=== PATIENT | female | born 1970 | race Caucasian/White ===

== ENCOUNTER → 2017-05-09 | Outpatient (CLI) | payer MEDICARE, OTHER ==
[~2017-05-09] MED LIST: /FENT25PA; /TAMS4CA; ADVAIR100 INHALATION; AMBI12.52 PO; AMIT25TA10 PO; AMIT50TA PO; BACTRIMDS PO; BUPR100T3 PO; BUPR50TA PO; CALCTAB5 PO; CELE40TA PO; CELEXA20 PO; CIPR-249 PO; CIPRO500 PO; CYCL10TA3 PO; DETR4CAP; DOXYCYC100 PO; DULO1CAP3 PO; DULO30CA PO; DULOXETINE DR PO; EFFE150C; EFFE75CA75; EFFEXORXL1 PO; EFFEXORXL7 PO; FLOMAX 0.4 PO; FLUO20CA19 PO; FOLI1TAB86 PO; GABA-283 PO; GABA300C2 PO; GABA800T PO; HYDR-3716 PO; HYDR50CA2 PO; IMIT50TA PO; INVE234I IM; K-DUR10 PO; LEVO125T6; LEVO150T7 PO; LEVO175T2 PO; LEVO25TA2; LEVO50TA2; LEVOXYL50 PO; LEXAPRO10 PO; LIDO1DIS2 TD; LOTRIMIN; LOVENOX40 SQ; MAXALT PO; MELO15TA3 PO; META28.35 PO; MINI1CAP PO; MOM; MOTRIN400 PO; NAPROSY500 PO; NEUR300C; NEUR300C PO; NEURONTIN6 PO; NICO14DI20 TD; NUCY100T6 PO; OMEP40CA2 PO; OXYC-208 PO; OXYC1SOL PO; PENVK500 PO; PERC5TAB8 PO; PRAZ2CAP PO; PROP10TA56 PO; PROP40TA PO; PROZ20CA11 PO; PSYLLIUM PO; RISP0.5T21 PO; RISP25INJ IM; RISP2TAB3 PO; SEPT800T; SIMV20TA2 PO; SOMA350T PO; SYNT175T2 PO; TESSALO100 PO; TOPAMAX25 PO; TORADOL PO; TRAZ-136 PO; TRAZ10TA PO; TRAZ1TAB14 PO; TRAZ50TA11 PO; Tizanidine Hcl PO; ULTR50TA PO; VENL75TA2; VICO5TAB; VICO5TAB PO; VICOBULK PO; VICODIN PO; VICODIN-ES PO; VICODIN10 PO; VICODIN7.5 PO; VITAD1000T PO; VOLT1GEL2 TD; VYTORIN10 PO; XANA0.5T PO; XANA2TAB2 PO; XANAX0.5 PO; ZYPR15TA PO; ZYPR5TAB2 PO; ZYRT10CA PO; [UNRECOGNIZED DRUG - OTHER] PO; [UNRECOGNIZED DRUG - OTHER] PO; butrans patch TOP
[2017-05-09 11:22] LABS: MEAN CORPUSCULAR HEMOGLOBIN 31.3 pg (27.0-33.0); MEAN CORPUSCULAR HGB CONC 33.8 g/dl (32.0-36.5); MEAN CORPUSCULAR VOLUME 92.5 fl (80.0-96.0); RED CELL DISTRIBUTION WIDTH 13.7 % (11.5-14.5); WHITE BLOOD COUNT 5.5 K/mm3 (4.0-10.0)
--- NOTE | 2017-05-09 12:25 | REP ---
Chest two views HISTORY: Hypertension Comparison: 09/08/2015 The lungs are clear. The heart is normal in size. The pulmonary vasculature is normal in appearance. The bony structure is intact. IMPRESSION: No acute disease. Signed by Xavier Girard MD 05/09/2017 12:16 P
[2017-05-09 12:31] LABS: ALBUMIN 3.8 GM/DL (3.2-5.2); ALBUMIN/GLOBULIN RATIO 1.09 (1.00-1.93); ALKALINE PHOSPHATASE 137 U/L (45-117); ALT/SGPT 25 U/L (12-78); ANION GAP 8 MEQ/L (8-16); AST/SGOT 17 U/L (15-37); BILIRUBIN,TOTAL 0.3 MG/DL (0.2-1.0); BLOOD UREA NITROGEN 4 MG/DL (7-18); CALCIUM LEVEL 9.2 MG/DL (8.5-10.1); CARBON DIOXIDE LEVEL 28 MEQ/L (21-32); CHLORIDE LEVEL 104 MEQ/L (98-107); CHOLESTEROL LEVEL 246 MG/DL (<200); CREATININE FOR GFR 0.86 MG/DL (0.55-1.02); GLOMERULAR FILTRATION RATE > 60.0 (>58); GLUCOSE, FASTING 149 MG/DL (70-105); POTASSIUM SERUM 3.5 MEQ/L (3.5-5.1); SODIUM LEVEL 140 MEQ/L (136-145); TOTAL PROTEIN 7.3 GM/DL (6.4-8.2); TRIGLYCERIDES LEVEL 395 MG/DL (<150)
--- NOTE | 2017-05-09 13:23 | ECGEPIP ---
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
== END ==
LOC: M LAB 10:42
PROVIDERS: ATTEND Family Medicine
DX: I10 Essential (primary) hypertension (principal); R53.83 Other fatigue; E03.9 Hypothyroidism, unspecified

== ENCOUNTER → 2017-05-14 | Outpatient (CLI) | payer MEDICARE, OTHER | LOC: M LAB 10:56 | PROVIDERS: ATTEND Nurse Practitioner Psychiatric/Mental Health | DX: Z79.899 Other long term (current) drug therapy (principal); F31.81 Bipolar II disorder ==

== ENCOUNTER → 2017-05-28 | Outpatient (CLI) | payer MEDICARE, OTHER ==
--- NOTE | 2017-05-28 12:51 | REPMRS ---
Patient History The patient states she had a clinical breast exam in February 2017.Family history of endometrial cancer in paternal grandmother at age 50 or over. Digital Mammo Screening Bilat: May 28, 2017 - Exam #: [id number] Bilateral CC and MLO view(s) were taken. Technologist: Laura Correa, Technologist Prior study comparison: February 25, 2012, bilateral digital mammo screening bilat performed at [facility]. February 15, 2011, bilateral bilat screen digital mammo, performed at [facility]. FINDINGS: The breast tissue is heterogeneously dense. This may lower the sensitivity of mammography. There is a moderate amount of heterogeneously dense fibroglandular tissue which is fairly symmetric. There is no interval development of dominant mass, architectural distortion, or clustered microcalcification typical of malignancy. There has been no change in the appearance of the mammogram from the prior studies. ASSESSMENT: BI-RADS/ACR category 1 mammogram. Negative. Recommendation Routine screening mammogram of both breasts in 1 year (for women over age 40). This mammogram was interpreted with the aid of an FDA-approved computer-aided dectection system. Electronically Signed By: Rickie Barrera MD 05/28/17 [id number]
== END ==
LOC: M RAD 11:53
PROVIDERS: ATTEND Family Medicine
DX: Z12.31 Encounter for screening mammogram for malignant neoplasm of breast (principal); Z80.42 Family history of malignant neoplasm of prostate

== ENCOUNTER 2017-12-17 09:07 | Inpatient (IN) | payer MEDICARE, OTHER ==
[2017-12-17 12:05] LABS: BASO % 0.2 % (0.0-1.0); EOS % 0.1 % (0.0-3.0); HEMATOCRIT 41.2 % (36.0-47.0); HEMOGLOBIN 14.3 g/dl (12.0-15.5); IMMATURE GRANULOCYTE % 1.6 % (0-3.0); LYMPH # 0.9 10^3/uL (1.5-4.5); LYMPH % 9.8 % (24.0-44.0); MEAN CORPUSCULAR HGB CONC 34.7 g/dl (32.0-36.5); MEAN CORPUSCULAR VOLUME 89.2 fl (80.0-96.0); MONO # 0.4 10^3/uL (0.0-0.8); MONO % 4.9 % (0.0-5.0); NEUTROPHILS # 7.4 10^3/uL (1.8-7.7); NEUTROPHILS % 83.4 % (36.0-66.0); PLATELET COUNT, AUTOMATED 323 10^3/uL (150-450); RED BLOOD COUNT 4.62 10^6/uL (4.00-5.40); WHITE BLOOD COUNT 8.8 10^3/uL (4.0-10.0)
[2017-12-17] MEDS: NS 1,000 ML IV ×2 (13:04→20:44)
[2017-12-17 13:18] LABS: BEDSIDE GLUCOSE 112 MG/DL (70-105)
[2017-12-17 13:25] LABS: KETONE, URINE AUTO RFX TRACE mg/dL (NEGATIVE); LEUKOCYTE ESTERASE UR AUTO RFX 3+ (NEGATIVE); MUCUS, URINE RFX SMALL (NEGATIVE); NITRITE, URINE AUTO RFX POSITIVE (NEGATIVE); RBC, URINE AUTO RFX 5 /HPF (0-3); SPECIFIC GRAVITY UR AUTO RFX 1.014 (1.002-1.035); SQUAM EPITHELIAL CELL UR AURFX 2 /HPF (0-6); WBC, URINE AUTO RFX 101 /HPF (0-3)
[2017-12-17 13:37] LABS: CONTROL LINE HCG INT CTR LINE PRESENT; HCG, SERUM QUALITATIVE NEGATIVE (NEGATIVE)
[2017-12-17 13:44] LABS: AMPHETAMINES LEVEL URINE NEGATIVE (NEGATIVE); BARBITURATES URINE NEGATIVE (NEGATIVE); BENZODIAZEPINES URINE NEGATIVE (NEGATIVE); CANNABINOIDS URINE POSITIVE (NEGATIVE); COCAINE METABOLITE URINE NEGATIVE (NEGATIVE); METHADONE URINE NEGATIVE (NEGATIVE); OPIATES URINE NEGATIVE (NEGATIVE); PHENCYCLIDINE URINE NEGATIVE (NEGATIVE)
[2017-12-17 13:49] LABS: AMMONIA 47 uMOL/L (<32)
[2017-12-17 13:49] LABS: CPK CREATINE PHOSPHOKINASE 107 U/L (26-192); SALICYLATE LEVEL < 1.7 MG/DL (5.0-30.0); TROPONIN I < 0.02 NG/ML (< 0.10)
[2017-12-17 13:54] LABS: CK-MB VALUE MASS 2.2 NG/ML (<3.6); MB/CK RELATIVE INDEX 2.05 (< OR =4)
[2017-12-17 13:55] LABS: ACETAMINOPHEN LEVEL < 2.0 UG/ML (10.0-30.0); ETHYL ALCOHOL (ETHANOL) < 0.003 % (0.000-0.010)
[2017-12-17] MEDS: CEFTRIAXONE SOD 1 GM in APPROPRIATE DILUENT 1 EA IV (14:17)
[2017-12-17 15:34] LABS: ALBUMIN 4.6 GM/DL (3.2-5.2); ALBUMIN/GLOBULIN RATIO 1.24 (1.00-1.93); ALKALINE PHOSPHATASE 303 U/L (45-117); ALT/SGPT 19 U/L (12-78); ANION GAP 12 MEQ/L (8-16); AST/SGOT 17 U/L (7-37); BILIRUBIN,TOTAL 0.7 MG/DL (0.2-1.0); BLOOD UREA NITROGEN 14 MG/DL (7-18); CALCIUM LEVEL 10.5 MG/DL (8.5-10.1); CARBON DIOXIDE LEVEL 23 MEQ/L (21-32); CHLORIDE LEVEL 96 MEQ/L (98-107); CREATININE FOR GFR 0.83 MG/DL (0.55-1.30); GLOMERULAR FILTRATION RATE > 60.0 (>58); GLUCOSE, FASTING 120 MG/DL (70-100); SODIUM LEVEL 131 MEQ/L (136-145); TOTAL PROTEIN 8.3 GM/DL (6.4-8.2)
[2017-12-17 15:43] LABS: POTASSIUM SERUM 2.7 MEQ/L (3.5-5.1)
[2017-12-17] MEDS: POTASSIUM CHLORIDE 10 MEQ SR TABLET PO (16:43)
[2017-12-17] MEDS: KCL 10MEQ/100ML SWI (KRUN) 10 MEQ in APPROPRIATE DILUENT 1 EA IV ×5 (17:33→23:41)
[2017-12-17 17:58] LABS: ANION GAP 9 MEQ/L (8-16); BLOOD UREA NITROGEN 12 MG/DL (7-18); CARBON DIOXIDE LEVEL 25 MEQ/L (21-32); CHLORIDE LEVEL 98 MEQ/L (98-107); CREATININE FOR GFR 0.79 MG/DL (0.55-1.30); GLOMERULAR FILTRATION RATE > 60.0 (>58); GLUCOSE, FASTING 113 MG/DL (70-100); POTASSIUM SERUM 2.7 MEQ/L (3.5-5.1); SODIUM LEVEL 132 MEQ/L (136-145)
[2017-12-17] MEDS ORDERED: ALPRAZolam 0.5 MG TAB PO (18:45)
[2017-12-17] MEDS: LEVOTHYROXINE 100 MCG (0.1MG) VIAL IV (20:43)
[2017-12-17 21:14] LABS: FREE T4 0.22 NG/DL (0.76-1.46)
[2017-12-17 21:14] LABS: FREE T3 0.8 PG/ML (2.2-4.0)
[2017-12-17 21:15] LABS: LITHIUM LEVEL 2.33 MEQ/L (0.60-1.20)
[2017-12-17] MEDS: PROPRANOLOL 20 MG TAB PO (21:16)
[2017-12-17] MEDS: PRAZOSIN 1 MG CAP PO (21:17)
[2017-12-17] MEDS: ALPRAZolam 0.25 MG TAB PO (21:20)
[2017-12-18 00:56] LABS: ANION GAP 5 MEQ/L (8-16); BLOOD UREA NITROGEN 10 MG/DL (7-18); CALCIUM LEVEL 9.6 MG/DL (8.5-10.1); CARBON DIOXIDE LEVEL 28 MEQ/L (21-32); CHLORIDE LEVEL 101 MEQ/L (98-107); CREATININE FOR GFR 0.78 MG/DL (0.55-1.30); GLOMERULAR FILTRATION RATE > 60.0 (>58); GLUCOSE, FASTING 115 MG/DL (70-100); POTASSIUM SERUM 3.3 MEQ/L (3.5-5.1); SODIUM LEVEL 134 MEQ/L (136-145)
[2017-12-18 01:15] LABS: LITHIUM LEVEL 2.34 MEQ/L (0.60-1.20)
[2017-12-18] MEDS: NS 1,000 ML IV ×2 (03:27→07:01)
[2017-12-18] MEDS: POTASSIUM CHLORIDE 10 MEQ SR TABLET PO (03:27)
[2017-12-18 05:18] LABS: ANION GAP 5 MEQ/L (8-16); BLOOD UREA NITROGEN 10 MG/DL (7-18); CARBON DIOXIDE LEVEL 25 MEQ/L (21-32); CHLORIDE LEVEL 104 MEQ/L (98-107); CPK CREATINE PHOSPHOKINASE 60 U/L (26-192); CREATININE FOR GFR 0.67 MG/DL (0.55-1.30); GLOMERULAR FILTRATION RATE > 60.0 (>58); GLUCOSE, FASTING 121 MG/DL (70-100); MAGNESIUM LEVEL 2.6 MG/DL (1.8-2.4); POTASSIUM SERUM 3.8 MEQ/L (3.5-5.1); SODIUM LEVEL 134 MEQ/L (136-145); TROPONIN I < 0.02 NG/ML (< 0.10)
[2017-12-18 05:20] LABS: CK-MB VALUE MASS < 1.0 NG/ML (<3.6); MB/CK RELATIVE INDEX 1.66 (< OR =4)
[2017-12-18 05:30] LABS: LITHIUM LEVEL 2.32 MEQ/L (0.60-1.20)
[2017-12-18] MEDS ORDERED: DULoxetine 30 MG CAP (CYMBALTA) PO (09:00)
[2017-12-18] MEDS: ENOXAPARIN 40 MG/0.4 ML SYRINGE (J1650) SC (09:21)
[2017-12-18] MEDS: DULoxetine 30 MG CAP (CYMBALTA) PO (09:21)
[2017-12-18] MEDS: LEVOTHYROXINE 100 MCG (0.1MG) VIAL IV (09:21)
[2017-12-18] MEDS: PROPRANOLOL 20 MG TAB PO ×2 (09:21→21:30)
[2017-12-18] MEDS: OMEPRAZOLE 20 MG CAP PO (09:21)
[2017-12-18 10:16] LABS: BASO % 0.2 % (0.0-1.0); EOS % 0.5 % (0.0-3.0); HEMOGLOBIN 12.4 g/dl (12.0-15.5); IMMATURE GRANULOCYTE % 0.9 % (0-3.0); LYMPH % 12.2 % (24.0-44.0); MEAN CORPUSCULAR HEMOGLOBIN 31.5 pg (27.0-33.0); MEAN CORPUSCULAR HGB CONC 34.4 g/dl (32.0-36.5); MEAN CORPUSCULAR VOLUME 91.4 fl (80.0-96.0); MONO # 0.5 10^3/uL (0.0-0.8); MONO % 6.4 % (0.0-5.0); NEUTROPHILS # 6.8 10^3/uL (1.8-7.7); NEUTROPHILS % 79.8 % (36.0-66.0); PLATELET COUNT, AUTOMATED 309 10^3/uL (150-450); RED BLOOD COUNT 3.94 10^6/uL (4.00-5.40); RED CELL DISTRIBUTION WIDTH 14.5 % (11.5-14.5); WHITE BLOOD COUNT 8.5 10^3/uL (4.0-10.0)
[2017-12-18 10:38] LABS: AMMONIA 31 uMOL/L (<32)
[2017-12-18 10:41] LABS: ALBUMIN 3.7 GM/DL (3.2-5.2); ALBUMIN/GLOBULIN RATIO 1.16 (1.00-1.93); ALKALINE PHOSPHATASE 261 U/L (45-117); ALT/SGPT 20 U/L (12-78); AST/SGOT 17 U/L (7-37); BILIRUBIN,DIRECT 0.1 MG/DL (0.0-0.2); BILIRUBIN,TOTAL 0.4 MG/DL (0.2-1.0); C REACTIVE PROTEIN QUANTITATIV < 0.30 MG/DL (0.00-0.30); TOTAL PROTEIN 6.9 GM/DL (6.4-8.2)
[2017-12-18 10:44] LABS: ABG BASE EXCESS -0.8 (-2.0-2.0); ABG HCO3 21.8 MEQ/L (22.0-26.0); ABG O2 SATURATION 94.5 % (95.0-99.0); ABG PARTIAL PRESSURE CO2 30.5 mmHg (35.0-45.0); ABG PARTIAL PRESSURE O2 66.2 mmHg (75.0-100.0); ABG STANDARD HCO3 23.7 MEQ/L (22.0-26.0); ABG TOTAL CO2 22.8 MEQ/L (22.0-29.0); ABG pH (ARTERIAL) 7.473 UNITS (7.350-7.450)
[2017-12-18 11:04] LABS: ERYTHROCYTE SEDIMENTATION RATE 10 mm/hr (0-20)
[2017-12-18 11:06] LABS: LITHIUM LEVEL 2.07 MEQ/L (0.60-1.20)
[2017-12-18] MEDS ORDERED: HEPARIN 1,000 UNITS/ML 10ML VIAL (FOR RADIOLOGY& DIALYSIS ONLY) As Ordered (11:51)
[2017-12-18] MEDS ORDERED: LIDOCAINE 2% MDV 20 ML VIAL As Ordered (12:46)
[2017-12-18 13:07] LABS: LITHIUM LEVEL 1.99 MEQ/L (0.60-1.20)
[2017-12-18 15:36] LABS: LITHIUM LEVEL 1.77 MEQ/L (0.60-1.20)
[2017-12-18 16:57] LABS: LITHIUM LEVEL 0.76 MEQ/L (0.60-1.20)
[2017-12-18 19:53] LABS: LITHIUM LEVEL 1.09 MEQ/L (0.60-1.20)
[2017-12-18] MEDS: ALPRAZolam 0.25 MG TAB PO (21:29)
[2017-12-18] MEDS: PRAZOSIN 1 MG CAP PO (21:29)
[2017-12-18 21:45] LABS: LITHIUM LEVEL 1.07 MEQ/L (0.60-1.20)
[2017-12-18 23:57] LABS: LITHIUM LEVEL 1.15 MEQ/L (0.60-1.20)
[2017-12-19 01:28] LABS: ANION GAP 6 MEQ/L (8-16); BLOOD UREA NITROGEN 6 MG/DL (7-18); CALCIUM LEVEL 8.7 MG/DL (8.5-10.1); CARBON DIOXIDE LEVEL 28 MEQ/L (21-32); CHLORIDE LEVEL 106 MEQ/L (98-107); CREATININE FOR GFR 0.62 MG/DL (0.55-1.30); GLOMERULAR FILTRATION RATE > 60.0 (>58); GLUCOSE, FASTING 116 MG/DL (70-100); SODIUM LEVEL 140 MEQ/L (136-145)
[2017-12-19 01:33] LABS: LITHIUM LEVEL 1.15 MEQ/L (0.60-1.20)
[2017-12-19] MEDS: NS 1,000 ML IV ×2 (01:49→08:32)
[2017-12-19 04:50] LABS: BASO % 0.3 % (0.0-1.0); EOS # 0.1 10^3/uL (0.0-0.50); HEMOGLOBIN 10.7 g/dl (12.0-15.5); IMMATURE GRANULOCYTE % 0.5 % (0-3.0); LYMPH # 1.4 10^3/uL (1.5-4.5); LYMPH % 22.4 % (24.0-44.0); MEAN CORPUSCULAR HEMOGLOBIN 31.5 pg (27.0-33.0); MEAN CORPUSCULAR HGB CONC 33.4 g/dl (32.0-36.5); MEAN CORPUSCULAR VOLUME 94.1 fl (80.0-96.0); MONO # 0.6 10^3/uL (0.0-0.8); MONO % 9.3 % (0.0-5.0); NEUTROPHILS # 4.2 10^3/uL (1.8-7.7); NEUTROPHILS % 66.5 % (36.0-66.0); PLATELET COUNT, AUTOMATED 226 10^3/uL (150-450); RED CELL DISTRIBUTION WIDTH 14.8 % (11.5-14.5); WHITE BLOOD COUNT 6.3 10^3/uL (4.0-10.0)
[2017-12-19 05:16] LABS: BLOOD UREA NITROGEN 7 MG/DL (7-18); CHLORIDE LEVEL 107 MEQ/L (98-107); POTASSIUM SERUM 3.1 MEQ/L (3.5-5.1); SODIUM LEVEL 141 MEQ/L (136-145)
[2017-12-19 05:23] LABS: ANION GAP 6 MEQ/L (8-16); CALCIUM LEVEL 8.7 MG/DL (8.5-10.1); CARBON DIOXIDE LEVEL 28 MEQ/L (21-32); CREATININE FOR GFR 0.58 MG/DL (0.55-1.30); GLOMERULAR FILTRATION RATE > 60.0 (>58); GLUCOSE, FASTING 123 MG/DL (70-100)
[2017-12-19 05:34] LABS: LITHIUM LEVEL 1.13 MEQ/L (0.60-1.20)
[2017-12-19 08:02] LABS: LITHIUM LEVEL 1.14 MEQ/L (0.60-1.20)
[2017-12-19] MEDS: POTASSIUM CHLORIDE 10 MEQ SR TABLET PO (08:35)
[2017-12-19] MEDS: DULoxetine 30 MG CAP (CYMBALTA) PO (08:37)
[2017-12-19] MEDS: OMEPRAZOLE 20 MG CAP PO (08:37)
[2017-12-19] MEDS: ENOXAPARIN 40 MG/0.4 ML SYRINGE (J1650) SC (08:38)
[2017-12-19] MEDS: LEVOTHYROXINE 100 MCG (0.1MG) VIAL IV (08:40)
[2017-12-19] MEDS: INFLUENZA QUADRIVALENT PF VACCINE 0.5ML SYRINGE (90686) IM (08:40)
[2017-12-19] MEDS: PROPRANOLOL 20 MG TAB PO ×2 (08:59→20:36)
[2017-12-19] MEDS: ONDANSETRON 4MG/2ML VIAL (J2405) IV (09:29)
[2017-12-19 10:03] LABS: LITHIUM LEVEL 1.07 MEQ/L (0.60-1.20)
[2017-12-19] MEDS: CEFTRIAXONE SOD 1 GM in APPROPRIATE DILUENT 1 EA IV (10:36)
[2017-12-19 11:51] LABS: LITHIUM LEVEL 1.06 MEQ/L (0.60-1.20)
[2017-12-19] MEDS: KCL 20MEQ IN 0.45NS 1000ML 1,000 ML IV (13:35)
[2017-12-19 14:00] LABS: LITHIUM LEVEL 1.05 MEQ/L (0.60-1.20)
[2017-12-19 15:29] LABS: INR 0.99; PROTHROMBIN TIME 13.2 SECONDS (12.4-14.5)
[2017-12-19 15:48] LABS: LITHIUM LEVEL 1.06 MEQ/L (0.60-1.20)
[2017-12-19] MEDS: ALPRAZolam 0.25 MG TAB PO (17:35)
[2017-12-19 18:17] LABS: ANION GAP 6 MEQ/L (8-16); BLOOD UREA NITROGEN 9 MG/DL (7-18); CALCIUM LEVEL 9.3 MG/DL (8.5-10.1); CARBON DIOXIDE LEVEL 25 MEQ/L (21-32); CHLORIDE LEVEL 108 MEQ/L (98-107); CREATININE FOR GFR 0.66 MG/DL (0.55-1.30); GLOMERULAR FILTRATION RATE > 60.0 (>58); GLUCOSE, FASTING 159 MG/DL (70-100); POTASSIUM SERUM 3.6 MEQ/L (3.5-5.1); SODIUM LEVEL 139 MEQ/L (136-145)
[2017-12-19 18:24] LABS: LITHIUM LEVEL 0.96 MEQ/L (0.60-1.20)
[2017-12-19 19:20] LABS: LITHIUM LEVEL 0.95 MEQ/L (0.60-1.20)
[2017-12-19] MEDS: PRAZOSIN 1 MG CAP PO (20:36)
[2017-12-19 22:27] LABS: LITHIUM LEVEL 0.89 MEQ/L (0.60-1.20)
[2017-12-20 05:27] LABS: BASO % 0.2 % (0.0-1.0); EOS # 0.1 10^3/uL (0.0-0.50); EOS % 1.5 % (0.0-3.0); HEMATOCRIT 30.9 % (36.0-47.0); HEMOGLOBIN 10.2 g/dl (12.0-15.5); IMMATURE GRANULOCYTE % 0.8 % (0-3.0); LYMPH # 1.9 10^3/uL (1.5-4.5); LYMPH % 31.8 % (24.0-44.0); MEAN CORPUSCULAR HEMOGLOBIN 31.2 pg (27.0-33.0); MEAN CORPUSCULAR VOLUME 94.5 fl (80.0-96.0); MONO # 0.4 10^3/uL (0.0-0.8); MONO % 6.9 % (0.0-5.0); NEUTROPHILS # 3.6 10^3/uL (1.8-7.7); NEUTROPHILS % 58.8 % (36.0-66.0); PLATELET COUNT, AUTOMATED 204 10^3/uL (150-450); RED BLOOD COUNT 3.27 10^6/uL (4.00-5.40); RED CELL DISTRIBUTION WIDTH 15.5 % (11.5-14.5); WHITE BLOOD COUNT 6.1 10^3/uL (4.0-10.0)
[2017-12-20 05:51] LABS: ANION GAP 5 MEQ/L (8-16); BLOOD UREA NITROGEN 8 MG/DL (7-18); CALCIUM LEVEL 8.6 MG/DL (8.5-10.1); CARBON DIOXIDE LEVEL 26 MEQ/L (21-32); CHLORIDE LEVEL 109 MEQ/L (98-107); CREATININE FOR GFR 0.68 MG/DL (0.55-1.30); GLOMERULAR FILTRATION RATE > 60.0 (>58); GLUCOSE, FASTING 118 MG/DL (70-100); POTASSIUM SERUM 3.6 MEQ/L (3.5-5.1); SODIUM LEVEL 140 MEQ/L (136-145)
[2017-12-20 06:09] LABS: LITHIUM LEVEL 0.92 MEQ/L (0.60-1.20)
[2017-12-20] MEDS: PROPRANOLOL 20 MG TAB PO ×2 (09:00→21:27)
[2017-12-20] MEDS: ENOXAPARIN 40 MG/0.4 ML SYRINGE (J1650) SC (09:00)
[2017-12-20] MEDS: OMEPRAZOLE 20 MG CAP PO (11:02)
[2017-12-20] MEDS: DULoxetine 30 MG CAP (CYMBALTA) PO (11:02)
[2017-12-20] MEDS: KCL 20MEQ IN 0.45NS 1000ML 1,000 ML IV ×2 (11:03→12:02)
[2017-12-20] MEDS: LEVOTHYROXINE 100 MCG (0.1MG) VIAL IV ×2 (11:04→12:02)
[2017-12-20] MEDS: CEFTRIAXONE SOD 1 GM in APPROPRIATE DILUENT 1 EA IV ×2 (11:04→12:02)
[2017-12-20 12:26] LABS: AMMONIA < 10 uMOL/L (<32)
[2017-12-20 12:32] LABS: LITHIUM LEVEL 0.85 MEQ/L (0.60-1.20)
[2017-12-20 12:36] LABS: ALBUMIN 3.3 GM/DL (3.2-5.2); ALBUMIN/GLOBULIN RATIO 1.22 (1.00-1.93); ALKALINE PHOSPHATASE 211 U/L (45-117); ALT/SGPT 18 U/L (12-78); AST/SGOT 13 U/L (7-37); BILIRUBIN,DIRECT 0.1 MG/DL (0.0-0.2); BILIRUBIN,TOTAL 0.3 MG/DL (0.2-1.0)
[2017-12-20] MEDS: PRAZOSIN 1 MG CAP PO (21:26)
[2017-12-21] MEDS: SODIUM CHLORIDE 0.9% INJ 10 ML SYR IV ×2 (05:31→17:15)
[2017-12-21 07:05] LABS: BASO % 0.4 % (0.0-1.0); EOS # 0.1 10^3/uL (0.0-0.50); EOS % 1.8 % (0.0-3.0); HEMATOCRIT 32.3 % (36.0-47.0); HEMOGLOBIN 10.7 g/dl (12.0-15.5); IMMATURE GRANULOCYTE % 0.9 % (0-3.0); LYMPH # 1.6 10^3/uL (1.5-4.5); LYMPH % 28.6 % (24.0-44.0); MEAN CORPUSCULAR HEMOGLOBIN 30.9 pg (27.0-33.0); MEAN CORPUSCULAR HGB CONC 33.1 g/dl (32.0-36.5); MEAN CORPUSCULAR VOLUME 93.4 fl (80.0-96.0); MONO # 0.4 10^3/uL (0.0-0.8); MONO % 7.4 % (0.0-5.0); NEUTROPHILS # 3.4 10^3/uL (1.8-7.7); NEUTROPHILS % 60.9 % (36.0-66.0); PLATELET COUNT, AUTOMATED 221 10^3/uL (150-450); RED BLOOD COUNT 3.46 10^6/uL (4.00-5.40); RED CELL DISTRIBUTION WIDTH 15.1 % (11.5-14.5); WHITE BLOOD COUNT 5.5 10^3/uL (4.0-10.0)
[2017-12-21 07:08] LABS: ANION GAP 7 MEQ/L (8-16); BLOOD UREA NITROGEN 6 MG/DL (7-18); CALCIUM LEVEL 9.1 MG/DL (8.5-10.1); CARBON DIOXIDE LEVEL 25 MEQ/L (21-32); CHLORIDE LEVEL 106 MEQ/L (98-107); CREATININE FOR GFR 0.61 MG/DL (0.55-1.30); GLOMERULAR FILTRATION RATE > 60.0 (>58); GLUCOSE, FASTING 115 MG/DL (70-100); POTASSIUM SERUM 3.4 MEQ/L (3.5-5.1); SODIUM LEVEL 138 MEQ/L (136-145)
[2017-12-21 07:34] LABS: LITHIUM LEVEL 0.57 MEQ/L (0.60-1.20)
[2017-12-21] MEDS: LEVOTHYROXINE 100 MCG (0.1MG) VIAL IV (08:09)
[2017-12-21] MEDS: PROPRANOLOL 20 MG TAB PO ×2 (08:12→20:25)
[2017-12-21] MEDS: ENOXAPARIN 40 MG/0.4 ML SYRINGE (J1650) SC (08:12)
[2017-12-21] MEDS: OMEPRAZOLE 20 MG CAP PO (08:12)
[2017-12-21] MEDS: DULoxetine 30 MG CAP (CYMBALTA) PO (08:12)
[2017-12-21] MEDS: cefTRIAXone SOD 1 GM in D5W MINI-BAG PLUS 50 ML IV (09:01)
[2017-12-21] MEDS: POTASSIUM CHLORIDE 10 MEQ SR TABLET PO (09:01)
[2017-12-21] MEDS: KCL 20MEQ IN 0.45NS 1000ML 1,000 ML IV (11:51)
[2017-12-21] MEDS: predniSONE 20 MG TAB PO (12:21)
[2017-12-21] MEDS: PRAZOSIN 1 MG CAP PO (20:25)
[2017-12-22] MEDS: SODIUM CHLORIDE 0.9% INJ 10 ML SYR IV ×2 (05:25→17:12)
[2017-12-22 05:36] LABS: BASO % 0.2 % (0.0-1.0); EOS % 0.5 % (0.0-3.0); HEMATOCRIT 31.2 % (36.0-47.0); HEMOGLOBIN 10.5 g/dl (12.0-15.5); IMMATURE GRANULOCYTE % 0.8 % (0-3.0); LYMPH # 1.8 10^3/uL (1.5-4.5); LYMPH % 29.1 % (24.0-44.0); MEAN CORPUSCULAR HEMOGLOBIN 31.7 pg (27.0-33.0); MEAN CORPUSCULAR HGB CONC 33.7 g/dl (32.0-36.5); MEAN CORPUSCULAR VOLUME 94.3 fl (80.0-96.0); MONO # 0.5 10^3/uL (0.0-0.8); MONO % 7.4 % (0.0-5.0); NEUTROPHILS # 3.9 10^3/uL (1.8-7.7); PLATELET COUNT, AUTOMATED 220 10^3/uL (150-450); RED BLOOD COUNT 3.31 10^6/uL (4.00-5.40); RED CELL DISTRIBUTION WIDTH 15.4 % (11.5-14.5); WHITE BLOOD COUNT 6.2 10^3/uL (4.0-10.0)
[2017-12-22 05:57] LABS: ANION GAP 7 MEQ/L (8-16); BLOOD UREA NITROGEN 5 MG/DL (7-18); CARBON DIOXIDE LEVEL 25 MEQ/L (21-32); CHLORIDE LEVEL 108 MEQ/L (98-107); CREATININE FOR GFR 0.63 MG/DL (0.55-1.30); GLOMERULAR FILTRATION RATE > 60.0 (>58); GLUCOSE, FASTING 114 MG/DL (70-100); POTASSIUM SERUM 3.6 MEQ/L (3.5-5.1); SODIUM LEVEL 140 MEQ/L (136-145)
[2017-12-22] MEDS: POTASSIUM CHLORIDE 10 MEQ SR TABLET PO (06:44)
[2017-12-22] MEDS: PROPRANOLOL 20 MG TAB PO ×2 (07:51→22:00)
[2017-12-22] MEDS: DULoxetine 30 MG CAP (CYMBALTA) PO (07:52)
[2017-12-22] MEDS: ENOXAPARIN 40 MG/0.4 ML SYRINGE (J1650) SC (07:52)
[2017-12-22] MEDS: LEVOTHYROXINE 100 MCG (0.1MG) VIAL IV (07:52)
[2017-12-22] MEDS: OMEPRAZOLE 20 MG CAP PO (07:52)
[2017-12-22] MEDS: predniSONE 20 MG TAB PO (07:52)
[2017-12-22] MEDS: KCL 20MEQ IN 0.45NS 1000ML 1,000 ML IV (07:53)
[2017-12-22] MEDS: PRAZOSIN 1 MG CAP PO (22:01)
[2017-12-23] MEDS: SODIUM CHLORIDE 0.9% INJ 10 ML SYR IV ×2 (04:42→17:15)
[2017-12-23 04:54] LABS: BASO % 0.2 % (0.0-1.0); EOS # 0.1 10^3/uL (0.0-0.50); HEMATOCRIT 30.3 % (36.0-47.0); HEMOGLOBIN 10.1 g/dl (12.0-15.5); IMMATURE GRANULOCYTE % 0.7 % (0-3.0); LYMPH # 2.2 10^3/uL (1.5-4.5); LYMPH % 37.1 % (24.0-44.0); MEAN CORPUSCULAR HEMOGLOBIN 31.6 pg (27.0-33.0); MEAN CORPUSCULAR HGB CONC 33.3 g/dl (32.0-36.5); MEAN CORPUSCULAR VOLUME 94.7 fl (80.0-96.0); MONO # 0.4 10^3/uL (0.0-0.8); MONO % 6.6 % (0.0-5.0); NEUTROPHILS # 3.2 10^3/uL (1.8-7.7); NEUTROPHILS % 54.4 % (36.0-66.0); PLATELET COUNT, AUTOMATED 207 10^3/uL (150-450); RED CELL DISTRIBUTION WIDTH 15.6 % (11.5-14.5); WHITE BLOOD COUNT 5.8 10^3/uL (4.0-10.0)
[2017-12-23 05:13] LABS: BLOOD UREA NITROGEN 7 MG/DL (7-18); CALCIUM LEVEL 8.8 MG/DL (8.5-10.1); CARBON DIOXIDE LEVEL 27 MEQ/L (21-32); CHLORIDE LEVEL 108 MEQ/L (98-107); GLOMERULAR FILTRATION RATE > 60.0 (>58); GLUCOSE, FASTING 112 MG/DL (70-100)
[2017-12-23 05:27] LABS: ANION GAP 5 MEQ/L (8-16); SODIUM LEVEL 140 MEQ/L (136-145)
[2017-12-23 05:31] LABS: POTASSIUM SERUM 2.9 MEQ/L (3.5-5.1)
[2017-12-23] MEDS: LEVOTHYROXINE 75MCG TABLET (0.075MG) PO (06:13)
[2017-12-23] MEDS: POTASSIUM CHLORIDE 10 MEQ SR TABLET PO ×2 (06:13→07:20)
[2017-12-23 07:19] LABS: MAGNESIUM LEVEL 2.2 MG/DL (1.8-2.4)
[2017-12-23 08:06] LABS: FREE THYROXINE INDEX 2.3 % (1.3-4.8); T UPTAKE 29 % (30-39); THYROXINE (T4) 8.1 UG/DL (4.5-12.0)
[2017-12-23] MEDS: PROPRANOLOL 20 MG TAB PO ×2 (08:53→20:15)
[2017-12-23] MEDS: OMEPRAZOLE 20 MG CAP PO (08:53)
[2017-12-23] MEDS: ENOXAPARIN 40 MG/0.4 ML SYRINGE (J1650) SC (08:53)
[2017-12-23] MEDS: predniSONE 20 MG TAB PO (08:53)
[2017-12-23] MEDS: DULoxetine 30 MG CAP (CYMBALTA) PO (08:53)
[2017-12-23 08:56] LABS: THYROID PEROXIDASE ANTIBODY > 1300.0 U/ML (<60.0)
[2017-12-23 08:57] LABS: THYROGLOBULIN ANTIBODY 275.9 U/ML (<60.0)
[2017-12-23] MEDS: PRAZOSIN 1 MG CAP PO (20:15)
[2017-12-23 20:38] LABS: POTASSIUM SERUM 3.7 MEQ/L (3.5-5.1)
[2017-12-24] MEDS: SODIUM CHLORIDE 0.9% INJ 10 ML SYR IV ×2 (05:55→17:25)
[2017-12-24] MEDS: LEVOTHYROXINE 75MCG TABLET (0.075MG) PO (06:00)
[2017-12-24 06:38] LABS: BASO % 0.3 % (0.0-1.0); EOS # 0.1 10^3/uL (0.0-0.50); EOS % 1.1 % (0.0-3.0); HEMATOCRIT 31.4 % (36.0-47.0); HEMOGLOBIN 10.3 g/dl (12.0-15.5); IMMATURE GRANULOCYTE % 1.4 % (0-3.0); LYMPH # 2.2 10^3/uL (1.5-4.5); LYMPH % 34.2 % (24.0-44.0); MEAN CORPUSCULAR HEMOGLOBIN 30.9 pg (27.0-33.0); MEAN CORPUSCULAR HGB CONC 32.8 g/dl (32.0-36.5); MEAN CORPUSCULAR VOLUME 94.3 fl (80.0-96.0); MONO # 0.4 10^3/uL (0.0-0.8); MONO % 6.6 % (0.0-5.0); NEUTROPHILS # 3.7 10^3/uL (1.8-7.7); NEUTROPHILS % 56.4 % (36.0-66.0); PLATELET COUNT, AUTOMATED 237 10^3/uL (150-450); RED BLOOD COUNT 3.33 10^6/uL (4.00-5.40); RED CELL DISTRIBUTION WIDTH 15.7 % (11.5-14.5); WHITE BLOOD COUNT 6.5 10^3/uL (4.0-10.0)
[2017-12-24 06:51] LABS: ANION GAP 10 MEQ/L (8-16); BLOOD UREA NITROGEN 6 MG/DL (7-18); CARBON DIOXIDE LEVEL 25 MEQ/L (21-32); CHLORIDE LEVEL 106 MEQ/L (98-107); GLOMERULAR FILTRATION RATE > 60.0 (>58); GLUCOSE, FASTING 131 MG/DL (70-100); POTASSIUM SERUM 2.9 MEQ/L (3.5-5.1); SODIUM LEVEL 141 MEQ/L (136-145)
[2017-12-24] MEDS: DULoxetine 30 MG CAP (CYMBALTA) PO (08:46)
[2017-12-24] MEDS: POTASSIUM CHLORIDE 10 MEQ SR TABLET PO ×3 (08:46→20:40)
[2017-12-24] MEDS: OMEPRAZOLE 20 MG CAP PO (08:46)
[2017-12-24] MEDS: methylPREDNISolone 1,000 MG, VIAL MATE ADAPTER 1 EACH in D5W 250 ML IV (08:47)
[2017-12-24] MEDS: ENOXAPARIN 40 MG/0.4 ML SYRINGE (J1650) SC (08:47)
[2017-12-24] MEDS: PROPRANOLOL 20 MG TAB PO ×2 (08:48→21:06)
[2017-12-24] MEDS: PRAZOSIN 1 MG CAP PO (20:41)
[2017-12-25 05:18] LABS: BASO % 0.1 % (0.0-1.0); HEMATOCRIT 30.6 % (36.0-47.0); HEMOGLOBIN 10.1 g/dl (12.0-15.5); IMMATURE GRANULOCYTE % 1.6 % (0-3.0); LYMPH # 1.6 10^3/uL (1.5-4.5); LYMPH % 17.8 % (24.0-44.0); MEAN CORPUSCULAR HEMOGLOBIN 31.2 pg (27.0-33.0); MEAN CORPUSCULAR VOLUME 94.4 fl (80.0-96.0); MONO # 0.6 10^3/uL (0.0-0.8); MONO % 6.2 % (0.0-5.0); NEUTROPHILS # 6.6 10^3/uL (1.8-7.7); NEUTROPHILS % 74.3 % (36.0-66.0); PLATELET COUNT, AUTOMATED 244 10^3/uL (150-450); RED BLOOD COUNT 3.24 10^6/uL (4.00-5.40); RED CELL DISTRIBUTION WIDTH 15.3 % (11.5-14.5); WHITE BLOOD COUNT 8.9 10^3/uL (4.0-10.0)
[2017-12-25 05:29] LABS: ANION GAP 7 MEQ/L (8-16); BLOOD UREA NITROGEN 8 MG/DL (7-18); CALCIUM LEVEL 9.3 MG/DL (8.5-10.1); CARBON DIOXIDE LEVEL 26 MEQ/L (21-32); CHLORIDE LEVEL 106 MEQ/L (98-107); CREATININE FOR GFR 0.62 MG/DL (0.55-1.30); GLOMERULAR FILTRATION RATE > 60.0 (>58); GLUCOSE, FASTING 120 MG/DL (70-100); POTASSIUM SERUM 4.6 MEQ/L (3.5-5.1); SODIUM LEVEL 139 MEQ/L (136-145)
[2017-12-25] MEDS: LEVOTHYROXINE 75MCG TABLET (0.075MG) PO (05:32)
[2017-12-25] MEDS: SODIUM CHLORIDE 0.9% INJ 10 ML SYR IV ×3 (06:00→17:47)
[2017-12-25] MEDS ORDERED: methylPREDNISolone INJ 125 MG/2 ML VIAL (J2930) IV (09:00)
[2017-12-25] MEDS: OMEPRAZOLE 20 MG CAP PO (09:10)
[2017-12-25] MEDS: ACETAMINOPHEN TAB 650MG DOSE (2X325MG) PO ×2 (09:10→17:48)
[2017-12-25] MEDS: POTASSIUM CHLORIDE 10 MEQ SR TABLET PO (09:11)
[2017-12-25] MEDS: methylPREDNISolone 250 MG in D5W 50 ML IV (09:11)
[2017-12-25] MEDS: DULoxetine 30 MG CAP (CYMBALTA) PO (09:11)
[2017-12-25] MEDS: ENOXAPARIN 40 MG/0.4 ML SYRINGE (J1650) SC (09:12)
[2017-12-25] MEDS: PROPRANOLOL 20 MG TAB PO ×2 (12:00→20:10)
[2017-12-25] MEDS: PRAZOSIN 1 MG CAP PO (20:11)
[2017-12-26] MEDS: LEVOTHYROXINE 75MCG TABLET (0.075MG) PO (05:34)
[2017-12-26] MEDS: SODIUM CHLORIDE 0.9% INJ 10 ML SYR IV ×3 (05:35→17:34)
[2017-12-26 07:36] LABS: BASO % 0.1 % (0.0-1.0); EOS % 0.1 % (0.0-3.0); HEMATOCRIT 31.7 % (36.0-47.0); HEMOGLOBIN 10.6 g/dl (12.0-15.5); IMMATURE GRANULOCYTE % 1.2 % (0-3.0); LYMPH # 2.3 10^3/uL (1.5-4.5); LYMPH % 30.6 % (24.0-44.0); MEAN CORPUSCULAR HEMOGLOBIN 31.5 pg (27.0-33.0); MEAN CORPUSCULAR HGB CONC 33.4 g/dl (32.0-36.5); MEAN CORPUSCULAR VOLUME 94.1 fl (80.0-96.0); MONO # 0.5 10^3/uL (0.0-0.8); MONO % 7.1 % (0.0-5.0); NEUTROPHILS # 4.6 10^3/uL (1.8-7.7); NEUTROPHILS % 60.9 % (36.0-66.0); PLATELET COUNT, AUTOMATED 234 10^3/uL (150-450); RED BLOOD COUNT 3.37 10^6/uL (4.00-5.40); RED CELL DISTRIBUTION WIDTH 15.7 % (11.5-14.5); WHITE BLOOD COUNT 7.6 10^3/uL (4.0-10.0)
[2017-12-26] MEDS: ACETAMINOPHEN TAB 650MG DOSE (2X325MG) PO (07:51)
[2017-12-26] MEDS: DULoxetine 30 MG CAP (CYMBALTA) PO (07:52)
[2017-12-26] MEDS: PROPRANOLOL 20 MG TAB PO ×2 (07:52→21:21)
[2017-12-26] MEDS: OMEPRAZOLE 20 MG CAP PO (07:52)
[2017-12-26] MEDS: ENOXAPARIN 40 MG/0.4 ML SYRINGE (J1650) SC (07:53)
[2017-12-26] MEDS: POTASSIUM CHLORIDE 10 MEQ SR TABLET PO (07:53)
[2017-12-26 07:56] LABS: ANION GAP 8 MEQ/L (8-16); BLOOD UREA NITROGEN 12 MG/DL (7-18); CALCIUM LEVEL 9.1 MG/DL (8.5-10.1); CARBON DIOXIDE LEVEL 26 MEQ/L (21-32); CHLORIDE LEVEL 105 MEQ/L (98-107); CREATININE FOR GFR 0.77 MG/DL (0.55-1.30); GLOMERULAR FILTRATION RATE > 60.0 (>58); GLUCOSE, FASTING 96 MG/DL (70-100); POTASSIUM SERUM 3.5 MEQ/L (3.5-5.1); SODIUM LEVEL 139 MEQ/L (136-145)
[2017-12-26] MEDS: methylPREDNISolone 250 MG in D5W 50 ML IV (10:05)
[2017-12-26] MEDS: PRAZOSIN 1 MG CAP PO (21:21)
[2017-12-27] MEDS: LEVOTHYROXINE 75MCG TABLET (0.075MG) PO (04:52)
[2017-12-27] MEDS: ACETAMINOPHEN TAB 650MG DOSE (2X325MG) PO (04:52)
[2017-12-27] MEDS: SODIUM CHLORIDE 0.9% INJ 10 ML SYR IV (06:19)
[2017-12-27 06:56] LABS: BASO % 0.2 % (0.0-1.0); EOS % 0.2 % (0.0-3.0); HEMATOCRIT 31.1 % (36.0-47.0); HEMOGLOBIN 10.5 g/dl (12.0-15.5); IMMATURE GRANULOCYTE % 1.3 % (0-3.0); LYMPH % 32.2 % (24.0-44.0); MEAN CORPUSCULAR HEMOGLOBIN 31.9 pg (27.0-33.0); MEAN CORPUSCULAR HGB CONC 33.8 g/dl (32.0-36.5); MEAN CORPUSCULAR VOLUME 94.5 fl (80.0-96.0); MONO # 0.5 10^3/uL (0.0-0.8); MONO % 8.3 % (0.0-5.0); NEUTROPHILS # 3.6 10^3/uL (1.8-7.7); NEUTROPHILS % 57.8 % (36.0-66.0); PLATELET COUNT, AUTOMATED 211 10^3/uL (150-450); RED BLOOD COUNT 3.29 10^6/uL (4.00-5.40); RED CELL DISTRIBUTION WIDTH 15.7 % (11.5-14.5); WHITE BLOOD COUNT 6.3 10^3/uL (4.0-10.0)
[2017-12-27 07:12] LABS: ANION GAP 7 MEQ/L (8-16); BLOOD UREA NITROGEN 11 MG/DL (7-18); CALCIUM LEVEL 9.1 MG/DL (8.5-10.1); CARBON DIOXIDE LEVEL 28 MEQ/L (21-32); CHLORIDE LEVEL 102 MEQ/L (98-107); CREATININE FOR GFR 0.76 MG/DL (0.55-1.30); GLOMERULAR FILTRATION RATE > 60.0 (>58); GLUCOSE, FASTING 97 MG/DL (70-100); POTASSIUM SERUM 3.6 MEQ/L (3.5-5.1); SODIUM LEVEL 137 MEQ/L (136-145)
[2017-12-27] MEDS: POTASSIUM CHLORIDE 10 MEQ SR TABLET PO (09:01)
[2017-12-27] MEDS: predniSONE 50 MG TAB PO (09:01)
[2017-12-27] MEDS: DULoxetine 30 MG CAP (CYMBALTA) PO (09:01)
[2017-12-27] MEDS: ENOXAPARIN 40 MG/0.4 ML SYRINGE (J1650) SC (09:01)
[2017-12-27] MEDS: PROPRANOLOL 20 MG TAB PO (09:02)
[2017-12-27] MEDS: OMEPRAZOLE 20 MG CAP PO (09:02)
== END 2017-12-27 11:53 | disposition home or self-care (01) | DRG 643 ==
LOC: M ED 09:07 → M PCU 12-18 14:34 → M MS4PR 12-24 20:13 → M MSPAV 12-20 18:08 → M ED INP 18:27
PROC: 5A1D70Z Performance of Urinary Filtration, Intermittent, Less than 6 Hours Per Day (ICD-10-PCS; 2017-12-18)
PROC: 02HV33Z Insertion of Infusion Device into Superior Vena Cava, Percutaneous Approach (ICD-10-PCS; 2017-12-18)
PROC: 02HV33Z Insertion of Infusion Device into Superior Vena Cava, Percutaneous Approach (ICD-10-PCS; 2017-12-20)
PROC: 009U3ZX Drainage of Spinal Canal, Percutaneous Approach, Diagnostic (ICD-10-PCS; 2017-12-20)
PROC: 05PY33Z Removal of Infusion Device from Upper Vein, Percutaneous Approach (ICD-10-PCS; principal; 2017-12-24)
DX: E06.3 Autoimmune thyroiditis (principal); G92 Toxic encephalopathy; N39.0 Urinary tract infection, site not specified; E87.1 Hypo-osmolality and hyponatremia; F32.3 Major depressive disorder, single episode, severe with psychotic features; E03.9 Hypothyroidism, unspecified; E88.01 Alpha-1-antitrypsin deficiency; E87.6 Hypokalemia; K21.9 Gastro-esophageal reflux disease without esophagitis; F44.81 Dissociative identity disorder; F41.9 Anxiety disorder, unspecified; R00.1 Bradycardia, unspecified; B96.20 Unspecified Escherichia coli [E. coli] as the cause of diseases classified elsewhere; I10 Essential (primary) hypertension; T43.595A Adverse effect of other antipsychotics and neuroleptics, initial encounter; Z79.891 Long term (current) use of opiate analgesic; Z79.899 Other long term (current) drug therapy; Z88.2 Allergy status to sulfonamides; Z88.8 Allergy status to other drugs, medicaments and biological substances

== ENCOUNTER → 2018-07-10 | Outpatient (CLI) | payer MEDICARE ==
[2018-07-10 09:31] LABS: HEMATOCRIT 40.9 % (36.0-47.0); HEMOGLOBIN 13.2 g/dl (12.0-15.5); MEAN CORPUSCULAR HEMOGLOBIN 27.4 pg (27.0-33.0); MEAN CORPUSCULAR HGB CONC 32.3 g/dl (32.0-36.5); PLATELET COUNT, AUTOMATED 246 10^3/uL (150-450); RED BLOOD COUNT 4.81 10^6/uL (4.00-5.40); RED CELL DISTRIBUTION WIDTH 13.5 % (11.5-14.5); WHITE BLOOD COUNT 6.6 10^3/uL (4.0-10.0)
[2018-07-10 09:50] LABS: ALBUMIN 4.1 GM/DL (3.2-5.2); ALBUMIN/GLOBULIN RATIO 1.21 (1.00-1.93); ALKALINE PHOSPHATASE 118 U/L (45-117); ALT/SGPT 30 U/L (12-78); ANION GAP 5 MEQ/L (8-16); AST/SGOT 26 U/L (7-37); BILIRUBIN,TOTAL 0.3 MG/DL (0.2-1.0); BLOOD UREA NITROGEN 6 MG/DL (7-18); CALCIUM LEVEL 9.8 MG/DL (8.5-10.1); CARBON DIOXIDE LEVEL 30 MEQ/L (21-32); CHLORIDE LEVEL 104 MEQ/L (98-107); CHOLESTEROL LEVEL 153 MG/DL (<200); CHOLESTEROL RISK RATIO 5.275 (<5); CREATININE FOR GFR 0.56 MG/DL (0.55-1.30); GLOMERULAR FILTRATION RATE > 60.0 (>58); GLUCOSE, FASTING 128 MG/DL (70-100); HDL CHOLESTEROL 29 MG/DL (>40); LDL CHOLESTEROL 84 MG/DL (<100); NON-HDL-C 124 MG/DL; POTASSIUM SERUM 4.4 MEQ/L (3.5-5.1); SODIUM LEVEL 139 MEQ/L (136-145); THYROID STIMULATING HORMONE 0.006 uIU/ML (0.358-3.740); TOTAL PROTEIN 7.5 GM/DL (6.4-8.2); TRIGLYCERIDES LEVEL 199 MG/DL (<150)
[2018-07-10 10:29] LABS: TOTAL 25(OH) VITAMIN D 74.6 NG/ML (30.0-100.0)
[2018-07-10 10:37] LABS: ESTIMATED AVERAGE GLUCOSE 123 MG/DL (60-110); HEMOGLOBIN A1c 5.9 %
== END ==
LOC: M LAB 08:33
DX: D64.9 Anemia, unspecified (principal); R53.83 Other fatigue; E03.9 Hypothyroidism, unspecified; Z51.81 Encounter for therapeutic drug level monitoring; Z79.899 Other long term (current) drug therapy
CPT/HCPCS: 84443

== ENCOUNTER → 2018-07-10 | Outpatient (CLI) | payer MEDICARE ==
[2018-07-10 09:50] LABS: CHOLESTEROL LEVEL 152 MG/DL (< 200); CHOLESTEROL LEVEL 152 MG/DL (<200); CHOLESTEROL RISK RATIO 5.428 (<5); HDL CHOLESTEROL 28 MG/DL (>40); LDL CHOLESTEROL 84 MG/DL (<100); NON-HDL-C 124 MG/DL; TRIGLYCERIDES LEVEL 202 MG/DL (<150)
[2018-07-10 10:37] LABS: ESTIMATED AVERAGE GLUCOSE 126 MG/DL (60-110)
== END ==
LOC: M LAB 08:21
DX: Z51.81 Encounter for therapeutic drug level monitoring (principal); Z79.899 Other long term (current) drug therapy

== ENCOUNTER 2018-11-04 10:54 | Inpatient (IN) | payer OTHER, MEDICARE ==
[~2018-11-04] VITALS: Ht 154.9 cm; Wt 92.0 kg
[~2018-11-04 10:54] MED LIST changes: -/FENT25PA; -/TAMS4CA; +ALPR1TAB3 PO; +DRIS50003 PO; +DULO1CAP2 PO; -DULO30CA PO; +DULO30CA9 PO; +FENT1DIS14; +FLOM0.4C39; -GABA-283 PO; +GABA-845 PO; -GABA800T PO; +GABA800T4 PO; +INVE1.75 IM; +KLOR10TA76 PO; +LEVO75TA4 PO; +LITH300C PO; +LITH45TASA PO; +PRED10TA2 PO; -PROP40TA PO; +PROP40TA62 PO; +QUET1TAB10 PO; +RIZA10TA4 PO; -TRAZ-136 PO; +TRAZ-160 PO; +TRAZ-163 PO; -TRAZ50TA11 PO
[2018-11-04 11:40] LABS: HEMATOCRIT 39.5 % (36.0-47.0); MEAN CORPUSCULAR HEMOGLOBIN 28.6 pg (27.0-33.0); MEAN CORPUSCULAR HGB CONC 32.9 g/dl (32.0-36.5); PLATELET COUNT, AUTOMATED 259 10^3/uL (150-450); RED BLOOD COUNT 4.54 10^6/uL (4.00-5.40); WHITE BLOOD COUNT 6.9 10^3/uL (4.0-10.0)
[2018-11-04 12:11] LABS: ACETAMINOPHEN LEVEL < 2.0 UG/ML (10.0-30.0); ALBUMIN 3.8 GM/DL (3.2-5.2); ALT/SGPT 27 U/L (12-78); BILIRUBIN,DIRECT 0.1 MG/DL (0.0-0.2); BILIRUBIN,TOTAL 0.3 MG/DL (0.2-1.0); BLOOD UREA NITROGEN 3 MG/DL (7-18); CARBON DIOXIDE LEVEL 28 MEQ/L (21-32); CHLORIDE LEVEL 104 MEQ/L (98-107); ETHYL ALCOHOL (ETHANOL) 0.003 % (0.000-0.010); GLOMERULAR FILTRATION RATE > 60.0 (>58); GLUCOSE, FASTING 116 MG/DL (70-100); POTASSIUM SERUM 3.8 MEQ/L (3.5-5.1); SALICYLATE LEVEL 2.7 MG/DL (5.0-30.0); SODIUM LEVEL 139 MEQ/L (136-145); THYROID STIMULATING HORMONE 0.032 uIU/ML (0.358-3.740); TOTAL PROTEIN 7.2 GM/DL (6.4-8.2)
[2018-11-04 12:32] LABS: AMPHETAMINES LEVEL URINE NEGATIVE (NEGATIVE); BARBITURATES URINE NEGATIVE (NEGATIVE); BENZODIAZEPINES URINE NEGATIVE (NEGATIVE); CANNABINOIDS URINE POSITIVE (NEGATIVE); COCAINE METABOLITE URINE NEGATIVE (NEGATIVE); METHADONE URINE NEGATIVE (NEGATIVE); OPIATES URINE NEGATIVE (NEGATIVE); PHENCYCLIDINE URINE NEGATIVE (NEGATIVE)
[2018-11-04 13:21] LABS: FREE T4 1.14 NG/DL (0.76-1.46)
[2018-11-04] MEDS ORDERED: TEMA30CA PO (13:29)
[2018-11-04] MEDS ORDERED: ATOR1TAB21 PO (13:29)
[2018-11-04] MEDS ORDERED: LEVO150T7 PO (13:29)
[2018-11-04] MEDS ORDERED: OMEP20CA3 PO (13:29)
[2018-11-04] MEDS ORDERED: GABA-845 PO (13:29)
[2018-11-04] MEDS ORDERED: HYDR-3713 PO (13:29)
[2018-11-04] MEDS ORDERED: KLOR10TA76 PO (13:29)
[2018-11-04] MEDS ORDERED: ALPR0.5T3 PO (13:29)
[2018-11-04] MEDS ORDERED: traZODone 50 MG TAB PO PRN (13:45)
[2018-11-04] MEDS ORDERED: MOM 30ML SUSPENSION UDC PO PRN (13:45)
[2018-11-04] MEDS ORDERED: MAALOX 30 ML SUSP *UDC PO PRN (13:45)
[2018-11-04 14:34] VITALS: BP 113/78
[2018-11-04] MEDS: GABAPENTIN 400 MG CAP PO SCH ×2 (16:56→21:30)
[2018-11-04] MEDS: NORCO, ANEXSIA 5/325MG TABLET (HYDROcodone/ACETAMINOPHEN) PO SCH (21:00)
[2018-11-04] MEDS ORDERED: TEMAZEPAM 15 MG CAP PO SCH (21:00)
[2018-11-04] MEDS: POTASSIUM CHLORIDE 10 MEQ SR TABLET PO SCH (21:30)
[2018-11-04] MEDS: PRAZOSIN 1 MG CAP PO SCH (21:30)
[2018-11-04] MEDS: OMEPRAZOLE 20 MG CAP PO SCH (21:30)
[2018-11-04] MEDS: PROPRANOLOL 20 MG TAB PO SCH (21:31)
[2018-11-05 06:00] VITALS: BP 145/80
[2018-11-05] MEDS ORDERED: LEVOTHYROXINE 150MCG TABLET (0.15MG) PO SCH (06:00)
[2018-11-05] MEDS: POTASSIUM CHLORIDE 10 MEQ SR TABLET PO SCH ×2 (08:28→20:40)
[2018-11-05] MEDS: OMEPRAZOLE 20 MG CAP PO SCH ×2 (08:28→20:39)
[2018-11-05] MEDS: ATORVASTATIN 20 MG TAB PO SCH (08:28)
[2018-11-05] MEDS: GABAPENTIN 400 MG CAP PO SCH ×3 (08:28→20:37)
[2018-11-05] MEDS: PROPRANOLOL 20 MG TAB PO SCH ×2 (08:30→20:37)
[2018-11-05] MEDS: DULoxetine 30 MG CAP (CYMBALTA) PO SCH (08:30)
[2018-11-05] MEDS: ACETAMINOPHEN TAB 650MG DOSE (2X325MG) PO PRN (08:33)
[2018-11-05] MEDS ORDERED: INFLUENZA QUADRIVALENT PF VACCINE 0.5ML SYRINGE (90686) IM ONE (09:00)
--- NOTE | 2018-11-05 10:07 | HPEPDOC ---
[facility] Medical History & Physical Date of Admission Nov 04, 2018 History and Physical PCP: Dr Enrrique Carlos ATTENDING: Dr. Adelaida Slaughter HPI: 48 yoF admitted to [facility] for unspecified bipolar disorder, being medically examined today. Pt states she has chronic left knee pain but it has been controlled with taking vicodin and tablet daily at bedtime as needed. Denies any fevers, chills, weakness, fatigue, AHMADI, CP, SOB, cough, palpitations, abdominal pain, N/V/D or changes in bowel or bladder habits. PMHx: Anxiety depression Dissociative identity disorder History of psychosis H/O SI History of lithium toxicity 01/01 Chronic left knee pain Alpha-1 antitrypsin deficiency Tobacco use GERD Hypothyroid HTN Dyslipidemia Hypokalemia PSHX: Hysterectomy Appendectomy Cholecystectomy Carpal tunnel release Left knee surgery SOCHX: Resides in: [place] Marital Status: Kids: 3 Employment: Disabled Tobacco use: Quit 2015 ETOH: Once per year one to 2 drinks Illicit Drugs: Marijuana 2-3 times per day IV Drug Use: Denies Tattoos done unprofessionally: 2 HIV/hepatitis screening 12/30 FAMHX: Mother: , lung disease Father: , cancer Siblings: Alive, history of bipolar disorder, schizophrenia Children: Alive, well Unexpected deaths due to medical reasons: None. ROS: As noted in HPI, otherwise 11pt ROS of systems reviewed and unremarkable PE: GEN: 48 yoF, appears stated age. Well-nourished, well developed. No acute distress. Alert and oriented x 3. Pleasant, interactive. HEENT: Normocephalic, atraumatic. Pupils are equal, round, and reactive to light. Extraocular movements are intact. No nystagmus appreciated. Sclera are nonicteric. Conjunctiva without injection. Nose midline. Nasal turbinates without bogginess. EACs both patent BL. TMs both visualized and harrison with good cone of light, no bulging or erythema. No facial asymmetry. Moist mucous membranes. upper denutres, lower partial. Pharynx pink and moist, no cobblestoning. Neck supple, trachea midline. No lymphadenopathy or thyromegaly appreciated. CHEST: Regular rate and rhythm, +S1, +S2 LUNGS: Clear to auscultation bilaterally. No wheezes, rales, or rhonchi. Breathing appears symmetric and easy. Patient is speaking in full sentences. No accessory muscle use. ABD: Round, soft, non-tender, non-distended. +Bowel sounds throughout. No rebound or guarding. No costovertebral angle tenderness. EXT: Pulses 2+ bilaterally dorsalis pedis and radial. No lower extremity edema appreciated. Wearing a brace on the left knee SKIN: [place], dry, warm. Capillary refill <2sec. No rashes. NEURO: Alert and oriented x 3. Cranial nerves III-XII are intact. No focal deficits appreciated. EKG: Pending A&P: 48 yoF admitted to [facility] for unspecified bipolar disorder 1. Psych. Plan per Psychiatry. EKG pending 2. Chronic Left knee pain. Continue [place] 5/325 at bedtime as needed for pain. 3. Hypokalemia. Continue potassium supplement. Potassium level within normal limits on admission. 4. History of alpha-1 antitrypsin deficiency. 5. Follow up with PCP-Dr. Carlos on discharge. 6. GERD. Continue Prilosec 20 mg by mouth twice a day. 7. Hypothyroidism. TSH is noted to be 0.032. FT4 WNL. Will reduce Synthroid to 125 g by mouth daily. Plan for outpatient follow-up with PCP in 4 weeks to recheck TFTs. 8. Hypertension. Continue propranolol 40 mg by mouth twice a day. 9. Dyslipidemia. Continue Lipitor 20 mg by mouth daily. 10. student education specialist Liv present throughout exam. Vital Signs Vital Signs Date Time Temp Pulse Resp B/P (MAP) Pulse Ox O2 Delivery O2 Flow Rate FiO2 11/05/18 08:30 80 130/89 11/05/18 06:00 98.5 18 11/04/18 14:34 95 11/04/18 14:02 Room Air Laboratory Data Labs 24H Laboratory Tests 2 11/04/18 11:27: Urine Amphetamines Screen NEGATIVE, Urine Benzodiazepines Screen NEGATIVE, Urine Opiates Screen NEGATIVE, Urine Methadone Screen NEGATIVE, Urine Barbiturates Screen NEGATIVE, Urine Phencyclidine Screen NEGATIVE, Urine Cocaine Metabolite Screen NEGATIVE, Urine Cannabinoids Screen POSITIVEH 11/04/18 11:28: Nucleated Red Blood Cells % (auto) 0.0, Anion Gap 7L, Glomerular Filtration Rate > 60.0, Calcium Level 9.0, Aspartate Amino Transf (AST/SGOT) 21, Alanine Aminotransferase (ALT/SGPT) 27, Alkaline Phosphatase 123H, Total Bilirubin 0.3, Direct Bilirubin 0.1, Total Protein 7.2, Albumin 3.8, Albumin/Globulin Ratio 1.12, Thyroid Stimulating Hormone (TSH) 0.032L, Free Thyroxine 1.14, Salicylates Level 2.7L, Acetaminophen Level < 2.0L, Ethyl Alcohol Level 0.003 CBC/BMP Laboratory Tests 11/04/18 11:28 Red Blood Count 4.54, Mean Corpuscular Volume 87.0, Mean Corpuscular Hemoglobin 28.6, Mean Corpuscular Hemoglobin Concent 32.9, Red Cell Distribution Width 15.4 H Home Medications Scheduled (Invega Trinza) 819 Mg/2.625 Ml Inj, 819 MG IM Q3M Acetaminophen/Hydrocodone (Hydrocodone/Acetaminophen 5-325 mg) 1 Tab Tab, 1 TAB PO QHS Atorvastatin Calcium (Atorvastatin Calcium) 20 Mg Tab, 20 MG PO DAILY Duloxetine Hcl (Duloxetine HCl) 30 Mg Cap, 30 MG PO DAILY 90MG DAILY DOSE Duloxetine Hcl (Duloxetine HCl) 60 Mg Cap, 60 MG PO DAILY 90MG DAILY DOSE Gabapentin (Gabapentin) 400 Mg Cap, 400 MG PO TID Levothyroxine Sodium (Synthroid) 150 Mcg Tab, 150 MCG PO DAILY Omeprazole (Omeprazole) 20 Mg Cap, 20 MG PO BID Potassium Chloride (Klor-Con M10) 10 Meq Tabcr, 10 MEQ PO BID Prazosin Hcl (Prazosin HCl) 2 Mg Cap, 2 MG PO QHS Propranolol HCl (Propranolol HCl) 40 Mg Tab, 40 MG PO BID Temazepam (Temazepam) 30 Mg Cap, 30 MG PO QHS Scheduled PRN Alprazolam (Alprazolam) 0.5 Mg Tab, 0.5 MG PO TID PRN for ANXIETY Rizatriptan Benzoate (Rizatriptan Benzoate Odt) 10 Mg Tab, 10 MG PO for MIGRAINE Allergies Coded Allergies: Sulfa Drugs (Unverified Allergy, Mild, HIVES, 12/15/12) Sulfa Drugs Cross Reactors (Unverified Allergy, Mild, HIVES, 12/15/12) Sulfamethoxazole (Unverified Allergy, Mild, HIVES, 12/15/12) Trimethoprim (Unverified Allergy, Mild, HIVES, 12/15/12) Fexofenadine (Verified Adverse Reaction, Mild, PALPITATIONS, 01/14/13) Ketorolac (Verified Adverse Reaction, Mild, HEADACHE, 01/14/13) Pseudoephedrine (Verified Adverse Reaction, Mild, PALPITATIONS, 01/14/13) Junie Laboy Nov 05, 2018 10:07
[2018-11-05] MEDS ORDERED: TEMAZEPAM 15 MG CAP PO PRN (17:30)
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
[2018-11-05 18:00] VITALS: BP 125/70
[2018-11-05] MEDS: ALPRAZolam 0.5 MG TAB PO PRN (18:20)
[2018-11-05] MEDS: PRAZOSIN 1 MG CAP PO SCH (20:38)
[2018-11-05] MEDS: NORCO, ANEXSIA 5/325MG TABLET (HYDROcodone/ACETAMINOPHEN) PO SCH (20:39)
[2018-11-05] MEDS: QUEtiapine FUMARATE 50 MG TAB PO SCH (21:00)
--- NOTE | 2018-11-05 22:35 | ECGEPIP ---
Stationary ECG Study [facility] Test Date: 2018-11-05 Pat Name: RYAN SHAY Department: Room: [place] [address] Gender: F Emergency Response Coordinator: EUNICE : 1970 Requested By: Junie Laboy Order Number: [id number] Reading MD: Jak Wiley Measurements Intervals [place] Rate: 63 P: 35 NE: 208 QRS: 10 QRSD: 106 T: 45 QT: 395 QTc: 407 Interpretive Statements SINUS RHYTHM INCOMPLETE RIGHT BUNDLE BRANCH BLOCK Electronically Signed On 11-05-2018 22:34:55 EST by Jak Wiley
[2018-11-06] MEDS: LEVOTHYROXINE 125MCG TABLET (0.125MG) PO SCH (06:07)
[2018-11-06 06:40] VITALS: BP 157/93
[2018-11-06] MEDS: PROPRANOLOL 20 MG TAB PO SCH ×2 (08:39→20:31)
[2018-11-06] MEDS: ALPRAZolam 0.5 MG TAB PO PRN ×2 (08:39→17:20)
[2018-11-06] MEDS: OMEPRAZOLE 20 MG CAP PO SCH ×2 (08:39→20:30)
[2018-11-06] MEDS: ATORVASTATIN 20 MG TAB PO SCH (08:39)
[2018-11-06] MEDS: POTASSIUM CHLORIDE 10 MEQ SR TABLET PO SCH ×2 (08:39→20:31)
[2018-11-06] MEDS: DULoxetine 30 MG CAP (CYMBALTA) PO SCH (08:39)
[2018-11-06] MEDS: GABAPENTIN 400 MG CAP PO SCH ×2 (08:39→15:51)
[2018-11-06] MEDS: ACETAMINOPHEN TAB 650MG DOSE (2X325MG) PO PRN (15:51)
[2018-11-06] MEDS ORDERED: TEMAZEPAM 7.5 MG CAP PO PRN (16:45)
--- NOTE | 2018-11-06 17:00 | MHIPNPDOC ---
[facility] Progress Note Progress Note DATE OF SERVICE: 11/06/18 HISTORY: Patient is a 48-year-old female, who according to ED notes: "Pt states," I'm very depressed and I want to ." Pt reports struggling with suicidal thoughts for the past month, but developed a plan to OD on her medication the past 2 days. Suicidal stressors include the severity of anh hallucinations and states, "the voices just won't shut up and I can't deal with them anymore." In addition to AH, she admits having VH and describes them as"bugs everywhere." States she is severely depressed, received an Invega injection a few wks ago, but is not feeling any better. Pt notes she is not sleeping well and believes her psychiatrist is not helping. She appears very depressed at bedside, very tearful while talking about stressors. States she had a suicidal gesture 5 years ago, however her cousin stopped her before ingesting medication. Pt continues to express SI with plan to OD on her medication." VITAL SIGNS: See below. NEW TEST RESULTS: See below CURRENT MEDICATIONS: See below. MENTAL STATUS EXAMINATION: Patient is a 48-year old female, who is alert, cooperative, dressed in hospital clothes. Speech: Is normal in rate, tone and volume. Language skills are good. Thought processes including: linar, coherent. Thought content: command hallucinations telling her to kill herself and others (not as intense, not as frequent as they were before), flashbacks, intrusive thoughts, suicidal thoughts. Description of abnormal or psychotic thoughts: SI and HI, says command hallucinations are still present and are asking her to kill herself and others. She says she didn't have nightmares but has flashbacks, they are always present. Judgment: improving Insight: fair Orientation: x 3. Recent and remote memory: intact. Attention span and concentration: good. Language: good. Fund of knowledge: average. Mood: depressed/anxious. Affect: constricted, congruent with mood. DIAGNOSES: 1. R/O Bipolar disorder 2. R/O Schizoaffective disorder ASSESSMENT: patient reports feeling better than yesterday although she is still anxious and she still reports hallucinations (auditory, commanding in nature, less frequent, less intense). Reports flashbacks. she couldn't sleep well. Reduced temazepam to 7.5 mgs PO QHS, the goal is to discontinue it. Started her on Seroquel 300 mgs, she has been on that dose before and it helped her with sleep. Increased Abilify to 7.5 mgs PO BID and increased Gabapentin to 600 mgs PO TID (to help her with anxiety) Will re assess tomorrow MANAGEMENT PLAN: As above TIME SPENT: 20 minutes. Vital Signs Vital Signs Date Time Temp Pulse Resp B/P (MAP) Pulse Ox O2 Delivery O2 Flow Rate FiO2 11/06/18 08:39 152/93 11/06/18 06:40 97.6 69 16 11/04/18 14:34 95 11/04/18 14:02 Room Air Current Medications Current Medications Acetaminophen (Tylenol Tab) 650 mg Q6HP PRN PO HEADACHE or DISCOMFORT Last administered on 11/06/18 15:51; Start 11/04/18 at 13:45 Acetaminophen/ Hydrocodone Bitart ([place], [place] 5/325) 1 tab QHS PO Last administered on 11/05/18 20:39; Start 11/04/18 at 21:00 Al Hydrox/Mg Hydrox/Simethicone (Mylanta) 30 ml Q4HP PRN PO HEARTBURN/INDIGESTION; Start 11/04/18 at 13:45 Alprazolam (Xanax) 0.5 mg TIDP PRN PO ANXIETY/AGITATION Last administered on 11/06/18 08:39; Start 11/04/18 at 16:15 Aripiprazole (AbiLIFY) 5 mg BID PO Last administered on 11/06/18 08:39; Start 11/05/18 at 21:00 Atorvastatin Calcium (Lipitor) 20 mg DAILY PO Last administered on 11/06/18 08:39; Start 11/05/18 at 09:00 Duloxetine HCl (Cymbalta) 90 mg DAILY PO Last administered on 11/06/18 08:39; Start 11/05/18 at 09:00 Gabapentin (Neurontin) 400 mg TID PO Last administered on 11/06/18 15:51; Start 11/04/18 at 16:00 Home Med (Med Rec Complete!) ASDIRECTED XX ; Start 11/04/18 at 13:30; Stop 11/04/18 at 13:34; Status DC Levothyroxine Sodium (Synthroid) 125 mcg DAILY@06 PO Last administered on 11/06/18at 06:07; Start 11/06/18 at 06:00 Levothyroxine Sodium (Synthroid) 150 mcg DAILY@06 PO Last administered on 11/05/18at 06:15; Start 11/05/18 at 06:00; Stop 11/05/18 at 09:58; Status DC Magnesium Hydroxide (Milk Of Magnesia) 30 ml DAILYPRN PRN PO CONSTIPATION; Start 11/04/18 at 13:45 Omeprazole (PriLOSEC) 20 mg BID PO Last administered on 11/06/18at 08:39; Start 11/04/18 at 21:00 Potassium Chloride (Micro-K Extencaps) 10 meq BID PO Last administered on 11/06/18 08:39; Start 11/04/18 at 21:00 Prazosin HCl (Minipress) 2 mg QHS PO Last administered on 11/05/18at 20:38; Start 11/04/18 at 21:00 Propranolol HCl (Inderal) 40 mg BID PO Last administered on 11/06/18at 08:39; Start 11/04/18 at 21:00 Quetiapine Fumarate (SEROquel) 150 mg QHS PO ; Start 11/05/18 at 21:00 Temazepam (Restoril) 15 mg QHS PRN PO INSOMNIA Last administered on 11/05/18at 20:40; Start 11/05/18 at 17:30 Temazepam (Restoril) 30 mg QHS PO Last administered on 11/04/18at 21:31; Start 11/04/18 at 21:00; Stop 11/05/18 at 17:17; Status DC Trazodone HCl (Desyrel) 50 mg QHSP PRN PO INSOMNIA Last administered on 11/05/18at 20:40; Start 11/04/18 at 13:45 Allergies Coded Allergies: Sulfa Drugs (Unverified Allergy, Mild, HIVES, 12/15/12) Sulfa Drugs Cross Reactors (Unverified Allergy, Mild, HIVES, 12/15/12) Sulfamethoxazole (Unverified Allergy, Mild, HIVES, 12/15/12) Trimethoprim (Unverified Allergy, Mild, HIVES, 12/15/12) Fexofenadine (Verified Adverse Reaction, Mild, PALPITATIONS, 01/14/13) Ketorolac (Verified Adverse Reaction, Mild, HEADACHE, 01/14/13) Pseudoephedrine (Verified Adverse Reaction, Mild, PALPITATIONS, 01/14/13) FAYE NATION MD Nov 06, 2018 16:52
[2018-11-06 18:00] VITALS: BP 161/98
[2018-11-06] MEDS: NORCO, ANEXSIA 5/325MG TABLET (HYDROcodone/ACETAMINOPHEN) PO SCH (20:29)
[2018-11-06] MEDS: PRAZOSIN 1 MG CAP PO SCH (20:30)
[2018-11-06] MEDS: GABAPENTIN 300 MG CAP PO SCH (20:30)
[2018-11-06] MEDS: QUEtiapine FUMARATE 100 MG TAB PO SCH (20:30)
[2018-11-06] MEDS: QUEtiapine FUMARATE 50 MG TAB PO SCH (21:00)
[2018-11-07] MEDS: LEVOTHYROXINE 125MCG TABLET (0.125MG) PO SCH (06:13)
[2018-11-07 06:49] VITALS: BP 119/62
[2018-11-07] MEDS: DULoxetine 30 MG CAP (CYMBALTA) PO SCH (08:28)
[2018-11-07] MEDS: ATORVASTATIN 20 MG TAB PO SCH (08:28)
[2018-11-07] MEDS: GABAPENTIN 300 MG CAP PO SCH ×3 (08:28→20:15)
[2018-11-07] MEDS: PROPRANOLOL 20 MG TAB PO SCH ×2 (08:28→20:15)
[2018-11-07] MEDS: OMEPRAZOLE 20 MG CAP PO SCH ×2 (08:28→20:15)
[2018-11-07] MEDS: BENZTROPINE 1 MG TAB PO SCH (08:28)
[2018-11-07] MEDS: POTASSIUM CHLORIDE 10 MEQ SR TABLET PO SCH ×2 (08:28→20:15)
[2018-11-07] MEDS: ACETAMINOPHEN TAB 650MG DOSE (2X325MG) PO PRN (09:22)
[2018-11-07] MEDS: ALPRAZolam 0.5 MG TAB PO PRN (15:33)
[2018-11-07 18:00] VITALS: BP 128/81
[2018-11-07] MEDS: PILL CRUSHER/CUTTER 1 EACH XX PRN (20:12)
[2018-11-07] MEDS: PRAZOSIN 1 MG CAP PO SCH (20:15)
[2018-11-07] MEDS: QUEtiapine FUMARATE 100 MG TAB PO SCH (20:15)
[2018-11-07] MEDS: QUEtiapine FUMARATE 50 MG TAB PO SCH (20:15)
[2018-11-07] MEDS: NORCO, ANEXSIA 5/325MG TABLET (HYDROcodone/ACETAMINOPHEN) PO SCH (20:16)
--- NOTE | 2018-11-07 21:19 | MHIPNPDOC ---
[facility] Progress Note Progress Note DATE OF SERVICE: 11/07/18 HISTORY: Patient is a 48-year-old female, who according to ED notes: "Pt states," I'm very depressed and I want to ." Pt reports struggling with suicidal thoughts for the past month, but developed a plan to OD on her medication the past 2 days. Suicidal stressors include the severity of anh hallucinations and states, "the voices just won't shut up and I can't deal with them anymore." In addition to AH, she admits having VH and describes them as"bugs everywhere." States she is severely depressed, received an Invega injection a few wks ago, but is not feeling any better. Pt notes she is not sleeping well and believes her psychiatrist is not helping. She appears very depressed at bedside, very tearful while talking about stressors. States she had a suicidal gesture 5 years ago, however her cousin stopped her before ingesting medication. Pt continues to express SI with plan to OD on her medication." VITAL SIGNS: See below. NEW TEST RESULTS: See below CURRENT MEDICATIONS: See below. MENTAL STATUS EXAMINATION: Patient is a 48-year old female, who is alert, cooperative, dressed in hospital clothes. Speech: Is normal in rate, tone and volume. Language skills are good. Thought processes including: linar, coherent. Thought content: anxious and depressive thoughts, flashbacks, intrusive thoughts Description of abnormal or psychotic thoughts: Denies command hallucinations, reports auditory hallucinations (like a noise in the background). She says she didn't have nightmares but has flashbacks, they are always present. Judgment: improving Insight: fair Orientation: x 3. Recent and remote memory: intact. Attention span and concentration: good. Language: good. Fund of knowledge: average. Mood: depressed/anxious. Affect: constricted, congruent with mood. DIAGNOSES: 1. R/O Bipolar disorder 2. R/O Schizoaffective disorder ASSESSMENT: Reports feeling better, she still reports hallucinations but this time they are not commanding in nature, it's like a noise she hears in the background. She says that she slept well and is beginning to feel less depressed. she mentioned she had flet depressed mosly all her life but when she started experiencing psychotic symptoms, she was not experiencing a depressive episode. She says some years ago she had a manic episode, but the depressive episodes are more frequent. Tw thinks the patient has Schizoaffective disorder. She's responding well to medications, she was able to sleep well with Seroquel 300 mgs. MANAGEMENT PLAN: As above TIME SPENT: 20 minutes. Vital Signs Vital Signs Date Time Temp Pulse Resp B/P (MAP) Pulse Ox O2 Delivery O2 Flow Rate FiO2 11/07/18 20:16 82 16 11/07/18 20:15 128/81 11/07/18 18:00 97.4 11/04/18 14:34 95 11/04/18 14:02 Room Air Current Medications Current Medications Acetaminophen (Tylenol Tab) 650 mg Q6HP PRN PO HEADACHE or DISCOMFORT Last admi nistered on 11/07/18 09:22; Start 11/04/18 at 13:45 Acetaminophen/ Hydrocodone Bitart ([place], Anexsia 5/325) 1 tab QHS PO Last administered on 11/07/18 20:16; Start 11/04/18 at 21:00 Al Hydrox/Mg Hydrox/Simethicone (Mylanta) 30 ml Q4HP PRN PO HEARTBURN /INDIGESTION; Start 11/04/18 at 13:45 Alprazolam (Xanax) 0.5 mg TIDP PRN PO ANXIETY/AGITATION Last administered on 11/07/18 15:33; Start 11/04/18 at 16:15 Aripiprazole (AbiLIFY) 5 mg BID PO Last administered on 11/06/18 08:39; Start 11/05/18 at 21:00; Stop 11/06/18 at 16:42; Status DC Aripiprazole (AbiLIFY) 7.5 mg BID PO Last administered on 11/07/18 20:15; Start 11/06/18 at 21:00 Atorvastatin Calcium (Lipitor) 20 mg DAILY PO Last administered on 11/07/18 08:28; Start 11/05/18 at 09:00 Benztropine Mesylate (Cogentin) 1 mg QAM PO Last administered on 11/07/18 08:28; Start 11/07/18 at 09:00 Duloxetine HCl (Cymbalta) 90 mg DAILY PO Last administered on 11/07/18 08:28; Start 11/05/18 at 09:00 Gabapentin (Neurontin) 400 mg TID PO Last administered on 11/06/18 15:51; Start 11/04/18 at 16:00; Stop 11/06/18 at 16:49; Status DC Gabapentin (Neurontin) 600 mg TID PO Last administered on 11/07/18 20:15; Start 11/06/18 at 21:00 Home Med (Med Rec Complete!) ASDIRECTED XX ; Start 11/04/18 at 13:30; Stop 11/04/18 at 13:34; Status DC Levothyroxine Sodium (Synthroid) 125 mcg DAILY@06 PO Last administered on 11/07/18 06:13; Start 11/06/18 at 06:00 Levothyroxine Sodium (Synthroid) 150 mcg DAILY@06 PO Last administered on 11/05/18 06:15; Start 11/05/18 at 06:00; Stop 11/05/18 at 09:58; Status DC Magnesium Hydroxide (Milk Of Magnesia) 30 ml DAILYPRN PRN PO CONSTIPATION; Start 11/04/18 at 13:45 Omeprazole (PriLOSEC) 20 mg BID PO Last administered on 11/07/18 20:15; Start 11/04/18 at 21:00 Potassium Chloride (Micro-K Extencaps) 10 meq BID PO Last administered on 11/07/18 20:15; Start 11/04/18 at 21:00 Prazosin HCl (Minipress) 2 mg QHS PO Last administered on 11/07/18 20:15; Start 11/04/18 at 21:00 Propranolol HCl (Inderal) 40 mg BID PO Last administered on 11/07/18 20:15; Start 11/04/18 at 21:00 Quetiapine Fumarate (SEROquel) 150 mg QHS PO Last administered on 11/07/18 20:15; Start 11/05/18 at 21:00 Quetiapine Fumarate (SEROquel) 300 mg QHS PO Last administered on 11/07/18 20:15; Start 11/06/18 at 21:00 Temazepam (Restoril) 7.5 mg QHSP PRN PO INSOMNIA Last administered on 11/06/18at 22:00; Start 11/06/18 at 16:45 Temazepam (Restoril) 15 mg QHS PRN PO INSOMNIA Last administered on 11/05/18at 20:40; Start 11/05/18 at 17:30; Stop 11/06/18 at 16:40; Status DC Temazepam (Restoril) 30 mg QHS PO Last administered on 11/04/18at 21:31; Start 11/04/18 at 21:00; Stop 11/05/18 at 17:17; Status DC Trazodone HCl (Desyrel) 50 mg QHSP PRN PO INSOMNIA Last administered on 11/05/18at 20:40; Start 11/04/18 at 13:45; Stop 11/06/18 at 16:38; Status DC Allergies Coded Allergies: Sulfa Drugs (Unverified Allergy, Mild, HIVES, 12/15/12) Sulfa Drugs Cross Reactors (Unverified Allergy, Mild, HIVES, 12/15/12) Sulfamethoxazole (Unverified Allergy, Mild, HIVES, 12/15/12) Trimethoprim (Unverified Allergy, Mild, HIVES, 12/15/12) Fexofenadine (Verified Adverse Reaction, Mild, PALPITATIONS, 01/14/13) Ketorolac (Verified Adverse Reaction, Mild, HEADACHE, 01/14/13) Pseudoephedrine (Verified Adverse Reaction, Mild, PALPITATIONS, 01/14/13) FAYE NATION MD Nov 07, 2018 21:19
[2018-11-08] MEDS: LEVOTHYROXINE 125MCG TABLET (0.125MG) PO SCH (05:59)
[2018-11-08 06:38] VITALS: BP 114/71
[2018-11-08] MEDS: GABAPENTIN 300 MG CAP PO SCH ×3 (08:18→20:33)
[2018-11-08] MEDS: PROPRANOLOL 20 MG TAB PO SCH ×2 (08:18→20:32)
[2018-11-08] MEDS: BENZTROPINE 1 MG TAB PO SCH (08:19)
[2018-11-08] MEDS: DULoxetine 30 MG CAP (CYMBALTA) PO SCH (08:19)
[2018-11-08] MEDS: ATORVASTATIN 20 MG TAB PO SCH (08:19)
[2018-11-08] MEDS: OMEPRAZOLE 20 MG CAP PO SCH ×2 (08:19→20:33)
[2018-11-08] MEDS: POTASSIUM CHLORIDE 10 MEQ SR TABLET PO SCH ×2 (08:19→20:33)
--- NOTE | 2018-11-08 09:03 | MHIPNPDOC ---
[facility] Progress Note Progress Note DATE OF SERVICE: 11/08/18 HISTORY: Per Dr. Livingston "Patient is a 48-year-old female, who according to ED notes: "Pt states," I'm very depressed and I want to ." Pt reports struggling with suicidal thoughts for the past month, but developed a plan to OD on her medication the past 2 days. Suicidal stressors include the severity of her hallucinations and states, "the voices just won't shut up and I can't deal with them anymore." In addition to AH, she admits having VH and describes them as"bugs everywhere." States she is severely depressed, received an Invega injection a few wks ago, but is not feeling any better. Pt notes she is not sleeping well and believes her psychiatrist is not helping. She appears very depressed at bedside, very tearful while talking about stressors. States she had a suicidal gesture 5 years ago, however her cousin stopped her before ingesting medication. Pt continues to express SI with plan to OD on her medication." VITAL SIGNS: See below. NEW TEST RESULTS: See below CURRENT MEDICATIONS: See below. MENTAL STATUS EXAMINATION: Patient is a 48-year old female, who is alert, cooperative, dressed in hospital clothes. Speech: Is normal in rate, tone and volume. Language skills are good. Thought processes including: linear, coherent. Thought content: improved anxious and depressive thoughts, flashbacks, intrusive thoughts Description of abnormal or psychotic thoughts: Denies command hallucinations, de nies auditory hallucinations She says she didn't have nightmares but has flashbacks, they are always present. Judgment: improving Insight: fair Orientation: x 3. Recent and remote memory: intact. Attention span and concentration: good. Language: good. Fund of knowledge: average. Mood: less depressed/anxious. Affect: more full, congruent with mood. DIAGNOSES: 1. R/O Bipolar disorder 2. R/O Schizoaffective disorder ASSESSMENT: Pt seen and states she's feeling better and that her medications are beneficial as she's no longer having AH and is motivated to get for the day and participate in activities/groups on the unit. She denies SI/HI and states she feels safe here. MANAGEMENT PLAN: As above TIME SPENT: 20 minutes. Vital Signs Vital Signs Date Time Temp Pulse Resp B/P (MAP) Pulse Ox O2 Delivery O2 Flow Rate FiO2 11/08/18 08:18 87 112/85 11/08/18 06:38 98.4 18 11/04/18 14:34 95 11/04/18 14:02 Room Air Current Medications Current Medications Acetaminophen (Tylenol Tab) 650 mg Q6HP PRN PO HEADACHE or DISCOMFORT Last administered on 11/07/18 09:22; Start 11/04/18 at 13:45 Acetaminophen/ Hydrocodone Bitart ([place], Anexsia 5/325) 1 tab QHS PO Last administered on 11/07/18 20:16; Start 11/04/18 at 21:00 Al Hydrox/Mg Hydrox/Simethicone (Mylanta) 30 ml Q4HP PRN PO HEARTBURN/INDIGESTION; Start 11/04/18 at 13:45 Alprazolam (Xanax) 0.5 mg TIDP PRN PO ANXIETY/AGITATION Last administered on 11/07/18 15:33; Start 11/04/18 at 16:15 Aripiprazole (AbiLIFY) 5 mg BID PO Last administered on 11/06/18 08:39; Start 11/05/18 at 21:00; Stop 11/06/18 at 16:42; Status DC Aripiprazole (AbiLIFY) 7.5 mg BID PO Last administered on 11/08/18 08:18; Start 11/06/18 at 21:00 Atorvastatin Calcium (Lipitor) 20 mg DAILY PO Last administered on 11/08/18 08:19; Start 11/05/18 at 09:00 Benztropine Mesylate (Cogentin) 1 mg QAM PO Last administered on 11/08/18 08:19; Start 11/07/18 at 09:00 Duloxetine HCl (Cymbalta) 90 mg DAILY PO Last administered on 11/08/18 08:19; Start 11/05/18 at 09:00 Gabapentin (Neurontin) 400 mg TID PO Last administered on 11/06/18at 15:51; Start 11/04/18 at 16:00; Stop 11/06/18 at 16:49; Status DC Gabapentin (Neurontin) 600 mg TID PO Last administered on 11/08/18 08:18; Start 11/06/18 at 21:00 Home Med (Med Rec Complete!) ASDIRECTED XX ; Start 11/04/18 at 13:30; Stop 11/04/18 at 13:34; Status DC Levothyroxine Sodium (Synthroid) 125 mcg DAILY@06 PO Last administered on 11/08/18at 05:59; Start 11/06/18 at 06:00 Levothyroxine Sodium (Synthroid) 150 mcg DAILY@06 PO Last administered on 11/05/18 06:15; Start 11/05/18 at 06:00; Stop 11/05/18 at 09:58; Status DC Magnesium Hydroxide (Milk Of Magnesia) 30 ml DAILYPRN PRN PO CONSTIPATION; Start 11/04/18 at 13:45 Omeprazole (PriLOSEC) 20 mg BID PO Last administered on 11/08/18 08:19; Start 11/04/18 at 21:00 Potassium Chloride (Micro-K Extencaps) 10 meq BID PO Last administered on 11/08/18 08:19; Start 11/04/18 at 21:00 Prazosin HCl (Minipress) 2 mg QHS PO Last administered on 11/07/18 20:15; Start 11/04/18 at 21:00 Propranolol HCl (Inderal) 40 mg BID PO Last administered on 11/08/18 08:18; Start 11/04/18 at 21:00 Quetiapine Fumarate (SEROquel) 150 mg QHS PO Last administered on 11/07/18 20:15; Start 11/05/18 at 21:00 Quetiapine Fumarate (SEROquel) 300 mg QHS PO Last administered on 11/07/18at 20:15; Start 11/06/18 at 21:00 Temazepam (Restoril) 7.5 mg QHSP PRN PO INSOMNIA Last administered on 11/06/18 22:00; Start 11/06/18 at 16:45 Temazepam (Restoril) 15 mg QHS PRN PO INSOMNIA Last administered on 11/05/18at 20:40; Start 11/05/18 at 17:30; Stop 11/06/18 at 16:40; Status DC Temazepam (Restoril) 30 mg QHS PO Last administered on 11/04/18 21:31; Start 11/04/18 at 21:00; Stop 11/05/18 at 17:17; Status DC Trazodone HCl (Desyrel) 50 mg QHSP PRN PO INSOMNIA Last administered on 11/05/18at 20:40; Start 11/04/18 at 13:45; Stop 11/06/18 at 16:38; Status DC Allergies Coded Allergies: Sulfa Drugs (Unverified Allergy, Mild, HIVES, 12/15/12) Sulfa Drugs Cross Reactors (Unverified Allergy, Mild, HIVES, 12/15/12) Sulfamethoxazole (Unverified Allergy, Mild, HIVES, 12/15/12) Trimethoprim (Unverified Allergy, Mild, HIVES, 12/15/12) Fexofenadine (Verified Adverse Reaction, Mild, PALPITATIONS, 01/14/13) Ketorolac (Verified Adverse Reaction, Mild, HEADACHE, 01/14/13) Pseudoephedrine (Verified Adverse Reaction, Mild, PALPITATIONS, 01/14/13) CLARK ARTIS DO Nov 08, 2018 09:03
[2018-11-08] MEDS: ACETAMINOPHEN TAB 650MG DOSE (2X325MG) PO PRN (09:35)
[2018-11-08] MEDS: ALPRAZolam 0.5 MG TAB PO PRN (15:07)
[2018-11-08 18:12] VITALS: BP 134/84
[2018-11-08] MEDS: NORCO, ANEXSIA 5/325MG TABLET (HYDROcodone/ACETAMINOPHEN) PO SCH (20:31)
[2018-11-08] MEDS: PRAZOSIN 1 MG CAP PO SCH (20:32)
[2018-11-08] MEDS: QUEtiapine FUMARATE 100 MG TAB PO SCH (20:33)
[2018-11-08] MEDS: QUEtiapine FUMARATE 50 MG TAB PO SCH (20:33)
[2018-11-09] MEDS: LEVOTHYROXINE 125MCG TABLET (0.125MG) PO SCH (06:05)
[2018-11-09 06:09] VITALS: BP 115/68
[2018-11-09] MEDS: ALPRAZolam 0.5 MG TAB PO PRN (06:49)
[2018-11-09] MEDS: POTASSIUM CHLORIDE 10 MEQ SR TABLET PO SCH ×2 (08:27→20:19)
[2018-11-09] MEDS: ACETAMINOPHEN TAB 650MG DOSE (2X325MG) PO PRN ×2 (08:27→15:35)
[2018-11-09] MEDS: ATORVASTATIN 20 MG TAB PO SCH (08:28)
[2018-11-09] MEDS: DULoxetine 30 MG CAP (CYMBALTA) PO SCH (08:28)
[2018-11-09] MEDS: OMEPRAZOLE 20 MG CAP PO SCH ×2 (08:28→22:38)
[2018-11-09] MEDS: BENZTROPINE 1 MG TAB PO SCH (08:28)
[2018-11-09] MEDS: GABAPENTIN 300 MG CAP PO SCH ×3 (08:28→20:23)
[2018-11-09] MEDS: PROPRANOLOL 20 MG TAB PO SCH ×2 (08:28→20:21)
[2018-11-09 18:00] VITALS: BP 120/77
[2018-11-09] MEDS: PRAZOSIN 1 MG CAP PO SCH (20:20)
[2018-11-09] MEDS: NORCO, ANEXSIA 5/325MG TABLET (HYDROcodone/ACETAMINOPHEN) PO SCH (20:21)
[2018-11-09] MEDS: QUEtiapine FUMARATE 50 MG TAB PO SCH (20:23)
[2018-11-09] MEDS: QUEtiapine FUMARATE 100 MG TAB PO SCH (20:23)
[2018-11-10] MEDS: LEVOTHYROXINE 125MCG TABLET (0.125MG) PO SCH (06:02)
[2018-11-10 06:49] VITALS: BP 129/74
[2018-11-10] MEDS: BENZTROPINE 1 MG TAB PO SCH (08:02)
[2018-11-10] MEDS: ATORVASTATIN 20 MG TAB PO SCH (08:02)
[2018-11-10] MEDS: ACETAMINOPHEN TAB 650MG DOSE (2X325MG) PO PRN (08:02)
[2018-11-10 08:03] VITALS: BP 129/74
[2018-11-10] MEDS: OMEPRAZOLE 20 MG CAP PO SCH (08:03)
[2018-11-10] MEDS: POTASSIUM CHLORIDE 10 MEQ SR TABLET PO SCH (08:03)
[2018-11-10] MEDS: PROPRANOLOL 20 MG TAB PO SCH (08:03)
[2018-11-10] MEDS: DULoxetine 30 MG CAP (CYMBALTA) PO SCH (08:03)
[2018-11-10] MEDS: GABAPENTIN 300 MG CAP PO SCH (08:03)
[2018-11-10] MEDS: PILL CRUSHER/CUTTER 1 EACH XX PRN (08:03)
[2018-11-10] MEDS ORDERED: RIZA10TA4 PO (11:57)
[2018-11-10] MEDS ORDERED: ABIL1TAB12 PO (11:57)
[2018-11-10] MEDS ORDERED: QUET5TAB PO (12:01)
[2018-11-10] MEDS ORDERED: BENZ-52 PO (12:01)
[2018-11-10] MEDS ORDERED: GABA-843 PO (12:01)
[2018-11-10] MEDS ORDERED: QUET1TAB8 PO (12:01)
[2018-11-10] MEDS ORDERED: SERO400T PO (15:06)
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
== END 2018-11-10 13:00 | disposition home or self-care (01) | DRG 750 ==
LOC: M ED 10:54 → M ED INP 13:36 → M PSY 14:27
PROVIDERS: ADMIT Psychiatry & Neurology Psychiatry; ATTEND Psychiatry & Neurology Psychiatry
DX: F25.1 Schizoaffective disorder, depressive type (principal); F43.10 Post-traumatic stress disorder, unspecified; E03.9 Hypothyroidism, unspecified; M25.562 Pain in left knee; E88.01 Alpha-1-antitrypsin deficiency; K21.9 Gastro-esophageal reflux disease without esophagitis; I10 Essential (primary) hypertension; E78.5 Hyperlipidemia, unspecified; E87.6 Hypokalemia; Z90.49 Acquired absence of other specified parts of digestive tract; Z90.710 Acquired absence of both cervix and uterus; Z87.891 Personal history of nicotine dependence; Z79.899 Other long term (current) drug therapy; Z88.2 Allergy status to sulfonamides; Z88.8 Allergy status to other drugs, medicaments and biological substances

== ENCOUNTER 2018-11-13 16:02 | Emergency (ER) | payer MEDICARE ==
[~2018-11-13] VITALS: Ht 154.9 cm; Wt 91.4 kg
[~2018-11-13 16:02] MED LIST changes: +/FENT25PA; +/TAMS4CA; +ABIL1TAB12 PO; +ALPR0.5T3 PO; +ATOR1TAB21 PO; +BENZ-52 PO; +DULO30CA PO; -DULO30CA9 PO; -FENT1DIS14; -FLOM0.4C39; +GABA-843 PO; +HYDR-3713 PO; +OMEP20CA3 PO; +QUET1TAB8 PO; +QUET5TAB PO; +SERO400T PO; +TEMA30CA PO
[2018-11-13] MEDS ORDERED: ARIP1TAB10 PO (16:17)
[2018-11-13] MEDS ORDERED: VENTAER INH (16:17)
[2018-11-13 17:17] LABS: HEMATOCRIT 38.5 % (36.0-47.0); HEMOGLOBIN 12.6 g/dl (12.0-15.5); MEAN CORPUSCULAR HEMOGLOBIN 28.4 pg (27.0-33.0); MEAN CORPUSCULAR HGB CONC 32.7 g/dl (32.0-36.5); MEAN CORPUSCULAR VOLUME 86.9 fl (80.0-96.0); PLATELET COUNT, AUTOMATED 252 10^3/uL (150-450); RED BLOOD COUNT 4.43 10^6/uL (4.00-5.40); WHITE BLOOD COUNT 7.6 10^3/uL (4.0-10.0)
[2018-11-13 17:34] LABS: ACETAMINOPHEN LEVEL < 2.0 UG/ML (10.0-30.0); ALT/SGPT 26 U/L (12-78); BILIRUBIN,DIRECT < 0.1 MG/DL (0.0-0.2); BILIRUBIN,TOTAL 0.3 MG/DL (0.2-1.0); BLOOD UREA NITROGEN 5 MG/DL (7-18); CARBON DIOXIDE LEVEL 28 MEQ/L (21-32); CHLORIDE LEVEL 105 MEQ/L (98-107); CREATININE FOR GFR 0.71 MG/DL (0.55-1.30); ETHYL ALCOHOL (ETHANOL) < 0.003 % (0.000-0.010); GLOMERULAR FILTRATION RATE > 60.0 (>58); GLUCOSE, FASTING 101 MG/DL (70-100); POTASSIUM SERUM 4.4 MEQ/L (3.5-5.1); SALICYLATE LEVEL 1.9 MG/DL (5.0-30.0); SODIUM LEVEL 139 MEQ/L (136-145); TOTAL PROTEIN 7.3 GM/DL (6.4-8.2)
[2018-11-13 17:52] LABS: AMPHETAMINES LEVEL URINE NEGATIVE (NEGATIVE); BARBITURATES URINE NEGATIVE (NEGATIVE); BENZODIAZEPINES URINE NEGATIVE (NEGATIVE); CANNABINOIDS URINE POSITIVE (NEGATIVE); COCAINE METABOLITE URINE NEGATIVE (NEGATIVE); METHADONE URINE NEGATIVE (NEGATIVE); OPIATES URINE NEGATIVE (NEGATIVE); PHENCYCLIDINE URINE NEGATIVE (NEGATIVE)
[2018-11-13] MEDS ORDERED: ALPRAZolam 0.5 MG TAB PO ONE (22:00)
[2018-11-13] MEDS ORDERED: GABAPENTIN 300 MG CAP PO ONE (22:00)
[2018-11-13] MEDS ORDERED: NORCO, ANEXSIA 5/325MG TABLET (HYDROcodone/ACETAMINOPHEN) PO ONE (22:00)
[2018-11-13] MEDS ORDERED: POTASSIUM CHLORIDE 10 MEQ SR TABLET PO ONE (22:00)
[2018-11-13] MEDS ORDERED: QUEtiapine FUMARATE 200 MG TAB PO ONE (22:00)
[2018-11-13] MEDS ORDERED: ARIPiprazole 10 MG TAB PO ONE (22:00)
[2018-11-13] MEDS ORDERED: OMEPRAZOLE 20 MG CAP PO ONE (22:00)
[2018-11-13] MEDS ORDERED: PRAZOSIN 1 MG CAP PO ONE (22:30)
[2018-11-13 23:49] LABS: CK-MB VALUE MASS < 1.0 NG/ML (<3.6); CPK CREATINE PHOSPHOKINASE 41 U/L (26-192); MB/CK RELATIVE INDEX 2.44 (< OR =4); TROPONIN I < 0.02 NG/ML (< 0.10)
[2018-11-14 02:22] VITALS: BP 140/87
[2018-11-14] MEDS ORDERED: PRAZOSIN 1 MG CAP PO ONE (21:00)
--- NOTE | 2018-11-15 09:50 | ECGEPIP ---
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
== END 2018-11-14 02:27 ==
LOC: M ED 16:02
DX: R45.851 Suicidal ideations (principal); F32.9 Major depressive disorder, single episode, unspecified; F25.9 Schizoaffective disorder, unspecified; F12.10 Cannabis abuse, uncomplicated; F17.200 Nicotine dependence, unspecified, uncomplicated; Z88.8 Allergy status to other drugs, medicaments and biological substances; Z88.2 Allergy status to sulfonamides; Z88.5 Allergy status to narcotic agent; Z79.899 Other long term (current) drug therapy
CPT/HCPCS: 36415; 80048; 80076; 80307; 82550; 82553; 84443; 84484; 85027; 93005; 99284; G0480

== ENCOUNTER 2019-05-05 13:08 | Inpatient (IN) | payer MEDICAID, MEDICARE ==
[~2019-05-05] VITALS: Ht 154.9 cm; Wt 92.2 kg
[~2019-05-05 13:08] MED LIST changes: -/FENT25PA; -/TAMS4CA; +ARIP1TAB10 PO; -DULO1CAP2 PO; -DULO1CAP3 PO; +DULO1CAP5 PO; +DULO1CAP6 PO; -DULO30CA PO; +DULO30CA9 PO; +FENT1DIS14; +FLOM0.4C39; -OMEP20CA3 PO; +OMEP20CA4 PO; -TRAZ-160 PO; +TRAZ-252 PO; +VENTAER INH
[2019-05-05] MEDS ORDERED: GABA-845 (13:21)
[2019-05-05] MEDS ORDERED: METH20TA29 PO (13:21)
[2019-05-05] MEDS ORDERED: HYDR50TA70 PO (13:21)
[2019-05-05] MEDS ORDERED: OMEP-218 (13:21)
[2019-05-05] MEDS ORDERED: HYDR-4571 PO (13:21)
[2019-05-05] MEDS ORDERED: CLON0.5T8 PO (13:21)
[2019-05-05] MEDS ORDERED: LEVO75TA4 PO (13:21)
[2019-05-05] MEDS ORDERED: PRAZ1CAP (13:21)
[2019-05-05 15:05] LABS: HEMATOCRIT 38.6 % (36.0-47.0); HEMOGLOBIN 12.5 g/dl (12.0-15.5); MEAN CORPUSCULAR HGB CONC 32.4 g/dl (32.0-36.5); MEAN CORPUSCULAR VOLUME 86.5 fl (80.0-96.0); PLATELET COUNT, AUTOMATED 224 10^3/uL (150-450); RED BLOOD COUNT 4.46 10^6/uL (4.00-5.40); WHITE BLOOD COUNT 5.2 10^3/uL (4.0-10.0)
[2019-05-05 15:34] LABS: AMPHETAMINES LEVEL URINE NEGATIVE (NEGATIVE); BARBITURATES URINE NEGATIVE (NEGATIVE); BENZODIAZEPINES URINE NEGATIVE (NEGATIVE); CANNABINOIDS URINE POSITIVE (NEGATIVE); COCAINE METABOLITE URINE NEGATIVE (NEGATIVE); METHADONE URINE NEGATIVE (NEGATIVE); OPIATES URINE NEGATIVE (NEGATIVE); PHENCYCLIDINE URINE NEGATIVE (NEGATIVE)
[2019-05-05 15:48] LABS: HCG, SERUM QUALITATIVE NEGATIVE (NEGATIVE)
[2019-05-05 15:54] LABS: ACETAMINOPHEN LEVEL < 2.0 UG/ML (10.0-30.0); ALT/SGPT 24 U/L (12-78); BILIRUBIN,DIRECT < 0.1 MG/DL (0.0-0.2); BILIRUBIN,TOTAL 0.1 MG/DL (0.2-1.0); BLOOD UREA NITROGEN 8 MG/DL (7-18); CALCIUM LEVEL 9.5 MG/DL (8.5-10.1); CARBON DIOXIDE LEVEL 27 MEQ/L (21-32); CHLORIDE LEVEL 108 MEQ/L (98-107); CREATININE FOR GFR 0.88 MG/DL (0.55-1.30); ETHYL ALCOHOL (ETHANOL) < 0.003 % (0.000-0.010); GLOMERULAR FILTRATION RATE > 60.0 (>58); GLUCOSE, FASTING 88 MG/DL (70-100); POTASSIUM SERUM 4.2 MEQ/L (3.5-5.1); SALICYLATE LEVEL 3.6 MG/DL (5.0-30.0); SODIUM LEVEL 140 MEQ/L (136-145); TOTAL PROTEIN 7.8 GM/DL (6.4-8.2)
[2019-05-05] MEDS ORDERED: GABA-843 PO (18:12)
[2019-05-05] MEDS ORDERED: BENZ-52 PO (18:12)
[2019-05-05] MEDS ORDERED: QUET400T PO (18:12)
[2019-05-05] MEDS ORDERED: RIZA10TA2 PO (18:12)
[2019-05-05] MEDS ORDERED: PRAZ2CAP40 PO (18:12)
[2019-05-05] MEDS ORDERED: MOM 30ML SUSPENSION UDC PO PRN (18:15)
[2019-05-05] MEDS ORDERED: MAALOX 30 ML SUSP *UDC PO PRN (18:15)
[2019-05-05] MEDS ORDERED: ACETAMINOPHEN TAB 650MG DOSE (2X325MG) PO PRN (18:15)
[2019-05-05] MEDS: GABAPENTIN 400 MG CAP PO SCH (20:56)
[2019-05-05] MEDS ORDERED: PRAZOSIN 1 MG CAP PO SCH (21:00)
[2019-05-05 22:04] VITALS: BP 139/95
[2019-05-05] MEDS: traZODone 50 MG TAB PO PRN (23:01)
[2019-05-05] MEDS: LORazepam 1 MG TAB PO PRN (23:01)
[2019-05-06 06:36] VITALS: BP 131/75
[2019-05-06] MEDS: GABAPENTIN 400 MG CAP PO SCH (08:53)
[2019-05-06] MEDS: DULoxetine 30 MG CAP (CYMBALTA) PO SCH (08:53)
--- NOTE | 2019-05-06 13:57 | HPEPDOC ---
General Date of Admission May 05, 2019 at 18:07 Date of Service: May 06, 2019 Attending Physician: RISHI FRIAS MD Chief Complaint The patient is a 49-year-old female admitted with a reason for visit of Schizoaffective Disorder/Ptsd. Source: Patient Exam Limitations: No limitations Timing/Duration: Week(s) Severity: Moderate Associated Symptoms: Other (none) History of Present Illness 49 years old white female with past medical history of hypothyroidism, hype rlipidemia, COPD, bipolar disorder, depression, anxiety, was admitted to psych floor with chief complaints of hearing voices since last 2-3 weeks. voices are encouraging her for homicidal ideas. Patient is otherwise not suicidal and not violent at the present time. Patient is comfortable offers no new complaints at the present time Home Medications Scheduled Aripiprazole (Aripiprazole) 15 Mg Tab, 15 MG PO QHS, (Reported) Atorvastatin Calcium (Atorvastatin Calcium) 20 Mg Tab, 20 MG PO DAILY, (Reported) Benztropine Mesylate (Benztropine Mesylate) 1 Mg Tablet, 1 MG PO DAILY, (Reported) Duloxetine Hcl (Duloxetine HCl) 30 Mg Cap, 30 MG PO DAILY, (Reported) 90MG DAILY DOSE Duloxetine Hcl (Duloxetine HCl) 60 Mg Cap, 60 MG PO DAILY, (Reported) 90MG DAILY DOSE Gabapentin (Gabapentin) 300 Mg Capsule, 600 MG PO Q8H, (Reported) Hydrocodone/Acetaminophen (Hydrocodone-Acetamin 5-325 mg) 1 Each Tablet, 1 TAB PO QHS, (Reported) Hydroxyzine HCl (Hydroxyzine HCl) 50 Mg Tablet, 50 MG PO QID, (Reported) Levothyroxine Sodium (Levothyroxine Sodium) 75 Mcg Tablet, 75 MCG PO QAM, (Repor dwain) Methylphenidate HCl (Methylphenidate HCl) 20 Mg Tablet, 20 MG PO DAILY, (Reported) Potassium Chloride (Klor-Con M10) 10 Meq Tabcr, 10 MEQ PO BID, (Reported) Prazosin HCl (Prazosin HCl) 2 Mg Capsule, 2 MG PO QHS, (Reported) Quetiapine Fumarate (Quetiapine Fumarate) 400 Mg Tablet, 800 MG PO QHS, (Reported) Scheduled PRN Albuterol Sulfate (Ventolin Hfa) 108 Mcg/Act Aer, 2 PUFF INH QID PRN for SHORTNESS OF BREATH, (Reported) Clonazepam (Clonazepam) 0.5 Mg Tablet, 0.5 MG PO BID PRN for ANXIETY/AGITATION, (Reported) Rizatriptan Benzoate (Rizatriptan) 10 Mg Tablet, 10 MG PO DAILY PRN for MIGRAINE, (Reported) Allergies Coded Allergies: Sulfa (Sulfonamide Antibiotics) (Verified Allergy, Unknown, 05/05/19) fexofenadine (Verified Allergy, Unknown, 05/05/19) ketorolac (Verified Allergy, Unknown, 05/05/19) pseudoephedrine (Verified Allergy, Unknown, 05/05/19) sulfamethoxazole (Verified Allergy, Unknown, 05/05/19) trimethoprim (Verified Allergy, Unknown, 05/05/19) Past Medical History Medical History Hypothyroid, hyperlipidemia, COPD, bipolar disorder, depression, anxiety Surgical History Hysterectomy, single oophrectomy and appendectomy Family History Significant Family History: Other (, schizophrenia, bipolar disorder, siblings and father) Social History * Smoker: former Smoker Alcohol: Denies Drugs: marijuana A-FIB/CHADSVASC A-FIB History Current/History of A-Fib/PAF?: No Review of Systems Constitutional: Denies: Chills, Fever, Malaise, Night Sweats, Weakness, Fatigue, Weight Loss, Lethargy, Other Eyes: Denies: Pain, Vision change, Conjunctivae inflammation, Eyelid inflammation, Redness, Other ENT: Denies: Head Aches, Ear Pain, Dysphagia, Sinus Congestion, Post Nasal Drip, Sore Throat, Epistaxis, Other Symptoms Skin: Denies: Rash, Lesions, Jaundice, Bruising, Itching, Dry, Breakdown, Nail Changes, Other Pulmonary: Denies: Dyspnea, Cough, Pleuritic Chest Pain, Other Symptoms Cardiovascular: Denies: Chest Pain, Palpitations, Orthopnea, Paroxysmal Noc. Dyspnea, Edema, Lt Headedness, Other Symptoms Gastrointestinal: Denies: Nausea, Vomiting, Abdominal Pain, Diarrhea, Constipation, Melena, Hematochezia, Other Symptoms Genitourinary: Denies: Dysuria, Frequency, Incontinence, Hematuria, Retention, Other Symptoms Hematologic: Denies: Bruising, Bleeding Excessively, Petecchia, Purpura, Enlarged Lymph Nodes, Other Hematologic Musculoskeletal: Denies: Neck Pain, Back Pain, Shoulder Pain, Arm Pain, Hand Pain, Leg Pain, Foot Pain, Joint Pain, Muscle Pain, Spasms, Other Symptoms Neurological: Denies: Weakness, Numbness, Incoordination, Change in speech, Confusion, Seizures, Other Symptoms Psych: Denies: Mood Normal, Anxiety, Depression, Memory Issues, Thoughts of Self Harm, Anger, Thoughts of Harming Other, Other Psych Physical Examination General Exam: Positive: Alert, Cooperative Eye Exam: Positive: PERRLA, Conjunctiva & lids normal ENT Exam: Positive: Atraumatic, Mucous membr. moist/pink Neck Exam: Positive: Supple Chest Exam: Positive: Clear to auscultation, Normal air movement Heart Exam: Positive: Rate Normal, Normal S1 Abdomen Exam: Positive: Normal bowel sounds, Soft Extremity Exam: Positive: Normal pulses Skin Exam: Positive: Nl turgor and temperature Neuro Exam: Positive: Strength at 5/5 X4 ext, Sensation Intact Psych Exam: Positive: Mental status NL, Mood NL, Oriented x 3 Vital Signs Vital Signs Date Time Temp Pulse Resp B/P (MAP) Pulse Ox O2 Delivery O2 Flow Rate FiO2 05/06/19 06:36 98.3 77 12 131/75 (93) 05/05/19 22:04 96 05/05/19 20:59 Room Air Laboratory Data Labs 24H Laboratory Tests 2 05/05/19 14:46: Nucleated Red Blood Cells % (auto) 0.0, Anion Gap 5L, Glomerular Filtration Rate > 60.0, Calcium Level 9.5, Aspartate Amino Transf (AST/SGOT) 17, Alanine Aminotransferase (ALT/SGPT) 24, Alkaline Phosphatase 128H, Total Bilirubin 0.1L, Direct Bilirubin < 0.1, Total Protein 7.8, Albumin 4.0, Albumin/Globulin Ratio 1.05, Thyroid Stimulating Hormone (TSH) 23.700H, Human Chorionic Gonadotropin, Qual NEGATIVE, Salicylates Level 3.6L, Urine Amphetamines Screen NEGATIVE, Urine Benzodiazepines Screen NEGATIVE, Urine Opiates Screen NEGATIVE, Urine Methadone Screen NEGATIVE, Acetaminophen Level < 2.0L, Urine Barbiturates Screen NEGATIVE, Urine Phencyclidine Screen NEGATIVE, Urine Cocaine Metabolite Screen NEGATIVE, Urine Cannabinoids Screen POSITIVEH, Ethyl Alcohol Level < 0.003 CBC/BMP Laboratory Tests 05/05/19 14:46 Red Blood Count 4.46, Mean Corpuscular Volume 86.5, Mean Corpuscular Hemoglobin 28.0, Mean Corpuscular Hemoglobin Concent 32.4, Red Cell Distribution Width 15.8 H Problems (1) Schizoaffective disorder Status: Chronic Problem Text: Psych meds as per psychiatry Patient was also requesting methylphenidate, and was referred to psychiatry for further evaluation (2) Hypothyroidism Status: Chronic Problem Text: Patient instructed TSH is elevated. Not sure. Patient was following up on noncompliant with her thyroid supplement Will order a free T4 to confirm this Continue thyroid supplement as per orders (3) Hyperlipemia Status: Chronic Problem Text: Continue Lipitor as per orders (4) COPD (chronic obstructive pulmonary disease) Status: Chronic Problem Text: Continue Ppro-air HFA when necessary as needed (5) Hypertension Status: Chronic Problem Text: Patient is not on any antihypertensive meds and declines a history of hypertension, but reviewing old check old records. Patient doesn't have a diagnosis of hypertension. We will continue monitoring patient's blood pressure. If continues to be elevated, then we'll start medication Laboratory work checked essentially all blood work is negative except TSH Plan / VTE VTE Prophylaxis Ordered?: No VTE Exclusion Mechanical Proph: Low Risk for VTE VTE Exclusion Pharmacological: At Low Risk for VTE RISHI FRIAS MD May 06, 2019 13:57
[2019-05-06] MEDS: ATORVASTATIN 20 MG TAB PO SCH (14:33)
[2019-05-06] MEDS: LEVOTHYROXINE 75MCG TABLET (0.075MG) PO SCH (15:09)
[2019-05-06] MEDS: GABAPENTIN 300 MG CAP PO SCH ×2 (15:44→20:14)
[2019-05-06 18:00] VITALS: BP 121/70
[2019-05-06] MEDS: QUEtiapine FUMARATE 200 MG TAB PO SCH (20:14)
[2019-05-06] MEDS: PRAZOSIN 1 MG CAP PO SCH (20:14)
[2019-05-06] MEDS: BENZTROPINE 1 MG TAB PO SCH (20:15)
[2019-05-06] MEDS: ARIPiprazole 10 MG TAB PO SCH (20:15)
[2019-05-07] MEDS: LEVOTHYROXINE 75MCG TABLET (0.075MG) PO SCH (06:03)
[2019-05-07 06:38] VITALS: BP 145/89
[2019-05-07] MEDS: DULoxetine 30 MG CAP (CYMBALTA) PO SCH (08:27)
[2019-05-07] MEDS: LORazepam 1 MG TAB PO PRN ×2 (08:27→19:47)
[2019-05-07] MEDS: ATORVASTATIN 20 MG TAB PO SCH (08:27)
[2019-05-07] MEDS: GABAPENTIN 300 MG CAP PO SCH ×3 (08:27→20:11)
--- NOTE | 2019-05-07 09:37 | MHIPNPDOC ---
[facility] Progress Note Progress Note DATE OF SERVICE: 05/07/19 HISTORY: Pt is a 49y/o CF with a psych history of schizoaffective disorder who was admitted due to having AH telling her to harm herself. VITAL SIGNS: See below. NEW TEST RESULTS: See below. CURRENT MEDICATIONS: See below. MENTAL STATUS EXAMINATION: Patient is a 49-year old female, who is alert, cooperative, dressed in own clothes. Speech: Is normal in rate, tone and volume. Language skills are good. Thought processes including: linear, coherent, logical. Thought content: improved anxious and depressive thoughts, flashbacks, intrusive thoughts Description of abnormal or psychotic thoughts: Is having AH telling her to harm herself but denies intent/plan to act on it, denies visual hallucinations Judgment: fair Insight: fair Orientation: x 3. Recent and remote memory: intact. Attention span and concentration: good. Language: good. Fund of knowledge: average. Mood: less depressed/anxious. Affect: more full, congruent with mood. DIAGNOSES: 1. R/O Bipolar disorder 2. R/O Schizoaffective disorder ASSESSMENT:Pt seen and states that her mood is better but she's still hearing voices to harm herself (denies intent/plan to act) and states increase in abilify made no change. States she had been on invega trinza 4-5months ago but that it was never helpful for her AH. States AH worse when she feels depressed, a man's voice she doesn't recognize, inside her head. States she never taken haldol for AH but is agreeable to trying it to see if it helps to ease and stop her AH. Risks/benefits discussed. States she's being social on the milieu which is beneficial. States she slept well last night. Feels she is tolerating her medications well. She is attending groups and finding them helpful. She den ies SI/HI, VH, delusions. Pt feels safe here. MANAGEMENT PLAN: continue plan. haldol 5mg bid for AH Medications: abilify 20mg qhs cogentin 1mg qhs cymbalta 90mg daily gabapentin 600mg tid prazosin 2mg qhs seroquel 600mg qhs haldol 5mg bid TIME SPENT: 30 minutes. Vital Signs Vital Signs Date Time Temp Pulse Resp B/P (MAP) Pulse Ox O2 Delivery O2 Flow Rate FiO2 05/07/19 06:38 97.0 92 12 145/89 (107) 05/05/19 22:04 96 05/05/19 20:59 Room Air Laboratory Data 24H Labs Laboratory Tests 2 05/07/19 07:23: Free Thyroxine 0.60L Current Medications Current Medications Medications (Trade) Dose Ordered Sig/Jesika Route PRN Reason Start Time Stop Time Status Last Admin Dose Admin Acetaminophen (Tylenol Tab) 650 mg Q6HP PRN PO HEADACHE or DISCOMFORT 05/05/19 18:15 05/07/19 06:40 Al Hydrox/Mg Hydrox/Simethicone (Mylanta) 30 ml Q4HP PRN PO HEARTBURN/INDIGESTION 05/05/19 18:15 Albuterol Sulfate (Proventil, Ventolin Hfa) 2 puff QID PRN INH SHORTNESS OF BREATH 05/06/19 09:00 Aripiprazole (AbiLIFY) 15 mg QHS PO 05/05/19 21:00 05/06/19 12:13 DC 05/05/19 20:57 Aripiprazole (AbiLIFY) 20 mg QHS PO 05/06/19 21:00 05/06/19 20:15 Atorvastatin Calcium (Lipitor) 20 mg DAILY PO 05/06/19 09:00 05/07/19 08:27 Benztropine Mesylate (Cogentin) 1 mg QHS PO 05/06/19 21:00 05/06/19 20:15 Duloxetine HCl (Cymbalta) 90 mg DAILY PO 05/06/19 09:00 05/07/19 08:27 Gabapentin (Neurontin) 400 mg TID PO 05/05/19 21:00 05/06/19 12:13 DC 05/06/19 08:53 Gabapentin (Neurontin) 600 mg TID PO 05/06/19 16:00 05/07/19 08:27 Home Med (Med Rec Complete!) ASDIRECTED XX 05/05/19 18:30 05/05/19 18:30 DC Home Med (Med Rec Complete!) ASDIRECTED XX 05/05/19 18:30 05/05/19 18:30 DC Levothyroxine Sodium (Synthroid) 75 mcg DAILY@0600 PO 8/21/19 06:00 05/07/19 06:03 Lorazepam (Ativan) 1 mg Q4HP PRN PO ANXIETY/AGITATION 05/05/19 18:15 05/07/19 08:27 Magnesium Hydroxide (Milk Of Magnesia) 30 ml DAILYPRN PRN PO CONSTIPATION 05/05/19 18:15 Prazosin HCl (Minipress) 1 mg QHS PO 05/05/19 21:00 05/06/19 12:13 DC 05/05/19 20:57 Prazosin HCl (Minipress) 2 mg QHS PO 05/06/19 21:00 05/06/19 20:14 Quetiapine Fumarate (SEROquel) 600 mg QHS PO 05/06/19 21:00 05/06/19 20:14 Trazodone HCl (Desyrel) 50 mg QHSP PRN PO INSOMNIA 05/05/19 18:15 05/05/19 23:01 Allergies Coded Allergies: Sulfa (Sulfonamide Antibiotics) (Verified Allergy, Unknown, 05/05/19) fexofenadine (Verified Allergy, Unknown, 05/05/19) ketorolac (Verified Allergy, Unknown, 05/05/19) pseudoephedrine (Verified Allergy, Unknown, 05/05/19) sulfamethoxazole (Verified Allergy, Unknown, 05/05/19) trimethoprim (Verified Allergy, Unknown, 05/05/19) CLARK ARTIS DO May 07, 2019 09:37
[2019-05-07] MEDS ORDERED: HALOPERIDOL 5 MG TAB PO ONE (10:00)
[2019-05-07] MEDS ORDERED: ALBUTEROL 90 MCG/ACT 8GM HFA INHALER INH PRN (12:30)
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
[2019-05-07 18:00] VITALS: BP 135/80
[2019-05-07] MEDS: QUEtiapine FUMARATE 200 MG TAB PO SCH (20:10)
[2019-05-07] MEDS: traZODone 50 MG TAB PO PRN (20:11)
[2019-05-07] MEDS: ARIPiprazole 10 MG TAB PO SCH (20:11)
[2019-05-07] MEDS: HALOPERIDOL 5 MG TAB PO SCH (20:11)
[2019-05-07] MEDS: BENZTROPINE 1 MG TAB PO SCH (20:11)
[2019-05-07] MEDS: PRAZOSIN 1 MG CAP PO SCH (20:12)
[2019-05-08] MEDS: LEVOTHYROXINE 75MCG TABLET (0.075MG) PO SCH (05:54)
[2019-05-08 06:34] VITALS: BP 122/85
[2019-05-08] MEDS: DULoxetine 30 MG CAP (CYMBALTA) PO SCH (09:05)
[2019-05-08] MEDS: ATORVASTATIN 20 MG TAB PO SCH (09:05)
[2019-05-08] MEDS: HALOPERIDOL 5 MG TAB PO SCH (09:05)
[2019-05-08] MEDS: GABAPENTIN 300 MG CAP PO SCH ×3 (09:06→20:09)
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
[2019-05-08] MEDS ORDERED: HALOPERIDOL 5 MG TAB PO ONE (09:15)
[2019-05-08] MEDS ORDERED: VENLAFAXINE **XR** 37.5 MG CAPSULE PO ONE (10:00)
[2019-05-08] MEDS: IBUPROFEN 600 MG TAB PO PRN (11:53)
[2019-05-08] MEDS: LORazepam 1 MG TAB PO PRN (15:04)
[2019-05-08 18:29] VITALS: BP 144/92
[2019-05-08] MEDS: HALOPERIDOL 10 MG TAB PO SCH (20:08)
[2019-05-08] MEDS: OMEPRAZOLE 20 MG CAP PO SCH (20:09)
[2019-05-08] MEDS: PRAZOSIN 1 MG CAP PO SCH (20:09)
[2019-05-08] MEDS: traZODone 50 MG TAB PO PRN (20:09)
[2019-05-08] MEDS: BENZTROPINE 1 MG TAB PO SCH (20:09)
[2019-05-08] MEDS: QUEtiapine FUMARATE 200 MG TAB PO SCH (20:09)
[2019-05-08] MEDS: ARIPiprazole 10 MG TAB PO SCH (20:09)
[2019-05-09] MEDS: LEVOTHYROXINE 75MCG TABLET (0.075MG) PO SCH (05:46)
[2019-05-09 06:31] VITALS: BP 118/86
[2019-05-09] MEDS: ATORVASTATIN 20 MG TAB PO SCH (08:21)
[2019-05-09] MEDS: HALOPERIDOL 10 MG TAB PO SCH ×2 (08:21→20:30)
[2019-05-09] MEDS: GABAPENTIN 300 MG CAP PO SCH ×3 (08:21→20:30)
[2019-05-09] MEDS: OMEPRAZOLE 20 MG CAP PO SCH ×2 (08:22→20:30)
[2019-05-09] MEDS ORDERED: VENLAFAXINE **XR** 75MG CAPSULE PO SCH (09:00)
[2019-05-09] MEDS ORDERED: DULoxetine 30 MG CAP (CYMBALTA) PO SCH (09:00)
[2019-05-09] MEDS: ALBUTEROL 90 MCG/ACT 8GM HFA INHALER INH PRN (12:21)
--- NOTE | 2019-05-09 15:20 | MHIPNPDOC ---
[facility] Progress Note Progress Note Date of Service: 05/09/2019 History of Present Illness Patient, a 49-year-old woman with a history of significant and impairing depression, presents suicidal. She is on a multitude of different medications, but is currently on a cross-titration from Cymbalta to Effexor with her primary in-patient doctor, Dr. Wells. Interval History Patient is met with today. She still describes having suicidal thoughts but is able to contract for safety. She has been cooperative with nursing, attends groups with no behavioral problems. Reports significant fatigue, loss of inte rest, concentration problems, as well as anxiety. She reports she hasn't noticed any adverse effects from the cross-titration. Denies tremor, GI upset, confusion, or other signs of serotonin syndrome. Review Of Systems As above. Psychotherapy None on this visit. Vital Signs Reviewed. Mental Status Examination General: Well dressed with good hygiene Speech: Spontaneous and fluid Thought processes: Linear and logical MSK: Smooth and coordinated gait, no signs of tremors or involuntary orofacial movements Thought content: Pessimistic Abstract reasoning, and computation: Intact Description of associations: Intact Description of abnormal or psychotic thoughts: Admits to suicidal thoughts with a plan, but is able to contract for safety. Denies homicidal ideation. Denies auditory or visual hallucinations Judgment: fair Insight: fair Orientation: Alert and orientated 3 Cognition: Grossly normal Recent and remote memory: Intact Attention span and concentration: Intact Fund of knowledge: Adequate Mood: "okay" Affect: Dysthymic with a constricted range Diagnoses Unspecified bipolar disorder. Rule out schizo-affective. Assessment and Plan Medications as below. Will continue cross-titration, lowering Cymbalta to 40 mg daily and increasing Effexor to 112.5 mg of extended release. Patient is educated on signs and symptoms of serotonin syndrome to alert nursing to. Otherwise, patient appears to tolerate other medications well. Disposition Patient will need a longer in-patient admission to treat her suicidality and severe depression. Time Spent 15 minutes [id number]. Saturday Vital Signs Vital Signs Date Time Temp Pulse Resp B/P (MAP) Pulse Ox O2 Delivery O2 Flow Rate FiO2 05/09/19 06:31 97.3 78 14 118/86 (97) 05/08/19 13:18 Room Air 05/05/19 22:04 96 Current Medications Current Medications Medications (Trade) Dose Ordered Sig/Jesika Route PRN Reason Start Time Stop Time Status Last Admin Dose Admin Acetaminophen (Tylenol Tab) 650 mg Q6HP PRN PO HEADACHE or DISCOMFORT 05/05/19 18:15 05/08/19 09:33 DC 05/07/19 06:40 Al Hydrox/Mg Hydrox/Simethicone (Mylanta) 30 ml Q4HP PRN PO HEARTBURN/INDIGESTION 05/05/19 18:15 05/08/19 17:12 Albuterol Sulfate (Proventil, Ventolin Hfa) 2 puff QID PRN INH SHORTNESS OF BREATH 05/06/19 09:00 05/09/19 12:21 Albuterol Sulfate (Proventil, Ventolin Hfa) 2 puff QID PRN INH SHORTNESS OF BREATH 05/07/19 12:30 Cancel Aripiprazole (AbiLIFY) 15 mg QHS PO 05/05/19 21:00 05/06/19 12:13 DC 05/05/19 20:57 Aripiprazole (AbiLIFY) 20 mg QHS PO 05/06/19 21:00 05/08/19 20:09 Atorvastatin Calcium (Lipitor) 20 mg DAILY PO 05/06/19 09:00 05/09/19 08:21 Benztropine Mesylate (Cogentin) 1 mg QHS PO 05/06/19 21:00 05/08/19 20:09 Duloxetine HCl (Cymbalta) 60 mg DAILY PO 05/09/19 09:00 05/09/19 08:22 Duloxetine HCl (Cymbalta) 90 mg DAILY PO 05/06/19 09:00 05/08/19 09:08 DC 05/08/19 09:05 Gabapentin (Neurontin) 400 mg TID PO 05/05/19 21:00 05/06/19 12:13 DC 05/06/19 08:53 Gabapentin (Neurontin) 600 mg TID PO 05/06/19 16:00 05/09/19 08:21 Haloperidol (Haldol) 5 mg BID PO 05/07/19 21:00 05/08/19 09:08 DC 05/08/19 09:05 Haloperidol (Haldol) 10 mg BID PO 05/08/19 21:00 05/09/19 08:21 Home Med (Med Rec Complete!) ASDIRECTED XX 05/05/19 18:30 05/05/19 18:30 DC Home Med (Med Rec Complete!) ASDIRECTED XX 05/05/19 18:30 05/05/19 18:30 DC Ibuprofen (Advil) 600 mg Q4HP PRN PO MODERATE PAIN (PS 5-7) 05/08/19 09:45 05/08/19 11:53 Levothyroxine Sodium (Synthroid) 75 mcg DAILY@0600 PO 05/06/19 06:00 05/09/19 05:46 Lorazepam (Ativan) 1 mg Q4HP PRN PO ANXIETY/AGITATION 05/05/19 18:15 05/08/19 15:04 Magnesium Hydroxide (Milk Of Magnesia) 30 ml DAILYPRN PRN PO CONSTIPATION 05/05/19 18:15 Omeprazole (PriLOSEC) 20 mg BID PO 05/08/19 21:00 05/09/19 08:22 Prazosin HCl (Minipress) 1 mg QHS PO 05/05/19 21:00 05/06/19 12:13 DC 05/05/19 20:57 Prazosin HCl (Minipress) 2 mg QHS PO 05/06/19 21:00 05/08/19 20:09 Quetiapine Fumarate (SEROquel) 600 mg QHS PO 05/06/19 21:00 05/08/19 20:09 Trazodone HCl (Desyrel) 50 mg QHSP PRN PO INSOMNIA 05/05/19 18:15 05/08/19 20:09 Venlafaxine HCl (Effexor Xr) 75 mg DAILY PO 05/09/19 09:00 05/09/19 08:22 Allergies Coded Allergies: Sulfa (Sulfonamide Antibiotics) (Verified Allergy, Unknown, 05/05/19) fexofenadine (Verified Allergy, Unknown, 05/05/19) pseudoephedrine (Verified Allergy, Unknown, 05/05/19) sulfamethoxazole (Verified Allergy, Unknown, 05/05/19) trimethoprim (Verified Allergy, Unknown, 05/05/19) ketorolac (Verified Adverse Reaction, Mild, HEADACHE, 05/08/19) THERESA BLANCA DO May 09, 2019 15:20
[2019-05-09] MEDS: LORazepam 1 MG TAB PO PRN (17:07)
[2019-05-09 18:00] VITALS: BP 134/87
[2019-05-09] MEDS: ARIPiprazole 10 MG TAB PO SCH (20:29)
[2019-05-09] MEDS: BENZTROPINE 1 MG TAB PO SCH (20:30)
[2019-05-09] MEDS: QUEtiapine FUMARATE 200 MG TAB PO SCH (20:30)
[2019-05-09] MEDS: PRAZOSIN 1 MG CAP PO SCH (20:30)
[2019-05-09] MEDS: traZODone 50 MG TAB PO PRN (20:30)
[2019-05-10] MEDS: LEVOTHYROXINE 75MCG TABLET (0.075MG) PO SCH (06:27)
[2019-05-10 06:39] VITALS: BP 110/70
[2019-05-10] MEDS: OMEPRAZOLE 20 MG CAP PO SCH ×2 (08:17→20:03)
[2019-05-10] MEDS: VENLAFAXINE **XR** 37.5 MG CAPSULE PO SCH (08:18)
[2019-05-10] MEDS: ATORVASTATIN 20 MG TAB PO SCH (08:18)
[2019-05-10] MEDS: HALOPERIDOL 10 MG TAB PO SCH ×2 (08:18→20:03)
[2019-05-10] MEDS: DULoxetine 20 MG CAP (CYMBALTA) PO SCH (08:18)
[2019-05-10] MEDS: GABAPENTIN 300 MG CAP PO SCH ×3 (08:18→20:03)
[2019-05-10] MEDS: IBUPROFEN 600 MG TAB PO PRN (08:19)
[2019-05-10] MEDS: LORazepam 1 MG TAB PO PRN (17:02)
[2019-05-10 18:00] VITALS: BP 127/89
[2019-05-10] MEDS: BENZTROPINE 1 MG TAB PO SCH (20:03)
[2019-05-10] MEDS: PRAZOSIN 1 MG CAP PO SCH (20:03)
[2019-05-10] MEDS: QUEtiapine FUMARATE 200 MG TAB PO SCH (20:03)
[2019-05-10] MEDS: traZODone 50 MG TAB PO PRN (20:03)
[2019-05-10] MEDS: ARIPiprazole 10 MG TAB PO SCH (20:03)
[2019-05-10] MEDS: ALBUTEROL 90 MCG/ACT 8GM HFA INHALER INH PRN (20:05)
[2019-05-11] MEDS: LEVOTHYROXINE 75MCG TABLET (0.075MG) PO SCH (06:05)
[2019-05-11 06:34] VITALS: BP 113/71
[2019-05-11] MEDS: ALBUTEROL 90 MCG/ACT 8GM HFA INHALER INH PRN (08:04)
[2019-05-11] MEDS: ATORVASTATIN 20 MG TAB PO SCH (08:05)
[2019-05-11] MEDS: GABAPENTIN 300 MG CAP PO SCH ×3 (08:05→20:02)
[2019-05-11] MEDS: HALOPERIDOL 10 MG TAB PO SCH ×2 (08:05→20:01)
[2019-05-11] MEDS: VENLAFAXINE **XR** 37.5 MG CAPSULE PO SCH (08:05)
[2019-05-11] MEDS: OMEPRAZOLE 20 MG CAP PO SCH ×2 (08:05→20:01)
[2019-05-11] MEDS: DULoxetine 20 MG CAP (CYMBALTA) PO SCH (08:05)
[2019-05-11] MEDS: IBUPROFEN 600 MG TAB PO PRN ×2 (08:06→20:03)
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
[2019-05-11 12:32] LABS: ALBUMIN 4.4 GM/DL (3.2-5.2); ALT/SGPT 25 U/L (12-78); BILIRUBIN,TOTAL 0.2 MG/DL (0.2-1.0); BLOOD UREA NITROGEN 15 MG/DL (7-18); CALCIUM LEVEL 9.6 MG/DL (8.5-10.1); CARBON DIOXIDE LEVEL 23 MEQ/L (21-32); CHLORIDE LEVEL 103 MEQ/L (98-107); CREATININE FOR GFR 0.93 MG/DL (0.55-1.30); GLOMERULAR FILTRATION RATE > 60.0 (>58); GLUCOSE, FASTING 107 MG/DL (70-100); POTASSIUM SERUM 4.4 MEQ/L (3.5-5.1); SODIUM LEVEL 137 MEQ/L (136-145); TOTAL PROTEIN 7.5 GM/DL (6.4-8.2)
[2019-05-11] MEDS: LORazepam 1 MG TAB PO PRN (12:51)
[2019-05-11 18:14] VITALS: BP 124/71
[2019-05-11] MEDS: traZODone 50 MG TAB PO PRN (20:01)
[2019-05-11] MEDS: BENZTROPINE 1 MG TAB PO SCH (20:01)
[2019-05-11] MEDS: ARIPiprazole 10 MG TAB PO SCH (20:02)
[2019-05-11] MEDS: QUEtiapine FUMARATE 200 MG TAB PO SCH (20:02)
[2019-05-11] MEDS: PRAZOSIN 1 MG CAP PO SCH (20:02)
[2019-05-12] MEDS: LEVOTHYROXINE 75MCG TABLET (0.075MG) PO SCH (06:01)
[2019-05-12 06:33] VITALS: BP 128/70
[2019-05-12] MEDS: ATORVASTATIN 20 MG TAB PO SCH (08:32)
[2019-05-12] MEDS: HALOPERIDOL 10 MG TAB PO SCH ×2 (08:32→20:02)
[2019-05-12] MEDS: OMEPRAZOLE 20 MG CAP PO SCH ×2 (08:32→20:02)
[2019-05-12] MEDS: DULoxetine 20 MG CAP (CYMBALTA) PO SCH (08:32)
[2019-05-12] MEDS: GABAPENTIN 300 MG CAP PO SCH ×3 (08:33→20:03)
[2019-05-12] MEDS: VENLAFAXINE **XR** 37.5 MG CAPSULE PO SCH (08:33)
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
[2019-05-12] MEDS: IBUPROFEN 600 MG TAB PO PRN (09:43)
[2019-05-12] MEDS: LORazepam 1 MG TAB PO PRN (11:52)
[2019-05-12 18:00] VITALS: BP 121/78
[2019-05-12] MEDS: ARIPiprazole 10 MG TAB PO SCH (20:02)
[2019-05-12] MEDS: traZODone 50 MG TAB PO PRN (20:03)
[2019-05-12] MEDS: PRAZOSIN 1 MG CAP PO SCH (20:03)
[2019-05-12] MEDS: QUEtiapine FUMARATE 200 MG TAB PO SCH (20:03)
[2019-05-12] MEDS: BENZTROPINE 1 MG TAB PO SCH (20:03)
[2019-05-13] MEDS: LEVOTHYROXINE 75MCG TABLET (0.075MG) PO SCH (05:57)
[2019-05-13 06:15] VITALS: BP 119/70
[2019-05-13] MEDS: HALOPERIDOL 10 MG TAB PO SCH ×2 (08:03→20:18)
[2019-05-13] MEDS: DULoxetine 20 MG CAP (CYMBALTA) PO SCH (08:03)
[2019-05-13] MEDS: OMEPRAZOLE 20 MG CAP PO SCH ×2 (08:03→20:18)
[2019-05-13] MEDS: GABAPENTIN 300 MG CAP PO SCH ×3 (08:04→20:18)
[2019-05-13] MEDS: ATORVASTATIN 20 MG TAB PO SCH (08:04)
[2019-05-13] MEDS: VENLAFAXINE **XR** 37.5 MG CAPSULE PO SCH (08:04)
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
[2019-05-13] MEDS: ALBUTEROL 90 MCG/ACT 8GM HFA INHALER INH PRN (09:59)
[2019-05-13] MEDS: LORazepam 1 MG TAB PO PRN (14:55)
[2019-05-13 18:58] VITALS: BP 134/87
[2019-05-13] MEDS: QUEtiapine FUMARATE 200 MG TAB PO SCH (20:18)
[2019-05-13] MEDS: traZODone 50 MG TAB PO PRN (20:18)
[2019-05-13] MEDS: ARIPiprazole 10 MG TAB PO SCH (20:19)
[2019-05-13] MEDS: BENZTROPINE 1 MG TAB PO SCH (20:19)
[2019-05-13] MEDS: PRAZOSIN 1 MG CAP PO SCH (20:19)
[2019-05-14] MEDS: LEVOTHYROXINE 75MCG TABLET (0.075MG) PO SCH (06:18)
[2019-05-14 06:35] VITALS: BP 113/72
[2019-05-14] MEDS: HALOPERIDOL 10 MG TAB PO SCH ×2 (08:12→20:02)
[2019-05-14] MEDS: ATORVASTATIN 20 MG TAB PO SCH (08:12)
[2019-05-14] MEDS: VENLAFAXINE **XR** 37.5 MG CAPSULE PO SCH (08:12)
[2019-05-14] MEDS: IBUPROFEN 600 MG TAB PO PRN (08:12)
[2019-05-14] MEDS: OMEPRAZOLE 20 MG CAP PO SCH ×2 (08:12→20:02)
[2019-05-14] MEDS: DULoxetine 20 MG CAP (CYMBALTA) PO SCH (08:12)
[2019-05-14] MEDS: GABAPENTIN 300 MG CAP PO SCH ×3 (08:13→20:00)
[2019-05-14] MEDS: LORazepam 1 MG TAB PO PRN (09:32)
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
[2019-05-14] MEDS ORDERED: VENLAFAXINE **XR** 37.5 MG CAPSULE PO ONE (10:00)
[2019-05-14 18:00] VITALS: BP 133/83
[2019-05-14] MEDS: traZODone 50 MG TAB PO PRN (20:00)
[2019-05-14] MEDS: BENZTROPINE 1 MG TAB PO SCH (20:00)
[2019-05-14] MEDS: QUEtiapine FUMARATE 200 MG TAB PO SCH (20:00)
[2019-05-14 20:01] VITALS: BP 133/89
[2019-05-14] MEDS: ARIPiprazole 10 MG TAB PO SCH (20:01)
[2019-05-14] MEDS: PRAZOSIN 1 MG CAP PO SCH (20:01)
[2019-05-15] MEDS: LEVOTHYROXINE 75MCG TABLET (0.075MG) PO SCH (05:59)
[2019-05-15 06:36] VITALS: BP 109/62
[2019-05-15] MEDS: GABAPENTIN 300 MG CAP PO SCH (08:13)
[2019-05-15] MEDS: HALOPERIDOL 10 MG TAB PO SCH (08:13)
[2019-05-15] MEDS: OMEPRAZOLE 20 MG CAP PO SCH (08:14)
[2019-05-15] MEDS: ATORVASTATIN 20 MG TAB PO SCH (08:14)
[2019-05-15] MEDS ORDERED: VENLAFAXINE **XR** 75MG CAPSULE PO SCH (09:00)
[2019-05-15] MEDS ORDERED: HYDR50TA70 PO (09:06)
[2019-05-15] MEDS ORDERED: PRAZ2CAP40 PO (09:06)
[2019-05-15] MEDS ORDERED: HALO10TA20 PO (09:06)
[2019-05-15] MEDS ORDERED: BENZ-52 PO (09:06)
[2019-05-15] MEDS ORDERED: ABIL10TA9 PO (09:06)
[2019-05-15] MEDS ORDERED: GABA-843 PO (09:06)
[2019-05-15] MEDS ORDERED: VENL75CA47 PO (09:06)
[2019-05-15] MEDS ORDERED: QUET200T2 PO (09:06)
[2019-05-15] MEDS ORDERED: TRAZ-252 PO (09:06)
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
== END 2019-05-15 11:15 | disposition home or self-care (01) | DRG 885 ==
LOC: M ED 13:08 → M ED INP 18:07 → M PSY 21:56
PROVIDERS: ADMIT Psychiatry & Neurology Psychiatry; ATTEND Psychiatry & Neurology Psychiatry
DX: F25.0 Schizoaffective disorder, bipolar type (principal); F43.10 Post-traumatic stress disorder, unspecified; F12.10 Cannabis abuse, uncomplicated; K58.9 Irritable bowel syndrome, unspecified; E03.9 Hypothyroidism, unspecified; I10 Essential (primary) hypertension; E78.5 Hyperlipidemia, unspecified; J44.9 Chronic obstructive pulmonary disease, unspecified; Z88.2 Allergy status to sulfonamides; Z88.8 Allergy status to other drugs, medicaments and biological substances; Z81.8 Family history of other mental and behavioral disorders; Z79.899 Other long term (current) drug therapy

== ENCOUNTER 2019-05-19 09:51 | Inpatient (IN) | payer MEDICAID, MEDICARE ==
[~2019-05-19] VITALS: Ht 154.9 cm; Wt 92.8 kg
[2019-05-19] MEDS: UNRESOLVED CLARIFICATION ENTRY XX SCH (00:01)
[~2019-05-19 09:51] MED LIST changes: +ABIL10TA9 PO; +CLON0.5T8 PO; +GABA-845; +HALO10TA20 PO; +HYDR-4571 PO; +HYDR50TA70 PO; +METH20TA29 PO; +OMEP-218; +PRAZ1CAP; +PRAZ2CAP40 PO; +QUET200T2 PO; +QUET400T PO; +RIZA10TA2 PO; +VENL75CA47 PO
[2019-05-19] MEDS ORDERED: HYDR-4571 PO (10:09)
[2019-05-19] MEDS ORDERED: OMEP-218 PO (10:09)
[2019-05-19] MEDS ORDERED: ATIV1TAB7 PO ×2 (10:09→16:25)
[2019-05-19] MEDS ORDERED: METH20TA29 PO (10:09)
[2019-05-19] MEDS ORDERED: ATIV2TAB PO (10:09)
[2019-05-19] MEDS ORDERED: CLON0.5T17 PO (10:11)
[2019-05-19 10:30] LABS: HEMATOCRIT 38.6 % (36.0-47.0); HEMOGLOBIN 12.8 g/dl (12.0-15.5); MEAN CORPUSCULAR HEMOGLOBIN 28.9 pg (27.0-33.0); MEAN CORPUSCULAR HGB CONC 33.2 g/dl (32.0-36.5); MEAN CORPUSCULAR VOLUME 87.1 fl (80.0-96.0); PLATELET COUNT, AUTOMATED 209 10^3/uL (150-450); RED BLOOD COUNT 4.43 10^6/uL (4.00-5.40); WHITE BLOOD COUNT 4.4 10^3/uL (4.0-10.0)
[2019-05-19 11:02] LABS: ACETAMINOPHEN LEVEL < 2.0 UG/ML (10.0-30.0); ALBUMIN 4.1 GM/DL (3.2-5.2); ALT/SGPT 26 U/L (12-78); BILIRUBIN,DIRECT < 0.1 MG/DL (0.0-0.2); BILIRUBIN,TOTAL 0.3 MG/DL (0.2-1.0); BLOOD UREA NITROGEN 12 MG/DL (7-18); CALCIUM LEVEL 8.7 MG/DL (8.5-10.1); CARBON DIOXIDE LEVEL 28 MEQ/L (21-32); CHLORIDE LEVEL 107 MEQ/L (98-107); ETHYL ALCOHOL (ETHANOL) < 0.003 % (0.000-0.010); GLOMERULAR FILTRATION RATE > 60.0 (>58); GLUCOSE, FASTING 109 MG/DL (70-100); POTASSIUM SERUM 3.8 MEQ/L (3.5-5.1); SALICYLATE LEVEL < 1.7 MG/DL (5.0-30.0); SODIUM LEVEL 141 MEQ/L (136-145); TOTAL PROTEIN 7.7 GM/DL (6.4-8.2)
[2019-05-19 12:08] LABS: AMPHETAMINES LEVEL URINE NEGATIVE (NEGATIVE); BARBITURATES URINE NEGATIVE (NEGATIVE); BENZODIAZEPINES URINE NEGATIVE (NEGATIVE); CANNABINOIDS URINE POSITIVE (NEGATIVE); COCAINE METABOLITE URINE NEGATIVE (NEGATIVE); METHADONE URINE NEGATIVE (NEGATIVE); OPIATES URINE NEGATIVE (NEGATIVE); PHENCYCLIDINE URINE NEGATIVE (NEGATIVE)
[2019-05-19] MEDS ORDERED: MAALOX 30 ML SUSP *UDC PO PRN (15:15)
[2019-05-19] MEDS ORDERED: MOM 30ML SUSPENSION UDC PO PRN (15:15)
[2019-05-19] MEDS ORDERED: HYDR1TAB33 PO (16:25)
[2019-05-19] MEDS ORDERED: ABIL20TA5 PO (16:25)
[2019-05-19] MEDS ORDERED: BENZ-52 PO (16:25)
[2019-05-19] MEDS ORDERED: EFFE75CA2 PO (16:25)
[2019-05-19] MEDS ORDERED: HALO10TA20 PO (16:25)
[2019-05-19] MEDS ORDERED: QUET1TAB10 PO (16:25)
[2019-05-19] MEDS ORDERED: PRAZ2CAP PO (16:25)
[2019-05-19] MEDS ORDERED: PROAAER10 INH (16:25)
[2019-05-19] MEDS ORDERED: GABA600T4 PO (16:25)
[2019-05-19] MEDS ORDERED: TRAZ-186 PO (16:25)
[2019-05-19] MEDS: QUEtiapine FUMARATE 200 MG TAB PO SCH (18:27)
[2019-05-19] MEDS: METHYLPHENIDATE 5 MG TAB PO SCH (18:27)
[2019-05-19] MEDS: OMEPRAZOLE 20 MG CAP PO SCH (18:27)
[2019-05-19] MEDS ORDERED: ARIPiprazole 10 MG TAB PO SCH (21:00)
[2019-05-19 21:15] VITALS: BP 126/87
[2019-05-19] MEDS: HALOPERIDOL 10 MG TAB PO SCH (22:49)
[2019-05-19] MEDS: clonazePAM 0.5 MG TAB PO SCH (22:49)
[2019-05-19] MEDS: PRAZOSIN 1 MG CAP PO SCH (22:49)
[2019-05-19] MEDS: BENZTROPINE 1 MG TAB PO SCH (22:50)
[2019-05-19] MEDS: PERCOCET 5MG/325MG TAB PO SCH (22:50)
[2019-05-19] MEDS: traZODone 50 MG TAB PO PRN (22:50)
[2019-05-19] MEDS: GABAPENTIN 300 MG CAP PO SCH (22:50)
[2019-05-20] MEDS: UNRESOLVED CLARIFICATION ENTRY XX SCH (00:01)
[2019-05-20] MEDS: LEVOTHYROXINE 75MCG TABLET (0.075MG) PO SCH (06:13)
[2019-05-20 06:52] VITALS: BP 111/73
[2019-05-20] MEDS: METHYLPHENIDATE 5 MG TAB PO SCH (08:02)
[2019-05-20] MEDS: clonazePAM 0.5 MG TAB PO SCH ×2 (08:02→20:02)
[2019-05-20] MEDS: HALOPERIDOL 10 MG TAB PO SCH ×2 (08:02→20:02)
[2019-05-20] MEDS: POTASSIUM CHLORIDE 10 MEQ SR TABLET PO SCH (08:03)
[2019-05-20] MEDS: GABAPENTIN 300 MG CAP PO SCH ×3 (08:03→20:02)
[2019-05-20] MEDS: OMEPRAZOLE 20 MG CAP PO SCH ×2 (08:03→15:41)
[2019-05-20] MEDS: ATORVASTATIN 20 MG TAB PO SCH (08:03)
[2019-05-20] MEDS: VENLAFAXINE **XR** 75MG CAPSULE PO SCH (08:03)
[2019-05-20] MEDS: IBUPROFEN 400 MG TAB PO PRN ×2 (08:39→17:12)
[2019-05-20] MEDS ORDERED: OMEPRAZOLE 20 MG CAP PO SCH (09:00)
[2019-05-20] MEDS ORDERED: VENLAFAXINE **XR** 75MG CAPSULE PO SCH (09:00)
[2019-05-20] MEDS ORDERED: METHYLPHENIDATE 5 MG TAB PO SCH (09:00)
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
[2019-05-20] MEDS ORDERED: BREXPIPRAZOLE 0.5MG TABLET (REXULTI) PO ONE (11:30)
[2019-05-20] MEDS: hydrOXYzine 50 MG TAB PO PRN (14:14)
[2019-05-20 16:24] VITALS: BP 146/90
[2019-05-20] MEDS: QUEtiapine FUMARATE 200 MG TAB PO SCH (19:11)
[2019-05-20] MEDS: traZODone 50 MG TAB PO PRN (20:02)
[2019-05-20] MEDS: PRAZOSIN 1 MG CAP PO SCH (20:02)
[2019-05-20] MEDS: BENZTROPINE 1 MG TAB PO SCH (20:02)
[2019-05-20] MEDS: PERCOCET 5MG/325MG TAB PO SCH (20:03)
[2019-05-21] MEDS: LEVOTHYROXINE 75MCG TABLET (0.075MG) PO SCH (06:57)
[2019-05-21 07:02] VITALS: BP 126/82
--- NOTE | 2019-05-21 07:11 | HPEPDOC ---
General Date of Admission May 19, 2019 at 15:02 Date of Service: May 20, 2019 Attending Physician: RISHI FRIAS MD Chief Complaint The patient is a 49-year-old female admitted with a reason for visit of Uspecified Depressive Disorder. Source: Patient Exam Limitations: No limitations Timing/Duration: Unsure, Other (not applicable) Severity: Other (not applicable) Associated Symptoms: Other (not applicable) History of Present Illness 49 years old white female with past medical history of hypothyroidism, hyperlipidemia, COPD, bipolar disorder, depression, anxiety, who was recently admitted and discharged after being treated for schizoaffective disorder. Giuseppe acosta brought to ED and admitted again inpatient medical mental health unit with chief complaints of tactile hallucinations of proximal crawling on her body, mood swings, suicidal ideations. We were called in for medical consultation. Patient denies any chest pain, shortness of breath, nausea, vomiting, diarrhea, etc. Home Medications Scheduled Aripiprazole (Abilify) 20 Mg Tablet, 20 MG PO QHS, (Reported) Atorvastatin Calcium (Atorvastatin Calcium) 20 Mg Tab, 20 MG PO DAILY, (Reported) Benztropine Mesylate (Benztropine Mesylate) 1 Mg Tablet, 1 MG PO QHS, (Reported) Clonazepam (Clonazepam) 0.5 Mg Tab.rapdis, 0.5 MG PO BID, (Reported) Gabapentin (Gabapentin) 600 Mg Tablet, 600 MG PO TID, (Reported) Haloperidol (Haloperidol) 10 Mg Tablet, 10 MG PO BID, (Reported) Hydrocodone/Acetaminophen (Hydrocodone-Acetamin 5-325 mg) 1 Each Tablet, 1 TAB PO QHS, (Reported) Levothyroxine Sodium (Levothyroxine Sodium) 75 Mcg Tablet, 75 MCG PO QAM, (Reported) Methylphenidate HCl (Methylphenidate HCl) 20 Mg Tablet, 20 MG PO TID, (Reported) Omeprazole (Omeprazole) 20 Mg Capsule.dr, 20 MG PO BID, (Reported) Prazosin Hcl (Prazosin HCl) 2 Mg Capsule, 2 MG PO QHS, (Reported) Quetiapine Fumarate (Quetiapine Fumarate) 300 Mg Tablet, 600 MG PO QHS, (Reported) Trazodone HCl (Trazodone HCl) 50 Mg Tablet, 50 MG PO QHS, (Reported) Venlafaxine HCl (Effexor Xr) 75 Mg Cap.er.24h, 225 MG PO DAILY, (Reported) Scheduled PRN Albuterol Sulfate (Proair Hfa) 8.5 Gm Hfa.aer.ad, 2 PUFF INH QID PRN for SHORTNESS OF BREATH, (Reported) Hydroxyzine HCl (Hydroxyzine HCl) 50 Mg Tablet, 50 MG PO Q6H PRN for ANXIETY, (Reported) Lorazepam (Ativan) 1 Mg Tablet, 1 MG PO Q4H PRN for ANXIETY, (Reported) Allergies Coded Allergies: clarithromycin (Verified Allergy, Intermediate, hives and puffy face, 05/19/19) fexofenadine (Verified Allergy, Unknown, 05/05/19) pseudoephedrine (Verified Allergy, Unknown, 05/05/19) ketorolac (Verified Adverse Reaction, Mild, HEADACHE, 05/08/19) Past Medical History Medical History Hypothyroidism, hyperlipidemia, COPD, bipolar disorder, depression, anxiety Surgical History Hysterectomy one-sided nephrectomy and appendectomy Family History Significant Family History: Other (. Bipolar disorder on her father's side and also schizophrenia on her father's side) Social History * Smoker: former Smoker Alcohol: Denies Drugs: marijuana A-FIB/CHADSVASC A-FIB History Current/History of A-Fib/PAF?: No Review of Systems Constitutional: Denies: Chills, Fever, Malaise, Night Sweats, Weakness, Fatigue, Weight Loss, Lethargy, Other Eyes: Denies: Pain, Vision change, Conjunctivae inflammation, Eyelid inflammation, Redness, Other ENT: Denies: Head Aches, Ear Pain, Dysphagia, Sinus Congestion, Post Nasal Drip, Sore Throat, Epistaxis, Other Symptoms Skin: Denies: Rash, Lesions, Jaundice, Bruising, Itching, Dry, Breakdown, Nail Changes, Other Pulmonary: Denies: Dyspnea, Cough, Pleuritic Chest Pain, Other Symptoms Cardiovascular: Denies: Chest Pain, Palpitations, Orthopnea, Paroxysmal Noc. Dyspnea, Edema, Lt Headedness, Other Symptoms Gastrointestinal: Denies: Nausea, Vomiting, Abdominal Pain, Diarrhea, Constipation, Melena, Hematochezia, Other Symptoms Genitourinary: Denies: Dysuria, Frequency, Incontinence, Hematuria, Retention, Other Symptoms Hematologic: Denies: Bruising, Bleeding Excessively, Petecchia, Purpura, Enlarged Lymph Nodes, Other Hematologic Endocrine: Denies: Polydipsia, Polyphagia, Polyuria, Heat Intolerance, Cold Intolerance, Other Endocrine Sx Musculoskeletal: Denies: Neck Pain, Back Pain, Shoulder Pain, Arm Pain, Hand Pain, Leg Pain, Foot Pain, Joint Pain, Muscle Pain, Spasms, Other Symptoms Neurological: Denies: Weakness, Numbness, Incoordination, Change in speech, Confusion, Seizures, Other Symptoms Psych: Reports: Other Psych (, mood swings, tactile hallucinations) Physical Examination General Exam: Positive: Alert, Cooperative Eye Exam: Positive: PERRLA, Conjunctiva & lids normal ENT Exam: Positive: Atraumatic, Mucous membr. moist/pink Neck Exam: Positive: Supple Chest Exam: Positive: Clear to auscultation, Normal air movement Heart Exam: Positive: Rate Normal, Normal S1, Normal S2 Abdomen Exam: Positive: Normal bowel sounds, Soft Extremity Exam: Positive: Normal pulses Skin Exam: Positive: Nl turgor and temperature Neuro Exam: Positive: Normal Gait, Strength at 5/5 X4 ext, Sensation Intact Psych Exam: Positive: Mental status NL, Mood NL, Oriented x 3 Vital Signs Vital Signs Date Time Temp Pulse Resp B/P (MAP) Pulse Ox O2 Delivery O2 Flow Rate FiO2 05/21/19 07:02 98.0 75 14 126/82 (97) 05/19/19 18:46 99 Room Air Problems (1) Suicidal ideation Status: Acute Problem Text: Patient admitted to [facility] for further care Patient was seen by Dr. Wells in psychiatry Patient's family will be restarted by psychiatry case management for discharge planning Patient will also participated in individual and group therapies She'll probably need outpatient therapy once discharged from here Abilify was discontinued. Patient is started on rexulti, also resume Effexor, Vistaril, Seroquel, prazosin and Haldol as per psych recommendation (2) Schizoaffective disorder Status: Chronic (3) Hyperlipemia Status: Chronic Problem Text: Continue home medications (4) COPD (chronic obstructive pulmonary disease) Status: Chronic Problem Text: Stable continue home meds (5) Hypertension Status: Chronic Problem Text: Continue home meds (6) Hypothyroidism Status: Chronic Problem Text: Continue home meds Plan / VTE VTE Prophylaxis Ordered?: No VTE Exclusion Mechanical Proph: Low Risk for VTE RISHI FRIAS MD May 21, 2019 07:11
[2019-05-21] MEDS: HALOPERIDOL 10 MG TAB PO SCH ×2 (08:18→20:07)
[2019-05-21] MEDS: OMEPRAZOLE 20 MG CAP PO SCH ×2 (08:18→15:51)
[2019-05-21] MEDS: ATORVASTATIN 20 MG TAB PO SCH (08:19)
[2019-05-21] MEDS: POTASSIUM CHLORIDE 10 MEQ SR TABLET PO SCH (08:19)
[2019-05-21] MEDS: clonazePAM 0.5 MG TAB PO SCH ×2 (08:19→20:07)
[2019-05-21] MEDS: GABAPENTIN 300 MG CAP PO SCH ×3 (08:19→20:07)
[2019-05-21] MEDS: VENLAFAXINE **XR** 75MG CAPSULE PO SCH (08:19)
[2019-05-21] MEDS: BREXPIPRAZOLE 0.5MG TABLET (REXULTI) PO SCH (08:19)
--- NOTE | 2019-05-21 09:25 | MHIPNPDOC ---
[facility] Progress Note Progress Note DATE OF SERVICE: 05/21/19 HISTORY: Patient is a 49 -year-old , female, with a history of schizoaffective d/o, PTSD, cannabis use d/o just d/c [facility] for depression and AH 05/15/19 who was brought to ED by [facility] endorsing decompensation with the return of AH 10x worse, tactile hallucinations of bugs crawling on her, VH of bugs on her skin, depression and up and down moods, and SI with plan to either crash her car into a pole or jump in front of a moving vehicle. Per ED staff, pt was able to sleep well with no complaints, did not appear internally preoccupied or preoccupied by bugs on her skin, did not appear very depressed, and presented with all her belongs expecting to be admitted. Pt seen and states that when she got to her sisters home where she has been staying since being d/c she stared feeling depressed and experiencing AH of multiple men's voices she didn't recognize tell her to kill herself inside her head that are worse when she feels more depressed. States her moods have been up and down and AH coincide with her mood. Denies tactile hallucinations and VH today. Spoke to pt about her meds and that plan to resume her haldol for AH and effexor xr for depression but will d/c abilify which doesn't appear that beneficial and add rexulti (risks/benefits discussed) which may be more beneficial for her symptoms of worry and internal thoughts as her AH are most likely her conscience and past memories of trauma as they vary with her mood. Also pt does not appear to be responding to any internal stimuli as her attention and concentration are good. She denies SI today. Denies HI and delusions. Feels safe here. VITAL SIGNS: See below. NEW TEST RESULTS: 14.100 will check thyroid panel CURRENT MEDICATIONS: See below. MENTAL STATUS EXAMINATION: General Appearance: well groomed, appears stated age, own clothing Build: overweight Demeanor: cooperative Eye Contact: average Activity: average Behavior: cooperative Speech: clear, spontaneous, reg/rate,rhythm,volume Mood: less depressed and anxious Mood "alright" Affect: less constricted, congruent, less anxious Thought Process: logical/linear, less depressed, intact Thought Content (Delusions): none reported, denies SI, HI, AVH Thought Content (Other): none reported, appropriate Thought Content (Aggressive): none reported Perception (Hallucinations): auditory (multiple men she doesn't recognize ins twin her head that are worse when she feels depressed), does not appear to be responding to internal stimuli and can concentrate well enough to read a book Perception (Other): none reported Cognition (Impairment of): none reported Cognition(Intelligence Est.): average Oriented: Awake, Alert, Oriented times three Insight: fair Judgment: Fair Psychosis: Psychotic Perceptions DIAGNOSES: 1. Schizoaffective disorder bipolar type. 2. Posttraumatic stress disorder (PTSD). 3. Cannabis use disorder. ASSESSMENT:Pt seen in room reading a book not appearing distracted or like she was responding to internal stimuli. States she's doing "alright" but continues to feel depressed and still having AH of men she doesn't recognize telling her to harm herself. Denies she wants to harm herself Most likely AH secondary to mood and more her own thoughts as they are inside her head and she is not distracted by them when observed. Would like to see if mood and AH with incr ease in effexor xr for mood as she's tolerating the med well. Started rexulti yesterday which she states she's tolerating well and awaiting it to feel beneficial. She is socializing in the milieu and attending groups daily. She denies HI, VH, delusions. Feels safe here. MANAGEMENT PLAN: continue plan. Increase effexor xr Medications: rexulti 1mg daily effexor or 225mg daily vistaril 50mg q6hr prn anxiety seroquel 600mg qhs, prazosin 2mg qhs haldol 5mg bid TIME SPENT: 30 minutes. Vital Signs Vital Signs Date Time Temp Pulse Resp B/P (MAP) Pulse Ox O2 Delivery O2 Flow Rate FiO2 05/21/19 07:02 98.0 75 14 126/82 (97) 05/19/19 18:46 99 Room Air Current Medications Current Medications Medications (Trade) Dose Ordered Sig/Jesika Route PRN Reason Start Time Stop Time Status Last Admin Dose Admin Al Hydrox/Mg Hydrox/Simethicone (Mylanta) 30 ml Q4HP PRN PO HEARTBURN/INDIGESTION 05/19/19 15:15 Albuterol Sulfate (Proventil, Ventolin Hfa) 2 puff RQID PRN INH SHORTNESS OF BREATH 05/19/19 15:30 Aripiprazole (AbiLIFY) 20 mg QHS PO 05/19/19 21:00 05/20/19 11:14 DC 05/19/19 22:50 Atorvastatin Calcium (Lipitor) 20 mg DAILY PO 05/20/19 09:00 05/21/19 08:19 Benztropine Mesylate (Cogentin) 1 mg QHS PO 05/19/19 21:00 05/20/19 20:02 Brexpiprazole (Rexulti) 1 mg DAILY PO 05/21/19 09:00 05/21/19 08:19 Clonazepam (KlonoPIN) 0.5 mg BID PO 05/19/19 21:00 05/21/19 08:19 Gabapentin (Neurontin) 600 mg TID PO 05/19/19 21:00 05/21/19 08:19 Haloperidol (Haldol) 10 mg BID PO 05/19/19 21:00 05/21/19 08:18 Home Med (Med Rec Complete!) ASDIRECTED XX 05/19/19 16:30 05/19/19 16:37 DC Hydroxyzine HCl (Atarax) 50 mg Q6HP PRN PO ANXIETY/AGITATION 05/19/19 15:30 05/20/19 14:14 Ibuprofen (Advil) 400 mg Q6HP PRN PO PAIN 05/19/19 15:15 05/20/19 17:12 Levothyroxine Sodium (Synthroid) 75 mcg DAILY@06 PO 05/20/19 06:00 05/21/19 06:57 Magnesium Hydroxide (Milk Of Magnesia) 30 ml DAILYPRN PRN PO CONSTIPATION 05/19/19 15:15 Methylphenidate HCl (Ritalin) 20 mg DAILY PO 05/20/19 09:00 05/20/19 09:00 DC Methylphenidate HCl (Ritalin) 20 mg TID@0800,1300,1700 PO 05/19/19 17:00 05/20/19 11:14 DC 05/20/19 08:02 Miscellaneous (Unresolved Clarification Entry) SEE LABEL COMMENTS UNRESOLVED XX 05/19/19 00:01 05/20/19 04:52 DC Omeprazole (PriLOSEC) 20 mg BID@0800,1600 PO 05/19/19 16:00 05/21/19 08:18 Omeprazole (PriLOSEC) 20 mg DAILY PO 05/20/19 09:00 05/20/19 09:00 DC Oxycodone/ Acetaminophen (Percocet 5mg/ 325mg Tablet) 1 tab QHS PO 05/19/19 21:00 05/20/19 20:03 Potassium Chloride (Micro-K Extencaps) 10 meq DAILY PO 05/20/19 09:00 05/21/19 08:19 Prazosin HCl (Minipress) 2 mg QHS PO 05/19/19 21:00 05/20/19 20:02 Quetiapine Fumarate (SEROquel) 600 mg QPM@1900 PO 05/19/19 19:00 05/20/19 19:11 Trazodone HCl (Desyrel) 50 mg QHSP PRN PO INSOMNIA 05/19/19 15:30 05/20/19 20:02 Venlafaxine HCl (Effexor Xr) 75 mg QAM PO 05/20/19 09:00 05/20/19 09:00 DC Venlafaxine HCl (Effexor Xr) 225 mg QAM PO 05/20/19 09:00 05/21/19 08:19 Allergies Coded Allergies: clarithromycin (Verified Allergy, Intermediate, hives and puffy face, 05/19/19) fexofenadine (Verified Allergy, Unknown, 05/05/19) pseudoephedrine (Verified Allergy, Unknown, 05/05/19) ketorolac (Verified Adverse Reaction, Mild, HEADACHE, 05/08/19) CLARK ARTIS DO May 21, 2019 9:25 am
[2019-05-21] MEDS ORDERED: VENLAFAXINE **XR** 75MG CAPSULE PO ONE (09:30)
[2019-05-21 10:59] LABS: FREE THYROXINE INDEX 1.1 % (1.3-4.8); THYROID STIMULATING HORMONE 16.8 uIU/ML (0.358-3.740); THYROXINE (T4) 4.3 UG/DL (4.5-12.0)
[2019-05-21] MEDS: hydrOXYzine 50 MG TAB PO PRN (17:15)
[2019-05-21 17:21] VITALS: BP 143/86
[2019-05-21] MEDS: QUEtiapine FUMARATE 200 MG TAB PO SCH (18:50)
[2019-05-21] MEDS: PRAZOSIN 1 MG CAP PO SCH (20:06)
[2019-05-21] MEDS: traZODone 50 MG TAB PO PRN (20:07)
[2019-05-21] MEDS: PERCOCET 5MG/325MG TAB PO SCH (20:07)
[2019-05-21] MEDS: BENZTROPINE 1 MG TAB PO SCH (20:07)
[2019-05-22] MEDS: LEVOTHYROXINE 75MCG TABLET (0.075MG) PO SCH (06:21)
[2019-05-22 06:44] VITALS: BP 137/84
[2019-05-22] MEDS: OMEPRAZOLE 20 MG CAP PO SCH ×2 (07:50→15:31)
[2019-05-22] MEDS: POTASSIUM CHLORIDE 10 MEQ SR TABLET PO SCH (08:05)
[2019-05-22] MEDS: HALOPERIDOL 10 MG TAB PO SCH ×2 (08:05→20:07)
[2019-05-22] MEDS: BREXPIPRAZOLE 0.5MG TABLET (REXULTI) PO SCH (08:05)
[2019-05-22] MEDS: VENLAFAXINE **XR** 75MG CAPSULE PO SCH (08:05)
[2019-05-22] MEDS: ATORVASTATIN 20 MG TAB PO SCH (08:05)
[2019-05-22] MEDS: GABAPENTIN 300 MG CAP PO SCH ×3 (08:05→20:08)
[2019-05-22] MEDS: clonazePAM 0.5 MG TAB PO SCH ×2 (08:05→20:07)
--- NOTE | 2019-05-22 10:55 | MHIPNPDOC ---
[facility] Progress Note Progress Note DATE OF SERVICE: 05/22/19 HISTORY: Patient is a 49 -year-old , female, with a history of schizoaffective d/o, PTSD, cannabis use d/o just d/c IM for depression and AH 05/15/19 who was brought to ED by [facility] endorsing decompensation with the return of AH 10x worse, tactile hallucinations of bugs crawling on her, VH of bugs on her skin, depression and up and down moods, and SI with plan to either crash her car into a pole or jump in front of a moving vehicle. Per ED staff, pt was able to sleep well with no complaints, did not appear internally preoccupied or preoccupied by bugs on her skin, did not appear very depressed, and presented with all her belongs expecting to be admitted. Pt seen and states that when she got to her sisters home where she has been staying since being d/c she stared feeling depressed and experiencing AH of multiple men's voices she didn't recognize tell her to kill herself inside her head that are worse when she feels more depressed. States her moods have been up and down and AH coincide with her mood. Denies tactile hallucinations and VH today. Spoke to pt about her meds and that plan to resume her haldol for AH and effexor xr for depression but will d/c abilify which doesn't appear that beneficial and add rexulti (risks/benefits discussed) which may be more beneficial for her symptoms of worry and internal thoughts as her AH are most likely her conscience and past memories of trauma as they vary with her mood. Also pt does not appear to be responding to any internal stimuli as her attention and concentration are good. She denies SI today. Denies HI and delusions. Feels safe here. VITAL SIGNS: See below. NEW TEST RESULTS: Thyroid Stimulating Hormone (TSH) 16.800H, Free Thyroxine Index 1.1L, Thyroxine (T4) 4.3L, Triiodothyronine (T3) Uptake 25L CURRENT MEDICATIONS: See below. MENTAL STATUS EXAMINATION: roughly no change General Appearance: well groomed, appears stated age, own clothing Build: overweight Demeanor: cooperative Eye Contact: average Activity: average Behavior: cooperative Speech: clear, spontaneous, reg/rate,rhythm,volume Mood: less depressed and anxious Mood "alright" Affect: less constricted, congruent, less anxious Thought Process: logical/linear, less depressed, intact Thought Content (Delusions): none reported, denies SI, HI, AVH Thought Content (Other): none reported, appropriate Thought Content (Aggressive): none reported Perception (Hallucinations): auditory (multiple men she doesn't recognize inside her head that are worse when she feels depressed), does not appear to be responding to internal stimuli and can concentrate well enough to read a book Perception (Other): none reported Cognition (Impairment of): none reported Cognition(Intelligence Est.): average Oriented: Awake, Alert, Oriented times three Insight: fair Judgment: Fair Psychosis: Psychotic Perceptions DIAGNOSES: 1. Schizoaffective disorder bipolar type. 2. Posttraumatic stress disorder (PTSD). 3. Cannabis use disorder. 4. r/o malingering d/o ASSESSMENT:Pt seen in room and states she's doing "ok" but continues to have AH of men she doesn't recognize telling her to harm herself asking if the is another IM medication she can take other than invega sustenna as that "stopped working" when she was taking it. Stated that there is abilify maintena that may be possible but did just start her on rexulti for AH/internal thoughts that was started at low dose so can be increased but does not come in IM form. States she's agreeable to increasing rexulti to see if that aids her symptoms more. She is tolerating it and the rest of her meds well. She's tolerating the increase in Effexor xr and is awaiting increased benefit with use. per t reatment team, pt's spouse and son frequently fight at home (this may be the source of the AH/internal thoughts) which causes her to feel stressed and want to escape it so possibly coming here to malinger and escape home stressors. Denies she wants to harm herself. Most likely AH secondary to mood and home stressors between spouse and son. She is socializing in the milieu and at tending groups daily. She denies HI, VH, delusions. Feels safe here. MANAGEMENT PLAN: continue plan. increase rexulti Medications: rexulti 2mg daily effexor xr 300mg daily vistaril 50mg q6hr prn anxiety seroquel 600mg qhs prazosin 2mg qhs haldol 5mg bid TIME SPENT: 30 minutes. Vital Signs Vital Signs Date Time Temp Pulse Resp B/P (MAP) Pulse Ox O2 Delivery O2 Flow Rate FiO2 05/22/19 06:44 97.8 65 14 137/84 (101) 05/19/19 18:46 99 Room Air Laboratory Data 24H Labs Laboratory Tests 2 05/21/19 09:41: Thyroid Stimulating Hormone (TSH) 16.800H, Free Thyroxine Index 1.1L, Thyroxine (T4) 4.3L, Triiodothyronine (T3) Uptake 25L Current Medications Current Medications Medications (Trade) Dose Ordered Sig/Jesika Route PRN Reason Start Time Stop Time Status Last Admin Dose Admin Al Hydrox/Mg Hydrox/Simethicone (Mylanta) 30 ml Q4HP PRN PO HEARTBURN/INDIGESTION 05/19/19 15:15 Albuterol Sulfate (Proventil, Ventolin Hfa) 2 puff RQID PRN INH SHORTNESS OF BREATH 05/19/19 15:30 Aripiprazole (AbiLIFY) 20 mg QHS PO 05/19/19 21:00 05/20/19 11:14 DC 05/19/19 22:50 Atorvastatin Calcium (Lipitor) 20 mg DAILY PO 05/20/19 09:00 05/22/19 08:05 Benztropine Mesylate (Cogentin) 1 mg QHS PO 05/19/19 21:00 05/21/19 20:07 Brexpiprazole (Rexulti) 1 mg DAILY PO 05/21/19 09:00 05/22/19 08:05 Clonazepam (KlonoPIN) 0.5 mg BID PO 05/19/19 21:00 05/22/19 08:05 Gabapentin (Neurontin) 600 mg TID PO 05/19/19 21:00 05/22/19 08:05 Haloperidol (Haldol) 10 mg BID PO 05/19/19 21:00 05/22/19 08:05 Home Med (Med Rec Complete!) ASDIRECTED XX 05/19/19 16:30 05/19/19 16:37 DC Hydroxyzine HCl (Atarax) 50 mg Q6HP PRN PO ANXIETY/AGITATION 05/19/19 15:30 05/21/19 17:15 Ibuprofen (Advil) 400 mg Q6HP PRN PO PAIN 05/19/19 15:15 05/20/19 17:12 Levothyroxine Sodium (Synthroid) 75 mcg DAILY@06 PO 05/20/19 06:00 05/22/19 06:21 Magnesium Hydroxide (Milk Of Magnesia) 30 ml DAILYPRN PRN PO CONSTIPATION 05/19/19 15:15 Methylphenidate HCl (Ritalin) 20 mg DAILY PO 05/20/19 09:00 05/20/19 09:00 DC Methylphenidate HCl (Ritalin) 20 mg TID@0800,1300,1700 PO 05/19/19 17:00 05/20/19 11:14 DC 05/20/19 08:02 Miscellaneous (Unresolved Clarification Entry) SEE LABEL COMMENTS UNRESOLVED XX 05/19/19 00:01 05/20/19 04:52 DC Omeprazole (PriLOSEC) 20 mg BID@0800,1600 PO 05/19/19 16:00 05/22/19 07:50 Omeprazole (PriLOSEC) 20 mg DAILY PO 05/20/19 09:00 05/20/19 09:00 DC Oxycodone/ Acetaminophen (Percocet 5mg/ 325mg Tablet) 1 tab QHS PO 05/19/19 21:00 05/21/19 20:07 Potassium Chloride (Micro-K Extencaps) 10 meq DAILY PO 05/20/19 09:00 05/22/19 08:05 Prazosin HCl (Minipress) 2 mg QHS PO 05/19/19 21:00 05/21/19 20:06 Quetiapine Fumarate (SEROquel) 600 mg QPM@1900 PO 05/19/19 19:00 05/21/19 18:50 Trazodone HCl (Desyrel) 50 mg QHSP PRN PO INSOMNIA 05/19/19 15:30 05/21/19 20:07 Venlafaxine HCl (Effexor Xr) 75 mg QAM PO 05/20/19 09:00 05/20/19 09:00 DC Venlafaxine HCl (Effexor Xr) 225 mg QAM PO 05/20/19 09:00 05/21/19 09:26 DC 05/21/19 08:19 Venlafaxine HCl (Effexor Xr) 300 mg DAILY PO 05/22/19 09:00 05/22/19 08:05 Allergies Coded Allergies: clarithromycin (Verified Allergy, Intermediate, hives and puffy face, 05/19/19) fexofenadine (Verified Allergy, Unknown, 05/05/19) pseudoephedrine (Verified Allergy, Unknown, 05/05/19) ketorolac (Verified Adverse Reaction, Mild, HEADACHE, 05/08/19) CLARK ARTIS DO May 22, 2019 09:15
[2019-05-22] MEDS ORDERED: BREXPIPRAZOLE 0.5MG TABLET (REXULTI) PO ONE (11:15)
[2019-05-22 18:05] VITALS: BP 140/89
[2019-05-22] MEDS: QUEtiapine FUMARATE 200 MG TAB PO SCH (18:59)
[2019-05-22] MEDS: PRAZOSIN 1 MG CAP PO SCH (20:07)
[2019-05-22] MEDS: traZODone 50 MG TAB PO PRN (20:07)
[2019-05-22] MEDS: BENZTROPINE 1 MG TAB PO SCH (20:07)
[2019-05-22] MEDS: PERCOCET 5MG/325MG TAB PO SCH ×2 (20:08→21:19)
[2019-05-23] MEDS: LEVOTHYROXINE 75MCG TABLET (0.075MG) PO SCH (05:59)
[2019-05-23 06:05] VITALS: BP 112/69
[2019-05-23] MEDS: OMEPRAZOLE 20 MG CAP PO SCH ×2 (07:42→15:04)
[2019-05-23] MEDS: VENLAFAXINE **XR** 75MG CAPSULE PO SCH (08:16)
[2019-05-23] MEDS: ATORVASTATIN 20 MG TAB PO SCH (08:16)
[2019-05-23] MEDS: POTASSIUM CHLORIDE 10 MEQ SR TABLET PO SCH (08:17)
[2019-05-23] MEDS: clonazePAM 0.5 MG TAB PO SCH ×2 (08:17→20:09)
[2019-05-23] MEDS: GABAPENTIN 300 MG CAP PO SCH ×3 (08:17→20:09)
[2019-05-23] MEDS: BREXPIPRAZOLE 2MG TABLET (REXULTI) PO SCH (08:17)
[2019-05-23] MEDS: HALOPERIDOL 10 MG TAB PO SCH ×2 (08:17→20:09)
[2019-05-23] MEDS: IBUPROFEN 400 MG TAB PO PRN ×2 (09:00→15:05)
[2019-05-23 16:18] VITALS: BP 129/84
[2019-05-23] MEDS: QUEtiapine FUMARATE 200 MG TAB PO SCH (18:17)
[2019-05-23] MEDS: traZODone 50 MG TAB PO PRN (20:09)
[2019-05-23] MEDS: PRAZOSIN 1 MG CAP PO SCH (20:09)
[2019-05-23] MEDS: BENZTROPINE 1 MG TAB PO SCH (20:09)
[2019-05-23] MEDS: PERCOCET 5MG/325MG TAB PO SCH ×2 (20:14→21:00)
[2019-05-24 06:38] VITALS: BP 135/87
[2019-05-24] MEDS: LEVOTHYROXINE 75MCG TABLET (0.075MG) PO SCH (06:55)
[2019-05-24] MEDS: OMEPRAZOLE 20 MG CAP PO SCH ×2 (07:53→15:23)
[2019-05-24] MEDS: VENLAFAXINE **XR** 75MG CAPSULE PO SCH (09:06)
[2019-05-24] MEDS: GABAPENTIN 300 MG CAP PO SCH ×3 (09:06→20:10)
[2019-05-24] MEDS: HALOPERIDOL 10 MG TAB PO SCH ×2 (09:06→20:10)
[2019-05-24] MEDS: clonazePAM 0.5 MG TAB PO SCH ×2 (09:06→20:10)
[2019-05-24] MEDS: BREXPIPRAZOLE 2MG TABLET (REXULTI) PO SCH (09:06)
[2019-05-24] MEDS: ATORVASTATIN 20 MG TAB PO SCH (09:06)
[2019-05-24] MEDS: POTASSIUM CHLORIDE 10 MEQ SR TABLET PO SCH (09:07)
[2019-05-24] MEDS: IBUPROFEN 400 MG TAB PO PRN (12:29)
[2019-05-24] MEDS: hydrOXYzine 50 MG TAB PO PRN (16:13)
[2019-05-24 16:31] VITALS: BP 118/85
[2019-05-24] MEDS: QUEtiapine FUMARATE 200 MG TAB PO SCH (18:57)
[2019-05-24] MEDS: PRAZOSIN 1 MG CAP PO SCH (20:10)
[2019-05-24] MEDS: PERCOCET 5MG/325MG TAB PO SCH (20:10)
[2019-05-24] MEDS: BENZTROPINE 1 MG TAB PO SCH (20:10)
[2019-05-24] MEDS: traZODone 50 MG TAB PO PRN (20:10)
[2019-05-25] MEDS: LEVOTHYROXINE 75MCG TABLET (0.075MG) PO SCH (06:19)
[2019-05-25 06:37] VITALS: BP 106/64
[2019-05-25] MEDS: OMEPRAZOLE 20 MG CAP PO SCH ×2 (07:38→15:48)
[2019-05-25] MEDS: POTASSIUM CHLORIDE 10 MEQ SR TABLET PO SCH (08:07)
[2019-05-25] MEDS: ATORVASTATIN 20 MG TAB PO SCH (08:08)
[2019-05-25] MEDS: BREXPIPRAZOLE 2MG TABLET (REXULTI) PO SCH (08:08)
[2019-05-25] MEDS: clonazePAM 0.5 MG TAB PO SCH ×2 (08:08→20:08)
[2019-05-25] MEDS: GABAPENTIN 300 MG CAP PO SCH ×3 (08:08→20:08)
[2019-05-25] MEDS: VENLAFAXINE **XR** 75MG CAPSULE PO SCH (08:08)
[2019-05-25] MEDS: HALOPERIDOL 10 MG TAB PO SCH ×2 (08:08→20:08)
--- NOTE | 2019-05-25 10:01 | MHIPNPDOC ---
[facility] Progress Note Progress Note DATE OF SERVICE: 05/25/19 HISTORY: Patient is a 49 -year-old , female, with a history of schizoaffective d/o, PTSD, cannabis use d/o just d/c IM for depression and AH 05/15/19 who was brought to ED by [facility] endorsing decompensation with the return of AH 10x worse, tactile hallucinations of bugs crawling on her, VH of bugs on her skin, depression and up and down moods, and SI with plan to either crash her car into a pole or jump in front of a moving vehicle. Per ED staff, pt was able to sleep well with no complaints, did not appear internally preoccupied or preoccupied by bugs on her skin, did not appear very depressed, and presented with all her belongs expecting to be admitted. Pt seen and states that when she got to her sisters home where she has been staying since being d/c she stared feeling depressed and experiencing AH of multiple men's voices she didn't recognize tell her to kill herself inside her head that are worse when she feels more depressed. States her moods have been up and down and AH coincide with her mood. Denies tactile hallucinations and VH today. Spoke to pt about her meds and that plan to resume her haldol for AH and effexor xr for depression but will d/c abilify which doesn't appear that beneficial and add rexulti (risks/benefits discussed) which may be more beneficial for her symptoms of worry and internal thoughts as her AH are most likely her conscience and past memories of trauma as they vary with her mood. Also pt does not appear to be responding to any internal stimuli as her attention and concentration are good. She denies SI today. Denies HI and delusions. Feels safe here. VITAL SIGNS: See below. NEW TEST RESULTS: Thyroid Stimulating Hormone (TSH) 16.800H, Free Thyroxine Index 1.1L, Thyroxine (T4) 4.3L, Triiodothyronine (T3) Uptake 25L CURRENT MEDICATIONS: See below. MENTAL STATUS EXAMINATION: roughly no change General Appearance: well groomed, appears stated age, own clothing Build: overweight Demeanor: cooperative Eye Contact: average Activity: average Behavior: cooperative Speech: clear, spontaneous, reg/rate,rhythm,volume Mood: less depressed and calm Mood "alright" Affect: euthymic, congruent, calm Thought Process: logical/linear, less depressed, intact Thought Content (Delusions): none reported, denies SI, HI, "I feel and see bugs crawling on my skin" incidentally pt's attention is very good and she's able to ready and concentrate well w/o distraction Thought Content (Other): none reported, appropriate Thought Content (Aggressive): none reported Perception (Hallucinations): auditory (multiple men she doesn't recognize inside her head that are worse when she feels depressed), does not appear to be responding to internal stimuli and can concentrate well enough to read a book; TH "I feel and see bugs crawling on my skin" incidentally pt's attention is very good and she's able to ready and concentrate well w/o distraction Perception (Other): none reported Cognition (Impairment of): none reported Cognition(Intelligence Est.): average Oriented: Awake, Alert, Oriented times three Insight: fair Judgment: Fair Psychosis: Psychotic Perceptions DIAGNOSES: 1. Schizoaffective disorder bipolar type. 2. Posttraumatic stress disorder (PTSD). 3. Cannabis use disorder. 4. r/o malingering d/o ASSESSMENT:Pt seen in room and states she's doing "ok" but endorses TH stating "I feel and see bugs crawling on my skin" incidentally pt's attention is very good and she's able to ready and concentrate well w/o distraction. Continues to have AH of men she doesn't recognize telling her to harm herself it is less than prevous. States she's tolerating increase in effexor ox and rexulti and feels they're beneficial as she had a good weekend. Will d/c haldol as possibly causing pt to internal irritability reflected by TH along the skin. Per treatme nt team, pt's spouse and son frequently fight at home (this may be the source of the AH/internal thoughts) which causes her to feel stressed and want to escape it so possibly coming here to malinger and escape home stressors. Denies she wants to harm herself. Most likely AH secondary to mood and home stressors between spouse and son. C/O TH possibly side effect of haldol or is malingering as she does not appear distracted at all by them and has very good attention. She is socializing in the milieu and attending groups daily. She denies HI, VH, delusions. Feels safe here. MANAGEMENT PLAN: continue plan. d/c haldol Medications: rexulti 2mg daily effexor xr 300mg daily vistaril 50mg q6hr prn anxiety seroquel 600mg qhs prazosin 2mg qhs TIME SPENT: 30 minutes. Vital Signs Vital Signs Date Time Temp Pulse Resp B/P (MAP) Pulse Ox O2 Delivery O2 Flow Rate FiO2 05/25/19 06:37 96.9 73 14 106/64 (78) 05/19/19 18:46 99 Room Air Current Medications Current Medications Medications (Trade) Dose Ordered Sig/Jesika Route PRN Reason Start Time Stop Time Status Last Admin Dose Admin Al Hydrox/Mg Hydrox/Simethicone (Mylanta) 30 ml Q4HP PRN PO HEARTBURN/INDIGESTION 05/19/19 15:15 Albuterol Sulfate (Proventil, Ventolin Hfa) 2 puff RQID PRN INH SHORTNESS OF BREATH 05/19/19 15:30 Aripiprazole (AbiLIFY) 20 mg QHS PO 05/19/19 21:00 05/20/19 11:14 DC 05/19/19 22:50 Atorvastatin Calcium (Lipitor) 20 mg DAILY PO 05/20/19 09:00 05/25/19 08:08 Benztropine Mesylate (Cogentin) 1 mg QHS PO 05/19/19 21:00 05/24/19 20:10 Brexpiprazole (Rexulti) 1 mg DAILY PO 05/21/19 09:00 05/22/19 11:03 DC 05/22/19 08:05 Brexpiprazole (Rexulti) 2 mg DAILY PO 05/23/19 09:00 05/25/19 08:08 Clonazepam (KlonoPIN) 0.5 mg BID PO 05/19/19 21:00 05/25/19 08:08 Gabapentin (Neurontin) 600 mg TID PO 05/19/19 21:00 05/25/19 08:08 Haloperidol (Haldol) 10 mg BID PO 05/19/19 21:00 05/25/19 08:08 Home Med (Med Rec Complete!) ASDIRECTED XX 05/19/19 16:30 05/19/19 16:37 DC Hydroxyzine HCl (Atarax) 50 mg Q6HP PRN PO ANXIETY/AGITATION 05/19/19 15:30 05/24/19 16:13 Ibuprofen (Advil) 400 mg Q6HP PRN PO PAIN 05/19/19 15:15 05/24/19 12:29 Levothyroxine Sodium (Synthroid) 75 mcg DAILY@06 PO 05/20/19 06:00 05/25/19 06:19 Magnesium Hydroxide (Milk Of Magnesia) 30 ml DAILYPRN PRN PO CONSTIPATION 05/19/19 15:15 Methylphenidate HCl (Ritalin) 20 mg DAILY PO 05/20/19 09:00 05/20/19 09:00 DC Methylphenidate HCl (Ritalin) 20 mg TID@0800,1300,1700 PO 05/19/19 17:00 05/20/19 11:14 DC 05/20/19 08:02 Miscellaneous (Unresolved Clarification Entry) SEE LABEL COMMENTS UNRESOLVED XX 05/19/19 00:01 05/20/19 04:52 DC Omeprazole (PriLOSEC) 20 mg BID@0800,1600 PO 05/19/19 16:00 05/25/19 07:38 Omeprazole (PriLOSEC) 20 mg DAILY PO 05/20/19 09:00 05/20/19 09:00 DC Oxycodone/ Acetaminophen (Percocet 5mg/ 325mg Tablet) 1 tab QHS PO 05/19/19 21:00 05/24/19 20:10 Potassium Chloride (Micro-K Extencaps) 10 meq DAILY PO 05/20/19 09:00 05/25/19 08:07 Prazosin HCl (Minipress) 2 mg QHS PO 05/19/19 21:00 05/24/19 20:10 Quetiapine Fumarate (SEROquel) 600 mg QPM@1900 PO 05/19/19 19:00 05/24/19 18:57 Trazodone HCl (Desyrel) 50 mg QHSP PRN PO INSOMNIA 05/19/19 15:30 05/24/19 20:10 Venlafaxine HCl (Effexor Xr) 75 mg QAM PO 05/20/19 09:00 05/20/19 09:00 DC Venlafaxine HCl (Effexor Xr) 225 mg QAM PO 05/20/19 09:00 05/21/19 09:26 DC 05/21/19 08:19 Venlafaxine HCl (Effexor Xr) 300 mg DAILY PO 05/22/19 09:00 05/25/19 08:08 Allergies Coded Allergies: clarithromycin (Verified Allergy, Intermediate, hives and puffy face, 05/19/19) fexofenadine (Verified Allergy, Unknown, 05/05/19) pseudoephedrine (Verified Allergy, Unknown, 05/05/19) ketorolac (Verified Adverse Reaction, Mild, HEADACHE, 05/08/19) CLARK ARTIS DO May 25, 2019 9:26 am
[2019-05-25] MEDS: hydrOXYzine 50 MG TAB PO PRN (12:20)
[2019-05-25 15:39] VITALS: BP 112/66
[2019-05-25] MEDS: QUEtiapine FUMARATE 200 MG TAB PO SCH (18:15)
[2019-05-25] MEDS: PRAZOSIN 1 MG CAP PO SCH (20:07)
[2019-05-25] MEDS: BENZTROPINE 1 MG TAB PO SCH (20:08)
[2019-05-25] MEDS: PERCOCET 5MG/325MG TAB PO SCH (20:08)
[2019-05-25] MEDS: traZODone 50 MG TAB PO PRN (20:15)
--- NOTE | 2019-05-25 21:33 | MHIPN ---
DATE: 05/23/2019 The patient today states "I'm hanging in there." She says she is not feeling depressed. She admits that she is having auditory hallucinations telling her to kill people and then states, "I would never do that." She denies feeling depressed. She said she slept well. MENTAL STATUS EXAMINATION: She is alert, oriented times three. Eye contact is fair. Psychomotor activity is normal. There is no formal thought disorder noted. She says that her mood is okay. Affect is appropriate. She is not suicidal or homicidal, but she still continues to have auditory hallucinations, as noted above. Concentration is fair. Insight and judgment is poor. DIAGNOSES: 1. Schizoaffective disorder, bipolar type. 2. Posttraumatic stress disorder. 3. Cannabis use disorder. TREATMENT PLAN: At this point, the patient will continue to be monitored for psychotic symptoms and for further elevation and stabilization of her mood and resolution of suicidal ideations. We will continue to titrate medications as indicated. DIANE
[2019-05-26] MEDS: LEVOTHYROXINE 75MCG TABLET (0.075MG) PO SCH (05:46)
[2019-05-26 07:00] VITALS: BP 106/60
[2019-05-26] MEDS: BREXPIPRAZOLE 2MG TABLET (REXULTI) PO SCH (08:24)
[2019-05-26] MEDS: GABAPENTIN 300 MG CAP PO SCH ×3 (08:24→20:27)
[2019-05-26] MEDS: VENLAFAXINE **XR** 75MG CAPSULE PO SCH (08:24)
[2019-05-26] MEDS: IBUPROFEN 400 MG TAB PO PRN (08:24)
[2019-05-26] MEDS: OMEPRAZOLE 20 MG CAP PO SCH ×2 (08:25→15:47)
[2019-05-26] MEDS: clonazePAM 0.5 MG TAB PO SCH ×2 (08:25→20:27)
[2019-05-26] MEDS: POTASSIUM CHLORIDE 10 MEQ SR TABLET PO SCH (08:25)
[2019-05-26] MEDS: ATORVASTATIN 20 MG TAB PO SCH (08:25)
[2019-05-26] MEDS: HALOPERIDOL 10 MG TAB PO SCH (08:25)
--- NOTE | 2019-05-26 09:49 | MHIPNPDOC ---
[facility] Progress Note Progress Note DATE OF SERVICE: 05/26/19 HISTORY: Patient is a 49 -year-old , female, with a history of schizoaffective d/o, PTSD, cannabis use d/o just d/c IM for depression and AH 05/15/19 who was brought to ED by [facility] endorsing decompensation with the return of AH 10x worse, tactile hallucinations of bugs crawling on her, VH of bugs on her skin, depression and up and down moods, and SI with plan to either crash her car into a pole or jump in front of a moving vehicle. Per ED staff, pt was able to sleep well with no complaints, did not appear internally preoccupied or preoccupied by bugs on her skin, did not appear very depressed, and presented with all her belongs expecting to be admitted. Pt seen and states that when she got to her sisters home where she has been staying since being d/c she stared feeling depressed and experiencing AH of multiple men's voices she didn't recognize tell her to kill herself inside her head that are worse when she feels more depressed. States her moods have been up and down and AH coincide with her mood. Denies tactile hallucinations and VH today. Spoke to pt about her meds and that plan to resume her haldol for AH and effexor xr for depression but will d/c abilify which doesn't appear that beneficial and add rexulti (risks/benefits discussed) which may be more beneficial for her symptoms of worry and internal thoughts as her AH are most likely her conscience and past memories of trauma as they vary with her mood. Also pt does not appear to be responding to any internal stimuli as her attention and concentration are good. She denies SI today. Denies HI and delusions. Feels safe here. VITAL SIGNS: See below. NEW TEST RESULTS: Thyroid Stimulating Hormone (TSH) 16.800H, Free Thyroxine Index 1.1L, Thyroxine (T4) 4.3L, Triiodothyronine (T3) Uptake 25L CURRENT MEDICATIONS: See below. MENTAL STATUS EXAMINATION: roughly no change General Appearance: well groomed, appears stated age, own clothing Build: overweight Demeanor: cooperative Eye Contact: average Activity: average Behavior: cooperative Speech: clear, spontaneous, reg/rate,rhythm,volume Mood: less depressed and calm Mood "alright" Affect: euthymic, congruent, calm Thought Process: logical/linear, less depressed, intact Thought Content (Delusions): none reported, denies SI, HI, "I feel and see bugs crawling on my skin" incidentally pt's attention is very good and she's able to ready and concentrate well w/o distraction Thought Content (Other): none reported, appropriate Thought Content (Aggressive): none reported Perception (Hallucinations): auditory (multiple men she doesn't recognize inside her head that are worse when she feels depressed), does not appear to be responding to internal stimuli and can concentrate well enough to read a book; TH "I feel and see bugs crawling on my skin" incidentally pt's attention is very good and she's able to ready and concentrate well w/o distraction Perception (Other): none reported Cognition (Impairment of): none reported Cognition(Intelligence Est.): average Oriented: Awake, Alert, Oriented times three Insight: fair Judgment: Fair Psychosis: Psychotic Perceptions DIAGNOSES: 1. Schizoaffective disorder bipolar type. 2. Posttraumatic stress disorder (PTSD). 3. Cannabis use disorder. 4. r/o malingering d/o ASSESSMENT:Pt seen in room and states she's doing "alright" but continues to endorse TH of bugs on her skin although pt's attention is very good and she's able to ready and concentrate well w/o distraction. Could be a side effect of rexulti or haldol so will d/c both and attempt to use risperidone 1mg qam and 2mg qhs to see if symptoms improve. Believe though that pt possibly is malingering as endorses symptoms she does not appear to actually have (TH, AH) as she does not appear to be responding to internal stimuli and her concentration is very good to the point she can read a book without any distraction, she does not pick or scratch at skin. Continues to have AH of men she doesn't recognize telling her to harm herself it is the same as yesterday. Denies desire to harm herself, intent, plan. States she's tolerating effexor xr and feels it's beneficial. Per treatment team, pt's spouse and son frequently fight at home (this may be the source of the AH/internal thoughts) which causes her to feel stressed and want to escape it so possibly coming here to malinger and escape home stressors. Denies she wants to harm herself. Most likely AH secondary to mood and home stressors between spouse and son. She is socializing in the milieu and attending groups daily. She denies HI, VH, delusions. Feels safe here. MANAGEMENT PLAN: continue plan. d/c haldol and rexulti Medications: risperidone 1mg qam and 2mg qhs effexor xr 300mg daily vistaril 50mg q6hr prn anxiety seroquel 600mg qhs prazosin 2mg qhs TIME SPENT: 30 minutes. Vital Signs Vital Signs Date Time Temp Pulse Resp B/P (MAP) Pulse Ox O2 Delivery O2 Flow Rate FiO2 05/26/19 07:00 97.9 66 14 106/60 (75) Current Medications Current Medications Medications (Trade) Dose Ordered Sig/Jesika Route PRN Reason Start Time Stop Time Status Last Admin Dose Admin Al Hydrox/Mg Hydrox/Simethicone (Mylanta) 30 ml Q4HP PRN PO HEARTBURN/INDIGESTION 05/19/19 15:15 Albuterol Sulfate (Proventil, Ventolin Hfa) 2 puff RQID PRN INH SHORTNESS OF BREATH 05/19/19 15:30 Aripiprazole (AbiLIFY) 20 mg QHS PO 05/19/19 21:00 05/20/19 11:14 DC 05/19/19 22:50 Atorvastatin Calcium (Lipitor) 20 mg DAILY PO 05/20/19 09:00 05/26/19 08:25 Benztropine Mesylate (Cogentin) 1 mg QHS PO 05/19/19 21:00 05/25/19 20:08 Brexpiprazole (Rexulti) 1 mg DAILY PO 05/21/19 09:00 05/22/19 11:03 DC 05/22/19 08:05 Brexpiprazole (Rexulti) 2 mg DAILY PO 05/23/19 09:00 05/26/19 08:24 Clonazepam (KlonoPIN) 0.5 mg BID PO 05/19/19 21:00 05/26/19 08:25 Gabapentin (Neurontin) 600 mg TID PO 05/19/19 21:00 05/26/19 08:24 Haloperidol (Haldol) 10 mg BID PO 05/19/19 21:00 05/26/19 08:25 Home Med (Med Rec Complete!) ASDIRECTED XX 05/19/19 16:30 05/19/19 16:37 DC Hydroxyzine HCl (Atarax) 50 mg Q6HP PRN PO ANXIETY/AGITATION 05/19/19 15:30 05/25/19 12:20 Ibuprofen (Advil) 400 mg Q6HP PRN PO PAIN 05/19/19 15:15 05/26/19 08:24 Levothyroxine Sodium (Synthroid) 75 mcg DAILY@06 PO 05/20/19 06:00 05/26/19 05:46 Magnesium Hydroxide (Milk Of Magnesia) 30 ml DAILYPRN PRN PO CONSTIPATION 05/19/19 15:15 Methylphenidate HCl (Ritalin) 20 mg DAILY PO 05/20/19 09:00 05/20/19 09:00 DC Methylphenidate HCl (Ritalin) 20 mg TID@0800,1300,1700 PO 05/19/19 17:00 05/20/19 11:14 DC 05/20/19 08:02 Miscellaneous (Unresolved Clarification Entry) SEE LABEL COMMENTS DAILY XX 05/26/19 09:00 Miscellaneous (Unresolved Clarification Entry) SEE LABEL COMMENTS UNRESOLVED XX 05/19/19 00:01 05/20/19 04:52 DC Omeprazole (PriLOSEC) 20 mg BID@0800,1600 PO 05/19/19 16:00 05/26/19 08:25 Omeprazole (PriLOSEC) 20 mg DAILY PO 05/20/19 09:00 05/20/19 09:00 DC Oxycodone/ Acetaminophen (Percocet 5mg/ 325mg Tablet) 1 tab QHS PO 05/19/19 21:00 05/25/19 20:08 Potassium Chloride (Micro-K Extencaps) 10 meq DAILY PO 05/20/19 09:00 05/26/19 08:25 Prazosin HCl (Minipress) 2 mg QHS PO 05/19/19 21:00 05/25/19 20:07 Quetiapine Fumarate (SEROquel) 600 mg QPM@1900 PO 05/19/19 19:00 05/25/19 18:15 Trazodone HCl (Desyrel) 50 mg QHSP PRN PO INSOMNIA 05/19/19 15:30 05/25/19 20:15 Venlafaxine HCl (Effexor Xr) 75 mg QAM PO 05/20/19 09:00 05/20/19 09:00 DC Venlafaxine HCl (Effexor Xr) 225 mg QAM PO 05/20/19 09:00 05/21/19 09:26 DC 05/21/19 08:19 Venlafaxine HCl (Effexor Xr) 300 mg DAILY PO 05/22/19 09:00 05/26/19 08:24 Allergies Coded Allergies: clarithromycin (Verified Allergy, Intermediate, hives and puffy face, 05/19/19) fexofenadine (Verified Allergy, Unknown, 05/05/19) pseudoephedrine (Verified Allergy, Unknown, 05/05/19) ketorolac (Verified Adverse Reaction, Mild, HEADACHE, 05/08/19) CLARK ARTIS DO May 26, 2019 9:49 am
[2019-05-26] MEDS ORDERED: risperiDONE 1 MG TAB PO ONE (10:00)
[2019-05-26] MEDS: hydrOXYzine 50 MG TAB PO PRN (13:18)
[2019-05-26 18:00] VITALS: BP 115/72
[2019-05-26] MEDS: QUEtiapine FUMARATE 200 MG TAB PO SCH (18:15)
[2019-05-26] MEDS: PERCOCET 5MG/325MG TAB PO SCH (20:27)
[2019-05-26] MEDS: risperiDONE 2 MG TAB PO SCH (20:27)
[2019-05-26] MEDS: BENZTROPINE 1 MG TAB PO SCH (20:27)
[2019-05-26] MEDS: PRAZOSIN 1 MG CAP PO SCH (20:27)
[2019-05-26] MEDS: traZODone 50 MG TAB PO PRN (20:27)
[2019-05-27] MEDS: LEVOTHYROXINE 75MCG TABLET (0.075MG) PO SCH (05:50)
[2019-05-27 06:42] VITALS: BP 109/71
[2019-05-27] MEDS: clonazePAM 0.5 MG TAB PO SCH ×2 (08:34→20:04)
[2019-05-27] MEDS: ATORVASTATIN 20 MG TAB PO SCH (08:35)
[2019-05-27] MEDS: OMEPRAZOLE 20 MG CAP PO SCH ×2 (08:35→17:06)
[2019-05-27] MEDS: GABAPENTIN 300 MG CAP PO SCH ×3 (08:35→20:04)
[2019-05-27] MEDS: POTASSIUM CHLORIDE 10 MEQ SR TABLET PO SCH (08:35)
[2019-05-27] MEDS: VENLAFAXINE **XR** 75MG CAPSULE PO SCH (08:35)
[2019-05-27] MEDS: risperiDONE 1 MG TAB PO SCH (08:35)
[2019-05-27] MEDS: hydrOXYzine 50 MG TAB PO PRN (10:04)
--- NOTE | 2019-05-27 12:21 | MHIPNPDOC ---
[facility] Progress Note Progress Note DATE OF SERVICE: 05/27/19 HISTORY: Patient is a 49 -year-old , female, with a history of schizoaffective d/o, PTSD, cannabis use d/o just d/c IM for depression and AH 05/15/19 who was brought to ED by [facility] endorsing decompensation with the return of AH 10x worse, tactile hallucinations of bugs crawling on her, VH of bugs on her skin, depression and up and down moods, and SI with plan to either crash her car into a pole or jump in front of a moving vehicle. Per ED staff, pt was able to sleep well with no complaints, did not appear internally preoccupied or preoccupied by bugs on her skin, did not appear very depressed, and presented with all her belongs expecting to be admitted. Pt seen and states that when she got to her sisters home where she has been staying since being d/c she stared feeling depressed and experiencing AH of multiple men's voices she didn't recognize tell her to kill herself inside her head that are worse when she feels more depressed. States her moods have been up and down and AH coincide with her mood. Denies tactile hallucinations and VH today. Spoke to pt about her meds and that plan to resume her haldol for AH and effexor xr for depression but will d/c abilify which doesn't appear that beneficial and add rexulti (risks/benefits discussed) which may be more beneficial for her symptoms of worry and internal thoughts as her AH are most likely her conscience and past memories of trauma as they vary with her mood. Also pt does not appear to be responding to any internal stimuli as her attention and concentration are good. She denies SI today. Denies HI and delusions. Feels safe here. VITAL SIGNS: See below. NEW TEST RESULTS: Thyroid Stimulating Hormone (TSH) 16.800H, Free Thyroxine Index 1.1L, Thyroxine (T4) 4.3L, Triiodothyronine (T3) Uptake 25L CURRENT MEDICATIONS: See below. MENTAL STATUS EXAMINATION: roughly no change General Appearance: well groomed, appears stated age, own clothing Build: overweight Demeanor: cooperative Eye Contact: average Activity: average Behavior: cooperative Speech: clear, spontaneous, reg/rate,rhythm,volume Mood: less depressed and calm Mood "better" Affect: euthymic, congruent, calm Thought Process: logical/linear, less depressed, intact Thought Content (Delusions): none reported, denies SI, HI, Less TH and AH today ("I feel and see bugs crawling on my skin" incidentally pt's attention is very good and she's able to ready and concentrate well w/o distraction) Thought Content (Other): none reported, appropriate Thought Content (Aggressive): none reported Perception (Hallucinations): less auditory (multiple men she doesn't recognize inside her head that are worse when she feels depressed), does not appear to be responding to internal stimuli and can concentrate well enough to read a book; less TH "I feel and see bugs crawling on my skin" incidentally pt's attention is very good and she's able to ready and concentrate well w/o distraction Perception (Other): none reported Cognition (Impairment of): none reported Cognition(Intelligence Est.): average Oriented: Awake, Alert, Oriented times three Insight: fair Judgment: Fair Psychosis: improving Psychotic Perceptions DIAGNOSES: 1. Schizoaffective disorder bipolar type. 2. Posttraumatic stress disorder (PTSD). 3. Cannabis use disorder. 4. r/o malingering d/o ASSESSMENT:Pt seen and states she's doing "better" as she's having less TH of bugs on her skin and AH with the start of risperidone that she's tolerated well and is finding beneficial. Her attention is very good and she's able to ready and concentrate well w/o distraction. As stated previously "Believe though that pt possibly is malingering as endorses symptoms she does not appear to actually have (TH, AH) as she does not appear to be responding to internal stimuli and her concentration is very good to the point she can read a book without any distraction, she does not pick or scratch at skin." Less AH of men she doesn't recognize telling her to harm herself it is the same as yesterday. Denies desire to harm herself, intent, plan. States she's tolerating effexor xr and feels it's beneficial. Per treatment team, pt's spouse and son frequently fight at home (this may be the source of the AH/internal thoughts) which causes her to feel stressed and want to escape it so possibly coming here to malinger and escape home stressors. Denies she wants to harm herself. She is socializing in the milieu and attending groups daily. She denies HI, VH, delusions. Feels safe here. MANAGEMENT PLAN: continue plan. Medications: risperidone 1mg qam and 2mg qhs effexor xr 300mg daily vistaril 50mg q6hr prn anxiety seroquel 600mg qhs prazosin 2mg qhs TIME SPENT: 30 minutes. Vital Signs Vital Signs Date Time Temp Pulse Resp B/P (MAP) Pulse Ox O2 Delivery O2 Flow Rate FiO2 05/27/19 06:42 97.5 72 14 109/71 (84) Current Medications Current Medications Medications (Trade) Dose Ordered Sig/Jesika Route PRN Reason Start Time Stop Time Status Last Admin Dose Admin Al Hydrox/Mg Hydrox/Simethicone (Mylanta) 30 ml Q4HP PRN PO HEARTBURN/INDIGESTION 05/19/19 15:15 Albuterol Sulfate (Proventil, Ventolin Hfa) 2 puff RQID PRN INH SHORTNESS OF BREATH 05/19/19 15:30 Aripiprazole (AbiLIFY) 20 mg QHS PO 05/19/19 21:00 05/20/19 11:14 DC 05/19/19 22:50 Atorvastatin Calcium (Lipitor) 20 mg DAILY PO 05/20/19 09:00 05/27/19 08:35 Benztropine Mesylate (Cogentin) 1 mg QHS PO 05/19/19 21:00 05/26/19 20:27 Brexpiprazole (Rexulti) 1 mg DAILY PO 05/21/19 09:00 05/22/19 11:03 DC 05/22/19 08:05 Brexpiprazole (Rexulti) 2 mg DAILY PO 05/23/19 09:00 05/26/19 09:50 DC 05/26/19 08:24 Clonazepam (KlonoPIN) 0.5 mg BID PO 05/19/19 21:00 05/27/19 08:34 Gabapentin (Neurontin) 600 mg TID PO 05/19/19 21:00 05/27/19 08:35 Haloperidol (Haldol) 10 mg BID PO 05/19/19 21:00 05/26/19 09:50 DC 05/26/19 08:25 Home Med (Med Rec Complete!) ASDIRECTED XX 05/19/19 16:30 05/19/19 16:37 DC Hydroxyzine HCl (Atarax) 50 mg Q6HP PRN PO ANXIETY/AGITATION 05/19/19 15:30 05/26/19 13:18 Ibuprofen (Advil) 400 mg Q6HP PRN PO PAIN 05/19/19 15:15 05/26/19 08:24 Levothyroxine Sodium (Synthroid) 75 mcg DAILY@06 PO 05/20/19 06:00 05/27/19 05:50 Magnesium Hydroxide (Milk Of Magnesia) 30 ml DAILYPRN PRN PO CONSTIPATION 05/19/19 15:15 Methylphenidate HCl (Ritalin) 20 mg DAILY PO 05/20/19 09:00 05/20/19 09:00 DC Methylphenidate HCl (Ritalin) 20 mg TID@0800,1300,1700 PO 05/19/19 17:00 05/20/19 11:14 DC 05/20/19 08:02 Miscellaneous (Unresolved Clarification Entry) SEE LABEL COMMENTS DAILY XX 05/26/19 09:00 05/26/19 10:04 DC Miscellaneous (Unresolved Clarification Entry) SEE LABEL COMMENTS UNRESOLVED XX 05/19/19 00:01 05/20/19 04:52 DC Omeprazole (PriLOSEC) 20 mg BID@0800,1600 PO 05/19/19 16:00 05/27/19 08:35 Omeprazole (PriLOSEC) 20 mg DAILY PO 05/20/19 09:00 05/20/19 09:00 DC Oxycodone/ Acetaminophen (Percocet 5mg/ 325mg Tablet) 1 tab QHS PO 05/19/19 21:00 05/26/19 20:27 Potassium Chloride (Micro-K Extencaps) 10 meq DAILY PO 05/20/19 09:00 05/27/19 08:35 Prazosin HCl (Minipress) 2 mg QHS PO 05/19/19 21:00 05/26/19 20:27 Quetiapine Fumarate (SEROquel) 600 mg QPM@1900 PO 05/19/19 19:00 05/26/19 18:15 Risperidone (RisperDAL) 1 mg DAILY PO 05/27/19 09:00 05/27/19 08:35 Risperidone (RisperDAL) 2 mg QHS PO 05/26/19 21:00 05/26/19 20:27 Trazodone HCl (Desyrel) 50 mg QHSP PRN PO INSOMNIA 05/19/19 15:30 05/26/19 20:27 Venlafaxine HCl (Effexor Xr) 75 mg QAM PO 05/20/19 09:00 05/20/19 09:00 DC Venlafaxine HCl (Effexor Xr) 225 mg QAM PO 05/20/19 09:00 05/21/19 09:26 DC 05/21/19 08:19 Venlafaxine HCl (Effexor Xr) 300 mg DAILY PO 05/22/19 09:00 05/27/19 08:35 Allergies Coded Allergies: clarithromycin (Verified Allergy, Intermediate, hives and puffy face, 05/19/19) fexofenadine (Verified Allergy, Unknown, 05/05/19) pseudoephedrine (Verified Allergy, Unknown, 05/05/19) ketorolac (Verified Adverse Reaction, Mild, HEADACHE, 05/08/19) CLARK ARTIS DO May 27, 2019 9:14 am
[2019-05-27 14:33] VITALS: BP 138/88
[2019-05-27] MEDS: IBUPROFEN 400 MG TAB PO PRN (17:20)
[2019-05-27] MEDS: QUEtiapine FUMARATE 200 MG TAB PO SCH (18:05)
[2019-05-27] MEDS: risperiDONE 2 MG TAB PO SCH (20:04)
[2019-05-27] MEDS: traZODone 50 MG TAB PO PRN (20:05)
[2019-05-27] MEDS: PERCOCET 5MG/325MG TAB PO SCH (20:05)
[2019-05-27] MEDS: BENZTROPINE 1 MG TAB PO SCH (20:05)
[2019-05-27] MEDS: PRAZOSIN 1 MG CAP PO SCH (20:05)
[2019-05-28] MEDS: LEVOTHYROXINE 75MCG TABLET (0.075MG) PO SCH (06:28)
[2019-05-28 06:41] VITALS: BP 121/77
[2019-05-28] MEDS: IBUPROFEN 400 MG TAB PO PRN (08:06)
[2019-05-28] MEDS: GABAPENTIN 300 MG CAP PO SCH ×3 (08:06→20:11)
[2019-05-28] MEDS: clonazePAM 0.5 MG TAB PO SCH ×2 (08:06→20:10)
[2019-05-28] MEDS: POTASSIUM CHLORIDE 10 MEQ SR TABLET PO SCH (08:07)
[2019-05-28] MEDS: risperiDONE 1 MG TAB PO SCH (08:07)
[2019-05-28] MEDS: ATORVASTATIN 20 MG TAB PO SCH (08:07)
[2019-05-28] MEDS: VENLAFAXINE **XR** 75MG CAPSULE PO SCH (08:07)
[2019-05-28] MEDS: OMEPRAZOLE 20 MG CAP PO SCH ×2 (08:07→16:33)
--- NOTE | 2019-05-28 10:00 | MHIPNPDOC ---
[facility] Progress Note Progress Note DATE OF SERVICE: 05/28/19 HISTORY: Patient is a 49 -year-old , female, with a history of schizoaffective d/o, PTSD, cannabis use d/o just d/c IM for depression and AH 05/15/19 who was brought to ED by [facility] endorsing decompensation with the return of AH 10x worse, tactile hallucinations of bugs crawling on her, VH of bugs on her skin, depression and up and down moods, and SI with plan to either crash her car into a pole or jump in front of a moving vehicle. Per ED staff, pt was able to sleep well with no complaints, did not appear internally preoccupied or preoccupied by bugs on her skin, did not appear very depressed, and presented with all her belongs expecting to be admitted. Pt seen and states that when she got to her sisters home where she has been staying since being d/c she stared feeling depressed and experiencing AH of multiple men's voices she didn't recognize tell her to kill herself inside her head that are worse when she feels more depressed. States her moods have been up and down and AH coincide with her mood. Denies tactile hallucinations and VH today. Spoke to pt about her meds and that plan to resume her haldol for AH and effexor xr for depression but will d/c abilify which doesn't appear that beneficial and add rexulti (risks/benefits discussed) which may be more beneficial for her symptoms of worry and internal thoughts as her AH are most likely her conscience and past memories of trauma as they vary with her mood. Also pt does not appear to be responding to any internal stimuli as her attention and concentration are good. She denies SI today. Denies HI and delusions. Feels safe here. VITAL SIGNS: See below. NEW TEST RESULTS: Thyroid Stimulating Hormone (TSH) 16.800H, Free Thyroxine Index 1.1L, Thyroxine (T4) 4.3L, Triiodothyronine (T3) Uptake 25L CURRENT MEDICATIONS: See below. MENTAL STATUS EXAMINATION: roughly no change General Appearance: well groomed, appears stated age, own clothing Build: overweight Demeanor: cooperative Eye Contact: average Activity: average Behavior: cooperative Speech: clear, spontaneous, reg/rate,rhythm,volume Mood: less depressed and calm Mood "ok" Affect: euthymic, congruent, calm Thought Process: logical/linear, less depressed, intact Thought Content (Delusions): none reported, denies SI, HI, Less TH (no longer feels but states she can still see bugs occasionally although completely not distracted by them and not engaging in any behaviors suck as picking or scratching of her skin) and states AH are less Thought Content (Other): none reported, appropriate Thought Content (Aggressive): none reported Perception (Hallucinations): less auditory (multiple men she doesn't recognize inside her head that are worse when she feels depressed), does not appear to be responding to internal stimuli and can concentrate well enough to read a book; less TH (no longer feels but states she can still see bugs occasionally although completely not distracted by them and not engaging in any behaviors suck as pi cking or scratching of her skin) Perception (Other): none reported Cognition (Impairment of): none reported Cognition(Intelligence Est.): average Oriented: Awake, Alert, Oriented times three Insight: fair Judgment: Fair Psychosis: improving Psychotic Perceptions DIAGNOSES: 1. Schizoaffective disorder bipolar type. 2. Posttraumatic stress disorder (PTSD). 3. Cannabis use disorder. 4. r/o malingering d/o ASSESSMENT:Pt seen and states she's doing "ok" as no longer feels TH but can still "see" bugs on her skin (totally not distracted by) with risperidone that she's tolerated well and is finding beneficial. Her attention is very good and she's able to ready and concentrate well w/o distraction. As stated previously "Believe though that pt possibly is malingering as endorses symptoms she does not appear to actually have (TH, AH) as she does not appear to be responding to internal stimuli and her concentration is very good to the point she can read a book without any distraction, she does not pick or scratch at skin." Less AH of men she doesn't recognize telling her to harm herself it is the same as yesterday. Denies desire to harm herself, intent, plan. States she's tolerating effexor xr and feels it's beneficial. Per treatment team, pt's spouse and son frequently fight at home (this may be the source of the AH/internal thoughts) which causes her to feel stressed and want to escape it so possibly coming here to malinger and escape home stressors. Denies she wants to harm herself. She is socializing in the milieu and attending groups daily. She denies HI, VH, delusions. Feels safe here. MANAGEMENT PLAN: continue plan. Medications: risperidone 1mg qam and 2mg qhs effexor xr 300mg daily vistaril 50mg q6hr prn anxiety seroquel 600mg qhs prazosin 2mg qhs TIME SPENT: 30 minutes. Vital Signs Vital Signs Date Time Temp Pulse Resp B/P (MAP) Pulse Ox O2 Delivery O2 Flow Rate FiO2 05/28/19 06:41 98.0 75 16 121/77 (92) 05/27/19 14:33 100 Current Medications Current Medications Medications (Trade) Dose Ordered Sig/Jesika Route PRN Reason Start Time Stop Time Status Last Admin Dose Admin Al Hydrox/Mg Hydrox/Simethicone (Mylanta) 30 ml Q4HP PRN PO HEARTBURN/INDIGESTION 05/19/19 15:15 Albuterol Sulfate (Proventil, Ventolin Hfa) 2 puff RQID PRN INH SHORTNESS OF BREATH 05/19/19 15:30 Aripiprazole (AbiLIFY) 20 mg QHS PO 05/19/19 21:00 05/20/19 11:14 DC 05/19/19 22:50 Atorvastatin Calcium (Lipitor) 20 mg DAILY PO 05/20/19 09:00 05/28/19 08:07 Benztropine Mesylate (Cogentin) 1 mg QHS PO 05/19/19 21:00 05/27/19 20:05 Brexpiprazole (Rexulti) 1 mg DAILY PO 05/21/19 09:00 05/22/19 11:03 DC 05/22/19 08:05 Brexpiprazole (Rexulti) 2 mg DAILY PO 05/23/19 09:00 05/26/19 09:50 DC 05/26/19 08:24 Clonazepam (KlonoPIN) 0.5 mg BID PO 05/19/19 21:00 05/28/19 08:06 Gabapentin (Neurontin) 600 mg TID PO 05/19/19 21:00 05/28/19 08:06 Haloperidol (Haldol) 10 mg BID PO 05/19/19 21:00 05/26/19 09:50 DC 05/26/19 08:25 Home Med (Med Rec Complete!) ASDIRECTED XX 05/19/19 16:30 05/19/19 16:37 DC Hydroxyzine HCl (Atarax) 50 mg Q6HP PRN PO ANXIETY/AGITATION 05/19/19 15:30 05/27/19 10:04 Ibuprofen (Advil) 400 mg Q6HP PRN PO PAIN 05/19/19 15:15 05/28/19 08:06 Levothyroxine Sodium (Synthroid) 75 mcg DAILY@06 PO 05/20/19 06:00 05/28/19 06:28 Magnesium Hydroxide (Milk Of Magnesia) 30 ml DAILYPRN PRN PO CONSTIPATION 05/19/19 15:15 Methylphenidate HCl (Ritalin) 20 mg DAILY PO 05/20/19 09:00 05/20/19 09:00 DC Methylphenidate HCl (Ritalin) 20 mg TID@0800,1300,1700 PO 05/19/19 17:00 05/20/19 11:14 DC 05/20/19 08:02 Miscellaneous (Unresolved Clarification Entry) SEE LABEL COMMENTS DAILY XX 05/26/19 09:00 05/26/19 10:04 DC Miscellaneous (Unresolved Clarification Entry) SEE LABEL COMMENTS UNRESOLVED XX 05/19/19 00:01 05/20/19 04:52 DC Omeprazole (PriLOSEC) 20 mg BID@0800,1600 PO 05/19/19 16:00 05/28/19 08:07 Omeprazole (PriLOSEC) 20 mg DAILY PO 05/20/19 09:00 05/20/19 09:00 DC Oxycodone/ Acetaminophen (Percocet 5mg/ 325mg Tablet) 1 tab QHS PO 05/19/19 21:00 05/27/19 20:05 Potassium Chloride (Micro-K Extencaps) 10 meq DAILY PO 05/20/19 09:00 05/28/19 08:07 Prazosin HCl (Minipress) 2 mg QHS PO 05/19/19 21:00 05/27/19 20:05 Quetiapine Fumarate (SEROquel) 600 mg QPM@1900 PO 05/19/19 19:00 05/27/19 18:05 Risperidone (RisperDAL) 1 mg DAILY PO 05/27/19 09:00 05/28/19 08:07 Risperidone (RisperDAL) 2 mg QHS PO 05/26/19 21:00 05/27/19 20:04 Trazodone HCl (Desyrel) 50 mg QHSP PRN PO INSOMNIA 05/19/19 15:30 05/27/19 20:05 Venlafaxine HCl (Effexor Xr) 75 mg QAM PO 05/20/19 09:00 05/20/19 09:00 DC Venlafaxine HCl (Effexor Xr) 225 mg QAM PO 05/20/19 09:00 05/21/19 09:26 DC 05/21/19 08:19 Venlafaxine HCl (Effexor Xr) 300 mg DAILY PO 05/22/19 09:00 05/28/19 08:07 Allergies Coded Allergies: clarithromycin (Verified Allergy, Intermediate, hives and puffy face, 05/19/19) fexofenadine (Verified Allergy, Unknown, 05/05/19) pseudoephedrine (Verified Allergy, Unknown, 05/05/19) ketorolac (Verified Adverse Reaction, Mild, HEADACHE, 05/08/19) CLARK ARTIS DO May 28, 2019 9:37 am
[2019-05-28] MEDS: ALBUTEROL 90 MCG/ACT 8GM HFA INHALER INH PRN (13:02)
[2019-05-28] MEDS: QUEtiapine FUMARATE 200 MG TAB PO SCH (17:56)
[2019-05-28 18:00] VITALS: BP 116/67
[2019-05-28] MEDS: BENZTROPINE 1 MG TAB PO SCH (20:09)
[2019-05-28] MEDS: risperiDONE 2 MG TAB PO SCH (20:10)
[2019-05-28] MEDS: PRAZOSIN 1 MG CAP PO SCH (20:10)
[2019-05-28] MEDS: traZODone 50 MG TAB PO PRN (20:10)
[2019-05-28] MEDS: PERCOCET 5MG/325MG TAB PO SCH (20:12)
[2019-05-29] MEDS: LEVOTHYROXINE 75MCG TABLET (0.075MG) PO SCH (06:17)
[2019-05-29 06:31] VITALS: BP 104/66
[2019-05-29] MEDS: GABAPENTIN 300 MG CAP PO SCH ×3 (08:24→20:44)
[2019-05-29] MEDS: POTASSIUM CHLORIDE 10 MEQ SR TABLET PO SCH (08:24)
[2019-05-29] MEDS: ATORVASTATIN 20 MG TAB PO SCH (08:24)
[2019-05-29] MEDS: risperiDONE 1 MG TAB PO SCH (08:24)
[2019-05-29] MEDS: OMEPRAZOLE 20 MG CAP PO SCH ×2 (08:24→16:52)
[2019-05-29] MEDS: VENLAFAXINE **XR** 75MG CAPSULE PO SCH (08:25)
[2019-05-29] MEDS: clonazePAM 0.5 MG TAB PO SCH ×2 (08:25→20:44)
--- NOTE | 2019-05-29 11:10 | MHIPNPDOC ---
[facility] Progress Note Progress Note DATE OF SERVICE: 05/29/19 HISTORY: Patient is a 49 -year-old , female, with a history of schizoaffective d/o, PTSD, cannabis use d/o just d/c IM for depression and AH 05/15/19 who was brought to ED by [employer] endorsing decompensation with the return of AH 10x worse, tactile hallucinations of bugs crawling on her, VH of bugs on her skin, depression and up and down moods, and SI with plan to either crash her car into a pole or jump in front of a moving vehicle. Per ED staff, pt was able to sleep well with no complaints, did not appear internally preoccupied or preoccupied by bugs on her skin, did not appear very depressed, and presented with all her belongs expecting to be admitted. Pt seen and states that when she got to her sisters home where she has been staying since being d/c she stared feeling depressed and experiencing AH of multiple men's voices she didn't recognize tell her to kill herself inside her head that are worse when she feels more depressed. States her moods have been up and down and AH coincide with her mood. Denies tactile hallucinations and VH today. Spoke to pt about her meds and that plan to resume her haldol for AH and effexor xr for depression but will d/c abilify which doesn't appear that beneficial and add rexulti (risks/benefits discussed) which may be more beneficial for her symptoms of worry and internal thoughts as her AH are most likely her conscience and past memories of trauma as they vary with her mood. Also pt does not appear to be responding to any internal stimuli as her attention and concentration are good. She denies SI today. Denies HI and delusions. Feels safe here. VITAL SIGNS: See below. NEW TEST RESULTS: Thyroid Stimulating Hormone (TSH) 16.800H, Free Thyroxine Index 1.1L, Thyroxine (T4) 4.3L, Triiodothyronine (T3) Uptake 25L CURRENT MEDICATIONS: See below. MENTAL STATUS EXAMINATION: roughly no change General Appearance: well groomed, appears stated age, own clothing Build: overweight Demeanor: cooperative Eye Contact: average Activity: average Behavior: cooperative Speech: clear, spontaneous, reg/rate,rhythm,volume Mood: less depressed and calm Mood "alright" Affect: euthymic, congruent, calm Thought Process: logical/linear, less depressed, intact Thought Content (Delusions): none reported, denies SI, HI,Denies TH todady and endorses AH still although doesn't appear to be responding to internal stimuli Thought Content (Other): none reported, appropriate Thought Content (Aggressive): none reported Perception (Hallucinations): less auditory (multiple men she doesn't recognize inside her head that are worse when she feels depressed), does not appear to be responding to internal stimuli and can concentrate well enough to read a book. Denies TH. Perception (Other): none reported Cognition (Impairment of): none reported Cognition(Intelligence Est.): average Oriented: Awake, Alert, Oriented times three Insight: fair Judgment: Fair Psychosis: improving Psychotic Perceptions DIAGNOSES: 1. Schizoaffective disorder bipolar type. 2. Posttraumatic stress disorder (PTSD). 3. Cannabis use disorder. 4. r/o malingering d/o ASSESSMENT:Pt seen and states she's doing "alright" as no longer endorses TH with risperidone that she's tolerated well and is finding beneficial. Continues to endorse AH of men and agreeable to increasing am and qhs risperidone to help. Asked to have gabapentin prior bed as it's sedating for her. Her attention is very good and she's able to ready and concentrate well w/o distraction. States she's tolerating effexor xr and feels it's beneficial. Per treatment team, pt's spouse and son frequently fight at home (this may be the source of the AH/internal thoughts) which causes her to feel stressed and want to escape it so possibly coming here to malinger and escape home stressors. Denies she wants to harm herself. She is socializing in the milieu and attending groups daily. She denies HI, VH, delusions. Feels safe here. MANAGEMENT PLAN: continue plan. increase risperidone and change gabapentin to qam, noon, and qhs Medications: risperidone 2mg qam and 3mg qhs effexor xr 300mg daily vistaril 50mg q6hr prn anxiety seroquel 600mg qhs prazosin 2mg qhs gabapentin 600mg qam, noon, and qhs TIME SPENT: 30 minutes. Vital Signs Vital Signs Date Time Temp Pulse Resp B/P (MAP) Pulse Ox O2 Delivery O2 Flow Rate FiO2 05/29/19 06:31 98.5 92 12 104/66 (79) 05/27/19 14:33 100 Current Medications Current Medications Medications (Trade) Dose Ordered Sig/Jesika Route PRN Reason Start Time Stop Time Status Last Admin Dose Admin Al Hydrox/Mg Hydrox/Simethicone (Mylanta) 30 ml Q4HP PRN PO HEARTBURN/INDIGESTION 05/19/19 15:15 Albuterol Sulfate (Proventil, Ventolin Hfa) 2 puff RQID PRN INH SHORTNESS OF BREATH 05/19/19 15:30 05/28/19 13:02 Aripiprazole (AbiLIFY) 20 mg QHS PO 05/19/19 21:00 05/20/19 11:14 DC 05/19/19 22:50 Atorvastatin Calcium (Lipitor) 20 mg DAILY PO 05/20/19 09:00 05/29/19 08:24 Benztropine Mesylate (Cogentin) 1 mg QHS PO 05/19/19 21:00 05/28/19 20:09 Brexpiprazole (Rexulti) 1 mg DAILY PO 05/21/19 09:00 05/22/19 11:03 DC 05/22/19 08:05 Brexpiprazole (Rexulti) 2 mg DAILY PO 05/23/19 09:00 05/26/19 09:50 DC 05/26/19 08:24 Clonazepam (KlonoPIN) 0.5 mg BID PO 05/19/19 21:00 05/29/19 08:25 Gabapentin (Neurontin) 600 mg TID PO 05/19/19 21:00 05/29/19 08:24 Haloperidol (Haldol) 10 mg BID PO 05/19/19 21:00 05/26/19 09:50 DC 05/26/19 08:25 Home Med (Med Rec Complete!) ASDIRECTED XX 05/19/19 16:30 05/19/19 16:37 DC Hydroxyzine HCl (Atarax) 50 mg Q6HP PRN PO ANXIETY/AGITATION 05/19/19 15:30 05/27/19 10:04 Ibuprofen (Advil) 400 mg Q6HP PRN PO PAIN 05/19/19 15:15 05/28/19 08:06 Levothyroxine Sodium (Synthroid) 75 mcg DAILY@06 PO 05/20/19 06:00 05/29/19 06:17 Magnesium Hydroxide (Milk Of Magnesia) 30 ml DAILYPRN PRN PO CONSTIPATION 05/19/19 15:15 Methylphenidate HCl (Ritalin) 20 mg DAILY PO 05/20/19 09:00 05/20/19 09:00 DC Methylphenidate HCl (Ritalin) 20 mg TID@0800,1300,1700 PO 05/19/19 17:00 05/20/19 11:14 DC 05/20/19 08:02 Miscellaneous (Unresolved Clarification Entry) SEE LABEL COMMENTS DAILY XX 05/26/19 09:00 05/26/19 10:04 DC Miscellaneous (Unresolved Clarification Entry) SEE LABEL COMMENTS UNRESOLVED XX 05/19/19 00:01 05/20/19 04:52 DC Omeprazole (PriLOSEC) 20 mg BID@0800,1600 PO 05/19/19 16:00 05/29/19 08:24 Omeprazole (PriLOSEC) 20 mg DAILY PO 05/20/19 09:00 05/20/19 09:00 DC Oxycodone/ Acetaminophen (Percocet 5mg/ 325mg Tablet) 1 tab QHS PO 05/19/19 21:00 05/28/19 20:12 Potassium Chloride (Micro-K Extencaps) 10 meq DAILY PO 05/20/19 09:00 05/29/19 08:24 Prazosin HCl (Minipress) 2 mg QHS PO 05/19/19 21:00 05/28/19 20:10 Quetiapine Fumarate (SEROquel) 600 mg QPM@1900 PO 05/19/19 19:00 05/28/19 17:56 Risperidone (RisperDAL) 1 mg DAILY PO 05/27/19 09:00 05/29/19 08:24 Risperidone (RisperDAL) 2 mg QHS PO 05/26/19 21:00 05/28/19 20:10 Trazodone HCl (Desyrel) 50 mg QHSP PRN PO INSOMNIA 05/19/19 15:30 05/28/19 20:10 Venlafaxine HCl (Effexor Xr) 75 mg QAM PO 05/20/19 09:00 05/20/19 09:00 DC Venlafaxine HCl (Effexor Xr) 225 mg QAM PO 05/20/19 09:00 05/21/19 09:26 DC 05/21/19 08:19 Venlafaxine HCl (Effexor Xr) 300 mg DAILY PO 05/22/19 09:00 05/29/19 08:25 Allergies Coded Allergies: clarithromycin (Verified Allergy, Intermediate, hives and puffy face, 05/19/19) fexofenadine (Verified Allergy, Unknown, 05/05/19) pseudoephedrine (Verified Allergy, Unknown, 05/05/19) ketorolac (Verified Adverse Reaction, Mild, HEADACHE, 05/08/19) CLARK ARTIS DO May 29, 2019 08:53
[2019-05-29] MEDS ORDERED: risperiDONE 1 MG TAB PO ONE (12:00)
[2019-05-29 18:00] VITALS: BP 103/62
[2019-05-29] MEDS: QUEtiapine FUMARATE 200 MG TAB PO SCH (18:48)
[2019-05-29] MEDS: risperiDONE 3 MG TAB PO SCH (20:44)
[2019-05-29] MEDS: PRAZOSIN 1 MG CAP PO SCH (20:44)
[2019-05-29] MEDS: BENZTROPINE 1 MG TAB PO SCH (20:44)
[2019-05-29] MEDS: PERCOCET 5MG/325MG TAB PO SCH (20:45)
[2019-05-29] MEDS: traZODone 50 MG TAB PO PRN (20:45)
[2019-05-30] MEDS: LEVOTHYROXINE 75MCG TABLET (0.075MG) PO SCH (06:04)
[2019-05-30 06:38] VITALS: BP 120/82
[2019-05-30] MEDS: OMEPRAZOLE 20 MG CAP PO SCH ×2 (07:25→15:53)
[2019-05-30] MEDS: POTASSIUM CHLORIDE 10 MEQ SR TABLET PO SCH (08:21)
[2019-05-30] MEDS: clonazePAM 0.5 MG TAB PO SCH ×2 (08:21→20:06)
[2019-05-30] MEDS: VENLAFAXINE **XR** 75MG CAPSULE PO SCH (08:21)
[2019-05-30] MEDS: risperiDONE 2 MG TAB PO SCH (08:22)
[2019-05-30] MEDS: ATORVASTATIN 20 MG TAB PO SCH (08:22)
[2019-05-30] MEDS: GABAPENTIN 300 MG CAP PO SCH ×3 (08:22→20:06)
[2019-05-30 16:14] VITALS: BP 147/78
[2019-05-30] MEDS: QUEtiapine FUMARATE 200 MG TAB PO SCH (18:37)
[2019-05-30] MEDS: BENZTROPINE 1 MG TAB PO SCH (20:06)
[2019-05-30] MEDS: PERCOCET 5MG/325MG TAB PO SCH (20:09)
[2019-05-30] MEDS: risperiDONE 3 MG TAB PO SCH (20:10)
[2019-05-30] MEDS: PRAZOSIN 1 MG CAP PO SCH (20:10)
[2019-05-30] MEDS: traZODone 50 MG TAB PO PRN (20:10)
[2019-05-31] MEDS: LEVOTHYROXINE 75MCG TABLET (0.075MG) PO SCH (05:55)
[2019-05-31 06:41] VITALS: BP 120/64
[2019-05-31] MEDS: OMEPRAZOLE 20 MG CAP PO SCH ×2 (07:21→15:31)
[2019-05-31] MEDS: POTASSIUM CHLORIDE 10 MEQ SR TABLET PO SCH (08:14)
[2019-05-31] MEDS: VENLAFAXINE **XR** 75MG CAPSULE PO SCH (08:14)
[2019-05-31] MEDS: ATORVASTATIN 20 MG TAB PO SCH (08:14)
[2019-05-31] MEDS: clonazePAM 0.5 MG TAB PO SCH ×2 (08:15→20:12)
[2019-05-31] MEDS: risperiDONE 2 MG TAB PO SCH (08:15)
[2019-05-31] MEDS: GABAPENTIN 300 MG CAP PO SCH ×3 (08:15→20:13)
[2019-05-31] MEDS: IBUPROFEN 400 MG TAB PO PRN (15:35)
[2019-05-31 15:58] VITALS: BP 128/87
[2019-05-31] MEDS: ALBUTEROL 90 MCG/ACT 8GM HFA INHALER INH PRN (17:43)
[2019-05-31] MEDS: QUEtiapine FUMARATE 200 MG TAB PO SCH (18:56)
[2019-05-31] MEDS: PERCOCET 5MG/325MG TAB PO SCH (20:12)
[2019-05-31] MEDS: risperiDONE 3 MG TAB PO SCH (20:13)
[2019-05-31] MEDS: BENZTROPINE 1 MG TAB PO SCH (20:13)
[2019-05-31] MEDS: traZODone 50 MG TAB PO PRN (20:13)
[2019-05-31 20:14] VITALS: BP 151/90
[2019-05-31] MEDS: PRAZOSIN 1 MG CAP PO SCH (20:14)
[2019-06-01] MEDS: LEVOTHYROXINE 75MCG TABLET (0.075MG) PO SCH (06:02)
[2019-06-01 06:34] VITALS: BP 145/88
[2019-06-01] MEDS: OMEPRAZOLE 20 MG CAP PO SCH (07:38)
[2019-06-01] MEDS: clonazePAM 0.5 MG TAB PO SCH (08:19)
[2019-06-01] MEDS: ATORVASTATIN 20 MG TAB PO SCH (08:19)
[2019-06-01] MEDS: POTASSIUM CHLORIDE 10 MEQ SR TABLET PO SCH (08:19)
[2019-06-01] MEDS: GABAPENTIN 300 MG CAP PO SCH ×2 (08:19→11:36)
[2019-06-01] MEDS: VENLAFAXINE **XR** 75MG CAPSULE PO SCH (08:19)
[2019-06-01] MEDS: risperiDONE 2 MG TAB PO SCH (08:19)
[2019-06-01] MEDS: IBUPROFEN 400 MG TAB PO PRN (09:50)
[2019-06-01] MEDS ORDERED: GABA-843 PO ×2 (13:07)
[2019-06-01] MEDS ORDERED: RISP2TAB32 PO (13:07)
[2019-06-01] MEDS ORDERED: MINI1CAP PO (13:07)
[2019-06-01] MEDS ORDERED: LEVO75TA4 PO (13:07)
[2019-06-01] MEDS ORDERED: VENL150C43 PO (13:07)
[2019-06-01] MEDS ORDERED: RISP3TAB20 PO (13:07)
[2019-06-01] MEDS ORDERED: QUET200T2 PO (13:07)
--- NOTE | 2019-06-02 10:55 | MHDS ---
DATE OF ADMISSION: 05/19/2019 DATE OF DISCHARGE: 06/01/2019 IDENTIFYING DATA: She is a 49-year-old female with history of schizoaffective disorder, Post-traumatic stress disorder (PTSD), and cannabis use disorder who was brought by [place] [employer] ([employer]) to the emergency room as patient was in nursing decompensation with visual and tactile hallucinations. For details of history of present illness, past psychiatric history, past medical history, personal history, substance abuse history, social history, please refer to the initial evaluation. Patient was initially psychotic. Had suicidal thoughts with plan to crash her car into a pole or jump in front of a moving vehicle. Patient was placed on risperidone, gabapentin, venlafaxine, prazosin, quetiapine. She made gradual recovery. Her sleep and improved. She was relating well with the staff. No behavioral problems in the unit. Attended groups. No side effect from the medication. No suicidal or homicidal ideas. MENTAL STATUS EXAMINATION: She is casually dressed, cooperative. Made good eye contact. Psychomotor activity is normal. Speech rate, rhythm, and volume are good. Mood is euthymic. Affect is appropriate for the mood. Thought content denied any suicide or homicidal ideas. Her insight and judgment were good. Memory - immediate, remote, and recent were good. REVIEW OF SYSTEMS: Denied chest pain, palpitation. Denied abdominal pain and dysuria. Denied shortness of breath, cough. Denied dizziness, numbness, tingling. Gait is normal. DISCHARGE MEDICATIONS: Prazosin 2 mg at night, risperidone 2 mg in the morning, 800 mg at night, gabapentin 600 mg twice a day and 600 mg at night, venlafaxine 300 mg daily, levothyroxine 75 microgram daily, quetiapine 600 mg at night. LABS: CBC within normal limits. CMP her free T4 was 1.1. T3 uptake was 25. T4 is 4.3. TSH was 16.8. Patient was also followed up by product/device technologist for her medical issues. DISCHARGE PLAN: Patient will be discharged home. Followup at [facility] and she will have a medical followup also.
== END 2019-06-01 14:00 | disposition home or self-care (01) | DRG 885 ==
LOC: M ED 09:51 → M ED INP 15:02 → M PSY 21:11
PROVIDERS: ADMIT Psychiatry & Neurology Psychiatry; ATTEND Psychiatry & Neurology Psychiatry
DX: F25.0 Schizoaffective disorder, bipolar type (principal); R45.851 Suicidal ideations; F43.10 Post-traumatic stress disorder, unspecified; F12.10 Cannabis abuse, uncomplicated; Z88.8 Allergy status to other drugs, medicaments and biological substances; K58.9 Irritable bowel syndrome, unspecified; E03.9 Hypothyroidism, unspecified; E78.5 Hyperlipidemia, unspecified; J44.9 Chronic obstructive pulmonary disease, unspecified; F41.9 Anxiety disorder, unspecified; F32.9 Major depressive disorder, single episode, unspecified; Z87.891 Personal history of nicotine dependence; I10 Essential (primary) hypertension; Z79.899 Other long term (current) drug therapy

== ENCOUNTER 2019-07-03 07:07 | Day surgery (SDC) | payer MEDICAID, MEDICARE ==
[~2019-07-03] VITALS: Ht 154.9 cm; Wt 92.1 kg
[~2019-07-03 07:07] MED LIST changes: +ABIL20TA5 PO; +ATIV1TAB7 PO; +ATIV2TAB PO; +CLON0.5T17 PO; +EFFE75CA2 PO; +GABA600T4 PO; +HYDR1TAB33 PO; +NS 1,000 ML IV ONE; +OMEP-218 PO; -OMEP40CA2 PO; +OMEP40CA97 PO; +PROAAER10 INH; +RISP2TAB32 PO; +RISP3TAB20 PO; +RITA20TA PO; -RIZA10TA4 PO; +RIZA10TA58 PO; +TRAZ-186 PO; +VENL150C43 PO
[2019-07-03] MEDS ORDERED: LIDOCAINE 2% INJ 100 MG/5 ML SDV (FOR ANES.) As Ordered ONE (08:08)
[2019-07-03] MEDS ORDERED: PROPOFOL 200 MG/20 ML VIAL As Ordered ONE (08:08)
--- NOTE | 2019-07-03 08:50 | ROOR ---
Patient Name: Vita Moscoso Procedure Date: 07/03/2019 8:36 AM Date of : 1970 Age: 49 Room: OP02 Gender: Female Note Status: Finalized Procedure: Colonoscopy Indications: High risk colon cancer surveillance: Personal history of colonic polyps, Last colonoscopy: March 2016 Providers: Jak SNIDER MD Referring MD: IVAN CARR MD Requesting Provider: Medicines: Monitored Anesthesia Care Complications: No immediate complications. Procedure: Pre-Anesthesia Assessment: - The heart rate, respiratory rate, oxygen saturations, blood pressure, adequacy of pulmonary ventilation, and response to care were monitored throughout the procedure. The Colonoscope was introduced through the anus and advanced to the terminal ileum, with identification of the appendiceal orifice and IC valve. The colonoscopy was performed without difficulty. The patient tolerated the procedure well. The quality of the bowel preparation was good. Findings: The perianal and digital rectal examinations were normal. A 5 mm polyp was found in the sigmoid colon. The polyp was sessile. The polyp was removed with a cold snare. Resection and retrieval were complete. The exam was otherwise without abnormality on direct and retroflexion views. Impression: - One 5 mm polyp in the sigmoid colon, removed with a cold snare. Resected and retrieved. - The examination was otherwise normal on direct and retroflexion views. Recommendation: - Repeat colonoscopy in 5 years for surveillance. Jak Snider MD Jak SNIDER MD 07/03/2019 8:50:24 AM Electronically signed by Jak SNIDER MD Number of Addenda: 0 Note Initiated On: 07/03/2019 8:36 AM Estimated Blood Loss: Estimated blood loss: none.
[2019-07-03 09:14] VITALS: BP 137/94
== END 2019-07-03 09:14 | disposition home or self-care (01) ==
LOC: M OPP 07:07
PROVIDERS: ATTEND Internal Medicine Gastroenterology
DX: Z12.11 Encounter for screening for malignant neoplasm of colon (principal); Z86.010 Personal history of colon polyps; K63.5 Polyp of colon; Z79.891 Long term (current) use of opiate analgesic; Z79.899 Other long term (current) drug therapy; Z87.891 Personal history of nicotine dependence; Z88.1 Allergy status to other antibiotic agents; Z88.8 Allergy status to other drugs, medicaments and biological substances

== ENCOUNTER → 2019-11-12 | Outpatient (CLI) | payer MEDICARE ==
[~2019-11-12] MED LIST changes: +CLON0.5T2 PO; -CLON0.5T8 PO; -FLUO20CA19 PO; +FLUO20CA22 PO; -NS 1,000 ML IV ONE; +OMEP1CAP73 PO; -OMEP20CA4 PO; +QUET100T2 PO; -QUET1TAB8 PO; -TRAZ-163 PO; +TRAZ-257 PO; -TRAZ10TA PO; +TRAZ1TAB12 PO
--- NOTE | 2019-11-12 10:51 | REP ---
LUMBOSACRAL SPINE SERIES: Five views of lumbosacral spine are performed. No compression fracture is seen. There is normal lumbar lordosis. There is no spondylolysis or spondylolisthesis. There is mild spurring of L3 through L5. There is mild disc space narrowing at L5-S1 with subchondral sclerosis. There is spurring and sclerosis at the facet joints of L5-S1 and, to a lesser extent, L4-5. Posterior elements are intact. There is slight curvature toward the left. Metallic clips are seen in the right upper quadrant and left lower quadrant. IMPRESSION: Degenerative changes as discussed above appear similar to the prior study of 04/19/2016. Electronically Signed by Sammy Salazar MD 11/12/2019 02:43 P
== END ==
LOC: M RAD 10:13
PROVIDERS: ATTEND Family Medicine
DX: M54.30 Sciatica, unspecified side (principal)

== ENCOUNTER → 2019-11-27 | Outpatient (CLI) | payer MEDICARE ==
[2019-11-27 12:06] LABS: AMPHETAMINES URINE REFLEX NEGATIVE (NEGATIVE); BARBITURATES URINE REFLEX NEGATIVE (NEGATIVE); BENZODIAZEPINES URINE REFLEX NEGATIVE (NEGATIVE); COCAINE METABOLITE URINE REFLE NEGATIVE (NEGATIVE); METHADONE URINE REFLEX NEGATIVE (NEGATIVE); OPIATES URINE REFLEX NEGATIVE (NEGATIVE); PHENCYCLIDINE URINE REFLEX NEGATIVE (NEGATIVE)
[2019-11-27 12:07] LABS: CANNABINOIDS URINE REFLEX PENDING CONFIRMATION (NEGATIVE)
== END ==
LOC: M LAB 09:56
PROVIDERS: ATTEND Family Medicine
DX: Z79.899 Other long term (current) drug therapy (principal)
CPT/HCPCS: 36415; 80307; G0480

== ENCOUNTER 2020-02-01 10:26 | Inpatient (IN) | payer OTHER, MEDICARE ==
[~2020-02-01] VITALS: Ht 154.9 cm; Wt 93.2 kg
[~2020-02-01 10:26] MED LIST changes: +BUPR-69 PO; -BUPR50TA PO; +GABA-282 PO; -GABA-843 PO; -QUET1TAB10 PO; +QUET300T2 PO; +QUET50TA3 PO; -QUET5TAB PO; +RISP-9 PO; -RISP2TAB3 PO
[2020-02-01] MEDS ORDERED: GABA-845 PO (11:11)
[2020-02-01] MEDS ORDERED: BENZ-52 PO (11:12)
[2020-02-01] MEDS ORDERED: HYDR50TA70 PO (11:12)
[2020-02-01] MEDS ORDERED: CLON0.5T2 PO (11:12)
[2020-02-01] MEDS ORDERED: MINI1CAP PO (11:12)
[2020-02-01] MEDS ORDERED: VENL150C43 PO ×2 (11:12→19:09)
[2020-02-01] MEDS ORDERED: SERO400T PO (11:12)
[2020-02-01] MEDS ORDERED: OMEP-218 PO (11:12)
[2020-02-01] MEDS ORDERED: ABIL1INJ2 IM (11:12)
[2020-02-01 11:53] LABS: HEMATOCRIT 38.4 % (36.0-47.0); HEMOGLOBIN 12.3 g/dl (12.0-15.5); MEAN CORPUSCULAR HEMOGLOBIN 26.9 pg (27.0-33.0); MEAN CORPUSCULAR VOLUME 83.8 fl (80.0-96.0); PLATELET COUNT, AUTOMATED 215 10^3/uL (150-450); RED BLOOD COUNT 4.58 10^6/uL (4.00-5.40); WHITE BLOOD COUNT 5.4 10^3/uL (4.0-10.0)
[2020-02-01 12:27] LABS: ACETAMINOPHEN LEVEL < 2.0 UG/ML (10.0-30.0); ALBUMIN 3.6 GM/DL (3.2-5.2); ALT/SGPT 24 U/L (12-78); BILIRUBIN,DIRECT < 0.1 MG/DL (0.0-0.2); BILIRUBIN,TOTAL 0.2 MG/DL (0.2-1.0); BLOOD UREA NITROGEN 8 MG/DL (7-18); CARBON DIOXIDE LEVEL 27 MEQ/L (21-32); CHLORIDE LEVEL 106 MEQ/L (98-107); CREATININE FOR GFR 0.85 MG/DL (0.55-1.30); ETHYL ALCOHOL (ETHANOL) < 0.003 % (0.000-0.010); GLOMERULAR FILTRATION RATE > 60.0 (>58); GLUCOSE, FASTING 151 MG/DL (70-100); POTASSIUM SERUM 3.7 MEQ/L (3.5-5.1); SALICYLATE LEVEL 7.4 MG/DL (5.0-30.0); SODIUM LEVEL 140 MEQ/L (136-145); THYROID STIMULATING HORMONE 0.024 uIU/ML (0.358-3.740); TOTAL PROTEIN 7.1 GM/DL (6.4-8.2)
[2020-02-01 12:28] LABS: AMPHETAMINES LEVEL URINE NEGATIVE (NEGATIVE); BARBITURATES URINE NEGATIVE (NEGATIVE); BENZODIAZEPINES URINE NEGATIVE (NEGATIVE); CANNABINOIDS URINE POSITIVE (NEGATIVE); COCAINE METABOLITE URINE NEGATIVE (NEGATIVE); METHADONE URINE NEGATIVE (NEGATIVE); OPIATES URINE NEGATIVE (NEGATIVE); PHENCYCLIDINE URINE NEGATIVE (NEGATIVE)
[2020-02-01] MEDS ORDERED: MOM 30ML SUSPENSION UDC PO PRN (18:45)
[2020-02-01] MEDS ORDERED: MAALOX 30 ML SUSP *UDC PO PRN (18:45)
[2020-02-01] MEDS ORDERED: traZODone 50 MG TAB PO PRN (18:45)
[2020-02-01] MEDS ORDERED: OLANZapine ORAL DISINTEGRATING TAB 5MG PO PRN (19:00)
[2020-02-01] MEDS ORDERED: GABAPENTIN 400MG CAP PO SCH (19:00)
[2020-02-01] MEDS ORDERED: LEVO75TA34 PO (19:05)
[2020-02-01] MEDS ORDERED: PRAZ2CAP PO (19:06)
[2020-02-01] MEDS ORDERED: VENL75CA2 PO (19:09)
[2020-02-01 20:10] VITALS: BP 140/90
[2020-02-01] MEDS ORDERED: ALBUTEROL 90 MCG/ACT 8GM HFA INHALER INH PRN (20:15)
[2020-02-01] MEDS: OMEPRAZOLE 20 MG CAP PO SCH (20:48)
[2020-02-01] MEDS: ACETAMINOPHEN TAB 650MG DOSE (2X325MG) PO PRN (20:48)
[2020-02-01] MEDS: PRAZOSIN 1 MG CAP PO SCH (20:49)
[2020-02-01] MEDS: PALIPERIDONE 3 MG ER TAB (INVEGA) PO SCH (20:49)
[2020-02-01] MEDS: ATORVASTATIN 20 MG TAB PO SCH (20:49)
[2020-02-01] MEDS: BENZTROPINE 1 MG TAB PO SCH (20:49)
[2020-02-02 06:07] VITALS: BP 142/94
[2020-02-02] MEDS: PALIPERIDONE 3 MG ER TAB (INVEGA) PO SCH (08:18)
[2020-02-02] MEDS: GABAPENTIN 300 MG CAP PO SCH ×3 (08:18→18:33)
[2020-02-02] MEDS: OMEPRAZOLE 20 MG CAP PO SCH ×2 (08:18→19:49)
[2020-02-02] MEDS ORDERED: INFLUENZA QUADRIVALENT PF VACCINE 0.5ML SYRINGE IM ONE (09:00)
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
[2020-02-02] MEDS: hydrOXYzine 50 MG TAB PO SCH ×3 (12:26→19:49)
[2020-02-02 16:58] VITALS: BP 136/72
--- NOTE | 2020-02-02 18:01 | HPEPDOC ---
General Date of Admission February 01, 2020 at 18:42 Date of Service: February 02, 2020 Chief Complaint The patient is a 49-year-old female admitted with a reason for visit of Unspecified Psychotic Disorder. Source: Patient Exam Limitations: No limitations Timing/Duration: Day(s) Severity: Moderate History of Present Illness Patient is 49 years old female w past medical history of bipolar disorder, schizoaffective disorder, hypothyroidism who was admitted in the hospital with suicidal ideation. She denied any breathing problem, GI problem or dysuria. From review of her chart history from previous records patient has GERD, COPD, hyperlipidemia. He denies fever, chills, nausea, vomiting, shortness of breath, palpitations, diarrhea or dysuria Home Medications Scheduled Albuterol Sulfate (Proair Hfa) 8.5 Gm Hfa.aer.ad, 2 PUFF INH QID, (Reported) Atorvastatin Calcium (Atorvastatin Calcium) 20 Mg Tab, 20 MG PO DAILY, (Reported) AT 7 PM Benztropine Mesylate (Benztropine Mesylate) 1 Mg Tablet, 1 MG PO DAILY, (Reported) AT 7 PM Gabapentin (Gabapentin) 400 Mg Capsule, 600 MG PO TID, (Reported) AT 8 AM, 12 PM, 7 PM Hydroxyzine HCl (Hydroxyzine HCl) 50 Mg Tablet, 50 MG PO QID, (Reported) AT 8 AM, 12 PM, 4 PM, 7 PM Levothyroxine Sodium (Levoxyl) 75 Mcg Tablet, 225 MCG PO DAILY, (Reported) AT 8 AM Omeprazole (Omeprazole) 20 Mg Capsule.dr, 20 MG PO BID, (Reported) AT 8 AM & 4 PM Prazosin Hcl (Prazosin HCl) 2 Mg Capsule, 2 MG PO DAILY, (Reported) AT 7 PM Quetiapine Fumarate (Seroquel) 400 Mg Tablet, 800 MG PO QHS, (Reported) AT 7 PM Venlafaxine HCl (Venlafaxine HCl ER) 75 Mg Cap.er.24h, 75 MG PO DAILY, (Rep orted) AT 8 AM Venlafaxine HCl (Venlafaxine HCl ER) 150 Mg Cap.er.24h, 150 MG PO DAILY, (Rep orted) AT 8 AM Scheduled PRN Clonazepam (Clonazepam) 0.5 Mg Tablet, 0.5 MG PO DAILY PRN for ANXIETY, (Reported) Miscellaneous Medications Aripiprazole (Abilifangelica Maintena) 400 Mg Suser.syr, (Reported) Allergies Coded Allergies: clarithromycin (Verified Allergy, Intermediate, hives and puffy face, 05/19/19) fexofenadine (Verified Allergy, Unknown, 05/05/19) pseudoephedrine (Verified Allergy, Unknown, 05/05/19) ketorolac (Verified Adverse Reaction, Mild, HEADACHE, 05/08/19) Past Medical History Medical History bipolar disorder, schizoaffective disorder, hypothyroidism, chronic neck pain, GERD, hyperlipidemia, depression Family History Family history significant for depression, anxiety, bipolar disorder, schizoaffective disorder Social History * Smoker: former Smoker Alcohol: Denies Drugs: denies A-FIB/CHADSVASC A-FIB History Current/History of A-Fib/PAF?: No Current PO Anticoag Therapy: No Review of Systems Constitutional: Denies: Chills Eyes: Denies: Pain, Vision change ENT: Denies: Head Aches Skin: Denies: Rash, Lesions Pulmonary: Denies: Dyspnea, Cough Cardiovascular: Denies: Chest Pain Gastrointestinal: Denies: Nausea, Vomiting Genitourinary: Denies: Dysuria, Frequency Hematologic: Denies: Bruising Endocrine: Denies: Polydipsia, Polyphagia Musculoskeletal: Denies: Neck Pain Neurological: Denies: Weakness Psych: Reports: Depression Physical Examination General Exam: Positive: Alert, Cooperative Eye Exam: Positive: PERRLA ENT Exam: Positive: Atraumatic Neck Exam: Positive: Supple; Negative: JVD Chest Exam: Positive: Clear to auscultation Heart Exam: Positive: Rate Normal Telemetry: Positive: No significant arrhythmia Abdomen Exam: Positive: Normal bowel sounds Extremity Exam: Positive: Clubbing Skin Exam: Positive: Nl turgor and temperature Neuro Exam: Positive: Strength at 5/5 X4 ext, Cranial Nerves 3-12 NL Psych Exam: Positive: Mental status NL Vital Signs Vital Signs Date Time Temp Pulse Resp B/P (MAP) Pulse Ox O2 Delivery O2 Flow Rate FiO2 02/02/20 16:58 97.0 72 18 136/72 (93) 02/02/20 08:42 Room Air 02/02/20 06:07 98 Assessment/Plan Patient is 49 years old female w past medical history of bipolar disorder, schizoaffective disorder, hypothyroidism who was admitted in the hospital with suicidal ideation. She denied any breathing problem, GI problem or dysuria. From review of her chart history from previous records patient has GERD, hyperlipidemia. He denies fever, chills, nausea, vomiting, shortness of breath, palpitations, diarrhea or dysuria Problems (1) Hypothyroid Status: Chronic Problem Text: Most likely secondary to lithium therapy Continue levothyroxine TSH within normal limit (2) Depressive disorder, not elsewhere classified Status: Acute Problem Text: Defer treatment to psych team (3) COPD (chronic obstructive pulmonary disease) Status: Chronic Problem Text: Not in acute exacerbation Continue inhalers when necessary (4) Hyperlipemia Status: Chronic Problem Text: Continue statin (5) Hypertension Status: Chronic Problem Text: I added lisinopril 5 mg daily Plan / VTE VTE Prophylaxis Ordered?: No VTE Exclusion Mechanical Proph: Low Risk for VTE OSEAS GARZON DO February 02, 2020 18:01
[2020-02-02] MEDS: ACETAMINOPHEN TAB 650MG DOSE (2X325MG) PO PRN (19:47)
[2020-02-02] MEDS: BENZTROPINE 1 MG TAB PO SCH (19:49)
[2020-02-02] MEDS: ATORVASTATIN 20 MG TAB PO SCH (19:49)
[2020-02-02] MEDS: PRAZOSIN 1 MG CAP PO SCH (19:50)
[2020-02-03] MEDS: ACETAMINOPHEN TAB 650MG DOSE (2X325MG) PO PRN (04:20)
[2020-02-03] MEDS: LEVOTHYROXINE 75MCG TABLET (0.075MG) PO SCH (05:51)
[2020-02-03 06:15] VITALS: BP 144/82
[2020-02-03] MEDS: GABAPENTIN 300 MG CAP PO SCH ×3 (08:11→17:59)
[2020-02-03] MEDS: hydrOXYzine 50 MG TAB PO SCH ×4 (08:11→20:15)
[2020-02-03] MEDS: OMEPRAZOLE 20 MG CAP PO SCH ×2 (08:11→20:15)
[2020-02-03] MEDS: lisinopriL 5 MG TAB PO SCH (08:11)
[2020-02-03] MEDS: VENLAFAXINE **XR** 75MG CAPSULE PO SCH (08:11)
[2020-02-03] MEDS ORDERED: VENLAFAXINE **XR** 75MG CAPSULE PO SCH (09:00)
--- NOTE | 2020-02-03 09:53 | MHIPNPDOC ---
[facility] Progress Note Progress Note Inpatient Progress Note Vita Moscoso MRN: N/A Date of : N/A Date of Service: 02/03/2020 History of Present Illness The patient, a 49-year-old woman, presents to [facility] reporting that she had suicidal thoughts and homicidal thoughts, as well as, hallucinations. She had been initially thought to be malingering. She was admitted out of an abundance of caution. When the patient was met with she was unable to elaborate any specific changes in her life other than to say a week ago that these symptoms had spontaneously manifested. She was generally amenable without any overt signs of psychosis during the interview . She reported mood changes, however, she did not have much of a change in her symptoms since her last admission in 2019. Interval History The patient is met with today. She reports her suicidal thoughts are "in and there", but then also is having homicidal thoughts but then contradicts herself. She otherwise has little else going on and denies any particular side effects of medications. She has been generally jovial and amenable, demonstrating no objective signs of depression or other behavioral issues overnight. Review Of Systems General: Denies fever or appetite changes Cardiovascular: Denies Chest pain or palpations GI: Denies Nausea, vomiting, or bowel changes Respiratory: Denies shortness of breath or cough Neuro: Denies dizziness, tremors Derm: Denies any rashes or pruritus : Denies any dysuria or urinary problems MSK: Denies any muscle tightness or stiffness HEENT: Reports some mild headache. Denies any vision changes. Psychotherapy None on this visit. Vital Signs Reviewed. Mental Status Examination General: Well dressed with good hygiene Speech: Spontaneous and fluid Thought processes: Linear and logical MSK: Smooth and coordinated gait, no signs of tremors or involuntary orofacial movements Thought content: Future orientated Abstract reasoning, and computation: Intact Description of associations: Intact Description of abnormal or psychotic thoughts: As above. Judgment: Limited. Insight: Limited. Orientation: Alert and orientated 3 Cognition: Grossly normal Recent and remote memory: Intact Attention span and concentration: Intact Fund of knowledge: Adequate Mood: "okay" Affect: Euthymic with a full range Diagnoses Unspecified psychotic disorder, Concern for malingering versus factitious. Cannabis use disorder, unspecified. Unspecified trauma/stress related disorder. Assessment and Plan Unspecified psychotic disorder : Continue patient's home medications, increasing concern for malingering. Cannabis use disorder: Recommend outpatient evaluation. Unspecified trauma/stress related disorder: Continue Effexor outpatient. Change unspecified psychotic disorder to continue patient's home medications and increasing concern for malingering Disposition We will continue to observe patient at this time, likely discharge late this week as it appears further review of her collateral information indicates she was likely taken off clonazepam and perhaps was interested in having it renewed. Time Spent 15 minutes Saturday Vital Signs Vital Signs Date Time Temp Pulse Resp B/P (MAP) Pulse Ox O2 Delivery O2 Flow Rate FiO2 02/03/20 08:11 144/82 02/03/20 07:41 Room Air 02/03/20 06:15 98.3 95 18 99 Current Medications Current Medications Medications (Trade) Dose Ordered Sig/Jesika Route PRN Reason Start Time Stop Time Status Last Admin Dose Admin Acetaminophen (Tylenol Tab) 650 mg Q6HP PRN PO HEADACHE or DISCOMFORT 02/01/20 18:45 02/03/20 04:20 Al Hydrox/Mg Hydrox/Simethicone (Mylanta) 30 ml Q4HP PRN PO HEARTBURN/INDIGESTION 02/01/20 18:45 Albuterol Sulfate (Proventil, Ventolin Hfa) 2 puff QIDP PRN INH SHORTNESS OF BREATH 02/01/20 20:15 02/03/20 08:11 Atorvastatin Calcium (Lipitor) 20 mg DAILY@2100 PO 02/01/20 21:00 02/02/20 19:49 Benztropine Mesylate (Cogentin) 1 mg DAILY@2100 PO 02/01/20 21:00 02/02/20 19:49 Gabapentin (Neurontin) 300 mg TID@0800,1200,1900 PO 02/01/20 19:00 02/01/20 20:53 DC 02/01/20 20:49 Gabapentin (Neurontin) 300 mg TID@0800,1200,1900 PO 02/02/20 08:00 02/03/20 08:11 Home Med (Med Rec Complete!) ASDIRECTED XX 02/01/20 19:15 02/01/20 19:17 DC Hydroxyzine HCl (Atarax) 50 mg QID PO 02/02/20 13:00 02/03/20 08:11 Levothyroxine Sodium (Synthroid) 225 mcg DAILY@0600 PO 02/03/20 06:00 02/03/20 05:51 Lisinopril (Prinivil) 5 mg DAILY PO 02/03/20 09:00 02/03/20 08:11 Magnesium Hydroxide (Milk Of Magnesia) 30 ml DAILYPRN PRN PO CONSTIPATION 02/01/20 18:45 Olanzapine (ZyPREXA ZYDIS) 5 mg Q8HP PRN PO ANXIETY/AGITATION 02/01/20 19:00 Omeprazole (PriLOSEC) 20 mg BID PO 02/01/20 21:00 02/03/20 08:11 Paliperidone (Invega) 3 mg BID PO 02/01/20 21:00 02/02/20 11:18 DC 02/02/20 08:18 Prazosin HCl (Minipress) 1 mg DAILY@2100 PO 02/01/20 21:00 02/02/20 19:50 Trazodone HCl (Desyrel) 50 mg QHSP PRN PO INSOMNIA 02/01/20 18:45 Venlafaxine HCl (Effexor Xr) 150 mg DAILY PO 02/03/20 09:00 UNV Venlafaxine HCl (Effexor Xr) 225 mg DAILY PO 02/03/20 09:00 02/03/20 08:11 Allergies Coded Allergies: clarithromycin (Verified Allergy, Intermediate, hives and puffy face, 05/19/19) fexofenadine (Verified Allergy, Unknown, 05/05/19) pseudoephedrine (Verified Allergy, Unknown, 05/05/19) ketorolac (Verified Adverse Reaction, Mild, HEADACHE, 05/08/19) THERESA BLANCA DO February 03, 2020 09:53
[2020-02-03 17:43] VITALS: BP 126/82
[2020-02-03] MEDS: PRAZOSIN 1 MG CAP PO SCH (20:15)
[2020-02-03] MEDS: BENZTROPINE 1 MG TAB PO SCH (20:15)
[2020-02-03] MEDS: ATORVASTATIN 20 MG TAB PO SCH (20:15)
[2020-02-03] MEDS ORDERED: QUEtiapine FUMARATE 200 MG TAB PO SCH (21:00)
[2020-02-04] MEDS: ACETAMINOPHEN TAB 650MG DOSE (2X325MG) PO PRN ×2 (04:36→08:45)
[2020-02-04] MEDS: LEVOTHYROXINE 75MCG TABLET (0.075MG) PO SCH (06:14)
[2020-02-04 06:19] VITALS: BP 149/89
[2020-02-04] MEDS: VENLAFAXINE **XR** 75MG CAPSULE PO SCH (08:28)
[2020-02-04] MEDS: OMEPRAZOLE 20 MG CAP PO SCH (08:28)
[2020-02-04 08:29] VITALS: BP 136/86
[2020-02-04] MEDS: GABAPENTIN 300 MG CAP PO SCH ×2 (08:29→11:38)
[2020-02-04] MEDS: hydrOXYzine 50 MG TAB PO SCH ×2 (08:29→12:49)
[2020-02-04] MEDS: lisinopriL 5 MG TAB PO SCH (08:29)
--- NOTE | 2020-02-04 09:59 | MHDSPDOC ---
[facility] Discharge Summary Discharge Summary DATE OF ADMISSION: February 01, 2020 at 18:42 DATE OF DISCHARGE: 02/04/2020 Discharge Vita Moscoso MRN: N/A Date of : N/A Date of Service: 02/04/2020 Diagnoses Unspecified psychotic disorder, Concern for malingering versus factitious. Cannabis use disorder, unspecified. Unspecified trauma/stress related disorder. History of Present Illness The patient, a 49-year-old woman, presents to [facility] reporting that she had suicidal thoughts and homicidal thoughts, as well as, hallucinations. She had been initially thought to be malingering. She was admitted out of an abundance of caution. When the patient was met with she was unable to elaborate any specific changes in her life other than to say a week ago that these symptoms had spontaneously manifested. She was generally amenable without any overt signs of psychosis during the interview . She reported mood changes, however, she did not have much of a change in her symptoms since her last admission in 2018. Consultants Involved Hospitalist/PCP screening Treatment and Progress On The Unit The patient was admitted to the inpatient mental health unit. She did not appear to be demonstrating any particular symptoms and other than her reported suicidal thoughts that did not manifest with any conviction. She was observed and was started on her home medications of Abilify which is an injectable, Seroquel 600 mg and her antidepressants. She did well on this combination without any problems and was observed for several days with no change in her symptoms. She was admitted on a voluntary, took advantage of treatment and subsequently requested discharge with improvement. Discharge Assessment 41-year-old woman with what appears to be disingenuous psychotic symptoms presents and is observed, no medication changes appear to produce positive results suggesting a situational problem. It appears in the note she has revealed to 1 of the nurses some financial and psychosocial stressors likely provoking her admission. She is treated primarily supportively with positive effects. The patient at the time of discharge did not meet criteria for involuntary admission/extension due to having a normal mental status exam, improved insight into the situation, They are engaged in the discharge process, as well as being friendly and amenable in behavioral control and havent been engaging in any observed concerning behavior or ideation recently. They decline voluntary extension/admission at this time and must be discharged in good saray, as Im unable to make a case for holding the patient against their will. They may have historical risk factors of admissions and other interactions with psychiatry however, those are not modifiable from a clinical perspective. The patient will need to be discharged in good saray. Mental Status Examination General: Well dressed with good hygiene Speech: Spontaneous and fluid Thought processes: Linear and logical MSK: Smooth and coordinated gait, no signs of tremors or involuntary orofacial movements Thought content: Future orientated Abstract reasoning, and computation: Intact Description of associations: Intact Description of abnormal or psychotic thoughts: Denies any suicidal or homicidal ideation. Denies any auditory or visual hallucinations. Does not appear to be responding to internal stimuli. Does not appear to be endorsing any bizarre or paranoid ideation. Judgment: Likely chronically limitated Insight: Improved Orientation: Alert and orientated 3 Cognition: Grossly normal Recent and remote memory: Intact Attention span and concentration: Intact Fund of knowledge: Adequate Mood: "okay" Affect: Euthymic with a full range Follow Up The social work team worked during the predischarge meeting in order to evaluate for further issues of lethality address them fully before discharge. They worked on safety planning with the patient's family members in order to ensure that the patient will have a safe and effective discharge. Time Spent The amount of time spent in the coordination of care for this patient was approximately 45 minutes. Vital Signs/I&Os Vital Signs Date Time Temp Pulse Resp B/P (MAP) Pulse Ox O2 Delivery O2 Flow Rate FiO2 02/04/20 08:29 136/86 02/04/20 06:19 98.4 96 16 96 Room Air Medications Scheduled Albuterol Sulfate (Proair Hfa) 8.5 Gm Hfa.aer.ad, 2 PUFF INH QID, (Reported) Atorvastatin Calcium (Atorvastatin Calcium) 20 Mg Tab, 20 MG PO DAILY, (Reported) AT 7 PM Benztropine Mesylate (Benztropine Mesylate) 1 Mg Tablet, 1 MG PO DAILY, (Reported) AT 7 PM Gabapentin (Gabapentin) 400 Mg Capsule, 600 MG PO TID, (Reported) AT 8 AM, 12 PM, 7 PM Hydroxyzine HCl (Hydroxyzine HCl) 50 Mg Tablet, 50 MG PO QID, (Reported) AT 8 AM, 12 PM, 4 PM, 7 PM Levothyroxine Sodium (Levoxyl) 75 Mcg Tablet, 225 MCG PO DAILY, (Reported) AT 8 AM Omeprazole (Omeprazole) 20 Mg Capsule.dr, 20 MG PO BID, (Reported) AT 8 AM & 4 PM Prazosin Hcl (Prazosin HCl) 2 Mg Capsule, 2 MG PO DAILY, (Reported) AT 7 PM Quetiapine Fumarate (Seroquel) 400 Mg Tablet, 800 MG PO QHS, (Reported) AT 7 PM Venlafaxine HCl (Venlafaxine HCl ER) 75 Mg Cap.er.24h, 75 MG PO DAILY, (Re ported) AT 8 AM Venlafaxine HCl (Venlafaxine HCl ER) 150 Mg Cap.er.24h, 150 MG PO DAILY, (Re ported) AT 8 AM Scheduled PRN Clonazepam (Clonazepam) 0.5 Mg Tablet, 0.5 MG PO DAILY PRN for ANXIETY, (Reported) Miscellaneous Medications Aripiprazole (Abilify Maintena) 400 Mg Suser.syr, (Reported) Allergies Coded Allergies: clarithromycin (Verified Allergy, Intermediate, hives and puffy face, 05/19/19) fexofenadine (Verified Allergy, Unknown, 05/05/19) pseudoephedrine (Verified Allergy, Unknown, 05/05/19) ketorolac (Verified Adverse Reaction, Mild, HEADACHE, 05/08/19) THERESA BLANCA DO February 04, 2020 09:59
[2020-02-04 12:33] LABS: CHOLESTEROL RISK RATIO 6.187 (<5)
[2020-02-04 12:55] LABS: HEMOGLOBIN A1c 5.8 %
[2020-02-07] MEDS ORDERED: MELO7.5T35 PO (09:31)
[2020-02-07] MEDS ORDERED: QUET300T2 PO (11:20)
[2020-02-10] MEDS ORDERED: PROP10TA56 PO (10:21)
[2020-03-31] MEDS ORDERED: FLUO10CA16 PO (09:01)
[2020-03-31] MEDS ORDERED: GABA-282 PO (15:19)
== END 2020-02-04 15:02 | disposition home or self-care (01) | DRG 885 ==
LOC: M ED 10:26 → M ED INP 18:42 → M PSY 20:00
PROVIDERS: ADMIT Psychiatry & Neurology Psychiatry; ATTEND Psychiatry & Neurology Addiction Medicine
DX: F29 Unspecified psychosis not due to a substance or known physiological condition (principal); Z76.5 Malingerer [conscious simulation]; F12.90 Cannabis use, unspecified, uncomplicated; Z79.899 Other long term (current) drug therapy; Z88.8 Allergy status to other drugs, medicaments and biological substances; F31.9 Bipolar disorder, unspecified; E03.9 Hypothyroidism, unspecified; K21.9 Gastro-esophageal reflux disease without esophagitis; J44.9 Chronic obstructive pulmonary disease, unspecified; E78.5 Hyperlipidemia, unspecified; Z87.891 Personal history of nicotine dependence; I10 Essential (primary) hypertension

== ENCOUNTER → 2020-02-17 | Outpatient (REF) | payer OTHER, MEDICARE ==
[~2020-02-17] MED LIST changes: +ABIL1INJ2 IM; -BUPR-69 PO; +BUPR50TA PO; -GABA-282 PO; +GABA-843 PO; +LEVO75TA34 PO; +MELO7.5T35 PO; +METH-1022 PO; +QUET1TAB10 PO; -QUET300T2 PO; -QUET50TA3 PO; +QUET5TAB PO; -RISP-9 PO; +RISP2TAB3 PO; +VENL75CA2 PO
[2020-02-17 17:49] LABS: THYROID STIMULATING HORMONE 0.017 uIU/ML (0.358-3.740); THYROXINE (T4) 12.9 UG/DL (4.5-12.0)
[2020-02-17 17:50] LABS: THYROGLOBULIN ANTIBODY 169.6 U/ML (<60.0); THYROID PEROXIDASE ANTIBODY 1027.1 U/ML (<60.0)
[2020-02-17 17:51] LABS: TOTAL T3 114.6 NG/DL (60.0-181.0)
== END ==
LOC: M LAB REF 16:32
PROVIDERS: ATTEND Family Medicine
DX: E03.9 Hypothyroidism, unspecified (principal)

== ENCOUNTER 2020-02-22 13:31 | Inpatient (IN) | payer MEDICARE ==
[~2020-02-22] VITALS: Ht 154.9 cm; Wt 91.4 kg
[~2020-02-22 13:31] MED LIST changes: -METH-1022 PO
[2020-02-22] MEDS ORDERED: METH-1022 PO (13:40)
[2020-02-22 15:46] LABS: HEMATOCRIT 34.1 % (36.0-47.0); HEMOGLOBIN 11.1 g/dl (12.0-15.5); MEAN CORPUSCULAR HEMOGLOBIN 26.4 pg (27.0-33.0); MEAN CORPUSCULAR HGB CONC 32.6 g/dl (32.0-36.5); PLATELET COUNT, AUTOMATED 211 10^3/uL (150-450); RED BLOOD COUNT 4.21 10^6/uL (4.00-5.40); WHITE BLOOD COUNT 5.9 10^3/uL (4.0-10.0)
[2020-02-22 16:15] LABS: AMPHETAMINES LEVEL URINE NEGATIVE (NEGATIVE); BARBITURATES URINE NEGATIVE (NEGATIVE); BENZODIAZEPINES URINE NEGATIVE (NEGATIVE); CANNABINOIDS URINE POSITIVE (NEGATIVE); COCAINE METABOLITE URINE NEGATIVE (NEGATIVE); METHADONE URINE NEGATIVE (NEGATIVE); OPIATES URINE NEGATIVE (NEGATIVE); PHENCYCLIDINE URINE NEGATIVE (NEGATIVE)
[2020-02-22 16:50] LABS: ALBUMIN 3.6 GM/DL (3.2-5.2); ALT/SGPT 29 U/L (12-78); BILIRUBIN,DIRECT 0.1 MG/DL (0.0-0.2); BILIRUBIN,TOTAL 0.2 MG/DL (0.2-1.0); BLOOD UREA NITROGEN 5 MG/DL (7-18); CALCIUM LEVEL 8.9 MG/DL (8.5-10.1); CARBON DIOXIDE LEVEL 25 MEQ/L (21-32); CHLORIDE LEVEL 109 MEQ/L (98-107); CREATININE FOR GFR 0.72 MG/DL (0.55-1.30); ETHYL ALCOHOL (ETHANOL) 0.003 % (0.000-0.010); GLOMERULAR FILTRATION RATE > 60.0 (>58); GLUCOSE, FASTING 88 MG/DL (70-100); POTASSIUM SERUM 3.8 MEQ/L (3.5-5.1); SALICYLATE LEVEL 6.6 MG/DL (5.0-30.0); SODIUM LEVEL 141 MEQ/L (136-145); THYROID STIMULATING HORMONE 0.011 uIU/ML (0.358-3.740); TOTAL PROTEIN 6.7 GM/DL (6.4-8.2)
[2020-02-22] MEDS ORDERED: PROPRANOLOL 10 MG TAB PO PRN (18:00)
[2020-02-22] MEDS ORDERED: MAALOX 30 ML SUSP *UDC PO PRN (18:00)
[2020-02-22] MEDS ORDERED: MOM 30ML SUSPENSION UDC PO PRN (18:00)
[2020-02-22] MEDS ORDERED: IBUPROFEN 400 MG TAB PO PRN (18:00)
[2020-02-22 22:30] VITALS: BP 142/86
[2020-02-22] MEDS: ALBUTEROL 90 MCG/ACT 8GM HFA INHALER INH SCH (22:43)
[2020-02-22] MEDS: ATORVASTATIN 20 MG TAB PO SCH (22:44)
[2020-02-22] MEDS: traZODone 50 MG TAB PO PRN (22:44)
[2020-02-22] MEDS: OMEPRAZOLE 20 MG CAP PO SCH (22:44)
[2020-02-22] MEDS: MELOXICAM (MOBIC) 7.5 MG TAB PO SCH (22:44)
[2020-02-22] MEDS: GABAPENTIN 400 MG CAP PO SCH (22:44)
[2020-02-22] MEDS: hydrOXYzine 50 MG TAB PO SCH (22:44)
[2020-02-22] MEDS: BENZTROPINE 1 MG TAB PO SCH (22:44)
[2020-02-22] MEDS: QUEtiapine FUMARATE 200 MG TAB PO SCH (22:45)
[2020-02-22] MEDS: PRAZOSIN 1 MG CAP PO SCH (22:45)
[2020-02-23 06:13] VITALS: BP 118/72
[2020-02-23] MEDS: LEVOTHYROXINE 75MCG TABLET (0.075MG) PO SCH (06:34)
[2020-02-23] MEDS: GABAPENTIN 400 MG CAP PO SCH ×3 (08:50→20:15)
[2020-02-23] MEDS: hydrOXYzine 50 MG TAB PO SCH ×4 (08:50→20:15)
[2020-02-23] MEDS: VENLAFAXINE **XR** 75MG CAPSULE PO SCH (08:51)
[2020-02-23] MEDS: ALBUTEROL 90 MCG/ACT 8GM HFA INHALER INH SCH ×4 (08:51→20:14)
[2020-02-23] MEDS: OMEPRAZOLE 20 MG CAP PO SCH ×2 (08:51→20:15)
[2020-02-23] MEDS: MELOXICAM (MOBIC) 7.5 MG TAB PO SCH ×2 (08:51→20:15)
[2020-02-23] MEDS ORDERED: VENLAFAXINE **XR** 75MG CAPSULE PO SCH (09:00)
--- NOTE | 2020-02-23 09:26 | MHHPEPDOC ---
General Date Of Admission: Feb 22, 2020 Legal Status: 9.39 (Conversion to voluntary) Chief Complaint "I see bodies. History of Present Illness HISTORY OF THE PRESENT ILLNESS: Patient is a 49 -year-old , female, who presented to [facility] on her own, reporting unusual symptoms of of what seeing bodies". She additionally reported suicidal ideation but no signs or symptoms of depression. When she was met with she reported primarily have these unusual symptoms, appearing to not be responding to any of them likely manufacturing them during the discussion. As it appeared that she had very little conviction about the reported images she was seeing. General: Well dressed with good hygiene Speech: Spontaneous and fluid Thought processes: Linear and logical Thought content: Future orientated Abstract reasoning, and computation: Intact Description of associations: Intact Description of abnormal or psychotic thoughts: as above Judgment: chronically limited Insight: chronically limited Orientation: Alert and orientated 3 Recent and remote memory: Intact Attention span and concentration: Intact Fund of knowledge: Adequate Mood: "okay" Affect: Euthymic with a full range Past Psychiatric History Previous Psychiatric Diagnosis: . Previous Psychiatric Admissions: . Suicide Attempts: . Psychiatric Follow-up: . Psychiatric medications: . Social History Childhood: . Abuse/Trauma:. Current Living Situation: . Education: . Employment: . Social Support: . Legal: . Marital: . Assessment 49-year-old woman with a history of malingering presents with highly manufactured symptoms, she usually presents when she is stressed about various problems she is a poor historian as she generally attempts to avoid discussing the actual rationale for her admission Problem List Problems: (1) Suicidal ideation Status: Acute Response to Treatment: Stable (2) Malingering Status: Acute Problem Text: Monitor for actual rationale for her presentation (3) Cannabis abuse Status: Chronic (4) PTSD (post-traumatic stress disorder) Status: Chronic Problem Text: Continue home medications (5) Hypothyroid Status: Chronic Problem Text: Continue home medications (6) Hallucinations Status: Acute Response to Treatment: Stable Problem Text: Patient appears to be manufacturing these, no signs or objective symptoms demonstrating any response to unusual stimuli Initial Treatment Plan 1. Patient was admitted on a [9.39] status. 2. Complete history was obtained. 3. With patients permission, family will be contacted and database will be expanded. 4. Patients medication regimen will be reviewed and changed accordingly. 5. Patient will be provided with protected environment. 6. Patient will be treated with individual, group, and milieu therapies. 7. Patient will receive supportive psych-education. 8. Discharge planning will commence immediately. 9. Outpatient follow-up treatment will be strongly recommended. 10. The initial treatment plan will focus initially on: ineffective coping ESTIMATED LENGTH OF STAY: 2-4 DAYS. TIME SPENT COUNSELING AND COORDINATING INITIAL CARE: 20 minutes. Vital Signs Vital Signs Date Time Temp Pulse Resp B/P (MAP) Pulse Ox O2 Delivery O2 Flow Rate FiO2 02/23/20 06:13 99.1 86 16 118/72 (87) Room Air 02/22/20 22:30 98 Laboratory Data 24H Labs Laboratory Tests 2 02/22/20 15:35: Nucleated Red Blood Cells % (auto) 0.0, Anion Gap 7L, Glomerular Filtration Rate > 60.0, Calcium Level 8.9, Total Bilirubin 0.2, Direct Bilirubin 0.1, Aspartate Amino Transf (AST/SGOT) 14, Alanine Aminotransferase (ALT/SGPT) 29, Alkaline Phosphatase 89, Total Protein 6.7, Albumin 3.6, Albumin/Globulin Ratio 1.2, Thyroid Stimulating Hormone (TSH) 0.011L, Salicylates Level 6.6, Urine Opiates Screen NEGATIVE, Urine Methadone Screen NEGATIVE, Acetaminophen Level 2.0L, Urine Barbiturates Screen NEGATIVE, Urine Phencyclidine Screen NEGATIVE, Urine Amphetamines Screen NEGATIVE, Urine Benzodiazepines Screen NEGATIVE, Urine Cocaine Metabolite Screen NEGATIVE, Urine Cannabinoids Screen POSITIVEH, Ethyl Alcohol Level 0.003 CBC/BMP Laboratory Tests 02/22/20 15:35 Medications Scheduled Albuterol Sulfate (Proair Hfa) 8.5 Gm Hfa.aer.ad, 2 PUFF INH QID, (Reported) Aripiprazole (Abilify Maintena) 400 Mg Suser.syr, 400 MG IM QMONTH, (Reported) filled 02/11, unsure of which specific date was taken but said last week Atorvastatin Calcium (Atorvastatin Calcium) 20 Mg Tab, 20 MG PO QHS, (Reported) 7 PM Benztropine Mesylate (Benztropine Mesylate) 1 Mg Tablet, 1 MG PO QHS, (Reported) Gabapentin (Gabapentin) 400 Mg Capsule, 400 MG PO TID, (Reported) AT 8 AM, 12 PM, 7 PM Hydroxyzine HCl (Hydroxyzine HCl) 50 Mg Tablet, 50 MG PO QID, (Reported) AT 8 AM, 12 PM, 4 PM, 7 PM Levothyroxine Sodium (Levoxyl) 75 Mcg Tablet, 225 MCG PO DAILY, (Reported) 8 AM Meloxicam (Meloxicam) 7.5 Mg Tablet, 7.5 MG PO BID, (Reported) 8 AM, 7 PM Methylphenidate HCl (Methylphenidate HCl) 10 Mg Tablet, 10 MG PO TID, (Reported) Omeprazole (Omeprazole) 20 Mg Capsule.dr, 20 MG PO BID, (Reported) AT 8 AM & 4 PM Prazosin Hcl (Prazosin HCl) 2 Mg Capsule, 2 MG PO QHS, (Reported) Quetiapine Fumarate (Quetiapine Fumarate) 300 Mg Tablet, 600 MG PO QHS, (Reported) 7 PM Venlafaxine HCl (Venlafaxine HCl ER) 75 Mg Cap.er.24h, 75 MG PO DAILY, (Reported) 225MG TOTAL DAILY Venlafaxine HCl (Venlafaxine HCl ER) 150 Mg Cap.er.24h, 150 MG PO DAILY, (Reported) 225MG TOTAL DAILY Scheduled PRN Propranolol HCl (Propranolol HCl) 10 Mg Tablet, 10 MG PO Q6H PRN for anxiety Allergies Coded Allergies: clarithromycin (Verified Allergy, Intermediate, hives and puffy face, 05/19/19) fexofenadine (Verified Allergy, Unknown, 05/05/19) pseudoephedrine (Verified Allergy, Unknown, 05/05/19) ketorolac (Verified Adverse Reaction, Mild, HEADACHE, 05/08/19) THERESA BLANCA DO Feb 23, 2020 09:26
[2020-02-23 16:06] VITALS: BP 130/79
[2020-02-23] MEDS: BENZTROPINE 1 MG TAB PO SCH (20:14)
[2020-02-23] MEDS: ATORVASTATIN 20 MG TAB PO SCH (20:15)
[2020-02-23] MEDS: PRAZOSIN 1 MG CAP PO SCH (20:15)
[2020-02-23] MEDS: traZODone 50 MG TAB PO PRN (20:15)
[2020-02-23] MEDS: QUEtiapine FUMARATE 200 MG TAB PO SCH (20:15)
[2020-02-24] MEDS: LEVOTHYROXINE 75MCG TABLET (0.075MG) PO SCH (05:41)
[2020-02-24 06:19] VITALS: BP 138/78
[2020-02-24] MEDS: OMEPRAZOLE 20 MG CAP PO SCH ×2 (08:18→20:21)
[2020-02-24] MEDS: ALBUTEROL 90 MCG/ACT 8GM HFA INHALER INH SCH ×4 (08:18→20:20)
[2020-02-24] MEDS: MELOXICAM (MOBIC) 7.5 MG TAB PO SCH ×2 (08:18→20:20)
[2020-02-24] MEDS: GABAPENTIN 400 MG CAP PO SCH ×3 (08:18→20:22)
[2020-02-24] MEDS: VENLAFAXINE **XR** 75MG CAPSULE PO SCH (08:18)
[2020-02-24] MEDS: hydrOXYzine 50 MG TAB PO SCH ×4 (08:18→20:21)
--- NOTE | 2020-02-24 09:38 | MHIPNPDOC ---
[facility] Progress Note Progress Note DOS: 02/24/2020 Patient met with today with nurse present for telehealth evaluation due to COVID Crisis Events Overnight:[none] Group Attendance:: none Symptom changes (psych ROS): Affective: so reports vague depression no specific symptoms Psychotic: so reports unusual visual hallucinations with no signs or symptoms Anxiety: [no changes] Staff Report: patient appears to be primarily discussing mostly psychosocial stressors with staff rather than reported psychotic symptoms. Medical ROS: no physical complaints MSE: Vitals: Below General: [Well dressed with good hygiene] Speech: [Spontaneous and fluid] Thought processes: [Linear and logical] Thought content: preservative on symptoms and admission Abstract reasoning, and computation: [Intact] Description of associations: [Intact] Description of abnormal or psychotic thoughts: reports vague SI and VH, however, no signs of respond to internal stimuli Judgment: limited Insight: limited Orientation: [Alert and orientated 3] Recent and remote memory: [Intact] Attention span and concentration: [Intact] Fund of knowledge: [Adequate] Mood: ["okay"] Affect: [Euthymic with a full range] Vital Signs Vital Signs Date Time Temp Pulse Resp B/P (MAP) Pulse Ox O2 Delivery O2 Flow Rate FiO2 02/24/20 07:59 Room Air 02/24/20 06:19 97.5 72 16 138/78 (98) 02/22/20 22:30 98 Current Medications Current Medications Medications (Trade) Dose Ordered Sig/Jesika Route PRN Reason Start Time Stop Time Status Last Admin Dose Admin Al Hydrox/Mg Hydrox/Simethicone (Mylanta) 30 ml Q4HP PRN PO HEARTBURN/INDIGESTION 02/22/20 18:00 Albuterol Sulfate (Proventil, Ventolin Hfa) 2 puff RQID INH 02/22/20 20:00 02/24/20 08:18 Atorvastatin Calcium (Lipitor) 20 mg QHS PO 02/22/20 21:00 02/23/20 20:15 Benztropine Mesylate (Cogentin) 1 mg QHS PO 02/22/20 21:00 02/23/20 20:14 Gabapentin (Neurontin) 400 mg TID PO 02/22/20 21:00 02/24/20 08:18 Home Med (Med Rec Complete!) ASDIRECTED XX 02/22/20 18:00 02/22/20 17:50 DC Hydroxyzine HCl (Atarax) 50 mg QID PO 02/22/20 21:00 02/24/20 08:18 Ibuprofen (Advil) 400 mg Q6HP PRN PO PAIN 02/22/20 18:00 02/24/20 05:43 Levothyroxine Sodium (Synthroid) 225 mcg DAILY@0600 PO 02/23/20 06:00 02/24/20 05:41 Magnesium Hydroxide (Milk Of Magnesia) 30 ml DAILYPRN PRN PO CONSTIPATION 02/22/20 18:00 Meloxicam (Mobic) 7.5 mg BID PO 02/22/20 21:00 02/24/20 08:18 Omeprazole (PriLOSEC) 20 mg BID PO 02/22/20 21:00 02/24/20 08:18 Prazosin HCl (Minipress) 2 mg QHS PO 02/22/20 21:00 02/23/20 20:15 Propranolol HCl (Inderal) 10 mg Q6HP PRN PO anxiety 02/22/20 18:00 Quetiapine Fumarate (SEROquel) 600 mg QHS PO 02/22/20 21:00 02/23/20 20:15 Trazodone HCl (Desyrel) 50 mg QHSP PRN PO INSOMNIA 02/22/20 18:00 02/23/20 20:15 Venlafaxine HCl (Effexor Xr) 75 mg DAILY PO 02/23/20 09:00 UNV Venlafaxine HCl (Effexor Xr) 225 mg DAILY PO 02/23/20 09:00 02/24/20 08:18 Allergies Coded Allergies: clarithromycin (Verified Allergy, Intermediate, hives and puffy face, 05/19/19) fexofenadine (Verified Allergy, Unknown, 05/05/19) pseudoephedrine (Verified Allergy, Unknown, 05/05/19) ketorolac (Verified Adverse Reaction, Mild, HEADACHE, 05/08/19) Problems (1) Suicidal ideation Status: Acute Response to Treatment: Stable (2) Malingering Status: Acute Problem Text: lately patient's home situation is far more stressful than she lets on, which might precipitate her presentations to her unit due to mood variation and irritability, of which she generally does not describe (3) Cannabis abuse Status: Chronic (4) PTSD (post-traumatic stress disorder) Status: Chronic Problem Text: continue home medications (5) Hypothyroid Status: Chronic (6) Hallucinations Status: Acute Response to Treatment: Stable Problem Text: likely malingering Plan / VTE VTE Prophylaxis Ordered?: No Plan Diet: Continue Current Activity: Continue Current Anticipated Discharge: Home (discharge likely by end of week) THERESA BLANCA DO Feb 24, 2020 09:38
[2020-02-24] MEDS: ACETAMINOPHEN 500 MG TAB PO SCH ×2 (11:29→20:21)
[2020-02-24] MEDS: AUGMENTIN 875 MG TAB PO SCH ×2 (11:29→20:21)
[2020-02-24] MEDS: IBUPROFEN 200MG TAB PO SCH ×2 (12:24→16:57)
[2020-02-24] MEDS: LACTOBACILLUS ACIDOPHILUS CAP (BACID) PO SCH ×3 (12:24→20:21)
--- NOTE | 2020-02-24 12:25 | REP ---
PANOREX VIEW MANDIBLE: Two Panorex views of the mandible are performed. No fracture or bone lesion is seen. There is no evidence of osseous destruction or cortical destruction. [place] lower teeth are seen in the midline with no adjacent radiographic abnormality along the roots. Electronically Signed by Sammy Salazar MD 02/25/2020 11:15 A
[2020-02-24 12:50] LABS: BASO % 0.1 % (0.0-1.0); EOS # 0.1 10^3/uL (0.0-0.5); EOS % 1.6 % (0.0-3.0); LYMPH # 1.9 10^3/uL (1.5-5.0); LYMPH % 25.5 % (24.0-44.0); MEAN CORPUSCULAR HEMOGLOBIN 27.1 pg (27.0-33.0); MEAN CORPUSCULAR HGB CONC 33.3 g/dl (32.0-36.5); MEAN CORPUSCULAR VOLUME 81.4 fl (80.0-96.0); MONO # 0.5 10^3/uL (0.0-0.8); MONO % 6.6 % (0.0-5.0); NEUTROPHILS # 4.8 10^3/uL (1.5-8.5); NEUTROPHILS % 65.7 % (36.0-66.0); PLATELET COUNT, AUTOMATED 228 10^3/uL (150-450); RED BLOOD COUNT 4.79 10^6/uL (4.00-5.40); WHITE BLOOD COUNT 7.4 10^3/uL (4.0-10.0)
[2020-02-24 13:19] LABS: BLOOD UREA NITROGEN 9 MG/DL (7-18); C REACTIVE PROTEIN QUANTITATIV < 0.30 MG/DL (0.00-0.30); CALCIUM LEVEL 9.2 MG/DL (8.5-10.1); CARBON DIOXIDE LEVEL 27 MEQ/L (21-32); CHLORIDE LEVEL 107 MEQ/L (98-107); CREATININE FOR GFR 0.83 MG/DL (0.55-1.30); FREE THYROXINE INDEX 3.8 % (1.3-4.8); GLOMERULAR FILTRATION RATE > 60.0 (>58); GLUCOSE, FASTING 94 MG/DL (70-100); POTASSIUM SERUM 3.7 MEQ/L (3.5-5.1); SODIUM LEVEL 142 MEQ/L (136-145); T UPTAKE 30 % (30-39); THYROID STIMULATING HORMONE 0.009 uIU/ML (0.358-3.740); THYROXINE (T4) 12.8 UG/DL (4.5-12.0)
[2020-02-24 13:21] LABS: ERYTHROCYTE SEDIMENTATION RATE 5 mm/hr (0-20)
[2020-02-24 16:09] VITALS: BP 122/88
--- NOTE | 2020-02-24 17:12 | HPE ---
DATE OF ADMISSION: 02/24/2020 CHIEF COMPLAINT: Tooth pain. HISTORY OF PRESENT ILLNESS: This is a 49-year-old female with a history of morbid obesity, body mass index (BMI) of 38.4, diabetes, hypertension, hyperlipidemia, metabolic syndrome, migraine headaches, kidney stones, pulmonary embolism in 1998, reflux, alpha-1 antitrypsin deficiency, cannabis use, unspecified psychosis, and diverticulosis, admitted to inpatient mental health unit for psychosis. Complains of tooth pain in the right lower mandible that she has had for the past 3 days. Describes the pain as 3/10 pain, achy and dull. No fevers or chills at home. Patient has not seen her dentist in several years. No difficulty with swallowing. Patient has no nausea or vomiting, no abdominal pain, chest pain, pressure, or tightness, shortness of breath, dysuria, urgency, frequency, sore throat, lymphadenopathy, changes in vision. Hospitalist was asked to assess for acute medical issues. PAST MEDICAL HISTORY: 1. Diverticulosis. 2. 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 3. Stress-related disorder. 4. Hyperlipidemia. 5. Cannabis use. 6. Hypertension. 7. Morbid obesity. 8. Probable obstructive sleep apnea. 9. Diabetes. 10. Chronic obstructive pulmonary disease (COPD). 11. Migraines. 12. Kidney stones. 13. History of pulmonary embolism (PE) in 1998. 14. Reflux. 15. Alpha-1 antitrypsin deficiency. 16. Chronic back pain with nerve stimulator placement and removal. PAST SURGICAL HISTORY: 1. Nerve stimulator placement and removal. 2. Tonsillectomy. 3. Adenoidectomy. 4. Carpal tunnel release bilaterally. 5. Total abdominal hysterectomy, bilateral salpingo-oophorectomy. 6. Left knee arthroscopy. 7. section. 8. Cholecystectomy. ALLERGIES: CLARITHROMYCIN, FEXOFENADINE, SUDAFED, and TORADOL. HOME MEDICATIONS: - Abilify 400 mg intramuscular (IM) monthly - atorvastatin 20 at bedtime - benztropine 1 mg at bedtime - gabapentin 400 three times a day - hydroxyzine 50 four times a day - Synthroid 225 mcg daily - meloxicam 7.5 twice a day - Prilosec 20 mg twice a day - prazosin 2 mg at bedtime - quetiapine 600 at bedtime - venlafaxine 75 daily and 150 daily, total of 225 daily FAMILY HISTORY: Father with diabetes. Father , age 75, metastatic cancer from unknown primary. Mother , age 61, with alpha-1 antitrypsin. SOCIAL HISTORY: Previous smoker, a pack a day from age 11 for about 15 years. Social alcohol use with mixed drinks. Recreational marijuana. 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 REVIEW OF SYSTEMS: Per history of present illness (HPI). A 12-point system otherwise negative. PHYSICAL EXAMINATION: VITAL SIGNS: Temperature 97.9, pulse 77, respiratory rate 16, blood pressure 122/88, 100% on room air. GENERAL: Awake, alert, oriented to person, place, and time. Anicteric sclerae. No jaundice. No cervical lymphadenopathy or thyromegaly. Patient has no pharyngeal erythema. She has dental caries, missing teeth, poor dentition in general. There is no obvious abscess or drainage in the right lower mandible. LUNGS: Clear to auscultation. No wheezes, rales, or rhonchi. HEART: S1, S2, sinus rhythm. No murmurs, rubs, or gallops. ABDOMEN: Soft, nontender, nondistended. Positive bowel sounds. EXTREMITIES: No cyanosis, clubbing, or any pitting edema. LABORATORY DATA: White count 7.4, hemoglobin 13, hematocrit 39, platelet count 228. Sodium 142, potassium 3.7, chloride 107, bicarbonate 27, BUN 9, creatinine 0.83, glucose 94. TSH of 0.009. T4 is 12.8. ASSESSMENT AND PLAN: This is a 49-year-old female, admitted to inpatient mental health unit who complains of right mandibular tooth pain. IMPRESSION: 1. Tooth pain. Patient has significant dental caries. No obvious abscess noted on clinical examination. No systemic systems, fever. No white count. No chills. Will check an orthopantogram and short course of Augmentin with Bacid to prevent Clostridium (C) difficile. 2. Psychosis, managed by psychiatrist. 3. 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 Currently with very low thyroid-stimulating hormone (TSH) and high T4; therefore, will decrease patient's Synthroid and recheck. TSH level in a few days. 4. Hyperlipidemia. Check lipid panel in the morning. 5. Hypertension. Currently stable with systolic pressure of 118-138, asymptomatic. May continue on home medications. 6. Type 2 diabetes that is diet controlled. Change to consistent-carbohydrate diet. Check A1c. On 2-gram sodium. 7. History of migraines, currently asymptomatic. 8. History of chronic obstructive pulmonary disease (COPD). Quit smoking several years ago. Currently with clear lungs. 9. Hyperlipidemia. Check lipid panel in the morning. 10. Metabolic syndrome with hypertension, hyperlipidemia, morbid obesity, and diabetes. Check A1c, lipid panel, and titrate medications for better control. 11. History of alpha-1 antitrypsin deficiency with COPD. Patient has been lost of followup. Previously followed at [facility]. She may benefit from vaccinations and monitoring for liver cirrhosis as outpatient. 12. History of kidney stones, currently asymptomatic. 13. Morbid obesity, body mass index (BMI) of 38.4, complicating care. She should be evaluated for obstructive sleep apnea (ALFREDO) in light of history of COPD. Monitor for signs and symptoms of severe pulmonary hypertension and cor pulmonale with right-sided heart failure. DIANE
[2020-02-24 17:20] LABS: HEMOGLOBIN A1c 5.9 %
[2020-02-24] MEDS: traZODone 50 MG TAB PO PRN (20:20)
[2020-02-24] MEDS: BENZTROPINE 1 MG TAB PO SCH (20:21)
[2020-02-24] MEDS: QUEtiapine FUMARATE 200 MG TAB PO SCH (20:21)
[2020-02-24] MEDS: ATORVASTATIN 20 MG TAB PO SCH (20:21)
[2020-02-24] MEDS: PRAZOSIN 1 MG CAP PO SCH (20:21)
[2020-02-25] MEDS: LEVOTHYROXINE 150MCG TABLET (0.15MG) PO SCH (05:47)
[2020-02-25 06:28] VITALS: BP 120/56
[2020-02-25 07:58] LABS: CHOLESTEROL RISK RATIO 4.055 (<5)
[2020-02-25] MEDS: ALBUTEROL 90 MCG/ACT 8GM HFA INHALER INH SCH ×4 (08:31→20:08)
[2020-02-25] MEDS: IBUPROFEN 200MG TAB PO SCH ×3 (08:32→16:53)
[2020-02-25] MEDS: GABAPENTIN 400 MG CAP PO SCH ×3 (08:32→20:08)
[2020-02-25] MEDS: VENLAFAXINE **XR** 75MG CAPSULE PO SCH (08:32)
[2020-02-25] MEDS: LACTOBACILLUS ACIDOPHILUS CAP (BACID) PO SCH ×4 (08:32→20:09)
[2020-02-25] MEDS: MELOXICAM (MOBIC) 7.5 MG TAB PO SCH ×2 (08:32→20:08)
[2020-02-25] MEDS: AUGMENTIN 875 MG TAB PO SCH ×2 (08:32→20:08)
[2020-02-25] MEDS: hydrOXYzine 50 MG TAB PO SCH ×4 (08:32→20:09)
[2020-02-25] MEDS: OMEPRAZOLE 20 MG CAP PO SCH ×2 (08:32→20:09)
[2020-02-25] MEDS: ACETAMINOPHEN 500 MG TAB PO SCH ×2 (08:33→20:09)
--- NOTE | 2020-02-25 16:50 | MHIPNPDOC ---
[facility] Progress Note Progress Note DATE OF SERVICE: 02/25/20 HISTORY: As per previous reports: "Patient is a 49 -year-old , female, who presented to [facility] on her own, reporting unusual symptoms of of what seeing bodies". She additionally reported suicidal ideation but no signs or symptoms of depression. When she was met with she reported primarily have these unusual symptoms, appearing to not be responding to any of them likely manufacturing them during the discussion. As it appeared that she had very little conviction about the reported images she was seeing." VITAL SIGNS: See below. NEW TEST RESULTS: See below CURRENT MEDICATIONS: See below. MENTAL STATUS EXAMINATION: Patient is a 49-year old female, who is alert, dressed in hospital clothes, wearing glasses. Speech: Is fluent, spontaneous Language skills are intact Thought processes including: linear, coherent. Thought content: depressive thoughts, suicidal ideation, denies plans or intents. Denies HI, reports paranoid thoughts, denies grandiose thoughts/bizarre thoughts. Description of abnormal or psychotic thoughts: Reports paranoid thoughts. Reports previous auditory and visual hallucinations but denies having them now. Reports that she feels as if there are bugs crawling on her skin. Reports suicidal ideation Judgment: Limited Insight: Limited Orientation: x 3 Recent and remote memory: Intact Attention span and concentration: fair Language: adequate. Fund of knowledge: average. Mood: "OK" Affect: Constricted DIAGNOSES: 1. Suicidal Ideation 2. Malingering 3. Cannabis abuse ASSESSMENT: She describes paranoid thoughts and seems guarded. She is anxious, she reports suicidal ideation, she can't contract for safety at this time. MANAGEMENT PLAN: As per Dr. Aceves TIME SPENT: 20 minutes. Vital Signs Vital Signs Date Time Temp Pulse Resp B/P (MAP) Pulse Ox O2 Delivery O2 Flow Rate FiO2 02/25/20 07:48 Room Air 02/25/20 06:28 98.0 68 16 120/56 (77) 100 Laboratory Data 24H Labs Laboratory Tests 2 02/25/20 06:58: Triglycerides Level 141, Total Cholesterol 146, LDL Cholesterol 82, Non-HDL Cholesterol (LDL + VLDL) 110, Total HDL Cholesterol 36L, Cholesterol/HDL Ratio 4.055 Current Medications Current Medications Medications (Trade) Dose Ordered Sig/Jesika Route PRN Reason Start Time Stop Time Status Last Admin Dose Admin Acetaminophen (Tylenol Tab) 1,000 mg BID PO 02/24/20 09:00 02/25/20 08:33 Al Hydrox/Mg Hydrox/Simethicone (Mylanta) 30 ml Q4HP PRN PO HEARTBURN/INDIGESTION 02/22/20 18:00 Albuterol Sulfate (Proventil, Ventolin Hfa) 2 puff RQID INH 02/22/20 20:00 02/25/20 12:20 Amoxicillin/ Clavulanate Potassium (Augmentin) 875 mg BID PO 02/24/20 09:00 03/01/20 23:59 02/25/20 08:32 Atorvastatin Calcium (Lipitor) 20 mg QHS PO 02/22/20 21:00 02/24/20 20:21 Benztropine Mesylate (Cogentin) 1 mg QHS PO 02/22/20 21:00 02/24/20 20:21 Gabapentin (Neurontin) 400 mg TID PO 02/22/20 21:00 02/25/20 08:32 Home Med (Med Rec Complete!) ASDIRECTED XX 02/22/20 18:00 02/22/20 17:50 DC Hydroxyzine HCl (Atarax) 50 mg QID PO 02/22/20 21:00 02/25/20 12:20 Ibuprofen (Advil) 200 mg AC PO 02/24/20 12:00 02/25/20 12:20 Ibuprofen (Advil) 400 mg Q6HP PRN PO PAIN 02/22/20 18:00 02/24/20 11:26 DC 02/24/20 05:43 Lactobacillus Acidophilus (Bacid) 1 ea WMHS PO 02/24/20 12:30 03/02/20 12:29 02/25/20 12:20 Levothyroxine Sodium (Synthroid) 150 mcg DAILY@06 PO 02/25/20 06:00 02/25/20 05:47 Levothyroxine Sodium (Synthroid) 225 mcg DAILY@0600 PO 02/23/20 06:00 02/24/20 16:06 DC 02/24/20 05:41 Magnesium Hydroxide (Milk Of Magnesia) 30 ml DAILYPRN PRN PO CONSTIPATION 02/22/20 18:00 Meloxicam (Mobic) 7.5 mg BID PO 02/22/20 21:00 02/25/20 08:32 Omeprazole (PriLOSEC) 20 mg BID PO 02/22/20 21:00 02/25/20 08:32 Prazosin HCl (Minipress) 2 mg QHS PO 02/22/20 21:00 02/24/20 20:21 Propranolol HCl (Inderal) 10 mg Q6HP PRN PO anxiety 02/22/20 18:00 Quetiapine Fumarate (SEROquel) 600 mg QHS PO 02/22/20 21:00 02/24/20 20:21 Trazodone HCl (Desyrel) 50 mg QHSP PRN PO INSOMNIA 02/22/20 18:00 02/24/20 20:20 Venlafaxine HCl (Effexor Xr) 75 mg DAILY PO 02/23/20 09:00 UNV Venlafaxine HCl (Effexor Xr) 225 mg DAILY PO 02/23/20 09:00 02/25/20 08:32 Allergies Coded Allergies: clarithromycin (Verified Allergy, Intermediate, hives and puffy face, 05/19/19) fexofenadine (Verified Allergy, Unknown, 05/05/19) pseudoephedrine (Verified Allergy, Unknown, 05/05/19) ketorolac (Verified Adverse Reaction, Mild, HEADACHE, 05/08/19) FAYE NATION MD Feb 25, 2020 16:02
[2020-02-25 17:49] VITALS: BP 142/98
[2020-02-25] MEDS: BENZTROPINE 1 MG TAB PO SCH (20:08)
[2020-02-25] MEDS: traZODone 50 MG TAB PO PRN (20:09)
[2020-02-25] MEDS: QUEtiapine FUMARATE 200 MG TAB PO SCH (20:09)
[2020-02-25] MEDS: ATORVASTATIN 20 MG TAB PO SCH (20:09)
[2020-02-25] MEDS: PRAZOSIN 1 MG CAP PO SCH (20:09)
[2020-02-26] MEDS: LEVOTHYROXINE 150MCG TABLET (0.15MG) PO SCH (06:11)
[2020-02-26 07:03] VITALS: BP 113/61
[2020-02-26] MEDS: ALBUTEROL 90 MCG/ACT 8GM HFA INHALER INH SCH ×4 (07:38→20:03)
[2020-02-26] MEDS: LACTOBACILLUS ACIDOPHILUS CAP (BACID) PO SCH ×4 (07:38→20:04)
[2020-02-26] MEDS: IBUPROFEN 200MG TAB PO SCH ×3 (07:42→17:09)
--- NOTE | 2020-02-26 09:20 | MHIPNPDOC ---
[facility] Progress Note Progress Note DOS: 02/26/2020 Patient met with today with nurse present for telehealth evaluation due to COVID Crisis Events Overnight:[none] Group Attendance::[frequent] Symptom changes (psych ROS): Affective: improving Psychotic: improving Anxiety: improving Staff Report: staff report patient generally does not appear to present with any of similar symptoms Medical ROS: No physical problems noted MSE: Vitals: Below General: [Well dressed with good hygiene] Speech: [Spontaneous and fluid] Thought processes: [Linear and logical] Thought content: [Future orientated] Abstract reasoning, and computation: [Intact] Description of associations: [Intact] Description of abnormal or psychotic thoughts:[Denies any suicidal or homicidal ideation. Denies any auditory or visual hallucinations. Does not appear to be responding to internal stimuli. Does not appear to be endorsing any bizarre or paranoid ideation.] Judgment: limited Insight: limited Orientation: [Alert and orientated 3] Recent and remote memory: [Intact] Attention span and concentration: [Intact] Fund of knowledge: [Adequate] Mood: ["okay"] Affect: [Euthymic with a full range] Vital Signs Vital Signs Date Time Temp Pulse Resp B/P (MAP) Pulse Ox O2 Delivery O2 Flow Rate FiO2 02/26/20 07:03 97.6 79 14 113/61 (78) 95 Room Air Current Medications Current Medications Medications (Trade) Dose Ordered Sig/Jesika Route PRN Reason Start Time Stop Time Status Last Admin Dose Admin Acetaminophen (Tylenol Tab) 1,000 mg BID PO 02/24/20 09:00 02/25/20 20:09 Al Hydrox/Mg Hydrox/Simethicone (Mylanta) 30 ml Q4HP PRN PO HEARTBURN/INDIGESTION 02/22/20 18:00 Albuterol Sulfate (Proventil, Ventolin Hfa) 2 puff RQID INH 02/22/20 20:00 02/26/20 07:38 Amoxicillin/ Clavulanate Potassium (Augmentin) 875 mg BID PO 02/24/20 09:00 03/01/20 23:59 02/25/20 20:08 Atorvastatin Calcium (Lipitor) 20 mg QHS PO 02/22/20 21:00 02/25/20 20:09 Benztropine Mesylate (Cogentin) 1 mg QHS PO 02/22/20 21:00 02/25/20 20:08 Gabapentin (Neurontin) 400 mg TID PO 02/22/20 21:00 02/25/20 20:08 Home Med (Med Rec Complete!) ASDIRECTED XX 02/22/20 18:00 02/22/20 17:50 DC Hydroxyzine HCl (Atarax) 50 mg QID PO 02/22/20 21:00 02/25/20 20:09 Ibuprofen (Advil) 200 mg AC PO 02/24/20 12:00 02/26/20 07:42 Ibuprofen (Advil) 400 mg Q6HP PRN PO PAIN 02/22/20 18:00 02/24/20 11:26 DC 02/24/20 05:43 Lactobacillus Acidophilus (Bacid) 1 ea WMHS PO 02/24/20 12:30 03/02/20 12:29 02/26/20 07:38 Levothyroxine Sodium (Synthroid) 150 mcg DAILY@06 PO 02/25/20 06:00 02/26/20 06:11 Levothyroxine Sodium (Synthroid) 225 mcg DAILY@0600 PO 02/23/20 06:00 02/24/20 16:06 DC 02/24/20 05:41 Magnesium Hydroxide (Milk Of Magnesia) 30 ml DAILYPRN PRN PO CONSTIPATION 02/22/20 18:00 Meloxicam (Mobic) 7.5 mg BID PO 02/22/20 21:00 02/25/20 20:08 Omeprazole (PriLOSEC) 20 mg BID PO 02/22/20 21:00 02/25/20 20:09 Prazosin HCl (Minipress) 2 mg QHS PO 02/22/20 21:00 02/25/20 20:09 Propranolol HCl (Inderal) 10 mg Q6HP PRN PO anxiety 02/22/20 18:00 Quetiapine Fumarate (SEROquel) 600 mg QHS PO 02/22/20 21:00 02/25/20 20:09 Trazodone HCl (Desyrel) 50 mg QHSP PRN PO INSOMNIA 02/22/20 18:00 02/25/20 20:09 Venlafaxine HCl (Effexor Xr) 75 mg DAILY PO 02/23/20 09:00 UNV Venlafaxine HCl (Effexor Xr) 225 mg DAILY PO 02/23/20 09:00 02/25/20 08:32 Allergies Coded Allergies: clarithromycin (Verified Allergy, Intermediate, hives and puffy face, 05/19/19) fexofenadine (Verified Allergy, Unknown, 05/05/19) pseudoephedrine (Verified Allergy, Unknown, 05/05/19) ketorolac (Verified Adverse Reaction, Mild, HEADACHE, 05/08/19) Problems (1) Suicidal ideation Status: Resolved Response to Treatment: Stable (2) Malingering Status: Acute Problem Text: lately patient's home situation is far more stressful than she lets on, which might precipitate her presentations to her unit due to mood variation and irritability, of which she generally does not describe (3) Cannabis abuse Status: Chronic (4) PTSD (post-traumatic stress disorder) Status: Chronic Problem Text: continue home medications (5) Hypothyroid Status: Chronic (6) Hallucinations Status: Acute Response to Treatment: Stable Problem Text: likely malingering Plan / VTE VTE Prophylaxis Ordered?: No Plan Diet: Continue Current Activity: Continue Current Anticipated Discharge: Home (Discharge either this weekend or early next week) THERESA BLANCA DO Feb 26, 2020 09:20
[2020-02-26] MEDS: AUGMENTIN 875 MG TAB PO SCH ×2 (09:21→20:00)
[2020-02-26] MEDS: OMEPRAZOLE 20 MG CAP PO SCH ×2 (09:21→20:04)
[2020-02-26] MEDS: MELOXICAM (MOBIC) 7.5 MG TAB PO SCH ×2 (09:21→20:00)
[2020-02-26] MEDS: hydrOXYzine 50 MG TAB PO SCH ×4 (09:21→20:04)
[2020-02-26] MEDS: GABAPENTIN 400 MG CAP PO SCH ×3 (09:21→20:04)
[2020-02-26] MEDS: ACETAMINOPHEN 500 MG TAB PO SCH ×2 (09:21→20:05)
[2020-02-26] MEDS: VENLAFAXINE **XR** 75MG CAPSULE PO SCH (09:21)
[2020-02-26 17:19] VITALS: BP 118/81
[2020-02-26] MEDS: ATORVASTATIN 20 MG TAB PO SCH (20:00)
[2020-02-26] MEDS: BENZTROPINE 1 MG TAB PO SCH (20:01)
[2020-02-26] MEDS: traZODone 50 MG TAB PO PRN (20:01)
[2020-02-26] MEDS: QUEtiapine FUMARATE 200 MG TAB PO SCH (20:04)
[2020-02-26] MEDS: PRAZOSIN 1 MG CAP PO SCH (20:04)
[2020-02-27] MEDS: LEVOTHYROXINE 150MCG TABLET (0.15MG) PO SCH (06:10)
[2020-02-27 06:26] VITALS: BP 126/71
[2020-02-27] MEDS: IBUPROFEN 200MG TAB PO SCH ×3 (07:03→17:19)
[2020-02-27] MEDS: ALBUTEROL 90 MCG/ACT 8GM HFA INHALER INH SCH ×4 (07:13→20:03)
[2020-02-27] MEDS: LACTOBACILLUS ACIDOPHILUS CAP (BACID) PO SCH ×4 (07:13→20:03)
[2020-02-27] MEDS: ACETAMINOPHEN 500 MG TAB PO SCH ×2 (07:57→20:01)
[2020-02-27] MEDS: GABAPENTIN 400 MG CAP PO SCH ×3 (08:00→20:03)
[2020-02-27] MEDS: hydrOXYzine 50 MG TAB PO SCH ×4 (08:00→20:03)
[2020-02-27] MEDS: AUGMENTIN 875 MG TAB PO SCH ×2 (08:00→20:00)
[2020-02-27] MEDS: VENLAFAXINE **XR** 75MG CAPSULE PO SCH (08:00)
[2020-02-27] MEDS: OMEPRAZOLE 20 MG CAP PO SCH ×2 (08:00→20:03)
[2020-02-27] MEDS: MELOXICAM (MOBIC) 7.5 MG TAB PO SCH ×2 (08:00→20:00)
[2020-02-27 16:25] VITALS: BP 142/91
[2020-02-27] MEDS: BENZTROPINE 1 MG TAB PO SCH (20:01)
[2020-02-27] MEDS: ATORVASTATIN 20 MG TAB PO SCH (20:01)
[2020-02-27] MEDS: QUEtiapine FUMARATE 200 MG TAB PO SCH (20:02)
[2020-02-27] MEDS: traZODone 50 MG TAB PO PRN (20:04)
[2020-02-27] MEDS: PRAZOSIN 1 MG CAP PO SCH (20:04)
[2020-02-28] MEDS: LEVOTHYROXINE 150MCG TABLET (0.15MG) PO SCH (06:21)
[2020-02-28 06:42] VITALS: BP 141/64
[2020-02-28] MEDS: IBUPROFEN 200MG TAB PO SCH ×3 (06:48→17:03)
[2020-02-28] MEDS: LACTOBACILLUS ACIDOPHILUS CAP (BACID) PO SCH ×4 (07:36→20:06)
[2020-02-28] MEDS: ALBUTEROL 90 MCG/ACT 8GM HFA INHALER INH SCH ×4 (07:36→20:06)
[2020-02-28] MEDS: hydrOXYzine 50 MG TAB PO SCH ×4 (08:11→20:07)
[2020-02-28] MEDS: GABAPENTIN 400 MG CAP PO SCH ×3 (08:11→20:06)
[2020-02-28] MEDS: VENLAFAXINE **XR** 75MG CAPSULE PO SCH (08:11)
[2020-02-28] MEDS: AUGMENTIN 875 MG TAB PO SCH ×2 (08:11→20:07)
[2020-02-28] MEDS: ACETAMINOPHEN 500 MG TAB PO SCH ×2 (08:11→20:07)
[2020-02-28] MEDS: MELOXICAM (MOBIC) 7.5 MG TAB PO SCH ×2 (08:11→20:07)
[2020-02-28] MEDS: OMEPRAZOLE 20 MG CAP PO SCH ×2 (08:11→20:07)
[2020-02-28 16:27] VITALS: BP 127/73
[2020-02-28] MEDS: traZODone 50 MG TAB PO PRN (20:06)
[2020-02-28 20:07] VITALS: BP 155/65
[2020-02-28] MEDS: BENZTROPINE 1 MG TAB PO SCH (20:07)
[2020-02-28] MEDS: QUEtiapine FUMARATE 200 MG TAB PO SCH (20:07)
[2020-02-28] MEDS: PRAZOSIN 1 MG CAP PO SCH (20:07)
[2020-02-28] MEDS: ATORVASTATIN 20 MG TAB PO SCH (20:07)
[2020-02-29] MEDS: LEVOTHYROXINE 150MCG TABLET (0.15MG) PO SCH (06:15)
[2020-02-29 06:38] VITALS: BP 115/74
[2020-02-29] MEDS: IBUPROFEN 200MG TAB PO SCH ×2 (07:27→12:00)
[2020-02-29] MEDS: ACETAMINOPHEN 500 MG TAB PO SCH (08:10)
[2020-02-29] MEDS: AUGMENTIN 875 MG TAB PO SCH (08:10)
[2020-02-29] MEDS: ALBUTEROL 90 MCG/ACT 8GM HFA INHALER INH SCH ×2 (08:10→12:20)
[2020-02-29] MEDS: MELOXICAM (MOBIC) 7.5 MG TAB PO SCH (08:11)
[2020-02-29] MEDS: hydrOXYzine 50 MG TAB PO SCH ×2 (08:11→12:19)
[2020-02-29] MEDS: OMEPRAZOLE 20 MG CAP PO SCH (08:11)
[2020-02-29] MEDS: LACTOBACILLUS ACIDOPHILUS CAP (BACID) PO SCH ×2 (08:11→12:19)
[2020-02-29] MEDS: VENLAFAXINE **XR** 75MG CAPSULE PO SCH (08:11)
[2020-02-29] MEDS: GABAPENTIN 400 MG CAP PO SCH (08:11)
--- NOTE | 2020-02-29 10:31 | MHDSPDOC ---
[facility] Discharge Summary Discharge Summary DATE OF ADMISSION: Feb 22, 2020 at 17:46 DATE OF DISCHARGE: Feb 29, 2020 at 14:17 DISCHARGE DIAGNOSES: See Problem list below REASON FOR ADMISSION: 49-year-old woman with likely PTSD and psychosocial stressors presents with bizarre ideation. No signs or symptoms related likely malingering CONSULTANTS INVOLVED:[ None (basic hospitalist screening)] TREATMENT AND PROGRESS ON THE UNIT : Medication changes: none, continuing on previous medications Behavior on unit: friend Danita and amenable, no signs or symptoms of psychosis observed patient's reports appear highly inconsistent Treatment attendance: attended at times Notable issues on presentation: none State on discharge: [improved] DISCHARGE ASSESSMENT: The patient a 49 year old woman, with likely adjustment problems to stressful social situations, presented to [facility], where they treated conservatively without any medication alterations. She likely uses reported bizarre statements of hallucination and suicidal thoughts in order to admitted but resolve spontaneously without any issues. Legal status considerations: The patient at the time of discharge did not meet criteria for involuntary admission/extension due to having a [normal] mental status exam, baseline insight into the situation, They are engaged in the discharge process, as well as being friendly and amenable in behavioral control and havent been engaging in any observed concerning behavior or ideation recently. They decline voluntary extension/admission at this time and must be discharged in good saray, as Im unable to make a case for holding the patient against their will. They may have historical risk factors of admissions and other interactions with psychiatry however, those are not modifiable from a clinical perspective. The patient will need to be discharged in good sraay. MENTAL STATUS EXAMINATION ON DISCHARGE: General: [Well dressed with good hygiene] Speech: [Spontaneous and fluid] Thought processes: [Linear and logical] Thought content: [Future orientated] Abstract reasoning, and computation: [Intact] Description of associations: [Intact] Description of abnormal or psychotic thoughts:[Denies any suicidal or homicidal ideation. Denies any auditory or visual hallucinations. Does not appear to be responding to internal stimuli. Does not appear to be endorsing any bizarre or paranoid ideation.] Judgment: limited chronically Insight: limited chronically Orientation: [Alert and orientated 3] Recent and remote memory: [Intact] Attention span and concentration: [Intact] Fund of knowledge: [Adequate] Mood: ["okay"] Affect: [Euthymic with a full range] PLAN/FOLLOWUP ARRANGEMENTS: Follow up appointments made (PCP and MH in 5 days of D/C date) and safety plan completed. Safety Planning aspects completed prior to discharge [SAFE ACT reported on initial invol admission in ER] [Family contact completed, educated on safe practices, instructed on removal and mitigation of dangerous means] [RN reviewed crisis hotline information and other aspects to empower patient to access care in interim before next appointment.] The amount of time spent in the coordination of care for this patient was approximately 30 minutes. Vital Signs/I&Os Vital Signs Date Time Temp Pulse Resp B/P (MAP) Pulse Ox O2 Delivery O2 Flow Rate FiO2 02/29/20 06:38 97.4 78 16 115/74 (88) 02/28/20 08:11 Room Air 02/26/20 07:03 95 Medications Scheduled Albuterol Sulfate (Proair Hfa) 8.5 Gm Hfa.aer.ad, 2 PUFF INH QID, (Reported) Aripiprazole (Abilify Maintena) 400 Mg Suser.syr, 400 MG IM QMONTH, (Reported) filled 02/11, unsure of which specific date was taken but said last week Atorvastatin Calcium (Atorvastatin Calcium) 20 Mg Tab, 20 MG PO QHS, (Reported) 7 PM Benztropine Mesylate (Benztropine Mesylate) 1 Mg Tablet, 1 MG PO QHS, (Reported) Gabapentin (Gabapentin) 400 Mg Capsule, 400 MG PO TID, (Reported) AT 8 AM, 12 PM, 7 PM Hydroxyzine HCl (Hydroxyzine HCl) 50 Mg Tablet, 50 MG PO QID, (Reported) AT 8 AM, 12 PM, 4 PM, 7 PM Levothyroxine Sodium (Levoxyl) 75 Mcg Tablet, 225 MCG PO DAILY, (Reported) 8 AM Meloxicam (Meloxicam) 7.5 Mg Tablet, 7.5 MG PO BID, (Reported) 8 AM, 7 PM Methylphenidate HCl (Methylphenidate HCl) 10 Mg Tablet, 10 MG PO TID, (Reported) Omeprazole (Omeprazole) 20 Mg Capsule.dr, 20 MG PO BID, (Reported) AT 8 AM & 4 PM Prazosin Hcl (Prazosin HCl) 2 Mg Capsule, 2 MG PO QHS, (Reported) Quetiapine Fumarate (Quetiapine Fumarate) 300 Mg Tablet, 600 MG PO QHS, (Reported) 7 PM Venlafaxine HCl (Venlafaxine HCl ER) 75 Mg Cap.er.24h, 75 MG PO DAILY, (Reported) 225MG TOTAL DAILY Venlafaxine HCl (Venlafaxine HCl ER) 150 Mg Cap.er.24h, 150 MG PO DAILY, (Reported) 225MG TOTAL DAILY Scheduled PRN Propranolol HCl (Propranolol HCl) 10 Mg Tablet, 10 MG PO Q6H PRN for anxiety for 7 Days, #14 Trazodone HCl (Trazodone HCl) 50 Mg Tablet, 50 MG PO QHSP PRN for INSOMNIA for 7 Days, #7 Allergies Coded Allergies: clarithromycin (Verified Allergy, Intermediate, hives and puffy face, 05/19/19) fexofenadine (Verified Allergy, Unknown, 05/05/19) pseudoephedrine (Verified Allergy, Unknown, 05/05/19) ketorolac (Verified Adverse Reaction, Mild, HEADACHE, 05/08/19) Problems (1) Suicidal ideation Status: Resolved Response to Treatment: Stable (2) Malingering Status: Chronic Response to Treatment: Stable (3) Cannabis abuse Status: Chronic (4) PTSD (post-traumatic stress disorder) Status: Chronic (5) Hypothyroid Status: Chronic (6) Hallucinations Status: Resolved Plan / VTE VTE Prophylaxis Ordered?: THERESA Mantilla DO Feb 29, 2020 10:31
[2020-02-29] MEDS ORDERED: TRAZ-252 PO (10:59)
== END 2020-02-29 14:17 | disposition home or self-care (01) | DRG 882 ==
LOC: M ED 13:31 → M ED INP 17:46 → M PSY 22:10
PROVIDERS: ADMIT Psychiatry & Neurology Psychiatry; ATTEND Psychiatry & Neurology Addiction Medicine
DX: F43.20 Adjustment disorder, unspecified (principal); R45.851 Suicidal ideations; Z76.5 Malingerer [conscious simulation]; F12.10 Cannabis abuse, uncomplicated; E03.9 Hypothyroidism, unspecified; Z79.899 Other long term (current) drug therapy; Z88.1 Allergy status to other antibiotic agents; Z88.8 Allergy status to other drugs, medicaments and biological substances; E66.01 Morbid (severe) obesity due to excess calories; Z68.38 Body mass index [BMI] 38.0-38.9, adult; E11.9 Type 2 diabetes mellitus without complications; I10 Essential (primary) hypertension; E78.5 Hyperlipidemia, unspecified; G43.909 Migraine, unspecified, not intractable, without status migrainosus; Z86.711 Personal history of pulmonary embolism; K21.9 Gastro-esophageal reflux disease without esophagitis; Z87.442 Personal history of urinary calculi; E88.01 Alpha-1-antitrypsin deficiency; Z87.891 Personal history of nicotine dependence; K02.9 Dental caries, unspecified; J44.9 Chronic obstructive pulmonary disease, unspecified; F43.10 Post-traumatic stress disorder, unspecified

== ENCOUNTER 2020-03-31 08:51 | Inpatient (IN) | payer OTHER ==
[~2020-03-31] VITALS: Ht 154.9 cm; Wt 88.3 kg
[~2020-03-31 08:51] MED LIST changes: +METH-1022 PO
[2020-03-31] MEDS ORDERED: FLUO10CA15 PO (09:01)
[2020-03-31] MEDS ORDERED: DIVA500T94 PO (09:01)
[2020-03-31 10:05] LABS: HEMATOCRIT 39.2 % (36.0-47.0); HEMOGLOBIN 12.7 g/dl (12.0-15.5); MEAN CORPUSCULAR HEMOGLOBIN 26.1 pg (27.0-33.0); MEAN CORPUSCULAR HGB CONC 32.4 g/dl (32.0-36.5); MEAN CORPUSCULAR VOLUME 80.5 fl (80.0-96.0); PLATELET COUNT, AUTOMATED 222 10^3/uL (150-450); RED BLOOD COUNT 4.87 10^6/uL (4.00-5.40); WHITE BLOOD COUNT 4.9 10^3/uL (4.0-10.0)
[2020-03-31 10:43] LABS: ACETAMINOPHEN LEVEL < 2.0 UG/ML (10.0-30.0); ALBUMIN 3.7 GM/DL (3.2-5.2); ALT/SGPT 25 U/L (12-78); AMPHETAMINES LEVEL URINE NEGATIVE (NEGATIVE); BARBITURATES URINE NEGATIVE (NEGATIVE); BENZODIAZEPINES URINE NEGATIVE (NEGATIVE); BILIRUBIN,DIRECT < 0.1 MG/DL (0.0-0.2); BILIRUBIN,TOTAL 0.4 MG/DL (0.2-1.0); BLOOD UREA NITROGEN 8 MG/DL (7-18); CALCIUM LEVEL 9.1 MG/DL (8.5-10.1); CANNABINOIDS URINE POSITIVE (NEGATIVE); CARBON DIOXIDE LEVEL 30 MEQ/L (21-32); CHLORIDE LEVEL 106 MEQ/L (98-107); COCAINE METABOLITE URINE NEGATIVE (NEGATIVE); CREATININE FOR GFR 0.75 MG/DL (0.55-1.30); ETHYL ALCOHOL (ETHANOL) < 0.003 % (0.000-0.010); GLOMERULAR FILTRATION RATE > 60.0 (>58); GLUCOSE, FASTING 107 MG/DL (70-100); METHADONE URINE NEGATIVE (NEGATIVE); OPIATES URINE NEGATIVE (NEGATIVE); PHENCYCLIDINE URINE NEGATIVE (NEGATIVE); POTASSIUM SERUM 3.8 MEQ/L (3.5-5.1); SALICYLATE LEVEL 4.9 MG/DL (5.0-30.0); SODIUM LEVEL 140 MEQ/L (136-145); THYROID STIMULATING HORMONE < 0.005 uIU/ML (0.358-3.740); TOTAL PROTEIN 7.2 GM/DL (6.4-8.2)
[2020-03-31 10:44] LABS: HCG, SERUM QUALITATIVE NEGATIVE (NEGATIVE)
[2020-03-31] MEDS ORDERED: GABA-843 PO (15:19)
[2020-03-31] MEDS ORDERED: TRAZ1TAB10 PO (15:19)
[2020-03-31] MEDS ORDERED: EFFE37.5 PO (15:19)
[2020-03-31] MEDS ORDERED: MOM 30ML SUSPENSION UDC PO PRN (17:00)
[2020-03-31] MEDS ORDERED: MAALOX 30 ML SUSP *UDC PO PRN (17:00)
[2020-03-31] MEDS ORDERED: traZODone 50 MG TAB PO PRN (17:00)
[2020-03-31] MEDS ORDERED: ACETAMINOPHEN TAB 650MG DOSE (2X325MG) PO PRN (17:00)
[2020-04-01 06:29] VITALS: BP 158/98
--- NOTE | 2020-04-01 07:31 | MHHPEPDOC ---
[facility] History & Physical History and Physical DATE OF ADMISSION: Mar 31, 2020 at 16:53 HPI: Vita presents today for concerns regarding her refill of medications. Vita denies any social or family changes. She also denies any symptoms. Vita reports suicidal thought with no indicated plan.She is vague about any symptoms and reports no changes since last admission. SOCHX/FMHX: No changes Past psych: recent change to prozac and depokote from [facility], no other changes Objective Behavior: Pleasant. Engaged. Cooperative with good eye contact. Euthymic. Affect: Appropriate to context. Full range. Mood: Euthymic. Appropriately reactive. Generally good. Speech: Normal rate. Spontaneous and Fluid. Normal volume. Cognition: Alert, Attentive, and Oriented to person, place, time. Thought Form: Linear and goal directed. Thought Content: Evidence of suicidal thoughts. Psychotic. Judgement: Fair. Insight: Fair. Assessment F43.12 Post-traumatic stress disorder, chronic Z76.5 Malingerer [conscious simulation] Plan Patient has multiple times presenting and self resolving without any other issues Continue patients home medications psychotic symptoms appear to be manufactured Avoid Benzodiazepines patient likely to present secondary to get as she has disc ontinued them. Risk for suicide Estimated length of stay is between 3-5 days. Vital Signs Vital Signs Date Time Temp Pulse Resp B/P (MAP) Pulse Ox O2 Delivery O2 Flow Rate FiO2 04/01/20 06:29 98.1 80 16 158/98 (118) Room Air 03/31/20 08:51 99 Laboratory Data 24H Labs Laboratory Tests 2 03/31/20 09:48: Nucleated Red Blood Cells % (auto) 0.0, Anion Gap 4L, Glomerular Filtration Rate > 60.0, Calcium Level 9.1, Total Bilirubin 0.4, Direct Bilirubin < 0.1, Aspartate Amino Transf (AST/SGOT) 14, Alanine Aminotransferase (ALT/SGPT) 25, Alkaline Phosphatase 81, Total Protein 7.2, Albumin 3.7, Albumin/Globulin Ratio 1.1L, Thyroid Stimulating Hormone (TSH) < 0.005L, Human Chorionic Gonadotropin, Qual NEGATIVE, Salicylates Level 4.9L, Urine Opiates Screen NEGATIVE, Urine Methadone Screen NEGATIVE, Acetaminophen Level < 2.0L, Urine Barbiturates Screen NEGATIVE, Urine Phencyclidine Screen NEGATIVE, Urine Amphetamines Screen NEGATIVE, Urine Benzodiazepines Screen NEGATIVE, Urine Cocaine Metabolite Screen NEGATIVE, Urine Cannabinoids Screen POSITIVEH, Ethyl Alcohol Level < 0.003 CBC/BMP Laboratory Tests 03/31/20 09:48 Medications Scheduled Aripiprazole (Abilify Maintena) 400 Mg Suser.syr, 400 MG IM QMONTH, (Reported) Atorvastatin Calcium (Atorvastatin Calcium) 20 Mg Tab, 20 MG PO QHS, (Reported) Benztropine Mesylate (Benztropine Mesylate) 1 Mg Tablet, 1 MG PO QHS, (Reported) Divalproex Sodium (Divalproex Sodium) 500 Mg Tablet.dr, 500 MG PO QHS, (Reported) Fluoxetine Hcl (Fluoxetine HCl) 10 Mg Capsule, 10 MG PO DAILY, (Reported) Gabapentin (Gabapentin) 300 Mg Capsule, 300 MG PO TID, (Reported) Levothyroxine Sodium (Levoxyl) 75 Mcg Tablet, 225 MCG PO DAILY, (Reported) Meloxicam (Meloxicam) 7.5 Mg Tablet, 7.5 MG PO BID, (Reported) Methylphenidate HCl (Methylphenidate HCl) 20 Mg Tablet, 20 MG PO BID for ., (Reported) Omeprazole (Omeprazole) 20 Mg Capsule.dr, 20 MG PO BID, (Reported) AT 8 AM & 4 PM Prazosin Hcl (Prazosin HCl) 2 Mg Capsule, 2 MG PO QHS, (Reported) Quetiapine Fumarate (Quetiapine Fumarate) 300 Mg Tablet, 600 MG PO QHS, (Reported) Venlafaxine HCl (Effexor Xr) 37.5 Mg Cap.er.24h, 37.5 MG PO DAILY, (Reported) Scheduled PRN Albuterol Sulfate (Proair Hfa) 8.5 Gm Hfa.aer.ad, 2 PUFF INH QID PRN for SHORTNESS OF BREATH, (Reported) Trazodone HCl (Trazodone HCl) 50 Mg Tablet, 50 MG PO QHS PRN for SLEEP, (Reported) Allergies Coded Allergies: clarithromycin (Verified Allergy, Intermediate, hives and puffy face, 05/19/19) fexofenadine (Verified Allergy, Unknown, 05/05/19) pseudoephedrine (Verified Allergy, Unknown, 05/05/19) ketorolac (Verified Adverse Reaction, Mild, HEADACHE, 05/08/19) A-FIB/CHADSVASC A-FIB History Current/History of A-Fib/PAF?: No THERESA BLANCA DO Apr 01, 2020 07:31
[2020-04-01] MEDS ORDERED: METH20TA29 PO (08:05)
[2020-04-01] MEDS ORDERED: ALBUTEROL 90 MCG/ACT 8GM HFA INHALER INH PRN (08:30)
[2020-04-01] MEDS: MELOXICAM (MOBIC) 7.5 MG TAB PO SCH ×2 (09:11→20:09)
[2020-04-01] MEDS: GABAPENTIN 300 MG CAP PO SCH ×3 (09:11→20:09)
[2020-04-01] MEDS: OMEPRAZOLE 20 MG CAP PO SCH ×2 (09:11→20:08)
[2020-04-01] MEDS: METHYLPHENIDATE 5 MG TAB PO SCH ×2 (09:11→20:08)
[2020-04-01] MEDS: FLUoxetine 10 MG CAP PO SCH (09:11)
[2020-04-01] MEDS: VENLAFAXINE **XR** 37.5 MG CAPSULE PO SCH (09:11)
[2020-04-01] MEDS: LEVOTHYROXINE 75MCG TABLET (0.075MG) PO SCH (10:24)
[2020-04-01 16:56] LABS: FREE THYROXINE INDEX 3.6 % (1.3-4.8); T UPTAKE 27 % (30-39); THYROID STIMULATING HORMONE < 0.005 uIU/ML (0.358-3.740); THYROXINE (T4) 13.5 UG/DL (4.5-12.0)
--- NOTE | 2020-04-01 17:44 | CR ---
DATE OF CONSULTATION: 04/01/2020 REASON FOR CONSULT: Monitoring medical issues. REFERRING PHYSICIAN: Dr. Aceves, Psychiatrist. CHIEF COMPLAINT: No medical complaints. HISTORY OF THE PRESENT ILLNESS: 49-year-old female admitted to inpatient mental health unit due to depression. She has had no complaints of shortness of breath, chest pain, pressure, tightness, lightheadedness, dizziness, headaches, changes in vision, diplopia, blurred vision, nasal congestion, sore throat, rhinorrhea, vertigo. Denies dysuria, urgency, frequency, fever, chills, back pain. Denies upper or lower extremity weakness. No changes in diet, weight gain, weight loss, unusual lumps or bumps or joint pains. Denies bright red blood per rectum, melena, black tarry stools. All other systems are negative. PAST MEDICAL HISTORY: Alpha-1 antitrypsin deficiency. Chronic back pain with nerve stimulator placement and removal. Diverticulosis. Noemi's disease. Hypothyroidism. Hyperlipidemia. Hypertension. Morbid obesity. Probable obstructive sleep apnea (ALFREDO). Metabolic syndrome. Diabetes. Chronic obstructive pulmonary disease (COPD). Migraines. Kidney stones. Pulmonary embolism (PE) in 1998. Reflux. PAST SURGICAL HISTORY: Cholecystectomy. Tonsillectomy. Nerve stimulator placement, removal. section. Left knee arthroscopy. Total abdominal hysterectomy. Bilateral salpingo-oophorectomy. Adenoidectomy. Carpal tunnel release bilaterally. ALLERGIES: SUDAFED, TORADOL, FEXOFENADINE, CLARITHROMYCIN. HOME MEDICATIONS: - albuterol as needed - atorvastatin 20 mg nightly - benztropine 1 mg nightly - valproic acid 500 mg nightly - fluoxetine 10 mg daily - gabapentin 300 mg three times a day - levothyroxine 225 mcg daily - Meloxicam 7.5 mg twice a day - methylphenidate 20 mg twice a day - omeprazole 20 mg twice a day - pravastatin 2 mg nightly - quetiapine 600 mg nightly - trazodone 50 mg nightly as needed - Effexor 37.5 mg daily SOCIAL HISTORY: Previous smoker, a pack a day from the age of 11, for about 15 years, quit smoking. Social alcohol use with mixed drinks. Recreational marijuana. 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 FAMILY HISTORY: Mother with alpha-1 antitrypsin at the age of 61. Father with diabetes, age 75, metastatic cancer from unknown primary. REVIEW OF SYSTEMS: Per history of the present illness. Twelve point system otherwise negative. PHYSICAL EXAMINATION: Temperature 98.1, pulse 80, respiratory rate 16, blood pressure 158/98, 99% on room air. Generally, patient is awake, alert, oriented times three, answers questions appropriately. Anicteric sclerae. No jaundice. Pupils round and reactive to light and accommodation. Extraocular muscles are intact. Patient has no conversational dyspnea, able to speak in full sentences. Face is symmetric. Tongue is midline. Patient has no jugular venous distention (JVD), thyromegaly, or cervical lymphadenopathy. No stridor. Lungs are clear to auscultation. No wheezing, rales or rhonchi. Air entry is equal bilaterally. Heart: S1, S2, sinus rhythm. Abdomen is soft, nontender, nondistended. Positive bowel sounds times four quadrants. No rebound or guarding. No hepatosplenomegaly. No abdominal bruits. Extremities: No cyanosis, clubbing or any pitting edema. 03/31/2020 CBC, metabolic panel have been reviewed. TSH is less than 0.005. ASSESSMENT AND PLAN: This is a 49-year-old female admitted to the inpatient mental health unit, has no acute medical complaints, found to have a TSH of less than 0.005. IMPRESSION: 1. 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 Currently with very low TSH. Will check a thyroid profile and decrease patient's Synthroid if needed. Recheck TSH after 2 weeks. 2. Hypertension. Patient is well controlled, currently 120 systolic. One episode of uncontrolled blood pressure 158 systolic. No complaints of chest pain, pressure or tightness. On no medications currently. Will add Norvasc if persistently above 140 systolic. 3. Type 2 diabetes, diet controlled. Currently on a regular diet. Previous A1c was 5.9, checked on 02/24/2020. 4. History of migraines. Currently asymptomatic. 5. History of chronic obstructive pulmonary disease (COPD). Quit smoking many years ago, currently with clear lungs. No wheezing on exam. 6. History of migraines. Currently asymptomatic. 7. History of alpha-1 antitrypsin deficiency with COPD. Previously followed with [facility]. Will need followup to monitor patient's symptoms. 8. History of kidney stones, asymptomatic. 9. Obesity. Patient will benefit from outpatient sleep study to rule out obstructive sleep apnea.
[2020-04-01 18:10] VITALS: BP_SYST 148; BP_SYST 164; BP_DIAS 78; BP_DIAS 90
[2020-04-01] MEDS: ATORVASTATIN 20 MG TAB PO SCH (20:08)
[2020-04-01] MEDS: BENZTROPINE 1 MG TAB PO SCH (20:08)
[2020-04-01] MEDS: PRAZOSIN 1 MG CAP PO SCH (20:08)
[2020-04-01] MEDS: QUEtiapine FUMARATE 100 MG TAB PO SCH (20:08)
[2020-04-01] MEDS: DIVALPROEX 500 MG TAB PO SCH (20:09)
[2020-04-02] MEDS: LEVOTHYROXINE 75MCG TABLET (0.075MG) PO SCH (06:31)
[2020-04-02 06:34] VITALS: BP 129/68
[2020-04-02] MEDS: OMEPRAZOLE 20 MG CAP PO SCH ×2 (08:22→20:20)
[2020-04-02] MEDS: VENLAFAXINE **XR** 37.5 MG CAPSULE PO SCH (08:23)
[2020-04-02] MEDS: MELOXICAM (MOBIC) 7.5 MG TAB PO SCH ×2 (08:23→20:20)
[2020-04-02] MEDS: GABAPENTIN 300 MG CAP PO SCH ×3 (08:23→20:24)
[2020-04-02] MEDS: FLUoxetine 10 MG CAP PO SCH (08:23)
[2020-04-02] MEDS: METHYLPHENIDATE 5 MG TAB PO SCH ×2 (08:23→20:20)
--- NOTE | 2020-04-02 11:54 | MHIPNPDOC ---
[facility] Progress Note Progress Note DATE OF SERVICE: 04/02/20 HISTORY: She says she sees a black figure with her a long times, sometimes he talks to her and this figure was talking to her the day she came in. She couldn' t take it anymore, she was very anxious. This figure was telling her to kill her . VITAL SIGNS: See below. NEW TEST RESULTS: See below CURRENT MEDICATIONS: See below. MENTAL STATUS EXAMINATION: Patient is a 49-year old female, who is alert, cooperative, dressed in hospital clothes. Speech: Is normal in rate, tone and volume. Spontaneous and fluent. Language skills are good. Thought processes including: linear, coherent. Thought content: Depressive thoughts, anxious thoughts, she reports SI but denies plans or intent. Denies HI. She is still seeing the shadow and and this shadow is telling her to hurt herself but not anybody else. Description of associations: intact Description of abnormal or psychotic thoughts: she denies paranoid thoughts but having people but she gets anxious thoughts when she has somebody behind her. Denies grandiose delusions. Denies bizarre delusions. Judgment: Fair Insight: fair. Orientation: x 3. Recent and remote memory: she says that her memory is good since she has been using Ritalin. Attention span and concentration: good with the Ritalin Language: adequate. Fund of knowledge: average. Mood: "irritable for sure". Affect: congruent with mood DIAGNOSES: 1. Post traumatic Stress disorder 2. Other specified mood disorder. ASSESSMENT:She is pleasant and cooperative but she says she is irritable, she says she couldn't go to sleep last night because she took Trazodone only but she is used to taking 600 mgs of Seroquel. MANAGEMENT PLAN: She will take Azyprexa Zydis 5 mgs PO one time dose TIME SPENT: 20 minutes. Vital Signs Vital Signs Date Time Temp Pulse Resp B/P (MAP) Pulse Ox O2 Delivery O2 Flow Rate FiO2 04/02/20 06:34 96.7 97 14 129/68 (88) 94 Room Air Laboratory Data 24H Labs Laboratory Tests 2 04/01/20 15:58: Thyroid Stimulating Hormone (TSH) < 0.005L, Free Thyroxine Index 3.6, Thyroxine (T4) 13.5H, Triiodothyronine (T3) Uptake 27L Current Medications Current Medications Medications (Trade) Dose Ordered Sig/Jesika Route PRN Reason Start Time Stop Time Status Last Admin Dose Admin Acetaminophen (Tylenol Tab) 650 mg Q6HP PRN PO HEADACHE or DISCOMFORT 03/31/20 17:00 04/01/20 19:53 Al Hydrox/Mg Hydrox/Simethicone (Mylanta) 30 ml Q4HP PRN PO HEARTBURN/INDIGESTION 03/31/20 17:00 Albuterol Sulfate (Proventil, Ventolin Hfa) 2 puff QID PRN INH SHORTNESS OF BREATH 04/01/20 08:30 Atorvastatin Calcium (Lipitor) 20 mg QHS PO 04/01/20 21:00 04/01/20 20:08 Benztropine Mesylate (Cogentin) 1 mg QHS PO 04/01/20 21:00 04/01/20 20:08 Divalproex Sodium (Depakote) 500 mg QHS PO 04/01/20 21:00 04/01/20 20:09 Fluoxetine HCl (PROzac) 10 mg DAILY PO 04/01/20 09:00 04/02/20 08:23 Gabapentin (Neurontin) 300 mg TID PO 04/01/20 09:00 04/02/20 08:23 Home Med (Med Rec Complete!) ASDIRECTED XX 03/31/20 15:45 03/31/20 15:36 DC Levothyroxine Sodium (Synthroid) 225 mcg DAILY@0600 PO 04/01/20 06:00 04/02/20 06:31 Magnesium Hydroxide (Milk Of Magnesia) 30 ml DAILYPRN PRN PO CONSTIPATION 03/31/20 17:00 Meloxicam (Mobic) 7.5 mg BID PO 04/01/20 09:00 04/02/20 08:23 Methylphenidate HCl (Ritalin) 20 mg BID PO 04/01/20 09:00 04/02/20 08:23 Omeprazole (PriLOSEC) 20 mg BID PO 04/01/20 09:00 04/02/20 08:22 Prazosin HCl (Minipress) 2 mg QHS PO 04/01/20 21:00 04/01/20 20:08 Quetiapine Fumarate (SEROquel) 600 mg QHS PO 04/01/20 21:00 04/01/20 20:08 Trazodone HCl (Desyrel) 50 mg QHS PRN PO SLEEP 04/01/20 08:30 Trazodone HCl (Desyrel) 50 mg QHSP PRN PO INSOMNIA 03/31/20 17:00 03/31/20 20:48 Venlafaxine HCl (Effexor Xr) 37.5 mg DAILY PO 04/01/20 09:00 04/02/20 08:23 Allergies Coded Allergies: clarithromycin (Verified Allergy, Intermediate, hives and puffy face, 05/19/19) fexofenadine (Verified Allergy, Unknown, 05/05/19) pseudoephedrine (Verified Allergy, Unknown, 05/05/19) ketorolac (Verified Adverse Reaction, Mild, HEADACHE, 05/08/19) FAYE NATION MD Apr 02, 2020 11:52
[2020-04-02] MEDS ORDERED: OLANZapine ORAL DISINTEGRATING TAB 5MG PO ONE (12:00)
[2020-04-02 15:44] VITALS: BP 139/82
[2020-04-02] MEDS: BENZTROPINE 1 MG TAB PO SCH (20:20)
[2020-04-02] MEDS: traZODone 50 MG TAB PO PRN (20:20)
[2020-04-02] MEDS: QUEtiapine FUMARATE 100 MG TAB PO SCH (20:20)
[2020-04-02] MEDS: DIVALPROEX 500 MG TAB PO SCH (20:20)
[2020-04-02] MEDS: PRAZOSIN 1 MG CAP PO SCH (20:20)
[2020-04-02] MEDS: ATORVASTATIN 20 MG TAB PO SCH (20:21)
[2020-04-03] MEDS: LEVOTHYROXINE 75MCG TABLET (0.075MG) PO SCH (06:12)
[2020-04-03 06:34] VITALS: BP 121/58
[2020-04-03] MEDS: VENLAFAXINE **XR** 37.5 MG CAPSULE PO SCH (08:37)
[2020-04-03] MEDS: FLUoxetine 10 MG CAP PO SCH (08:37)
[2020-04-03] MEDS: MELOXICAM (MOBIC) 7.5 MG TAB PO SCH ×2 (08:37→20:12)
[2020-04-03] MEDS: GABAPENTIN 300 MG CAP PO SCH ×3 (08:37→20:11)
[2020-04-03] MEDS: METHYLPHENIDATE 5 MG TAB PO SCH ×2 (08:37→21:00)
[2020-04-03] MEDS: OMEPRAZOLE 20 MG CAP PO SCH ×2 (08:37→20:12)
--- NOTE | 2020-04-03 11:55 | MHIPNPDOC ---
[facility] Progress Note Progress Note DATE OF SERVICE: 04/03/20 HISTORY: She says she sees a black figure with her a long times, sometimes he talks to her and this figure was talking to her the day she came in. She couldn' t take it anymore, she was very anxious. This figure was telling her to kill her . VITAL SIGNS: See below. NEW TEST RESULTS: See below CURRENT MEDICATIONS: See below. MENTAL STATUS EXAMINATION: Patient is a 49-year old female, who is alert, cooperative, dressed in hospital clothes. Speech: Is normal in rate, tone and volume. Spontaneous and fluent. Language skills are good. Thought processes including: linear, coherent. Thought content: Depressive thoughts about one hour ago, she denies SI this morning. Denies HI. She has not seen the shadow that tells her to kill herself or kill her Description of associations: intact Description of abnormal or psychotic thoughts: she denies paranoid thoughts but having people but she gets anxious thoughts when she has somebody behind her. Denies grandiose delusions. Denies bizarre delusions. Judgment: Fair Insight: fair. Orientation: x 3. Recent and remote memory: Ok Attention span and concentration: good with the Ritalin Language: adequate. Fund of knowledge: average. Mood: "pretty good". Affect: congruent with mood DIAGNOSES: 1. Post traumatic Stress disorder 2. Other specified mood disorder. ASSESSMENT: she says she feels OK this morning, she reports that she felt very calm yesterday after he took the one time dose of Zyprexa Zydis. i will order Zyprexa Zydis 5 mgs PO TIDP for anxiety and agitation since she had a good respnse to int. she is in a good mood at this time, she says she felt depressed recently but not anymore. her anxiety levels are minimal and she denie spsychosis, although she is still hyper vigilant. she is improving MANAGEMENT PLAN: Start Zyprexa Zydis 5 mgs PO TIDP for anxiety/agitation. TIME SPENT: 20 minutes. Vital Signs Vital Signs Date Time Temp Pulse Resp B/P (MAP) Pulse Ox O2 Delivery O2 Flow Rate FiO2 04/03/20 06:34 97.9 99 16 121/58 (79) 97 Room Air Current Medications Current Medications Medications (Trade) Dose Ordered Sig/Jesika Route PRN Reason Start Time Stop Time Status Last Admin Dose Admin Acetaminophen (Tylenol Tab) 650 mg Q6HP PRN PO HEADACHE or DISCOMFORT 03/31/20 17:00 04/01/20 19:53 Al Hydrox/Mg Hydrox/Simethicone (Mylanta) 30 ml Q4HP PRN PO HEARTBURN/INDIGESTION 03/31/20 17:00 Albuterol Sulfate (Proventil, Ventolin Hfa) 2 puff QID PRN INH SHORTNESS OF BREATH 04/01/20 08:30 Atorvastatin Calcium (Lipitor) 20 mg QHS PO 04/01/20 21:00 04/02/20 20:21 Benztropine Mesylate (Cogentin) 1 mg QHS PO 04/01/20 21:00 04/02/20 20:20 Divalproex Sodium (Depakote) 500 mg QHS PO 04/01/20 21:00 04/02/20 20:20 Fluoxetine HCl (PROzac) 10 mg DAILY PO 04/01/20 09:00 04/03/20 08:37 Gabapentin (Neurontin) 300 mg TID PO 04/01/20 09:00 04/03/20 08:37 Home Med (Med Rec Complete!) ASDIRECTED XX 03/31/20 15:45 03/31/20 15:36 DC Levothyroxine Sodium (Synthroid) 225 mcg DAILY@0600 PO 04/01/20 06:00 04/03/20 06:12 Magnesium Hydroxide (Milk Of Magnesia) 30 ml DAILYPRN PRN PO CONSTIPATION 03/31/20 17:00 Meloxicam (Mobic) 7.5 mg BID PO 04/01/20 09:00 04/03/20 08:37 Methylphenidate HCl (Ritalin) 20 mg BID PO 04/01/20 09:00 04/03/20 08:37 Omeprazole (PriLOSEC) 20 mg BID PO 04/01/20 09:00 04/03/20 08:37 Prazosin HCl (Minipress) 2 mg QHS PO 04/01/20 21:00 04/02/20 20:20 Quetiapine Fumarate (SEROquel) 600 mg QHS PO 04/01/20 21:00 04/02/20 20:20 Trazodone HCl (Desyrel) 50 mg QHS PRN PO SLEEP 04/01/20 08:30 04/02/20 20:20 Trazodone HCl (Desyrel) 50 mg QHSP PRN PO INSOMNIA 03/31/20 17:00 04/02/20 11:47 DC 03/31/20 20:48 Venlafaxine HCl (Effexor Xr) 37.5 mg DAILY PO 04/01/20 09:00 04/03/20 08:37 Allergies Coded Allergies: clarithromycin (Verified Allergy, Intermediate, hives and puffy face, 05/19/19) fexofenadine (Verified Allergy, Unknown, 05/05/19) pseudoephedrine (Verified Allergy, Unknown, 05/05/19) ketorolac (Verified Adverse Reaction, Mild, HEADACHE, 05/08/19) FAYE NATION MD Apr 03, 2020 11:55
[2020-04-03] MEDS: OLANZapine ORAL DISINTEGRATING TAB 5MG PO PRN (14:08)
[2020-04-03 16:27] VITALS: BP 145/90
[2020-04-03] MEDS: PRAZOSIN 1 MG CAP PO SCH (20:08)
[2020-04-03] MEDS: traZODone 50 MG TAB PO PRN (20:09)
[2020-04-03] MEDS: BENZTROPINE 1 MG TAB PO SCH (20:11)
[2020-04-03] MEDS: QUEtiapine FUMARATE 100 MG TAB PO SCH (20:11)
[2020-04-03] MEDS: DIVALPROEX 500 MG TAB PO SCH (20:11)
[2020-04-03] MEDS: ATORVASTATIN 20 MG TAB PO SCH (20:12)
[2020-04-04] MEDS: LEVOTHYROXINE 75MCG TABLET (0.075MG) PO SCH (06:08)
[2020-04-04 06:11] VITALS: BP 111/52
--- NOTE | 2020-04-04 07:48 | MHIPNPDOC ---
[facility] Progress Note Progress Note DATE OF SERVICE: 04/04/20 HPI: Vita presents today for concerns regarding being discharged tomorrow. She has not had any suicidal or homicidal thoughts today. Objective Appearance: Appears to be stated age. Well nourished. Well groomed. Behavior: Cooperative with good eye contact. Pleasant. Engaged. Affect: Full range. Appropriate to context. Mood: Euthymic. Appropriately reactive. Generally good. Speech: Normal volume. Spontaneous and Fluid. Normal rate. Motor: No gross motor abnormalities. Cognition: Alert, Attentive, and Oriented to person, place, time. Memory: No formal testing. No gross abnormalities of short or buttermaker helper memory noted during interview. Thought Form: Linear and goal directed. Thought Content: No evidence of suicidal ideation. No evidence of aggressive or homicidal ideation. No thoughts of self harm. No evidence of delusions. Perception: No perceptual abnormalities noted. Judgement: Intact as evidenced by decision making in the recent past. Insight: Good insight into symptoms and treatment options. Assessment F43.12 Post-traumatic stress disorder, chronic F33.9 Major depressive disorder, recurrent, unspecified Plan Continue home medications. Prescribed Zyprexa. Educated patient at risk of tardive dyskinesia with multiple combination antipsychotics. Will discharge tomorrow at patients request. Vital Signs Vital Signs Date Time Temp Pulse Resp B/P (MAP) Pulse Ox O2 Delivery O2 Flow Rate FiO2 04/04/20 06:11 97.0 101 16 111/52 (71) 97 Room Air Current Medications Current Medications Medications (Trade) Dose Ordered Sig/Jesika Route PRN Reason Start Time Stop Time Status Last Admin Dose Admin Acetaminophen (Tylenol Tab) 650 mg Q6HP PRN PO HEADACHE or DISCOMFORT 03/31/20 17:00 04/01/20 19:53 Al Hydrox/Mg Hydrox/Simethicone (Mylanta) 30 ml Q4HP PRN PO HEARTBURN/INDIGESTION 03/31/20 17:00 Albuterol Sulfate (Proventil, Ventolin Hfa) 2 puff QID PRN INH SHORTNESS OF BREATH 04/01/20 08:30 Atorvastatin Calcium (Lipitor) 20 mg QHS PO 04/01/20 21:00 04/03/20 20:12 Benztropine Mesylate (Cogentin) 1 mg QHS PO 04/01/20 21:00 04/03/20 20:11 Divalproex Sodium (Depakote) 500 mg QHS PO 04/01/20 21:00 04/03/20 20:11 Fluoxetine HCl (PROzac) 10 mg DAILY PO 04/01/20 09:00 04/03/20 08:37 Gabapentin (Neurontin) 300 mg TID PO 04/01/20 09:00 04/03/20 20:11 Home Med (Med Rec Complete!) ASDIRECTED XX 03/31/20 15:45 03/31/20 15:36 DC Levothyroxine Sodium (Synthroid) 225 mcg DAILY@0600 PO 04/01/20 06:00 04/04/20 06:08 Magnesium Hydroxide (Milk Of Magnesia) 30 ml DAILYPRN PRN PO CONSTIPATION 03/31/20 17:00 Meloxicam (Mobic) 7.5 mg BID PO 04/01/20 09:00 04/03/20 20:12 Methylphenidate HCl (Ritalin) 20 mg BID PO 04/01/20 09:00 04/03/20 21:00 Olanzapine (ZyPREXA ZYDIS) 5 mg TID PRN PO ANXIETY/AGITATION 04/03/20 11:45 04/03/20 14:08 Omeprazole (PriLOSEC) 20 mg BID PO 04/01/20 09:00 04/03/20 20:12 Prazosin HCl (Minipress) 2 mg QHS PO 04/01/20 21:00 04/03/20 20:08 Quetiapine Fumarate (SEROquel) 600 mg QHS PO 04/01/20 21:00 04/03/20 20:11 Trazodone HCl (Desyrel) 50 mg QHS PRN PO SLEEP 04/01/20 08:30 04/03/20 20:09 Trazodone HCl (Desyrel) 50 mg QHSP PRN PO INSOMNIA 03/31/20 17:00 04/02/20 11:47 DC 03/31/20 20:48 Venlafaxine HCl (Effexor Xr) 37.5 mg DAILY PO 04/01/20 09:00 04/03/20 08:37 Allergies Coded Allergies: clarithromycin (Verified Allergy, Intermediate, hives and puffy face, 05/19/19) fexofenadine (Verified Allergy, Unknown, 05/05/19) pseudoephedrine (Verified Allergy, Unknown, 05/05/19) ketorolac (Verified Adverse Reaction, Mild, HEADACHE, 05/08/19) THERESA BLANCA DO Apr 04, 2020 07:48
[2020-04-04] MEDS: OMEPRAZOLE 20 MG CAP PO SCH ×2 (09:14→20:04)
[2020-04-04] MEDS: GABAPENTIN 300 MG CAP PO SCH ×3 (09:14→20:04)
[2020-04-04] MEDS: METHYLPHENIDATE 5 MG TAB PO SCH ×2 (09:14→21:00)
[2020-04-04] MEDS: VENLAFAXINE **XR** 37.5 MG CAPSULE PO SCH (09:14)
[2020-04-04] MEDS: MELOXICAM (MOBIC) 7.5 MG TAB PO SCH ×2 (09:14→20:00)
[2020-04-04] MEDS: FLUoxetine 10 MG CAP PO SCH (09:14)
[2020-04-04] MEDS: OLANZapine ORAL DISINTEGRATING TAB 5MG PO PRN (13:39)
[2020-04-04 16:13] VITALS: BP 140/92
[2020-04-04] MEDS: ATORVASTATIN 20 MG TAB PO SCH (20:03)
[2020-04-04] MEDS: DIVALPROEX 500 MG TAB PO SCH (20:03)
[2020-04-04] MEDS: BENZTROPINE 1 MG TAB PO SCH (20:03)
[2020-04-04 20:04] VITALS: BP 140/92
[2020-04-04] MEDS: QUEtiapine FUMARATE 100 MG TAB PO SCH (20:04)
[2020-04-04] MEDS: PRAZOSIN 1 MG CAP PO SCH (20:04)
[2020-04-04] MEDS: traZODone 50 MG TAB PO PRN (20:04)
[2020-04-05 06:35] VITALS: BP 115/71
[2020-04-05] MEDS: LEVOTHYROXINE 75MCG TABLET (0.075MG) PO SCH (06:47)
--- NOTE | 2020-04-05 07:44 | MHDSPDOC ---
[facility] Discharge Summary Discharge Summary DATE OF ADMISSION: Mar 31, 2020 at 16:53 DATE OF DISCHARGE:Apr 05, 2020 at 11:18 DISCHARGE DIAGNOSES: F43.12 Post-traumatic stress disorder, chronic F33.9 Major depressive disorder, recurrent, unspecified CONSULTANTS INVOLVED:[ None (basic hospitalist screening)] REASON FOR ADMISSION & TREATMENT AND PROGRESS ON THE UNIT : Vita presented for concerns for her various suicidal statements and thoughts to the ER,. Patient stated she wanted to be admitted. Patient was brought in and observed. Her medication was not changed. Patient was given Zyprexa as needed for anxiety, and she felt that it was helpful. The risks and benefits of this medication was discussed. Patient did generally fair in the unit and was discharged without any major problems. She returned to her baseline mental status exam and cooperated well with treatment. DISCHARGE ASSESSMENT[stable] Legal status considerations: The patient at the time of discharge did not meet criteria for involuntary admission/extension due to having a baseline mental status exam, baseline insight into the situation, They are engaged in the discharge process, as well as being friendly and amenable in behavioral control and havent been engaging in any observed concerning behavior or ideation recently. They decline voluntary extension/admission at this time and must be discharged in good saray, as Im unable to make a case for holding the patient against their will. They may have historical risk factors of admissions and other interactions with psychiatry however, those are not modifiable from a clinical perspective. The patient will need to be discharged in good saray. MENTAL STATUS EXAMINATION ON DISCHARGE: General: [Well dressed with good hygiene] Speech: [Spontaneous and fluid] Thought processes: [Linear and logical] Thought content: [Future orientated] Abstract reasoning, and computation: [Intact] Description of associations: [Intact] Description of abnormal or psychotic thoughts:[Denies any suicidal or homicidal ideation. Denies any auditory or visual hallucinations. Does not appear to be responding to internal stimuli. Does not appear to be endorsing any bizarre or paranoid ideation.] Judgment: baseline limited Insight: baseline limited. Orientation: [Alert and orientated 3] Recent and remote memory: [Intact] Attention span and concentration: [Intact] Fund of knowledge: [Adequate] Mood: ["okay"] Affect: [Euthymic with a full range] PLAN/FOLLOWUP ARRANGEMENTS: Follow up appointments made (PCP and MH in 5 days of D/C date) and safety plan completed. Safety Planning aspects completed prior to discharge [Medication supplies limited to 7 days with 4 refills to prevent accumulation to OD] [RN reviewed crisis hotline information and other aspects to empower patient to access care in interim before next appointment.] The amount of time spent in the coordination of care for this patient was approximately 30 minutes. Vital Signs/I&Os Vital Signs Date Time Temp Pulse Resp B/P (MAP) Pulse Ox O2 Delivery O2 Flow Rate FiO2 04/05/20 06:35 97.3 90 16 115/71 (86) Room Air 04/04/20 06:11 97 Medications Scheduled Aripiprazole (Abilify Maintena) 400 Mg Suser.syr, 400 MG IM QMONTH, (Reported) Atorvastatin Calcium (Atorvastatin Calcium) 20 Mg Tab, 20 MG PO QHS, (Reported) Benztropine Mesylate (Benztropine Mesylate) 1 Mg Tablet, 1 MG PO QHS, (Reported) Divalproex Sodium (Divalproex Sodium) 500 Mg Tablet.dr, 500 MG PO QHS, (Reported) Fluoxetine Hcl (Fluoxetine HCl) 10 Mg Capsule, 10 MG PO DAILY, (Reported) Gabapentin (Gabapentin) 300 Mg Capsule, 300 MG PO TID, (Reported) Levothyroxine Sodium (Levoxyl) 75 Mcg Tablet, 225 MCG PO DAILY, (Reported) Meloxicam (Meloxicam) 7.5 Mg Tablet, 7.5 MG PO BID, (Reported) Methylphenidate HCl (Methylphenidate HCl) 20 Mg Tablet, 20 MG PO BID for ., (Reported) Omeprazole (Omeprazole) 20 Mg Capsule.dr, 20 MG PO BID, (Reported) AT 8 AM & 4 PM Prazosin Hcl (Prazosin HCl) 2 Mg Capsule, 2 MG PO QHS, (Reported) Quetiapine Fumarate (Quetiapine Fumarate) 300 Mg Tablet, 600 MG PO QHS, (Reported) Venlafaxine HCl (Effexor Xr) 37.5 Mg Cap.er.24h, 37.5 MG PO DAILY, (Reported) Scheduled PRN Albuterol Sulfate (Proair Hfa) 8.5 Gm Hfa.aer.ad, 2 PUFF INH QID PRN for SHORTNESS OF BREATH, (Reported) Olanzapine (Olanzapine) 5 Mg Tablet, 1 TAB PO TIDP PRN for ANXIETY/AGITATION for 7 Days, #21 Trazodone HCl (Trazodone HCl) 50 Mg Tablet, 50 MG PO QHS PRN for SLEEP, (Reported) Allergies Coded Allergies: clarithromycin (Verified Allergy, Intermediate, hives and puffy face, 05/19/19) fexofenadine (Verified Allergy, Unknown, 05/05/19) pseudoephedrine (Verified Allergy, Unknown, 05/05/19) ketorolac (Verified Adverse Reaction, Mild, HEADACHE, 05/08/19) THERESA BLANCA DO Apr 05, 2020 07:44
[2020-04-05] MEDS ORDERED: OLAN5TAB PO (07:47)
[2020-04-05] MEDS: FLUoxetine 10 MG CAP PO SCH (08:20)
[2020-04-05] MEDS: METHYLPHENIDATE 5 MG TAB PO SCH (08:20)
[2020-04-05] MEDS: VENLAFAXINE **XR** 37.5 MG CAPSULE PO SCH (08:20)
[2020-04-05] MEDS: OMEPRAZOLE 20 MG CAP PO SCH (08:20)
[2020-04-05] MEDS: GABAPENTIN 300 MG CAP PO SCH (08:20)
[2020-04-05] MEDS: MELOXICAM (MOBIC) 7.5 MG TAB PO SCH (08:20)
== END 2020-04-05 11:18 | disposition home or self-care (01) | DRG 882 ==
LOC: M ED 08:51 → M ED INP 16:53 → M PSY 18:10
PROVIDERS: ADMIT Psychiatry & Neurology Addiction Medicine; ATTEND Psychiatry & Neurology Addiction Medicine
DX: F43.12 Post-traumatic stress disorder, chronic (principal); F33.9 Major depressive disorder, recurrent, unspecified; R45.851 Suicidal ideations; Z79.899 Other long term (current) drug therapy; Z88.8 Allergy status to other drugs, medicaments and biological substances; K21.9 Gastro-esophageal reflux disease without esophagitis; J44.9 Chronic obstructive pulmonary disease, unspecified; E11.9 Type 2 diabetes mellitus without complications; E88.01 Alpha-1-antitrypsin deficiency; G43.909 Migraine, unspecified, not intractable, without status migrainosus; K57.30 Diverticulosis of large intestine without perforation or abscess without bleeding; E78.5 Hyperlipidemia, unspecified; I10 Essential (primary) hypertension; E66.01 Morbid (severe) obesity due to excess calories; G47.33 Obstructive sleep apnea (adult) (pediatric); N20.0 Calculus of kidney; Z88.2 Allergy status to sulfonamides; Z87.891 Personal history of nicotine dependence

== ENCOUNTER → 2020-07-08 | Outpatient (REF) | payer OTHER ==
[~2020-07-08] MED LIST changes: +BUPR-69 PO; -BUPR50TA PO; +DIVA500T94 PO; +EFFE37.5 PO; +FLUO10CA16 PO; +OLAN5TAB PO; +TRAZ1TAB10 PO
[2020-07-08 13:12] LABS: ALT/SGPT 20 U/L (12-78); BILIRUBIN,TOTAL 0.4 MG/DL (0.2-1.0); BLOOD UREA NITROGEN 9 MG/DL (7-18); CALCIUM LEVEL 9.6 MG/DL (8.5-10.1); CARBON DIOXIDE LEVEL 30 MEQ/L (21-32); CHLORIDE LEVEL 106 MEQ/L (98-107); CHOLESTEROL LEVEL 183 MG/DL (<200); CHOLESTEROL RISK RATIO 4.945 (<5); GLOMERULAR FILTRATION RATE > 60.0 (>58); GLUCOSE, FASTING 107 MG/DL (70-100); HDL CHOLESTEROL 37 MG/DL (>40); LDL CHOLESTEROL 103 MG/DL (<100); NON-HDL-C 146 MG/DL; POTASSIUM SERUM 3.7 MEQ/L (3.5-5.1); SODIUM LEVEL 142 MEQ/L (136-145); TOTAL PROTEIN 7.6 GM/DL (6.4-8.2); TRIGLYCERIDES LEVEL 216 MG/DL (<150)
== END ==
LOC: M LAB REF 11:34
PROVIDERS: ATTEND Family Medicine Addiction Medicine
DX: E03.9 Hypothyroidism, unspecified (principal); F90.0 Attention-deficit hyperactivity disorder, predominantly inattentive type

== ENCOUNTER → 2020-07-26 | Outpatient (CLI) | payer OTHER ==
[2020-07-26 12:15] LABS: BASO % 0.5 % (0.0-1.0); EOS # 0.1 10^3/uL (0.0-0.5); EOS % 1.1 % (0.0-3.0); HEMATOCRIT 40.6 % (36.0-47.0); HEMOGLOBIN 12.8 g/dl (12.0-15.5); LYMPH # 1.5 10^3/uL (1.5-5.0); LYMPH % 34.8 % (24.0-44.0); MEAN CORPUSCULAR HEMOGLOBIN 28.1 pg (27.0-33.0); MEAN CORPUSCULAR HGB CONC 31.5 g/dl (32.0-36.5); MEAN CORPUSCULAR VOLUME 89.2 fl (80.0-96.0); MONO # 0.4 10^3/uL (0.0-0.8); NEUTROPHILS # 2.4 10^3/uL (1.5-8.5); NEUTROPHILS % 55.1 % (36.0-66.0); PLATELET COUNT, AUTOMATED 178 10^3/uL (150-450); RED BLOOD COUNT 4.55 10^6/uL (4.00-5.40); WHITE BLOOD COUNT 4.4 10^3/uL (4.0-10.0)
[2020-07-26 12:56] LABS: ALBUMIN 4.4 GM/DL (3.2-5.2); ALT/SGPT 21 U/L (12-78); BILIRUBIN,TOTAL 0.4 MG/DL (0.2-1.0); BLOOD UREA NITROGEN 12 MG/DL (7-18); CALCIUM LEVEL 10.1 MG/DL (8.5-10.1); CARBON DIOXIDE LEVEL 31 MEQ/L (21-32); CHLORIDE LEVEL 106 MEQ/L (98-107); CREATININE FOR GFR 0.87 MG/DL (0.55-1.30); GLOMERULAR FILTRATION RATE > 60.0 (>58); GLUCOSE, FASTING 106 MG/DL (70-100); POTASSIUM SERUM 4.4 MEQ/L (3.5-5.1); SODIUM LEVEL 141 MEQ/L (136-145); THYROID STIMULATING HORMONE 0.255 uIU/ML (0.358-3.740); TOTAL PROTEIN 7.8 GM/DL (6.4-8.2); VALPROIC ACID (DEPAKOTE) 50.1 UG/ML (50.0-100.0)
--- NOTE | 2020-07-27 01:51 | REP ---
INDICATION: PAIN IN LEFT THUMB LAB 1ST XR 2ND COMPARISON: None. TECHNIQUE: AP, lateral, bilateral oblique views left 1st digit. FINDINGS: Minimal subchondral sclerosis and joint space narrowing at the 1st metacarpophalangeal joint is appreciated. Slightly more pronounced subchondral sclerosis with joint space narrowing as well as marginal spurring is identified involving the 1st interphalangeal joint. No evidence for acute or healed injury. Surrounding soft tissues are normal. IMPRESSION: Mild arthritic changes to the 1st digit.. No acute fracture or dislocation. <Electronically signed by Kee Sutherland > 07/27/20 0148
== END ==
LOC: M LAB 11:37
PROVIDERS: ATTEND Nurse Practitioner Psychiatric/Mental Health
DX: F20.9 Schizophrenia, unspecified (principal); M79.645 Pain in left finger(s); M19.042 Primary osteoarthritis, left hand

== ENCOUNTER → 2020-07-26 | Outpatient (CLI) | payer OTHER | LOC: M RAD 11:34 | PROVIDERS: ATTEND Family Medicine Addiction Medicine | DX: M79.645 Pain in left finger(s) (principal) ==

== ENCOUNTER → 2021-01-09 | Outpatient (REF) | payer OTHER ==
[~2021-01-09] MED LIST changes: +GABA-282 PO; -GABA-843 PO; -QUET1TAB10 PO; +QUET300T2 PO; +QUET50TA3 PO; -QUET5TAB PO; +RISP-9 PO; -RISP2TAB3 PO
[2021-01-09 17:47] LABS: ALBUMIN 3.9 GM/DL (3.2-5.2); ALT/SGPT 17 U/L (12-78); BILIRUBIN,TOTAL 0.2 MG/DL (0.2-1.0); BLOOD UREA NITROGEN 10 MG/DL (7-18); CALCIUM LEVEL 10.3 MG/DL (8.5-10.1); CARBON DIOXIDE LEVEL 28 MEQ/L (21-32); CHLORIDE LEVEL 105 MEQ/L (98-107); CHOLESTEROL LEVEL 172 MG/DL (<200); CHOLESTEROL RISK RATIO 5.058 (<5); CREATININE FOR GFR 0.79 MG/DL (0.55-1.30); GLOMERULAR FILTRATION RATE > 60.0 (>58); GLUCOSE, FASTING 148 MG/DL (70-100); HDL CHOLESTEROL 34 MG/DL (>40); LDL CHOLESTEROL 69 MG/DL (<100); NON-HDL-C 138 MG/DL; SODIUM LEVEL 140 MEQ/L (136-145); THYROID STIMULATING HORMONE < 0.005 uIU/ML (0.358-3.740); TOTAL PROTEIN 7.3 GM/DL (6.4-8.2); TRIGLYCERIDES LEVEL 346 MG/DL (<150)
[2021-01-10 10:03] LABS: TESTOSTERONE 20 NG/DL (14-76)
[2021-01-10 10:04] LABS: PROGESTERONE 0.21 NG/ML
== END ==
LOC: M LAB REF 16:08
PROVIDERS: ATTEND Family Medicine Addiction Medicine
DX: R68.82 Decreased libido (principal); E03.9 Hypothyroidism, unspecified

== ENCOUNTER → 2021-04-24 | Outpatient (REF) | payer OTHER ==
[~2021-04-24] MED LIST changes: +GABA-283; +GABA-283 PO; -GABA-845; -GABA-845 PO; +OLAN1TAB16 PO; -OLAN5TAB PO; +OMEP40CA4 PO; -OMEP40CA97 PO; -QUET400T PO; +QUET400T2 PO; -QUET50TA3 PO; +QUET50TA4 PO
[2021-04-24 13:30] LABS: ALBUMIN 3.9 GM/DL (3.2-5.2); ALT/SGPT 24 U/L (12-78); BILIRUBIN,TOTAL 0.2 MG/DL (0.2-1.0); BLOOD UREA NITROGEN 12 MG/DL (7-18); CALCIUM LEVEL 9.2 MG/DL (8.5-10.1); CARBON DIOXIDE LEVEL 28 MEQ/L (21-32); CHLORIDE LEVEL 107 MEQ/L (98-107); CHOLESTEROL LEVEL 184 MG/DL (<200); CHOLESTEROL RISK RATIO 5.575 (<5); CREATININE FOR GFR 0.68 MG/DL (0.55-1.30); GLOMERULAR FILTRATION RATE > 60.0 (>51); GLUCOSE, FASTING 121 MG/DL (70-100); HDL CHOLESTEROL 33 MG/DL (>40); LDL CHOLESTEROL 95 MG/DL (<100); NON-HDL-C 151 MG/DL; POTASSIUM SERUM 4.1 MEQ/L (3.5-5.1); SODIUM LEVEL 140 MEQ/L (136-145); THYROID STIMULATING HORMONE < 0.005 uIU/ML (0.358-3.740); TOTAL PROTEIN 7.6 GM/DL (6.4-8.2); TRIGLYCERIDES LEVEL 280 MG/DL (<150)
== END ==
LOC: M LAB REF 12:16
PROVIDERS: ATTEND Family Medicine Addiction Medicine
DX: E03.9 Hypothyroidism, unspecified (principal)

== ENCOUNTER 2021-06-27 08:34 | Inpatient (IN) | payer OTHER ==
[~2021-06-27] VITALS: Ht 154.9 cm; Wt 87.1 kg
[~2021-06-27 08:34] MED LIST changes: -KLOR10TA76 PO; +POTA-136 PO
[2021-06-27 09:15] LABS: HEMATOCRIT 39.1 % (36.0-47.0); HEMOGLOBIN 12.7 g/dl (12.0-15.5); MEAN CORPUSCULAR HEMOGLOBIN 28.7 pg (27.0-33.0); MEAN CORPUSCULAR HGB CONC 32.5 g/dl (32.0-36.5); MEAN CORPUSCULAR VOLUME 88.3 fl (80.0-96.0); PLATELET COUNT, AUTOMATED 197 10^3/uL (150-450); RED BLOOD COUNT 4.43 10^6/uL (4.00-5.40); WHITE BLOOD COUNT 3.8 10^3/uL (4.0-10.0)
[2021-06-27] MEDS ORDERED: CLON0.5T2 PO (09:32)
[2021-06-27 09:59] LABS: ACETAMINOPHEN LEVEL < 2.0 UG/ML (10.0-30.0); ALBUMIN 3.7 GM/DL (3.2-5.2); ALT/SGPT 21 U/L (12-78); BILIRUBIN,DIRECT < 0.1 MG/DL (0.0-0.2); BILIRUBIN,TOTAL 0.3 MG/DL (0.2-1.0); BLOOD UREA NITROGEN 6 MG/DL (7-18); CALCIUM LEVEL 9.6 MG/DL (8.5-10.1); CARBON DIOXIDE LEVEL 26 MEQ/L (21-32); CHLORIDE LEVEL 108 MEQ/L (98-107); CREATININE FOR GFR 0.78 MG/DL (0.55-1.30); ETHYL ALCOHOL (ETHANOL) < 0.003 % (0.000-0.010); GLOMERULAR FILTRATION RATE > 60.0 (>51); GLUCOSE, FASTING 132 MG/DL (70-100); POTASSIUM SERUM 3.9 MEQ/L (3.5-5.1); SALICYLATE LEVEL 3.2 MG/DL (5.0-30.0); SODIUM LEVEL 140 MEQ/L (136-145); THYROID STIMULATING HORMONE < 0.005 uIU/ML (0.358-3.740); TOTAL PROTEIN 7.6 GM/DL (6.4-8.2)
[2021-06-27 10:05] LABS: AMPHETAMINES LEVEL URINE NEGATIVE (NEGATIVE); BARBITURATES URINE NEGATIVE (NEGATIVE); BENZODIAZEPINES URINE NEGATIVE (NEGATIVE); CANNABINOIDS URINE POSITIVE (NEGATIVE); COCAINE METABOLITE URINE NEGATIVE (NEGATIVE); METHADONE URINE NEGATIVE (NEGATIVE); OPIATES URINE NEGATIVE (NEGATIVE); PHENCYCLIDINE URINE NEGATIVE (NEGATIVE)
[2021-06-27 16:33] LABS: FREE T4 1.23 NG/DL (0.76-1.46)
[2021-06-27] MEDS ORDERED: GABAPENTIN 100 MG CAP PO ONE (20:20)
[2021-06-27] MEDS ORDERED: ATORVASTATIN 20 MG TAB PO ONE (20:20)
[2021-06-27] MEDS ORDERED: GABAPENTIN 300 MG CAP PO ONE (20:50)
[2021-06-27] MEDS ORDERED: QUEtiapine FUMARATE 200 MG TAB PO ONE (20:50)
[2021-06-27] MEDS ORDERED: PRAZOSIN 1 MG CAP PO SCH (21:00)
[2021-06-27] MEDS ORDERED: QUEtiapine 300 MG XR TABLET(SEROQUEL XR) PO SCH (21:00)
--- NOTE | 2021-06-27 22:00 | ECGEPIP ---
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
[2021-06-28] MEDS ORDERED: LEVOTHYROXINE 75MCG TABLET (0.075MG) PO SCH ×2 (06:00→09:30)
[2021-06-28] MEDS ORDERED: GABA-1171 PO (08:18)
[2021-06-28] MEDS ORDERED: FLUO20CA22 PO (08:52)
[2021-06-28] MEDS ORDERED: LEVO-96 PO (08:52)
[2021-06-28] MEDS ORDERED: HOME MED LIST COMPLETE! XX SCH (08:55)
[2021-06-28] MEDS ORDERED: FLUoxetine 10 MG CAP PO ONE (09:00)
[2021-06-28] MEDS ORDERED: GABAPENTIN 100 MG CAP PO SCH (09:00)
[2021-06-28] MEDS ORDERED: OMEPRAZOLE 20 MG CAP PO SCH (09:00)
[2021-06-28] MEDS ORDERED: MELOXICAM (MOBIC) 7.5 MG TAB PO SCH (09:00)
[2021-06-28] MEDS ORDERED: FLUoxetine 20 MG CAP PO SCH (09:00)
[2021-06-28] MEDS ORDERED: LEVOTHYROXINE 150MCG TABLET (0.15MG) PO SCH (09:25)
[2021-06-28] MEDS ORDERED: LEVOTHYROXINE 100MCG TABLET (0.1MG) PO SCH (09:30)
[2021-06-28 09:48] LABS: RSV AMPLIFICATION NEGATIVE (NEGATIVE)
[2021-06-28] MEDS ORDERED: clonazePAM 0.5 MG TAB PO PRN (09:55)
[2021-06-28] MEDS ORDERED: MAALOX 30 ML SUSP *UDC PO PRN (09:55)
[2021-06-28 11:57] VITALS: BP 121/85
[2021-06-28 16:20] VITALS: BP 143/88
[2021-06-28] MEDS: ACETAMINOPHEN TAB 650MG DOSE (2X325MG) PO PRN (20:09)
[2021-06-28] MEDS: BENZTROPINE 1 MG TAB PO SCH (20:09)
[2021-06-28] MEDS: OMEPRAZOLE 20 MG CAP PO SCH (20:09)
[2021-06-28] MEDS: QUEtiapine FUMARATE 200 MG TAB PO SCH (20:09)
[2021-06-28] MEDS: PRAZOSIN 1 MG CAP PO SCH (20:10)
[2021-06-28] MEDS: DIVALPROEX 500 MG TAB PO SCH (20:10)
[2021-06-28] MEDS: GABAPENTIN 100 MG CAP PO SCH (20:10)
[2021-06-28] MEDS: ATORVASTATIN 20 MG TAB PO SCH (20:10)
[2021-06-28] MEDS: traZODone 50 MG TAB PO PRN (20:11)
[2021-06-28] MEDS: OLANZapine ORAL DISINTEGRATING TAB 5MG PO PRN (20:52)
[2021-06-29] MEDS ORDERED: LEVOTHYROXINE 75MCG TABLET (0.075MG) PO SCH (06:00)
[2021-06-29] MEDS ORDERED: LEVOTHYROXINE 150MCG TABLET (0.15MG) PO SCH (06:00)
[2021-06-29] MEDS: LEVOTHYROXINE 75MCG TABLET (0.075MG) PO SCH (06:36)
[2021-06-29] MEDS: LEVOTHYROXINE 100MCG TABLET (0.1MG) PO SCH (06:36)
[2021-06-29] MEDS: OLANZapine ORAL DISINTEGRATING TAB 5MG PO PRN ×2 (07:20→21:22)
[2021-06-29] MEDS: MOM 30ML SUSPENSION UDC PO PRN (07:20)
[2021-06-29 07:51] VITALS: BP 119/68
[2021-06-29] MEDS: GABAPENTIN 100 MG CAP PO SCH ×3 (08:08→20:21)
[2021-06-29] MEDS: OMEPRAZOLE 20 MG CAP PO SCH ×2 (08:08→20:21)
[2021-06-29] MEDS: FLUoxetine 20 MG CAP PO SCH (08:08)
[2021-06-29] MEDS: MELOXICAM (MOBIC) 7.5 MG TAB PO SCH (08:08)
[2021-06-29] MEDS ORDERED: FLUBLOK(EGG FREE)(QUAD)INFLUENZA VACC 0.5ML SYRINGE 18YRS & OLDER IM ONE (09:00)
[2021-06-29] MEDS ORDERED: FLUoxetine 20 MG CAP PO SCH (09:00)
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
[2021-06-29] MEDS: clonazePAM 0.5 MG TAB PO PRN (14:06)
--- NOTE | 2021-06-29 15:29 | HPEPDOC ---
[facility] Medical History & Physical Date of Admission Jun 29, 2021 Date of Service: Jun 29, 2021 History and Physical CHIEF COMPLAINT: " In a lot of stress and had suicidal thoughts" HISTORY OF PRESENT ILLNESS: 51-year-old female with a past medical history of hyperlipidemia, hypothyroidism, and GERD voluntarily came to emergency room department after she had thoughts of suicide. Patient reports lately she has been having a lot of stress at home and has thought about overdosing on medications (do not specify which ones) to kill herself. Therefore seek psychiatric help. She denies acting out on her plan and also having homicidal ideations. At this junction, she denied headaches, blurry vision, chest pain, palpitation, shortness of breath, abdominal pain, nausea, vomiting, problems with urination or bowel m ovements. PAST MEDICAL HISTORY: 1. Hyperlipidemia 2. Depression 3. Hypothyroidism 4. GERD PAST SURGICAL HISTORY: 1. Appendectomy 2. Cholecystectomy 3. Left knee surgery, cannot provide details SOCIAL HISTORY: Lives at home with her , son, sister and [id number]. She denies smoking, drinking, use of recreational drugs. FAMILY HISTORY: Father had cancer that she was unable to provide details of. ALLERGIES: Please see below. REVIEW OF SYSTEMS: 10 point review of system was negative except for what is noted in the HPI HOME MEDICATIONS: Please see below. PHYSICAL EXAMINATION: VITAL SIGNS: Please see below General: Lying in bed, no acute distress Head/Neck/Throat: Trachea midline, mucous membranes moist Eyes: Sclera anicteric, PERRLA Thorax: Normal respiratory effort on room air, lungs clear to auscultation bilaterally, no wheezes/rales/rhonchi Cardiovascular: Normal rate, regular rhythm, normal S1, S2; no S3, S4, rubs/gallops/murmurs Abdomen: Bowel sounds present, soft/nontender/nondistended Genitourinary: No CVA tenderness, no Cortez in place Musculoskeletal: Moving all extremities, no edema Skin: Warm, dry Neurologic: AAOx3, speech fluent and goal-directed, no focal deficits, grossly intact LABORATORY DATA: See below. IMAGING: No imaging to review at this time MICROBIOLOGY: Please see below. ASSESSMENT/PLAN: #Mood disorder/depression -We will defer management to psychiatric team. #Hyperlipidemia -Continue with atorvastatin #GERD -Continue with omeprazole #DVT prophylaxis -Encourage ambulation History and physical examination was done in the presence of a hosiery operator. Medicine team will sign off at this time please reconsult if needed. Thank you for involving us in the care of Ms. Paulino. Vital Signs Vital Signs Date Time Temp Pulse Resp B/P (MAP) Pulse Ox O2 Delivery O2 Flow Rate FiO2 06/29/21 10:54 Room Air 06/29/21 07:51 98.0 82 16 119/68 (85) 06/28/21 16:20 97 Home Medications Scheduled Aripiprazole (Abilify Maintena) 400 Mg Suser.syr, 400 MG IM QMONTH Atorvastatin Calcium (Atorvastatin Calcium) 20 Mg Tab, 20 MG PO QHS Benztropine Mesylate (Benztropine Mesylate) 1 Mg Tablet, 1 MG PO QHS Divalproex Sodium (Divalproex Sodium) 500 Mg Tablet.dr, 500 MG PO QHS Fluoxetine Hcl (Fluoxetine HCl) 20 Mg Capsule, 20 MG PO DAILY Gabapentin (Gabapentin) 100 Mg Capsule, 200 MG PO BID Levothyroxine Sodium (Levo-T) 175 Mcg Tablet, 175 MCG PO DAILY Meloxicam (Meloxicam) 7.5 Mg Tablet, 7.5 MG PO DAILY Omeprazole (Omeprazole) 20 Mg Capsule.dr, 20 MG PO BID AT 8 AM & 4 PM Prazosin Hcl (Prazosin HCl) 2 Mg Capsule, 2 MG PO QHS Quetiapine Fumarate (Quetiapine Fumarate) 300 Mg Tablet, 600 MG PO QHS Scheduled PRN Clonazepam (Clonazepam) 0.5 Mg Tablet, 0.5 MG PO DAILY PRN for ANXIETY Trazodone HCl (Trazodone HCl) 50 Mg Tablet, 50 MG PO QHS PRN for SLEEP Allergies Coded Allergies: clarithromycin (Verified Allergy, Intermediate, hives and puffy face, 05/19/19) fexofenadine (Verified Allergy, Unknown, 05/05/19) pseudoephedrine (Verified Allergy, Unknown, 05/05/19) ketorolac (Verified Adverse Reaction, Mild, HEADACHE, 05/08/19) A-FIB/CHADSVASC A-FIB History Current/History of A-Fib/PAF?: No ABIODUN BRAY M.D. Jun 29, 2021 15:29
[2021-06-29] MEDS: BENZTROPINE 1 MG TAB PO SCH (20:21)
[2021-06-29] MEDS: ATORVASTATIN 20 MG TAB PO SCH (20:21)
[2021-06-29] MEDS: QUEtiapine FUMARATE 200 MG TAB PO SCH (20:25)
[2021-06-29] MEDS: DIVALPROEX 500 MG TAB PO SCH (20:25)
[2021-06-29] MEDS: PRAZOSIN 1 MG CAP PO SCH (20:25)
[2021-06-29] MEDS: traZODone 50 MG TAB PO PRN (20:26)
[2021-06-30] MEDS: LEVOTHYROXINE 75MCG TABLET (0.075MG) PO SCH (06:07)
[2021-06-30] MEDS: LEVOTHYROXINE 100MCG TABLET (0.1MG) PO SCH (06:07)
[2021-06-30 07:22] VITALS: BP 128/84
[2021-06-30] MEDS: FLUoxetine 20 MG CAP PO SCH (08:30)
[2021-06-30] MEDS: clonazePAM 0.5 MG TAB PO PRN ×2 (08:30→18:23)
[2021-06-30] MEDS: OMEPRAZOLE 20 MG CAP PO SCH ×2 (08:30→20:15)
[2021-06-30] MEDS: MELOXICAM (MOBIC) 7.5 MG TAB PO SCH (08:30)
[2021-06-30] MEDS: GABAPENTIN 100 MG CAP PO SCH ×3 (08:31→20:14)
[2021-06-30 10:25] LABS: CHOLESTEROL RISK RATIO 5.105 (<5)
[2021-06-30] MEDS: MOM 30ML SUSPENSION UDC PO PRN (11:19)
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
[2021-06-30] MEDS: OLANZapine ORAL DISINTEGRATING TAB 5MG PO PRN (16:19)
[2021-06-30 16:46] VITALS: BP 136/86
[2021-06-30] MEDS: QUEtiapine FUMARATE 200 MG TAB PO SCH (20:14)
[2021-06-30] MEDS: traZODone 50 MG TAB PO PRN (20:14)
[2021-06-30] MEDS: ATORVASTATIN 20 MG TAB PO SCH (20:14)
[2021-06-30] MEDS: DIVALPROEX 500 MG TAB PO SCH (20:15)
[2021-06-30] MEDS: PRAZOSIN 1 MG CAP PO SCH (20:15)
[2021-06-30] MEDS: BENZTROPINE 1 MG TAB PO SCH (20:15)
[2021-07-01] MEDS: LEVOTHYROXINE 75MCG TABLET (0.075MG) PO SCH (05:51)
[2021-07-01] MEDS: LEVOTHYROXINE 100MCG TABLET (0.1MG) PO SCH (05:51)
[2021-07-01 06:29] VITALS: BP 127/55
[2021-07-01] MEDS: FLUoxetine 20 MG CAP PO SCH (08:02)
[2021-07-01] MEDS: GABAPENTIN 100 MG CAP PO SCH ×3 (08:02→20:17)
[2021-07-01] MEDS: OMEPRAZOLE 20 MG CAP PO SCH ×2 (08:02→20:17)
[2021-07-01] MEDS: MELOXICAM (MOBIC) 7.5 MG TAB PO SCH (08:02)
[2021-07-01] MEDS: clonazePAM 0.5 MG TAB PO PRN ×2 (09:15→19:14)
--- NOTE | 2021-07-01 14:29 | MHIPN ---
[facility] PROGRESS NOTE DATE: 07/01/2021 VITAL SIGNS: Blood pressure 127/55, pulse 92, temperature 96.8. CHIEF COMPLAINT: Feels depressed. SUBJECTIVE: This is a video assessment. She is aware of it and its limitations. She is in the inpatient psychiatry unit. She is in the presence of staff. I am at home. Says feels depressed and also anxious as another patient has been bothering her. Staff are aware of it and have intervened. Her sleep is somewhat disturbed. Appetite is okay. She suggests she has been having suicidal thoughts. Has plans. Says would overdose if the had the opportunity, for example, if she was in hospital. MENTAL STATUS EXAMINATION: Neat, cooperative. No agitation. No psychomotor retardation. Coherent. Affect restricted in range but reactive. Has suicidal thoughts. Has plans. No overt delusions elicited. Judgment and insight are compromised. ASSESSMENT: 1. Bipolar disorder, current episode depressed. 2. Cannabis use disorder. 3. Unspecified anxiety disorder. PLAN: Continue current care, medications, observations, particularly given current concerns. She is to continue with fluoxetine, clonazepam, gabapentin, quetiapine, prazosin. Further recommendations will be made depending on the clinical picture.
[2021-07-01 16:13] VITALS: BP 133/81
[2021-07-01] MEDS: DIVALPROEX 500 MG TAB PO SCH (20:16)
[2021-07-01] MEDS: ATORVASTATIN 20 MG TAB PO SCH (20:16)
[2021-07-01] MEDS: PRAZOSIN 1 MG CAP PO SCH (20:17)
[2021-07-01] MEDS: BENZTROPINE 1 MG TAB PO SCH (20:17)
[2021-07-01] MEDS: traZODone 50 MG TAB PO PRN (20:17)
[2021-07-01] MEDS: QUEtiapine FUMARATE 200 MG TAB PO SCH (20:17)
[2021-07-02] MEDS: LEVOTHYROXINE 75MCG TABLET (0.075MG) PO SCH (05:50)
[2021-07-02] MEDS: LEVOTHYROXINE 100MCG TABLET (0.1MG) PO SCH (05:50)
[2021-07-02 06:24] VITALS: BP 115/57
[2021-07-02] MEDS: OMEPRAZOLE 20 MG CAP PO SCH ×2 (07:45→20:08)
[2021-07-02] MEDS: GABAPENTIN 100 MG CAP PO SCH ×3 (07:45→20:06)
[2021-07-02] MEDS: FLUoxetine 20 MG CAP PO SCH (07:45)
[2021-07-02] MEDS: MELOXICAM (MOBIC) 7.5 MG TAB PO SCH (07:46)
[2021-07-02] MEDS: OLANZapine ORAL DISINTEGRATING TAB 5MG PO PRN ×2 (07:46→18:11)
[2021-07-02] MEDS: clonazePAM 0.5 MG TAB PO PRN ×2 (13:53→20:05)
[2021-07-02 16:23] VITALS: BP 140/92
[2021-07-02] MEDS: QUEtiapine FUMARATE 200 MG TAB PO SCH (20:06)
[2021-07-02] MEDS: DIVALPROEX 500 MG TAB PO SCH (20:07)
[2021-07-02] MEDS: PRAZOSIN 1 MG CAP PO SCH (20:07)
[2021-07-02] MEDS: BENZTROPINE 1 MG TAB PO SCH (20:08)
[2021-07-02] MEDS: traZODone 50 MG TAB PO PRN (20:08)
[2021-07-02] MEDS: ATORVASTATIN 20 MG TAB PO SCH (20:08)
[2021-07-03] MEDS: LEVOTHYROXINE 100MCG TABLET (0.1MG) PO SCH (05:18)
[2021-07-03] MEDS: LEVOTHYROXINE 75MCG TABLET (0.075MG) PO SCH (05:18)
[2021-07-03 06:26] VITALS: BP 150/69
[2021-07-03] MEDS: MELOXICAM (MOBIC) 7.5 MG TAB PO SCH (08:46)
[2021-07-03] MEDS: OMEPRAZOLE 20 MG CAP PO SCH ×2 (08:46→20:20)
[2021-07-03] MEDS: FLUoxetine 20 MG CAP PO SCH (08:46)
[2021-07-03] MEDS: GABAPENTIN 100 MG CAP PO SCH ×3 (08:47→20:20)
[2021-07-03] MEDS: OLANZapine ORAL DISINTEGRATING TAB 5MG PO PRN (08:47)
--- NOTE | 2021-07-03 11:02 | MHIPNPDOC ---
[facility] Progress Note Progress Note DATE OF SERVICE: 06/30/21 HISTORY: Patient is a 51 -year-old , female, who reports that the conflict and family arguments have made her very sad, alone and depressed. She stated that her family is constantly fighting and complaining about each other and expecting her to fix their interpersonal conflicts. She currently lives with her spouse, son age 32, sister age 54, and her sister's boyfriend age 54. She reports constant conflict amongst each other and verbal arguing. She reports that she felt strongly that she wanted to kill herself on Saturday had plan to take medications to overdose or if she was still driving run her car into a pole. She reports instead she called the taxi to take her to the hospital. She has a history of 6-7 psychiatric hospitalizations, reports her last hospitalization was March 2020 and that she is diagnosed bipolar is currently seen at [facility]. PER ED REPORT: Pt states, "My family is putting too much stress on me and I can't handle it anymore." Pt reports suffering from SI with plan to OD for the past 2 wks. Suicidal triggers include "being the rock" of the family & can no longer be everyone's support. Pt states, "My family wants me to save the world and I just can't." In addition to feeling overwhelmed with family stressors, she identifies having significant marital issues. Today, spouse became upset after she gave him the wrong shirt before he went to work and states "that was the tipping point for me." Pt reports spouse has changed over the past year and is afraid for their marriage. Pt continues to voice SI with plan to OD. Additionally, she admits having AH-denies command. She describes AH as "just talking among themselves." States she is also suffering from VH and describes them "as seeing bugs crawling everywhere." VITAL SIGNS: See below. NEW TEST RESULTS: Abnormal lipid panel results: Triglycerides 245. LDL cholesterol 107, total HDL cholesterol 38, cholesterol/HDL ratio 5.105 CURRENT MEDICATIONS: See below. MENTAL STATUS EXAMINATION: Patient is a 51 -year-old , female, who reports that the conflict and family arguments have made her very sad, alone and depressed and suicidal. General Appearance: unkempt, ds/not appear stated age (Appears older), hospital scrubs/clothing Build: overweight Demeanor: average Eye Contact: average Activity: average Behavior: cooperative Speech: clear, normal volume, reg/rate,rhythm,volume Mood: increased depression, increased anxious Affect: constricted Thought Process: logical/linear Thought Content (Delusions): none reported Thought Content (Other): none reported Thought Content (Aggressive): none reported Perception (Hallucinations): auditory, visual, tactile Perception (Other): none reported Cognition (Impairment of): none reported Cognition(Intelligence Est.): other (Below average) Oriented: Awake, Alert, Oriented times three Insight: fair Judgment: Fair Psychosis: Denies DIAGNOSES: Bipolar 1 disorder, current episode, depressed mood Cannabis use disorder Unspecified anxiety disorder rule out Borderline Personality Disorder ASSESSMENT: Reports continued suicidal thinking, contracts for safety while in the hospital. When she is by herself, feels more depressed. Feels better when she is around other peers like her room mate. States she has continued suicidal thinking of "not want to be here - here [place]. " States she does not have initiative while here, and at home family puts her medications up. Overdose is the only way she has planned to kill herself - states she has no intent today. Cannot contract for safety if she were to be discharged today. MANAGEMENT PLAN: Continue home medications and supportive therapy. Will discharge when stable Time Date: 25 minutes Vital Signs Vital Signs Date Time Temp Pulse Resp B/P (MAP) Pulse Ox O2 Delivery O2 Flow Rate FiO2 07/03/21 06:26 97.1 86 16 150/69 (96) 92 Room Air Current Medications Current Medications Medications (Trade) Dose Ordered Sig/Jesika Route PRN Reason Start Time Stop Time Status Last Admin Dose Admin Acetaminophen (Tylenol Tab) 650 mg Q6HP PRN PO HEADACHE or MILD DISCOMFORT 06/28/21 09:55 06/28/21 20:09 Al Hydrox/Mg Hydrox/Simethicone (Mylanta) 30 ml Q4HP PRN PO HEARTBURN/INDIGESTION 06/28/21 09:55 Aripiprazole (Abilify Maintena) 400 mg Q30D IM 07/28/21 09:00 Atorvastatin Calcium (Lipitor) 20 mg QHS PO 06/28/21 21:00 07/02/21 20:08 Benztropine Mesylate (Cogentin) 1 mg QHS PO 06/28/21 21:00 07/02/21 20:08 Clonazepam (KlonoPIN) 0.5 mg BID PRN PO ANXIETY 06/29/21 11:55 07/02/21 20:05 Clonazepam (KlonoPIN) 0.5 mg DAILY PRN PO ANXIETY 06/28/21 09:55 06/29/21 11:55 DC Divalproex Sodium (Depakote) 500 mg QHS PO 06/28/21 21:00 07/02/21 20:07 Fluoxetine HCl (PROzac) 20 mg DAILY PO 06/28/21 09:00 06/28/21 10:37 DC 06/28/21 09:33 Fluoxetine HCl (PROzac) 20 mg DAILY PO 06/29/21 09:00 06/28/21 09:24 DC Fluoxetine HCl (PROzac) 20 mg DAILY PO 06/29/21 09:00 07/03/21 08:46 Gabapentin (Neurontin) 200 mg BID PO 06/28/21 09:00 06/28/21 10:37 DC 06/28/21 09:34 Gabapentin (Neurontin) 200 mg BID PO 06/28/21 21:00 06/29/21 11:53 DC 06/29/21 08:08 Gabapentin (Neurontin) 200 mg TID PO 06/29/21 16:00 07/03/21 08:47 Home Med (Home Med List Complete!) ASDIRECTED XX 06/28/21 08:55 06/28/21 09:06 DC Levothyroxine Sodium (Synthroid) 75 mcg DAILY@06 PO 06/28/21 06:00 Cancel Levothyroxine Sodium (Synthroid) 75 mcg DAILY@06 PO 06/28/21 09:30 06/28/21 10:37 DC 06/28/21 09:30 Levothyroxine Sodium (Synthroid) 75 mcg DAILY@06 PO 06/29/21 06:00 06/28/21 07:40 DC Levothyroxine Sodium (Synthroid) 75 mcg DAILY@06 PO 06/29/21 06:00 07/03/21 05:18 Levothyroxine Sodium (Synthroid) 100 mcg DAILY@06 PO 06/28/21 09:30 06/28/21 10:37 DC 06/28/21 09:34 Levothyroxine Sodium (Synthroid) 100 mcg DAILY@06 PO 06/29/21 06:00 07/03/21 05:18 Levothyroxine Sodium (Synthroid) 175 mcg DAILY@06 PO 06/28/21 09:25 Cancel Levothyroxine Sodium (Synthroid) 175 mcg DAILY@06 PO 06/29/21 06:00 06/28/21 09:24 DC Magnesium Hydroxide (Milk Of Magnesia) 30 ml DAILYPRN PRN PO CONSTIPATION 06/28/21 09:55 06/30/21 11:19 Meloxicam (Mobic) 7.5 mg DAILY PO 06/28/21 09:00 06/28/21 10:37 DC 06/28/21 09:34 Meloxicam (Mobic) 7.5 mg DAILY PO 06/29/21 09:00 07/03/21 08:46 Olanzapine (ZyPREXA ZYDIS) 5 mg Q6HP PRN PO ANXIETY/AGITATION 06/28/21 09:55 07/03/21 08:47 Omeprazole (PriLOSEC) 20 mg BID PO 06/28/21 09:00 06/28/21 10:37 DC 06/28/21 09:33 Omeprazole (PriLOSEC) 20 mg BID PO 06/28/21 21:00 07/03/21 08:46 Prazosin HCl (Minipress) 2 mg QHS PO 06/27/21 21:00 06/28/21 10:37 DC 06/27/21 21:41 Prazosin HCl (Minipress) 2 mg QHS PO 06/28/21 21:00 07/02/21 20:07 Quetiapine Fumarate (SEROquel XR) 600 mg QHS PO 06/27/21 21:00 06/27/21 20:52 DC Quetiapine Fumarate (SEROquel) 600 mg QHS PO 06/28/21 21:00 07/02/21 20:06 Trazodone HCl (Desyrel) 50 mg QHS PRN PO SLEEP 06/28/21 09:55 07/02/21 20:08 Allergies Coded Allergies: clarithromycin (Verified Allergy, Intermediate, hives and puffy face, 05/19/19) fexofenadine (Verified Allergy, Unknown, 05/05/19) pseudoephedrine (Verified Allergy, Unknown, 05/05/19) ketorolac (Verified Adverse Reaction, Mild, HEADACHE, 05/08/19) SYLVIE HOOK NP Jul 03, 2021 09:27
--- NOTE | 2021-07-03 13:07 | MHIPN ---
[facility] PROGRESS NOTE DATE: 07/02/2021 VITAL SIGNS: Blood pressure 115/57, pulse 80, temperature 96.6. This is a video assessment. She is in the inpatient psychiatry unit, seen in the presence of staff. I am at home. CHIEF COMPLAINT: Says had a good night. SUBJECTIVE: Seen for followup. Indicates has been feeling "the same," though that she had a good night and that she slept well but does not feel rested. Says moods are fair, at times depressed. Has suicidal thoughts. Says if she had the opportunity and she was outside the hospital she would take an overdose. MENTAL STATUS EXAMINATION: Neat, cooperative. No agitation. No psychomotor retardation. She is coherent. Affect reactive, fair range, somewhat incongruent with mood. Has suicidal thoughts. Has intents but denies any plans to harm herself when she is in hospital. Does not appear internally preoccupied. No overt delusions elicited. Judgment and insight remain compromised. ASSESSMENT: 1. Bipolar disorder, current episode depressed. 2. Cannabis use disorder. 3. Unspecified anxiety disorder. PLAN: Continue current care and observations. Encourage participation in activities in the unit. She will be seeing the assigned clinician tomorrow, and further recommendations will be made.
[2021-07-03] MEDS: clonazePAM 0.5 MG TAB PO PRN (13:54)
[2021-07-03 17:43] VITALS: BP 130/92
[2021-07-03] MEDS: DIVALPROEX 500 MG TAB PO SCH (20:19)
[2021-07-03] MEDS: QUEtiapine FUMARATE 200 MG TAB PO SCH (20:19)
[2021-07-03] MEDS: BENZTROPINE 1 MG TAB PO SCH (20:19)
[2021-07-03] MEDS: ATORVASTATIN 20 MG TAB PO SCH (20:19)
[2021-07-03] MEDS: traZODone 50 MG TAB PO PRN (20:20)
[2021-07-03] MEDS: PRAZOSIN 1 MG CAP PO SCH (20:24)
[2021-07-03] MEDS: ACETAMINOPHEN TAB 650MG DOSE (2X325MG) PO PRN (21:40)
[2021-07-04] MEDS: LEVOTHYROXINE 75MCG TABLET (0.075MG) PO SCH (05:43)
[2021-07-04] MEDS: LEVOTHYROXINE 100MCG TABLET (0.1MG) PO SCH (05:43)
[2021-07-04 06:44] VITALS: BP 113/62
[2021-07-04] MEDS: MELOXICAM (MOBIC) 7.5 MG TAB PO SCH (08:28)
[2021-07-04] MEDS: clonazePAM 0.5 MG TAB PO PRN ×2 (08:28→21:53)
[2021-07-04] MEDS: OMEPRAZOLE 20 MG CAP PO SCH ×2 (08:28→20:11)
[2021-07-04] MEDS: FLUoxetine 20 MG CAP PO SCH (08:28)
[2021-07-04] MEDS: GABAPENTIN 100 MG CAP PO SCH ×3 (08:28→20:11)
--- NOTE | 2021-07-04 12:28 | MHIPNPDOC ---
[facility] Progress Note Progress Note DATE OF SERVICE: 07/04/21 HISTORY: Patient is a 51 -year-old , female, who reports that the conflict and family arguments have made her very sad, alone and depressed. She stated that her family is constantly fighting and complaining about each other and expecting her to fix their interpersonal conflicts. She currently lives with her spouse, son age 32, sister age 54, and her sister's boyfriend age 54. She reports constant conflict amongst each other and verbal arguing. She reports that she felt strongly that she wanted to kill herself on Saturday had plan to take medications to overdose or if she was still driving run her car into a pole. She reports instead she called the taxi to take her to the hospital. She has a history of 6-7 psychiatric hospitalizations, reports her last hospitalization was March 2020 and that she is diagnosed bipolar is currently seen at [facility]. PER ED REPORT: Pt states, "My family is putting too much stress on me and I can't handle it anymore." Pt reports suffering from SI with plan to OD for the past 2 wks. Suicidal triggers include "being the rock" of the family & can no longer be everyone's support. Pt states, "My family wants me to save the world and I just can't." In addition to feeling overwhelmed with family stressors, she identifies having significant marital issues. Today, spouse became upset after she gave him the wrong shirt before he went to work and states "that was the tipping point for me." Pt reports spouse has changed over the past year and is afraid for their marriage. Pt continues to voice SI with plan to OD. Additionally, she admits having AH-denies command. She describes AH as "just talking among themselves." States she is also suffering from VH and describes them "as seeing bugs crawling everywhere." VITAL SIGNS: See below. NEW TEST RESULTS: Abnormal lipid panel results: Triglycerides 245. LDL cholesterol 107, total HDL cholesterol 38, cholesterol/HDL ratio 5.105 CURRENT MEDICATIONS: See below. RESPONSE TO MEDICATIONS: Denies any side effects. "They seem to be doing good ." Reports that she still has some depression. Feels like she is forcing herself to talk around, doesn't feel good "I feel depressed and sad." She is requesting an increase in Fluoxetine to 30 mg. Reviewed side effects, indications and dosing. ILLNESS EDUCATION: Educated on journaling, negative thinking. Discussed in length the brains ability to be repetitive. Discussed her ability to "rewire" impulsive and negative thinking by journaling, having "critical voice" and specific actions 1) Pause - focus your awareness on the world around you with your five senses, 2) Notice the Difference - NOTICE the difference between being stuck in your thoughts vs. experiencing the present moment through your five senses 3) Label your thoughts - LABEL your thoughts as they are, rather than literal truths. For example, you might practice slowing down your thoughts and adding to them the stem I am having the thought that . Continue this practice of labeling, without attempting to soften, change, or avoid whatever thoughts you happen to be having. and 4) Choose the intention - , NOTICED whats happening and how its been working, and LABELED your thoughts for what they aresimple, mental weather that will come and goyou are better able to CHOOSE your intention, and the next right step for you. Take a small positive step towards something that matters to her. MENTAL STATUS EXAMINATION: Patient is a 51 -year-old , female, who reports that the conflict and family arguments have made her very sad, alone and depressed and suicidal. General Appearance: unkempt, ds/not appear stated age (Appears older), hospital scrubs/clothing Build: overweight Demeanor: average Eye Contact: average Activity: average Behavior: cooperative Speech: clear, normal volume, reg/rate,rhythm,volume Mood: depression is the same, feels anxious Affect: constricted Thought Process: logical/linear Thought Content (Delusions): none reported Thought Content (Other): none reported Thought Content (Aggressive): none reported Perception (Hallucinations): auditory, visual, tactile Perception (Other): none reported Cognition (Impairment of): none reported Cognition(Intelligence Est.): other (Below average) Oriented: Awake, Alert, Oriented times three Insight: fair Judgment: Fair Psychosis: Denies DIAGNOSES: Bipolar 1 disorder, current episode, depressed mood Cannabis use disorder Unspecified anxiety disorder rule out Borderline Personality Disorder ASSESSMENT: Reports continued depression and not reports of side effects of the medications. She feels that an increase in Fluoxetine will improve this. We discussed the possibility of increasing manic symptoms if SSRI was increased. She is aware of this. She reports that much of her stressors are how her treats her, how her family was making her do so much around the home. She felt very conflicted with her family arguing with each other, feels that she should not have to solve their interpersonal conflicts. Patient reported that journaling was helpful. Will be utilizing it as a daily coping skill. We talked about how she can make strong recommendations to her her family regarding housework and an equitable plan to divvy up the work. States that while she is in the hospital she continues to feel unmotivated, depressed, sad and anhedonic. MANAGEMENT PLAN: Continue home medications and supportive therapy. Will discharge when stable Time Date: 25 minutes Vital Signs Vital Signs Date Time Temp Pulse Resp B/P (MAP) Pulse Ox O2 Delivery O2 Flow Rate FiO2 07/04/21 06:44 98.0 76 20 113/62 (79) 95 Room Air Current Medications Current Medications Medications (Trade) Dose Ordered Sig/Jesika Route PRN Reason Start Time Stop Time Status Last Admin Dose Admin Acetaminophen (Tylenol Tab) 650 mg Q6HP PRN PO HEADACHE or MILD DISCOMFORT 06/28/21 09:55 07/03/21 21:40 Al Hydrox/Mg Hydrox/Simethicone (Mylanta) 30 ml Q4HP PRN PO HEARTBURN/INDIGESTION 06/28/21 09:55 Aripiprazole (Abilify Maintena) 400 mg Q30D IM 07/28/21 09:00 Atorvastatin Calcium (Lipitor) 20 mg QHS PO 06/28/21 21:00 07/03/21 20:19 Benztropine Mesylate (Cogentin) 1 mg QHS PO 06/28/21 21:00 07/03/21 20:19 Clonazepam (KlonoPIN) 0.5 mg BID PRN PO ANXIETY 06/29/21 11:55 07/04/21 08:28 Clonazepam (KlonoPIN) 0.5 mg DAILY PRN PO ANXIETY 06/28/21 09:55 06/29/21 11:55 DC Divalproex Sodium (Depakote) 500 mg QHS PO 06/28/21 21:00 07/03/21 20:19 Fluoxetine HCl (PROzac) 20 mg DAILY PO 06/28/21 09:00 06/28/21 10:37 DC 06/28/21 09:33 Fluoxetine HCl (PROzac) 20 mg DAILY PO 06/29/21 09:00 06/28/21 09:24 DC Fluoxetine HCl (PROzac) 20 mg DAILY PO 06/29/21 09:00 07/04/21 08:28 Gabapentin (Neurontin) 200 mg BID PO 06/28/21 09:00 06/28/21 10:37 DC 06/28/21 09:34 Gabapentin (Neurontin) 200 mg BID PO 06/28/21 21:00 06/29/21 11:53 DC 06/29/21 08:08 Gabapentin (Neurontin) 200 mg TID PO 06/29/21 16:00 07/04/21 08:28 Home Med (Home Med List Complete!) ASDIRECTED XX 06/28/21 08:55 06/28/21 09:06 DC Levothyroxine Sodium (Synthroid) 75 mcg DAILY@06 PO 06/28/21 06:00 Cancel Levothyroxine Sodium (Synthroid) 75 mcg DAILY@06 PO 06/28/21 09:30 06/28/21 10:37 DC 06/28/21 09:30 Levothyroxine Sodium (Synthroid) 75 mcg DAILY@06 PO 06/29/21 06:00 06/28/21 07:40 DC Levothyroxine Sodium (Synthroid) 75 mcg DAILY@06 PO 06/29/21 06:00 07/04/21 05:43 Levothyroxine Sodium (Synthroid) 100 mcg DAILY@06 PO 06/28/21 09:30 06/28/21 10:37 DC 06/28/21 09:34 Levothyroxine Sodium (Synthroid) 100 mcg DAILY@06 PO 06/29/21 06:00 07/04/21 05:43 Levothyroxine Sodium (Synthroid) 175 mcg DAILY@06 PO 06/28/21 09:25 Cancel Levothyroxine Sodium (Synthroid) 175 mcg DAILY@06 PO 06/29/21 06:00 06/28/21 09:24 DC Magnesium Hydroxide (Milk Of Magnesia) 30 ml DAILYPRN PRN PO CONSTIPATION 06/28/21 09:55 06/30/21 11:19 Meloxicam (Mobic) 7.5 mg DAILY PO 06/28/21 09:00 06/28/21 10:37 DC 06/28/21 09:34 Meloxicam (Mobic) 7.5 mg DAILY PO 06/29/21 09:00 07/04/21 08:28 Olanzapine (ZyPREXA ZYDIS) 5 mg Q6HP PRN PO ANXIETY/AGITATION 06/28/21 09:55 07/03/21 08:47 Omeprazole (PriLOSEC) 20 mg BID PO 06/28/21 09:00 06/28/21 10:37 DC 06/28/21 09:33 Omeprazole (PriLOSEC) 20 mg BID PO 06/28/21 21:00 07/04/21 08:28 Prazosin HCl (Minipress) 2 mg QHS PO 06/27/21 21:00 06/28/21 10:37 DC 06/27/21 21:41 Prazosin HCl (Minipress) 2 mg QHS PO 06/28/21 21:00 07/03/21 20:24 Quetiapine Fumarate (SEROquel XR) 600 mg QHS PO 06/27/21 21:00 06/27/21 20:52 DC Quetiapine Fumarate (SEROquel) 600 mg QHS PO 06/28/21 21:00 07/03/21 20:19 Trazodone HCl (Desyrel) 50 mg QHS PRN PO SLEEP 06/28/21 09:55 07/03/21 20:20 Allergies Coded Allergies: clarithromycin (Verified Allergy, Intermediate, hives and puffy face, 05/19/19) fexofenadine (Verified Allergy, Unknown, 05/05/19) pseudoephedrine (Verified Allergy, Unknown, 05/05/19) ketorolac (Verified Adverse Reaction, Mild, HEADACHE, 05/08/19) SYLVIE HOOK NP Jul 04, 2021 11:30
[2021-07-04] MEDS: ACETAMINOPHEN TAB 650MG DOSE (2X325MG) PO PRN (13:54)
[2021-07-04] MEDS: OLANZapine ORAL DISINTEGRATING TAB 5MG PO PRN (18:10)
[2021-07-04 19:09] VITALS: BP 160/102
[2021-07-04] MEDS: DIVALPROEX 500 MG TAB PO SCH (20:10)
[2021-07-04] MEDS: ATORVASTATIN 20 MG TAB PO SCH (20:10)
[2021-07-04] MEDS: traZODone 50 MG TAB PO PRN (20:11)
[2021-07-04] MEDS: BENZTROPINE 1 MG TAB PO SCH (20:11)
[2021-07-04] MEDS: QUEtiapine FUMARATE 200 MG TAB PO SCH (20:11)
[2021-07-04] MEDS: PRAZOSIN 1 MG CAP PO SCH (21:47)
[2021-07-05] MEDS: LEVOTHYROXINE 100MCG TABLET (0.1MG) PO SCH (05:28)
[2021-07-05] MEDS: LEVOTHYROXINE 75MCG TABLET (0.075MG) PO SCH (05:28)
[2021-07-05 06:33] VITALS: BP 117/61
[2021-07-05] MEDS: OMEPRAZOLE 20 MG CAP PO SCH ×2 (08:02→20:22)
[2021-07-05] MEDS: GABAPENTIN 100 MG CAP PO SCH ×3 (08:02→20:22)
[2021-07-05] MEDS: MELOXICAM (MOBIC) 7.5 MG TAB PO SCH (08:02)
[2021-07-05] MEDS: FLUoxetine 10 MG CAP PO SCH (08:03)
[2021-07-05] MEDS: OLANZapine ORAL DISINTEGRATING TAB 5MG PO PRN (09:24)
[2021-07-05] MEDS: clonazePAM 0.5 MG TAB PO PRN (15:18)
--- NOTE | 2021-07-05 17:30 | MHIPN ---
[facility] PROGRESS NOTE DATE: 07/05/2021 The patient tells me today, "I am very, very depressed." She continues to feel hopeless and helpless and has low self esteem. She is having current suicidal ideations, although she is able to contract for safety at this time. She says that her sleep is good with her current medications. MENTAL STATUS EXAMINATION: She is alert and oriented times three. She is pleasant. She is cooperative. Verbally spontaneous. Eye contact is fair. Psychomotor activity is decreased. There is no formal thought disorder noted. Mood is depressed. Affect is appropriate to mood. She is not psychotic. She continues to have suicidal thoughts. She is not homicidal. Concentration is fair. Memory intact. Insight and judgment are poor. DIAGNOSES: 1. Bipolar disorder, type 1, depressed. 2. Cannabis use disorder. 3. Unspecified anxiety disorder. 4. Rule out borderline personality disorder. TREATMENT PLAN: At this point, we will continue to monitor the patient for continued depression and suicidal thoughts. As I said, she is able to contract for safety at this point. Her Prozac was just increased yesterday to 30 mg, and I discussed with the patient that she really needs to give the medication more time to work.
[2021-07-05] MEDS: PRAZOSIN 1 MG CAP PO SCH (20:21)
[2021-07-05] MEDS: DIVALPROEX 500 MG TAB PO SCH (20:21)
[2021-07-05] MEDS: QUEtiapine FUMARATE 200 MG TAB PO SCH (20:22)
[2021-07-05] MEDS: traZODone 50 MG TAB PO PRN (20:22)
[2021-07-05] MEDS: BENZTROPINE 1 MG TAB PO SCH (20:22)
[2021-07-05] MEDS: ATORVASTATIN 20 MG TAB PO SCH (20:22)
[2021-07-06] MEDS: LEVOTHYROXINE 100MCG TABLET (0.1MG) PO SCH (05:30)
[2021-07-06] MEDS: LEVOTHYROXINE 75MCG TABLET (0.075MG) PO SCH (05:31)
[2021-07-06 05:59] VITALS: BP 133/73
[2021-07-06] MEDS: FLUoxetine 10 MG CAP PO SCH (08:14)
[2021-07-06] MEDS: GABAPENTIN 100 MG CAP PO SCH ×3 (08:14→20:39)
[2021-07-06] MEDS: MELOXICAM (MOBIC) 7.5 MG TAB PO SCH (08:14)
[2021-07-06] MEDS: OMEPRAZOLE 20 MG CAP PO SCH ×2 (08:14→20:39)
[2021-07-06] MEDS: clonazePAM 0.5 MG TAB PO PRN (08:21)
--- NOTE | 2021-07-06 14:46 | MHIPNPDOC ---
[facility] Progress Note Progress Note DATE OF SERVICE: 07/06/21 HISTORY: Patient is a 51 -year-old , female, who reports that the conflict and family arguments have made her very sad, alone and depressed. She stated that her family is constantly fighting and complaining about each other and expecting her to fix their interpersonal conflicts. She currently lives with her spouse, son age 32, sister age 54, and her sister's boyfriend age 54. She reports constant conflict amongst each other and verbal arguing. She reports that she felt strongly that she wanted to kill herself on Saturday had plan to take medications to overdose or if she was still driving run her car into a pole. She reports instead she called the taxi to take her to the hospital. She has a history of 6-7 psychiatric hospitalizations, reports her last hospitalization was March 2020 and that she is diagnosed bipolar is currently seen at [facility]. PER ED REPORT: Pt states, "My family is putting too much stress on me and I can't handle it anymore." Pt reports suffering from SI with plan to OD for the past 2 wks. Suicidal triggers include "being the rock" of the family & can no longer be everyone's support. Pt states, "My family wants me to save the world and I just can't." In addition to feeling overwhelmed with family stressors, she identifies having significant marital issues. Today, spouse became upset after she gave him the wrong shirt before he went to work and states "that was the tipping point for me." Pt reports spouse has changed over the past year and is afraid for their marriage. Pt continues to voice SI with plan to OD. Additionally, she admits having AH-denies command. She describes AH as "just talking among themselves." States she is also suffering from VH and describes them "as seeing bugs crawling everywhere." VITAL SIGNS: See below. NEW TEST RESULTS: None CURRENT MEDICATIONS: See below. RESPONSE TO MEDICATIONS: Denies any side effects. Fluoxetine was increased 2 days ago. Does not report any improvement in her depression ILLNESS EDUCATION: Reviewed how to communicate her needs to her family. States that she has communicated to her family about her illness, how their conflicts with each other caused her increase in anxiety and subsequently depression. MENTAL STATUS EXAMINATION: Patient is a 51 -year-old , female, who reports that the conflict and family arguments have made her very sad, alone and depressed and suicidal. General Appearance: unkempt, ds/not appear stated age (Appears older), hospital scrubs/clothing Build: overweight Demeanor: average Eye Contact: average Activity: average Behavior: cooperative Speech: clear, normal volume, reg/rate,rhythm,volume Mood: depression is the same, feels anxious Affect: constricted Thought Process: logical/linear Thought Content (Delusions): none reported Perception (Hallucinations): auditory, visual, tactile Cognition (Impairment of): none reported Oriented: Awake, Alert, Oriented times three Insight: fair Judgment: Fair Psychosis: Denies DIAGNOSES: Bipolar 1 disorder, current episode, depressed mood Cannabis use disorder Unspecified anxiety disorder rule out Borderline Personality Disorder ASSESSMENT: Patient is quarantined in room due to exposure, states that her depression increased due to being isolated to her room. Feels that much of her current depression and anxiety is from not being able to talk to her peers, states that she feels isolated and withdrawn. States that she is having positive conversations with her family about her needs and their need to contribute to the upkeep of the home. Denies any side effects of medications. Denies pain. Reported to staff that she has fleeting suicidal ideations. She reports not feeling stable for discharge. MANAGEMENT PLAN: Continue home medications and supportive therapy. Will discharge when stable Time Date: 25 minutes Vital Signs Vital Signs Date Time Temp Pulse Resp B/P (MAP) Pulse Ox O2 Delivery O2 Flow Rate FiO2 07/06/21 05:59 97.5 98 16 133/73 (93) 95 Room Air Current Medications Current Medications Medications (Trade) Dose Ordered Sig/Jesika Route PRN Reason Start Time Stop Time Status Last Admin Dose Admin Acetaminophen (Tylenol Tab) 650 mg Q6HP PRN PO HEADACHE or MILD DISCOMFORT 06/28/21 09:55 07/04/21 13:54 Al Hydrox/Mg Hydrox/Simethicone (Mylanta) 30 ml Q4HP PRN PO HEARTBURN/INDIGESTION 06/28/21 09:55 Aripiprazole (Abilify Maintena) 400 mg Q30D IM 07/28/21 09:00 Atorvastatin Calcium (Lipitor) 20 mg QHS PO 06/28/21 21:00 07/05/21 20:22 Benztropine Mesylate (Cogentin) 1 mg QHS PO 06/28/21 21:00 07/05/21 20:22 Clonazepam (KlonoPIN) 0.5 mg BID PRN PO ANXIETY 06/29/21 11:55 07/05/21 20:55 DC 07/05/21 15:18 Clonazepam (KlonoPIN) 0.5 mg BID PRN PO anxiety 07/05/21 23:59 07/06/21 08:21 Clonazepam (KlonoPIN) 0.5 mg DAILY PRN PO ANXIETY 06/28/21 09:55 06/29/21 11:55 DC Divalproex Sodium (Depakote) 500 mg QHS PO 06/28/21 21:00 07/05/21 20:21 Fluoxetine HCl (PROzac) 20 mg DAILY PO 06/28/21 09:00 06/28/21 10:37 DC 06/28/21 09:33 Fluoxetine HCl (PROzac) 20 mg DAILY PO 06/29/21 09:00 06/28/21 09:24 DC Fluoxetine HCl (PROzac) 20 mg DAILY PO 06/29/21 09:00 07/04/21 11:56 DC 07/04/21 08:28 Fluoxetine HCl (PROzac) 30 mg QAM PO 07/05/21 09:00 07/06/21 08:14 Gabapentin (Neurontin) 200 mg BID PO 06/28/21 09:00 06/28/21 10:37 DC 06/28/21 09:34 Gabapentin (Neurontin) 200 mg BID PO 06/28/21 21:00 06/29/21 11:53 DC 06/29/21 08:08 Gabapentin (Neurontin) 200 mg TID PO 06/29/21 16:00 07/06/21 08:14 Home Med (Home Med List Complete!) ASDIRECTED XX 06/28/21 08:55 06/28/21 09:06 DC Levothyroxine Sodium (Synthroid) 75 mcg DAILY@06 PO 06/28/21 06:00 Cancel Levothyroxine Sodium (Synthroid) 75 mcg DAILY@06 PO 06/28/21 09:30 06/28/21 10:37 DC 06/28/21 09:30 Levothyroxine Sodium (Synthroid) 75 mcg DAILY@06 PO 06/29/21 06:00 06/28/21 07:40 DC Levothyroxine Sodium (Synthroid) 75 mcg DAILY@06 PO 06/29/21 06:00 07/06/21 05:31 Levothyroxine Sodium (Synthroid) 100 mcg DAILY@06 PO 06/28/21 09:30 06/28/21 10:37 DC 06/28/21 09:34 Levothyroxine Sodium (Synthroid) 100 mcg DAILY@06 PO 06/29/21 06:00 07/06/21 05:30 Levothyroxine Sodium (Synthroid) 175 mcg DAILY@06 PO 06/28/21 09:25 Cancel Levothyroxine Sodium (Synthroid) 175 mcg DAILY@06 PO 06/29/21 06:00 06/28/21 09:24 DC Magnesium Hydroxide (Milk Of Magnesia) 30 ml DAILYPRN PRN PO CONSTIPATION 06/28/21 09:55 06/30/21 11:19 Meloxicam (Mobic) 7.5 mg DAILY PO 06/28/21 09:00 06/28/21 10:37 DC 06/28/21 09:34 Meloxicam (Mobic) 7.5 mg DAILY PO 06/29/21 09:00 07/06/21 08:14 Miscellaneous (Unresolved Clarification Entry) SEE LABEL COMMENTS DAILY XX 07/04/21 09:00 07/05/21 16:50 DC Olanzapine (ZyPREXA ZYDIS) 5 mg Q6HP PRN PO ANXIETY/AGITATION 06/28/21 09:55 07/05/21 09:24 Omeprazole (PriLOSEC) 20 mg BID PO 06/28/21 09:00 06/28/21 10:37 DC 06/28/21 09:33 Omeprazole (PriLOSEC) 20 mg BID PO 06/28/21 21:00 07/06/21 08:14 Prazosin HCl (Minipress) 2 mg QHS PO 06/27/21 21:00 06/28/21 10:37 DC 06/27/21 21:41 Prazosin HCl (Minipress) 2 mg QHS PO 06/28/21 21:00 07/05/21 20:21 Quetiapine Fumarate (SEROquel XR) 600 mg QHS PO 06/27/21 21:00 06/27/21 20:52 DC Quetiapine Fumarate (SEROquel) 600 mg QHS PO 06/28/21 21:00 07/05/21 20:22 Trazodone HCl (Desyrel) 50 mg QHS PRN PO SLEEP 06/28/21 09:55 07/05/21 20:22 Allergies Coded Allergies: clarithromycin (Verified Allergy, Intermediate, hives and puffy face, 05/19/19) fexofenadine (Verified Allergy, Unknown, 05/05/19) pseudoephedrine (Verified Allergy, Unknown, 05/05/19) ketorolac (Verified Adverse Reaction, Mild, HEADACHE, 05/08/19) SYLVIE HOOK NP Jul 06, 2021 12:21
[2021-07-06] MEDS: OLANZapine ORAL DISINTEGRATING TAB 5MG PO PRN (14:47)
[2021-07-06 17:48] VITALS: BP 138/84
[2021-07-06] MEDS: BENZTROPINE 1 MG TAB PO SCH (20:39)
[2021-07-06] MEDS: QUEtiapine FUMARATE 200 MG TAB PO SCH (20:39)
[2021-07-06] MEDS: DIVALPROEX 500 MG TAB PO SCH (20:40)
[2021-07-06] MEDS: PRAZOSIN 1 MG CAP PO SCH (20:40)
[2021-07-06] MEDS: ATORVASTATIN 20 MG TAB PO SCH (20:40)
[2021-07-06] MEDS: traZODone 50 MG TAB PO PRN (20:40)
[2021-07-07] MEDS: ACETAMINOPHEN TAB 650MG DOSE (2X325MG) PO PRN ×2 (04:57→21:47)
[2021-07-07] MEDS: LEVOTHYROXINE 75MCG TABLET (0.075MG) PO SCH (06:03)
[2021-07-07] MEDS: LEVOTHYROXINE 100MCG TABLET (0.1MG) PO SCH (06:03)
[2021-07-07 06:39] VITALS: BP 115/68
[2021-07-07] MEDS: MELOXICAM (MOBIC) 7.5 MG TAB PO SCH (08:30)
[2021-07-07] MEDS: OMEPRAZOLE 20 MG CAP PO SCH ×2 (08:30→21:24)
[2021-07-07] MEDS: GABAPENTIN 100 MG CAP PO SCH ×3 (08:30→21:24)
[2021-07-07] MEDS: FLUoxetine 10 MG CAP PO SCH (08:30)
[2021-07-07] MEDS: clonazePAM 0.5 MG TAB PO PRN (08:31)
--- NOTE | 2021-07-07 14:19 | MHIPNPDOC ---
[facility] Progress Note Progress Note DATE OF SERVICE: 07/07/21 HISTORY: Patient is a 51 -year-old , female, who reports that the conflict and family arguments have made her very sad, alone and depressed. She stated that her family is constantly fighting and complaining about each other and expecting her to fix their interpersonal conflicts. She currently lives with her spouse, son age 32, sister age 54, and her sister's boyfriend age 54. She reports constant conflict amongst each other and verbal arguing. She reports that she felt strongly that she wanted to kill herself on Saturday had plan to take medications to overdose or if she was still driving run her car into a pole. She reports instead she called the taxi to take her to the hospital. She has a history of 6-7 psychiatric hospitalizations, reports her last hospitalization was March 2020 and that she is diagnosed bipolar is currently seen at [facility]. PER ED REPORT: Pt states, "My family is putting too much stress on me and I can't handle it anymore." Pt reports suffering from SI with plan to OD for the past 2 wks. Suicidal triggers include "being the rock" of the family & can no longer be everyone's support. Pt states, "My family wants me to save the world and I just can't." In addition to feeling overwhelmed with family stressors, she identifies having significant marital issues. Today, spouse became upset after she gave him the wrong shirt before he went to work and states "that was the tipping point for me." Pt reports spouse has changed over the past year and is afraid for their marriage. Pt continues to voice SI with plan to OD. Additionally, she admits having AH-denies command. She describes AH as "just talking among themselves." States she is also suffering from VH and describes them "as seeing bugs crawling everywhere." VITAL SIGNS: See below. NEW TEST RESULTS: None CURRENT MEDICATIONS: See below. RESPONSE TO MEDICATIONS: Denies any side effects. No adverse reactions. Does not report any improvement in her depression. ILLNESS EDUCATION: Reviewed how to communicate her needs to her family. States that she has communicated to her family about her illness, how their conflicts with each other caused her increase in anxiety and subsequently depression. MENTAL STATUS EXAMINATION: Patient is a 51 -year-old , female, who reports that the conflict and family arguments have made her very sad, alone and depressed and suicidal. General Appearance: unkempt, ds/not appear stated age (Appears older), hospital scrubs/clothing Speech: Is fluid, normal rate, tone and volume Language skills are intact Thought processes including: linear and goal oriented Thought content: reports continued depression and milder anxiety. Fleeting suicidal ideations states that she has always planned on overdosing, no intrusive intention but can't contract for safety today. No homicidal ideation, planning or intent. Abstract reasoning, and computation: fair Description of associations: denies, none observed Description of abnormal or psychotic thoughts: denies, none observed. Judgment: fair Insight: fair Orientation: alert and oriented to person, place, time and situation Recent and remote memory: intact Attention span and concentration: good Language: expansive Fund of knowledge: average Mood: Depressed Mood Affect: flat DIAGNOSES: Bipolar 1 disorder, current episode, depressed mood Cannabis use disorder Unspecified anxiety disorder rule out Borderline Personality Disorder Assessment: Patient is still quarantined which is exacerbating some depressive symptoms. She has been using an iPad for some entertainment and provider has given her books for reading. Patient states that had recently talked with her sister and that the communication was decent. She admitted to her sister that she and her 's strained relationship was partly the reason why she felt overwhelmed, frustrated, anxious and ultimately depressed. She states that she often "does not want to live." She had reported that due to childhood trauma as well as trauma as an adult, she often is triggered and her knee-jerk reaction is to wish "to not be alive." She states that she is journaling. She is hopeful to be discharged next week. Patient is here on day 12 does not feel that she is ready to be dischargedpatient to be converted to voluntary legal status. Denies pain. Reported to staff that she has fleeting suicidal ideations. She reports not feeling stable for discharge. MANAGEMENT PLAN: Continue home medications and supportive therapy. Will discharge when stable Time Date: 25 minutes Vital Signs Vital Signs Date Time Temp Pulse Resp B/P (MAP) Pulse Ox O2 Delivery O2 Flow Rate FiO2 07/07/21 06:39 96.8 68 16 115/68 (84) 100 Room Air Current Medications Current Medications Medications (Trade) Dose Ordered Sig/Jesika Route PRN Reason Start Time Stop Time Status Last Admin Dose Admin Acetaminophen (Tylenol Tab) 650 mg Q6HP PRN PO HEADACHE or MILD DISCOMFORT 06/28/21 09:55 07/07/21 04:57 Al Hydrox/Mg Hydrox/Simethicone (Mylanta) 30 ml Q4HP PRN PO HEARTBURN/INDIGESTION 06/28/21 09:55 Aripiprazole (Abilify Maintena) 400 mg Q30D IM 07/28/21 09:00 Atorvastatin Calcium (Lipitor) 20 mg QHS PO 06/28/21 21:00 07/06/21 20:40 Benztropine Mesylate (Cogentin) 1 mg QHS PO 06/28/21 21:00 07/06/21 20:39 Clonazepam (KlonoPIN) 0.5 mg BID PRN PO ANXIETY 06/29/21 11:55 07/05/21 20:55 DC 07/05/21 15:18 Clonazepam (KlonoPIN) 0.5 mg BID PRN PO anxiety 07/05/21 23:59 07/07/21 08:31 Clonazepam (KlonoPIN) 0.5 mg DAILY PRN PO ANXIETY 06/28/21 09:55 06/29/21 11:55 DC Divalproex Sodium (Depakote) 500 mg QHS PO 06/28/21 21:00 07/06/21 20:40 Fluoxetine HCl (PROzac) 20 mg DAILY PO 06/28/21 09:00 06/28/21 10:37 DC 06/28/21 09:33 Fluoxetine HCl (PROzac) 20 mg DAILY PO 06/29/21 09:00 06/28/21 09:24 DC Fluoxetine HCl (PROzac) 20 mg DAILY PO 06/29/21 09:00 07/04/21 11:56 DC 07/04/21 08:28 Fluoxetine HCl (PROzac) 30 mg QAM PO 07/05/21 09:00 07/07/21 08:30 Gabapentin (Neurontin) 200 mg BID PO 06/28/21 09:00 06/28/21 10:37 DC 06/28/21 09:34 Gabapentin (Neurontin) 200 mg BID PO 06/28/21 21:00 06/29/21 11:53 DC 06/29/21 08:08 Gabapentin (Neurontin) 200 mg TID PO 06/29/21 16:00 07/07/21 08:30 Home Med (Home Med List Complete!) ASDIRECTED XX 06/28/21 08:55 06/28/21 09:06 DC Levothyroxine Sodium (Synthroid) 75 mcg DAILY@06 PO 06/28/21 06:00 Cancel Levothyroxine Sodium (Synthroid) 75 mcg DAILY@06 PO 06/28/21 09:30 06/28/21 10:37 DC 06/28/21 09:30 Levothyroxine Sodium (Synthroid) 75 mcg DAILY@06 PO 06/29/21 06:00 06/28/21 07:40 DC Levothyroxine Sodium (Synthroid) 75 mcg DAILY@06 PO 06/29/21 06:00 07/07/21 06:03 Levothyroxine Sodium (Synthroid) 100 mcg DAILY@06 PO 06/28/21 09:30 06/28/21 10:37 DC 06/28/21 09:34 Levothyroxine Sodium (Synthroid) 100 mcg DAILY@06 PO 06/29/21 06:00 07/07/21 06:03 Levothyroxine Sodium (Synthroid) 175 mcg DAILY@06 PO 06/28/21 09:25 Cancel Levothyroxine Sodium (Synthroid) 175 mcg DAILY@06 PO 06/29/21 06:00 06/28/21 09:24 DC Magnesium Hydroxide (Milk Of Magnesia) 30 ml DAILYPRN PRN PO CONSTIPATION 06/28/21 09:55 06/30/21 11:19 Meloxicam (Mobic) 7.5 mg DAILY PO 06/28/21 09:00 06/28/21 10:37 DC 06/28/21 09:34 Meloxicam (Mobic) 7.5 mg DAILY PO 06/29/21 09:00 07/07/21 08:30 Miscellaneous (Unresolved Clarification Entry) SEE LABEL COMMENTS DAILY XX 07/04/21 09:00 07/05/21 16:50 DC Olanzapine (ZyPREXA ZYDIS) 5 mg Q6HP PRN PO ANXIETY/AGITATION 06/28/21 09:55 07/06/21 14:47 Omeprazole (PriLOSEC) 20 mg BID PO 06/28/21 09:00 06/28/21 10:37 DC 06/28/21 09:33 Omeprazole (PriLOSEC) 20 mg BID PO 06/28/21 21:00 07/07/21 08:30 Prazosin HCl (Minipress) 2 mg QHS PO 06/27/21 21:00 06/28/21 10:37 DC 06/27/21 21:41 Prazosin HCl (Minipress) 2 mg QHS PO 06/28/21 21:00 07/06/21 20:40 Quetiapine Fumarate (SEROquel XR) 600 mg QHS PO 06/27/21 21:00 06/27/21 20:52 DC Quetiapine Fumarate (SEROquel) 600 mg QHS PO 06/28/21 21:00 07/06/21 20:39 Trazodone HCl (Desyrel) 50 mg QHS PRN PO SLEEP 06/28/21 09:55 07/06/21 20:40 Allergies Coded Allergies: clarithromycin (Verified Allergy, Intermediate, hives and puffy face, 05/19/19) fexofenadine (Verified Allergy, Unknown, 05/05/19) pseudoephedrine (Verified Allergy, Unknown, 05/05/19) ketorolac (Verified Adverse Reaction, Mild, HEADACHE, 05/08/19) SYLVIE HOOK NP Jul 07, 2021 13:42
[2021-07-07] MEDS: OLANZapine ORAL DISINTEGRATING TAB 5MG PO PRN (15:03)
[2021-07-07 18:50] VITALS: BP 142/88
[2021-07-07] MEDS: QUEtiapine FUMARATE 200 MG TAB PO SCH (21:24)
[2021-07-07] MEDS: BENZTROPINE 1 MG TAB PO SCH (21:24)
[2021-07-07] MEDS: DIVALPROEX 500 MG TAB PO SCH (21:24)
[2021-07-07] MEDS: traZODone 50 MG TAB PO PRN (21:24)
[2021-07-07] MEDS: ATORVASTATIN 20 MG TAB PO SCH (21:25)
[2021-07-07] MEDS: PRAZOSIN 1 MG CAP PO SCH (21:46)
[2021-07-07 21:48] VITALS: BP 181/83
[2021-07-08] MEDS: LEVOTHYROXINE 100MCG TABLET (0.1MG) PO SCH (06:12)
[2021-07-08] MEDS: LEVOTHYROXINE 75MCG TABLET (0.075MG) PO SCH (06:12)
[2021-07-08 07:00] VITALS: BP 145/92
[2021-07-08] MEDS: clonazePAM 0.5 MG TAB PO PRN ×2 (07:19→22:02)
[2021-07-08] MEDS: MELOXICAM (MOBIC) 7.5 MG TAB PO SCH (09:35)
[2021-07-08] MEDS: OMEPRAZOLE 20 MG CAP PO SCH ×2 (09:35→20:45)
[2021-07-08] MEDS: GABAPENTIN 100 MG CAP PO SCH ×3 (09:35→20:45)
[2021-07-08] MEDS: FLUoxetine 10 MG CAP PO SCH (09:35)
[2021-07-08] MEDS: OLANZapine ORAL DISINTEGRATING TAB 5MG PO PRN (13:51)
[2021-07-08 18:31] VITALS: BP 150/100
[2021-07-08] MEDS: DIVALPROEX 500 MG TAB PO SCH (20:45)
[2021-07-08] MEDS: ATORVASTATIN 20 MG TAB PO SCH (20:45)
[2021-07-08] MEDS: traZODone 50 MG TAB PO PRN (20:45)
[2021-07-08] MEDS: QUEtiapine FUMARATE 200 MG TAB PO SCH (20:46)
[2021-07-08] MEDS: BENZTROPINE 1 MG TAB PO SCH (20:47)
[2021-07-08] MEDS: PRAZOSIN 1 MG CAP PO SCH (21:01)
[2021-07-09] MEDS: LEVOTHYROXINE 100MCG TABLET (0.1MG) PO SCH (05:58)
[2021-07-09] MEDS: LEVOTHYROXINE 75MCG TABLET (0.075MG) PO SCH (05:58)
[2021-07-09 07:04] VITALS: BP 120/77
[2021-07-09] MEDS: MELOXICAM (MOBIC) 7.5 MG TAB PO SCH (08:07)
[2021-07-09] MEDS: OMEPRAZOLE 20 MG CAP PO SCH ×2 (08:08→20:17)
[2021-07-09] MEDS: FLUoxetine 10 MG CAP PO SCH (08:08)
[2021-07-09] MEDS: GABAPENTIN 100 MG CAP PO SCH ×3 (08:08→20:17)
[2021-07-09] MEDS: clonazePAM 0.5 MG TAB PO PRN (08:11)
[2021-07-09 18:37] VITALS: BP 133/89
[2021-07-09] MEDS: ACETAMINOPHEN TAB 650MG DOSE (2X325MG) PO PRN (19:30)
[2021-07-09] MEDS: BENZTROPINE 1 MG TAB PO SCH (20:16)
[2021-07-09] MEDS: DIVALPROEX 500 MG TAB PO SCH (20:16)
[2021-07-09 20:17] VITALS: BP 154/85
[2021-07-09] MEDS: QUEtiapine FUMARATE 200 MG TAB PO SCH (20:17)
[2021-07-09] MEDS: PRAZOSIN 1 MG CAP PO SCH (20:17)
[2021-07-09] MEDS: ATORVASTATIN 20 MG TAB PO SCH (20:17)
[2021-07-09] MEDS: traZODone 50 MG TAB PO PRN (20:17)
[2021-07-10] MEDS: LEVOTHYROXINE 100MCG TABLET (0.1MG) PO SCH (06:00)
[2021-07-10] MEDS: LEVOTHYROXINE 75MCG TABLET (0.075MG) PO SCH (06:00)
[2021-07-10] MEDS: MELOXICAM (MOBIC) 7.5 MG TAB PO SCH (08:34)
[2021-07-10] MEDS: OMEPRAZOLE 20 MG CAP PO SCH (08:35)
[2021-07-10] MEDS: FLUoxetine 10 MG CAP PO SCH (08:35)
[2021-07-10] MEDS: GABAPENTIN 100 MG CAP PO SCH (08:35)
[2021-07-10] MEDS ORDERED: GABA-1171 PO (11:10)
[2021-07-10] MEDS ORDERED: TRAZ-252 PO (11:10)
[2021-07-10] MEDS ORDERED: CLON0.5T2 PO (11:10)
[2021-07-10] MEDS ORDERED: MELO7.5T35 PO (11:10)
[2021-07-10] MEDS ORDERED: FLUO10CA16 PO (11:10)
--- NOTE | 2021-07-10 16:29 | MHDSPDOC ---
[facility] Discharge Summary Discharge Summary DATE OF ADMISSION: Jun 28, 2021 at 09:55 DATE OF DISCHARGE: Jul 10, 2021 at 12:07 DISCHARGE DIAGNOSES: Bipolar 1 disorder, current episode, depressed mood Cannabis use disorder Unspecified anxiety disorder rule out Borderline Personality Disorder REASON FOR ADMISSION: Patient is a 51 -year-old , female, who reports that the conflict and family arguments have made her very sad, alone and depressed with suicidal thoughts to overdose. She stated that her family is constantly fighting and complaining about each other and expecting her to fix their interpersonal conflicts. She currently lives with her spouse, son age 32, sister age 54, and her sister's boyfriend age 54. She reports constant conflict amongst each other and verbal arguing. She reports that she felt strongly that she wanted to kill herself on Saturday had plan to take medications to overdose or if she was still driving run her car into a pole. She reports instead she called the taxi to take her to the hospital. She has a history of 6-7 psychiatr [address] hospitalizations, reports her last hospitalization was March 2020 and that she is diagnosed bipolar is currently seen at [facility]. PER ED REPORT: Pt states, "My family is putting too much stress on me and I can't handle it anymore." Pt reports suffering from SI with plan to OD for the past 2 wks. Suicidal triggers include "being the rock" of the family & can no longer be everyone's support. Pt states, "My family wants me to save the world and I just can't." In addition to feeling overwhelmed with family stressors, she identifies having significant marital issues. Today, spouse became upset after she gave him the wrong shirt before he went to work and states "that was the tipping point for me." Pt reports spouse has changed over the past year and is afraid for their marriage. Pt continues to voice SI with plan to OD. Additionally, she admits having AH-denies command. She describes AH as "just talking among themselves." States she is also suffering from VH and describes them "as seeing bugs crawling everywhere." VITAL SIGNS: See below. CONSULTANTS INVOLVED: See Medical H + P by Hospitalist TREATMENT AND PROGRESS ON THE UNIT: Patient was admitted to the [facility] on a 9.39 legal status was afforded the following treatment modalities: 1) Individual Therapy 2) Group Therapy 3) Medication Management 4) Milieu Therapy 5) Safe Environment HOSPITAL COURSE: Patient was admitted to [facility] on a 9.39 legal status. She was admitted for suicidal ideations to overdose on her medications. She was restarted her on her medications with increase in Fluoxetine to 30 mg - pt found medications beneficial and tolerated them well. Much of the treatment for this patient was supportive therapies, reduction in anxiety symptoms by journaling, talking to her family, coping skills that will distract her mind. At one point during her hospitalization, it was discovered that she had been exposed to a Covid patient and she had to be quarantined for 3 to 4 days. During her quarantine patient became quite sad and depressed. She noted that she missed talking to her peers. Yesterday she was allowed to leave her room as she was no longer quarantined. In today's interview she reported that her mood, anxiety, and intrusive thoughts improved with treatment. Pt attended groups daily during stay. Pts symptoms improved with treatment. On day of discharge pt. denied depression, anxiety, insomnia, SI/HI, hallucinations, delusions. Pt was discharged home with follow- up at [facility]. Pt felt safe for discharge. DISCHARGE ASSESSMENT: In today's interview, patient is alert and oriented, pt.s dress is appropriate. Hygiene and grooming is well-kempt. Smiles on approach and is pleasant and engaged in the interview. Denies depression and anxiety. Denies suicidal and homicidal ideation, planning or intent. Denies and is not observed with [place], psychotic symptoms of delusions, bizarre thinking, obsessions, paranoia, ruminations illogical thoughts, flight of ideas or having poor insight and judgement. Reinforced with patient need to abstain from alcohol and drugs. At discharge patient has normal mentation, declines further hospitalization on a voluntary status and meets criteria for discharge today. Discussed indications of medications, potential benefits and risks, alternatives (including no treatment) and questions were encouraged and answered. Patient encouraged to return to hospital if symptoms worsen or change and encouraged to call unit if he/she/they needs to speak to provider for questions regarding medications or care. MENTAL STATUS EXAMINATION ON DISCHARGE: Patient is a 51 -year-old , female, who reports that the conflict and family arguments have made her very sad, alone and depressed with suicidal th oughts to overdose. Speech: Is fluid, conversant, normal rate, tone and volume Language skills are intact Thought processes including: linear and goal oriented Thought content: denies depression and anxiety. Denies suicidal/homicidal ideation, planning or intent. Abstract reasoning, and computation: fair Description of associations: denies, none observed Description of abnormal or psychotic thoughts: denies, none observed. Judgment: fair Insight: fair Orientation: alert and oriented to person, place, time and situation Recent and remote memory: intact Attention span and concentration: good Language: expansive Fund of knowledge: average Mood: Euthymic Mood Affect: reactive Suicide Risk Assessment: 1) Does the patient wish to be ? No 2) Since your admission, have you had any actual thought of killing yourself? No 3) Since your admission, have you been thinking about how you might do this? No 4) Since your admission, have you had these thoughts and had some intention of acting on them? No 5) Since your admission, have you started to work out or worked out the details of how to kill yourself? No 5A) Do you intent to carry out this plan? No and NA 6) Have you ever done anything, started anything, or prepared to do anything with any intent to ? No 6A) How long since your admission did you do any of these? NA MEDICATIONS ON DISCHARGE: See Medication Reconciliation PLAN/FOLLOWUP ARRANGEMENTS: Pt was discharged home with follow-up at [facility]. Pt felt safe for discharge. The amount of time spent in the coordination of care for this patient was approximately 25 minutes. ETOH/Disorder Med Rx ETOH/DRUG DISORDER RX: N/A Vital Signs/I&Os Vital Signs Date Time Temp Pulse Resp B/P (MAP) Pulse Ox O2 Delivery O2 Flow Rate FiO2 07/09/21 20:17 154/85 07/09/21 18:37 98.1 117 18 07/09/21 07:04 96 Room Air Medications Scheduled Aripiprazole (Abilify Maintena) 400 Mg Suser.syr, 400 MG IM QMONTH, (Reported) Atorvastatin Calcium (Atorvastatin Calcium) 20 Mg Tab, 20 MG PO QHS, (Reported) Benztropine Mesylate (Benztropine Mesylate) 1 Mg Tablet, 1 MG PO QHS, (Reported) Divalproex Sodium (Divalproex Sodium) 500 Mg Tablet.dr, 500 MG PO QHS, (Reported) Fluoxetine Hcl (Fluoxetine HCl) 10 Mg Capsule, 30 MG PO QAM for Depression, #21 Gabapentin (Gabapentin) 100 Mg Capsule, 200 MG PO TID for Anxiety, #42 Levothyroxine Sodium (Levo-T) 175 Mcg Tablet, 175 MCG PO DAILY, (Reported) Meloxicam (Meloxicam) 7.5 Mg Tablet, 7.5 MG PO DAILY for Pain, #7 Omeprazole (Omeprazole) 20 Mg Capsule.dr, 20 MG PO BID, (Reported) AT 8 AM & 4 PM Prazosin Hcl (Prazosin HCl) 2 Mg Capsule, 2 MG PO QHS, (Reported) Quetiapine Fumarate (Quetiapine Fumarate) 300 Mg Tablet, 600 MG PO QHS, (Reported) Scheduled PRN Clonazepam (Clonazepam) 0.5 Mg Tablet, 0.5 MG PO DAILY PRN for ANXIETY, (Reported) Clonazepam (Clonazepam) 0.5 Mg Tablet, 0.5 MG PO BID PRN for anxiety, #14 Trazodone HCl (Trazodone HCl) 50 Mg Tablet, 50 MG PO QHS PRN for SLEEP, #7 Allergies Coded Allergies: clarithromycin (Verified Allergy, Intermediate, hives and puffy face, 05/19/19) fexofenadine (Verified Allergy, Unknown, 05/05/19) pseudoephedrine (Verified Allergy, Unknown, 05/05/19) ketorolac (Verified Adverse Reaction, Mild, HEADACHE, 05/08/19) SYLVIE HOOK NP Jul 10, 2021 16:29
[2021-07-28] MEDS ORDERED: ARIPiprazole MONOHYDRATE 400 MG INJ (ABILIFY) IM SCH (09:00)
== END 2021-07-10 12:07 | disposition home or self-care (01) | DRG 885 ==
LOC: M ED 08:34 → M ED INP 06-28 09:55 → M PSY 06-28 13:09
PROVIDERS: ADMIT Psychiatry & Neurology Psychiatry; ATTEND Psychiatry & Neurology Psychiatry
DX: F31.9 Bipolar disorder, unspecified (principal); R45.851 Suicidal ideations; F12.10 Cannabis abuse, uncomplicated; F60.3 Borderline personality disorder; F41.9 Anxiety disorder, unspecified; E78.5 Hyperlipidemia, unspecified; E03.9 Hypothyroidism, unspecified; Z90.49 Acquired absence of other specified parts of digestive tract; Z81.8 Family history of other mental and behavioral disorders; Z63.8 Other specified problems related to primary support group; Z79.899 Other long term (current) drug therapy; Z88.1 Allergy status to other antibiotic agents; Z88.8 Allergy status to other drugs, medicaments and biological substances; K21.9 Gastro-esophageal reflux disease without esophagitis; Z20.822 Contact with and (suspected) exposure to COVID-19

== ENCOUNTER 2021-08-11 11:39 | Emergency (ER) | payer OTHER ==
[~2021-08-11] VITALS: Ht 154.9 cm; Wt 133.6 kg
[~2021-08-11 11:39] MED LIST changes: -FLUO10CA16 PO; +FLUO10CA18 PO; +GABA-1171 PO; +LEVO-96 PO; +OMEP-173; +OMEP-173 PO; -OMEP-218; -OMEP-218 PO
[2021-08-11 13:07] LABS: HEMATOCRIT 37.5 % (36.0-47.0); HEMOGLOBIN 12.1 g/dl (12.0-15.5); MEAN CORPUSCULAR HEMOGLOBIN 27.6 pg (27.0-33.0); MEAN CORPUSCULAR HGB CONC 32.3 g/dl (32.0-36.5); MEAN CORPUSCULAR VOLUME 85.4 fl (80.0-96.0); PLATELET COUNT, AUTOMATED 217 10^3/uL (150-450); RED BLOOD COUNT 4.39 10^6/uL (4.00-5.40); WHITE BLOOD COUNT 6.2 10^3/uL (4.0-10.0)
[2021-08-11 13:42] LABS: AMPHETAMINES LEVEL URINE NEGATIVE (NEGATIVE); BARBITURATES URINE NEGATIVE (NEGATIVE); BENZODIAZEPINES URINE NEGATIVE (NEGATIVE); CANNABINOIDS URINE POSITIVE (NEGATIVE); COCAINE METABOLITE URINE NEGATIVE (NEGATIVE); METHADONE URINE NEGATIVE (NEGATIVE); OPIATES URINE NEGATIVE (NEGATIVE); PHENCYCLIDINE URINE NEGATIVE (NEGATIVE)
[2021-08-11 13:42] LABS: ALBUMIN 3.9 GM/DL (3.2-5.2); ALT/SGPT 16 U/L (12-78); BILIRUBIN,DIRECT 0.1 MG/DL (0.0-0.2); BILIRUBIN,TOTAL 0.3 MG/DL (0.2-1.0); BLOOD UREA NITROGEN 8 MG/DL (7-18); CALCIUM LEVEL 9.2 MG/DL (8.5-10.1); CARBON DIOXIDE LEVEL 30 MEQ/L (21-32); CHLORIDE LEVEL 104 MEQ/L (98-107); CREATININE FOR GFR 0.74 MG/DL (0.55-1.30); GLOMERULAR FILTRATION RATE > 60.0 (>51); GLUCOSE, FASTING 97 MG/DL (70-100); POTASSIUM SERUM 3.9 MEQ/L (3.5-5.1); SALICYLATE LEVEL 2.3 MG/DL (5.0-30.0); SODIUM LEVEL 139 MEQ/L (136-145); THYROID STIMULATING HORMONE 0.009 uIU/ML (0.358-3.740); TOTAL PROTEIN 7.6 GM/DL (6.4-8.2)
[2021-08-11 13:43] LABS: RSV AMPLIFICATION NEGATIVE (NEGATIVE)
[2021-08-11 13:44] LABS: ACETAMINOPHEN LEVEL < 2.0 UG/ML (10.0-30.0)
[2021-08-11 13:46] LABS: ETHYL ALCOHOL (ETHANOL) < 0.003 % (0.000-0.010)
[2021-08-11] MEDS ORDERED: FLUO10CA18 PO (16:26)
[2021-08-11] MEDS ORDERED: GABA-1171 PO (16:26)
[2021-08-11] MEDS ORDERED: FLUO20CA22 PO (16:26)
[2021-08-11] MEDS ORDERED: TRAZ-252 PO (16:26)
[2021-08-11] MEDS ORDERED: HOME MED LIST COMPLETE! XX SCH (16:30)
[2021-08-11] MEDS ORDERED: clonazePAM 0.5 MG TAB PO ONE (20:25)
[2021-08-11] MEDS ORDERED: QUEtiapine FUMARATE 100 MG TAB PO ONE (20:25)
[2021-08-11] MEDS ORDERED: GABAPENTIN 100 MG CAP PO ONE (20:25)
[2021-08-11] MEDS ORDERED: traZODone 50 MG TAB PO ONE (20:25)
[2021-08-11] MEDS ORDERED: DIVALPROEX 500 MG TAB PO ONE (20:25)
[2021-08-11] MEDS ORDERED: ATORVASTATIN 20 MG TAB PO ONE (20:25)
[2021-08-11] MEDS ORDERED: PRAZOSIN 1 MG CAP PO ONE (20:25)
[2021-08-12] MEDS ORDERED: FLUoxetine 10 MG CAP PO ONE (11:25)
[2021-08-12] MEDS ORDERED: OMEPRAZOLE 20MG CAP PO ONE (11:25)
[2021-08-12] MEDS ORDERED: GABAPENTIN 100 MG CAP PO ONE ×2 (11:25→21:00)
[2021-08-12] MEDS ORDERED: clonazePAM 0.5 MG TAB PO ONE ×2 (11:25→20:05)
[2021-08-12] MEDS: LEVOTHYROXINE 25MCG TABLET (0.025MG) PO SCH (11:52)
[2021-08-12] MEDS: LEVOTHYROXINE 150MCG TABLET (0.15MG) PO SCH (11:53)
[2021-08-12] MEDS ORDERED: QUEtiapine FUMARATE 100 MG TAB PO ONE (20:05)
[2021-08-12] MEDS ORDERED: ATORVASTATIN 20 MG TAB PO ONE (20:05)
[2021-08-12] MEDS ORDERED: DIVALPROEX 500 MG TAB PO ONE (20:05)
[2021-08-12] MEDS ORDERED: PRAZOSIN 1 MG CAP PO ONE (20:05)
[2021-08-12] MEDS ORDERED: traZODone 50 MG TAB PO ONE (20:05)
[2021-08-12 20:18] VITALS: BP 132/72
[2021-08-13] MEDS: LEVOTHYROXINE 25MCG TABLET (0.025MG) PO SCH (06:11)
[2021-08-13] MEDS: LEVOTHYROXINE 150MCG TABLET (0.15MG) PO SCH (06:11)
[2021-08-13 06:51] VITALS: BP 138/78
== END 2021-08-13 06:55 ==
LOC: M ED 11:39
DX: R45.850 Homicidal ideations (principal); R44.0 Auditory hallucinations; F32.A Depression, unspecified; E11.9 Type 2 diabetes mellitus without complications; K21.9 Gastro-esophageal reflux disease without esophagitis; G43.909 Migraine, unspecified, not intractable, without status migrainosus; Z88.1 Allergy status to other antibiotic agents; Z88.8 Allergy status to other drugs, medicaments and biological substances; Z79.899 Other long term (current) drug therapy

== ENCOUNTER 2021-09-20 10:12 | Inpatient (IN) | payer OTHER ==
[~2021-09-20] VITALS: Ht 154.9 cm; Wt 83.6 kg
[2021-09-20] MEDS ORDERED: NS 500 ML IV ONE (12:00)
[2021-09-20 12:47] LABS: BASO % 0.2 % (0.0-1.0); EOS % 0.6 % (0.0-3.0); HEMATOCRIT 35.9 % (36.0-47.0); HEMOGLOBIN 11.6 g/dl (12.0-15.5); LYMPH # 1.4 10^3/uL (1.5-5.0); LYMPH % 27.8 % (24.0-44.0); MEAN CORPUSCULAR HEMOGLOBIN 27.6 pg (27.0-33.0); MEAN CORPUSCULAR HGB CONC 32.3 g/dl (32.0-36.5); MEAN CORPUSCULAR VOLUME 85.5 fl (80.0-96.0); MONO # 0.3 10^3/uL (0.0-0.8); MONO % 5.6 % (2.0-8.0); NEUTROPHILS # 3.2 10^3/uL (1.5-8.5); NEUTROPHILS % 65.6 % (36.0-66.0); PLATELET COUNT, AUTOMATED 172 10^3/uL (150-450); WHITE BLOOD COUNT 4.9 10^3/uL (4.0-10.0)
[2021-09-20 12:51] LABS: RSV AMPLIFICATION NEGATIVE (NEGATIVE)
[2021-09-20 13:07] LABS: AMPHETAMINES LEVEL URINE NEGATIVE (NEGATIVE); BARBITURATES URINE NEGATIVE (NEGATIVE); BENZODIAZEPINES URINE NEGATIVE (NEGATIVE); CANNABINOIDS URINE POSITIVE (NEGATIVE); COCAINE METABOLITE URINE NEGATIVE (NEGATIVE); METHADONE URINE NEGATIVE (NEGATIVE); OPIATES URINE NEGATIVE (NEGATIVE); PHENCYCLIDINE URINE NEGATIVE (NEGATIVE)
[2021-09-20 13:21] LABS: ACETAMINOPHEN LEVEL < 2.0 UG/ML (10.0-30.0); ALBUMIN 3.9 GM/DL (3.2-5.2); ALT/SGPT 15 U/L (12-78); BILIRUBIN,DIRECT 0.1 MG/DL (0.0-0.2); BILIRUBIN,TOTAL 0.2 MG/DL (0.2-1.0); BLOOD UREA NITROGEN 10 MG/DL (7-18); CALCIUM LEVEL 9.6 MG/DL (8.5-10.1); CARBON DIOXIDE LEVEL 29 MEQ/L (21-32); CHLORIDE LEVEL 104 MEQ/L (98-107); CREATININE FOR GFR 0.71 MG/DL (0.55-1.30); ETHYL ALCOHOL (ETHANOL) < 0.003 % (0.000-0.010); GLOMERULAR FILTRATION RATE > 60.0 (>51); GLUCOSE, FASTING 100 MG/DL (70-100); NT-PRO BNP 33 PG/ML (<125); POTASSIUM SERUM 3.7 MEQ/L (3.5-5.1); SALICYLATE LEVEL 2.4 MG/DL (5.0-30.0); SODIUM LEVEL 139 MEQ/L (136-145); THYROID STIMULATING HORMONE < 0.005 uIU/ML (0.358-3.740); TOTAL PROTEIN 7.1 GM/DL (6.4-8.2); VALPROIC ACID (DEPAKOTE) 67.3 UG/ML (50.0-100.0)
[2021-09-20 13:45] LABS: CK-MB VALUE MASS 1.8 NG/ML (<3.6); MB/CK RELATIVE INDEX 1.38 (< OR =4)
[2021-09-20 16:09] LABS: FREE T3 3.9 PG/ML (2.2-4.0)
[2021-09-20 16:11] LABS: TOTAL T3 122.7 NG/DL (60.0-181.0)
[2021-09-20] MEDS ORDERED: MELO7.5T35 PO (17:34)
[2021-09-20] MEDS ORDERED: HOME MED LIST COMPLETE! XX SCH (17:35)
[2021-09-20] MEDS ORDERED: KETOROLAC 30 MG/ML 1ML VIAL IV ONE (20:35)
[2021-09-20] MEDS ORDERED: IBUPROFEN 600MG TAB PO ONE (20:40)
[2021-09-20] MEDS: QUEtiapine FUMARATE 200 MG TAB PO SCH (20:47)
[2021-09-20] MEDS: BENZTROPINE 1 MG TAB PO SCH (20:48)
[2021-09-20] MEDS: FLUoxetine 20 MG CAP PO SCH (20:48)
[2021-09-20] MEDS: traZODone 50 MG TAB PO SCH (20:48)
[2021-09-20] MEDS: PRAZOSIN 1 MG CAP PO SCH (20:49)
[2021-09-20] MEDS: ATORVASTATIN 20 MG TAB PO SCH (20:50)
[2021-09-20] MEDS: DIVALPROEX 500 MG TAB PO SCH (20:50)
[2021-09-21] MEDS ORDERED: LEVOTHYROXINE 150MCG TABLET (0.15MG) PO SCH (06:00)
[2021-09-21 07:18] LABS: HEMATOCRIT 39.3 % (36.0-47.0); HEMOGLOBIN 12.6 g/dl (12.0-15.5); MEAN CORPUSCULAR HEMOGLOBIN 27.6 pg (27.0-33.0); MEAN CORPUSCULAR HGB CONC 32.1 g/dl (32.0-36.5); PLATELET COUNT, AUTOMATED 169 10^3/uL (150-450); RED BLOOD COUNT 4.57 10^6/uL (4.00-5.40); WHITE BLOOD COUNT 3.1 10^3/uL (4.0-10.0)
[2021-09-21 07:38] LABS: BLOOD UREA NITROGEN 9 MG/DL (7-18); CALCIUM LEVEL 9.4 MG/DL (8.5-10.1); CARBON DIOXIDE LEVEL 31 MEQ/L (21-32); CHLORIDE LEVEL 105 MEQ/L (98-107); CREATININE FOR GFR 0.82 MG/DL (0.55-1.30); GLOMERULAR FILTRATION RATE > 60.0 (>51); GLUCOSE, FASTING 102 MG/DL (70-100); POTASSIUM SERUM 3.5 MEQ/L (3.5-5.1); SODIUM LEVEL 140 MEQ/L (136-145)
[2021-09-21 07:45] LABS: ERYTHROCYTE SEDIMENTATION RATE 7 mm/hr (0-30)
[2021-09-21] MEDS: BENZTROPINE 1 MG TAB PO SCH ×2 (08:59→21:21)
[2021-09-21] MEDS ORDERED: FLUoxetine 10 MG CAP PO SCH (09:00)
[2021-09-21] MEDS ORDERED: OMEPRAZOLE 20 MG CAP PO SCH (09:00)
[2021-09-21] MEDS ORDERED: ENOXAPARIN 40MG/0.4ML SYRINGE (J1650 PER 10MG) SC SCH (09:00)
[2021-09-21] MEDS ORDERED: MELOXICAM (MOBIC) 7.5 MG TAB PO SCH (09:00)
[2021-09-21] MEDS: ACETAMINOPHEN TAB 650MG DOSE (2X325MG) PO PRN (16:07)
[2021-09-21] MEDS ORDERED: MOM 30ML SUSPENSION UDC PO PRN (20:55)
[2021-09-21] MEDS ORDERED: MAALOX 30 ML SUSP *UDC PO PRN (20:55)
[2021-09-21] MEDS: GABAPENTIN 100 MG CAP PO SCH (21:00)
[2021-09-21] MEDS ORDERED: QUEtiapine FUMARATE 200 MG TAB PO SCH (21:00)
[2021-09-21] MEDS: ATORVASTATIN 20 MG TAB PO SCH (21:20)
[2021-09-21] MEDS: QUEtiapine FUMARATE 200 MG TAB PO SCH (21:20)
[2021-09-21] MEDS: FLUoxetine 20 MG CAP PO SCH (21:20)
[2021-09-21] MEDS: DIVALPROEX 500 MG TAB PO SCH (21:20)
[2021-09-21] MEDS: PRAZOSIN 1 MG CAP PO SCH (21:21)
[2021-09-21] MEDS: traZODone 50 MG TAB PO SCH (21:21)
[2021-09-22 01:28] VITALS: BP 130/86
[2021-09-22] MEDS: LEVOTHYROXINE 75MCG TABLET (0.075MG) PO SCH (06:04)
[2021-09-22] MEDS: LEVOTHYROXINE 100MCG TABLET (0.1MG) PO SCH (06:04)
[2021-09-22 08:07] LABS: HEMATOCRIT 38.3 % (36.0-47.0); HEMOGLOBIN 12.4 g/dl (12.0-15.5); MEAN CORPUSCULAR HEMOGLOBIN 27.7 pg (27.0-33.0); MEAN CORPUSCULAR HGB CONC 32.4 g/dl (32.0-36.5); MEAN CORPUSCULAR VOLUME 85.7 fl (80.0-96.0); PLATELET COUNT, AUTOMATED 172 10^3/uL (150-450); RED BLOOD COUNT 4.47 10^6/uL (4.00-5.40); WHITE BLOOD COUNT 3.3 10^3/uL (4.0-10.0)
[2021-09-22] MEDS: GABAPENTIN 100 MG CAP PO SCH ×3 (08:10→20:06)
[2021-09-22] MEDS: DIVALPROEX 250MG *ER* TAB PO SCH ×2 (08:10→20:07)
[2021-09-22] MEDS: BENZTROPINE 1 MG TAB PO SCH ×2 (08:10→20:06)
[2021-09-22] MEDS: MELOXICAM (MOBIC) 7.5 MG TAB PO SCH (08:10)
[2021-09-22] MEDS: OMEPRAZOLE 20 MG CAP PO SCH (08:10)
[2021-09-22] MEDS: FLUoxetine 10 MG CAP PO SCH (08:10)
[2021-09-22 08:27] LABS: BLOOD UREA NITROGEN 10 MG/DL (7-18); CALCIUM LEVEL 9.5 MG/DL (8.5-10.1); CARBON DIOXIDE LEVEL 27 MEQ/L (21-32); CHLORIDE LEVEL 105 MEQ/L (98-107); CREATININE FOR GFR 0.84 MG/DL (0.55-1.30); GLOMERULAR FILTRATION RATE > 60.0 (>51); GLUCOSE, FASTING 125 MG/DL (70-100); POTASSIUM SERUM 3.9 MEQ/L (3.5-5.1); SODIUM LEVEL 141 MEQ/L (136-145)
[2021-09-22] MEDS: ACETAMINOPHEN TAB 650MG DOSE (2X325MG) PO PRN (11:56)
[2021-09-22] MEDS: DOCUSATE SODIUM 100MG CAPSULE PO SCH ×2 (14:18→20:07)
[2021-09-22 16:51] VITALS: BP 143/88
[2021-09-22] MEDS: FLUoxetine 20 MG CAP PO SCH (20:06)
[2021-09-22] MEDS: ATORVASTATIN 20 MG TAB PO SCH (20:06)
[2021-09-22] MEDS: traZODone 50 MG TAB PO SCH (20:06)
[2021-09-22] MEDS: PRAZOSIN 1 MG CAP PO SCH (20:07)
[2021-09-22] MEDS: traMADol 50 MG TAB PO PRN (21:08)
[2021-09-23] MEDS: LEVOTHYROXINE 100MCG TABLET (0.1MG) PO SCH (05:46)
[2021-09-23] MEDS: LEVOTHYROXINE 75MCG TABLET (0.075MG) PO SCH (05:46)
[2021-09-23 06:50] VITALS: BP 124/68
[2021-09-23] MEDS: DOCUSATE SODIUM 100MG CAPSULE PO SCH ×2 (08:14→20:06)
[2021-09-23] MEDS: DIVALPROEX 250MG *ER* TAB PO SCH ×2 (08:14→20:06)
[2021-09-23] MEDS: BENZTROPINE 1 MG TAB PO SCH ×2 (08:14→20:07)
[2021-09-23] MEDS: FLUoxetine 10 MG CAP PO SCH (08:14)
[2021-09-23] MEDS: MELOXICAM (MOBIC) 7.5 MG TAB PO SCH (08:14)
[2021-09-23] MEDS: GABAPENTIN 100 MG CAP PO SCH ×3 (08:14→20:06)
[2021-09-23] MEDS: OMEPRAZOLE 20 MG CAP PO SCH (08:14)
[2021-09-23 09:54] LABS: BASO % 0.6 % (0.0-1.0); EOS # 0.1 10^3/uL (0.0-0.5); EOS % 2.2 % (0.0-3.0); HEMATOCRIT 40.2 % (36.0-47.0); HEMOGLOBIN 12.8 g/dl (12.0-15.5); LYMPH # 1.4 10^3/uL (1.5-5.0); LYMPH % 37.7 % (24.0-44.0); MEAN CORPUSCULAR HEMOGLOBIN 27.4 pg (27.0-33.0); MEAN CORPUSCULAR HGB CONC 31.8 g/dl (32.0-36.5); MEAN CORPUSCULAR VOLUME 85.9 fl (80.0-96.0); MONO # 0.3 10^3/uL (0.0-0.8); MONO % 8.3 % (2.0-8.0); NEUTROPHILS # 1.8 10^3/uL (1.5-8.5); NEUTROPHILS % 50.9 % (36.0-66.0); PLATELET COUNT, AUTOMATED 184 10^3/uL (150-450); RED BLOOD COUNT 4.68 10^6/uL (4.00-5.40); WHITE BLOOD COUNT 3.6 10^3/uL (4.0-10.0)
[2021-09-23 10:13] LABS: ERYTHROCYTE SEDIMENTATION RATE 6 mm/hr (0-30)
[2021-09-23 10:46] LABS: ALT/SGPT 19 U/L (12-78); BILIRUBIN,TOTAL 0.3 MG/DL (0.2-1.0); BLOOD UREA NITROGEN 10 MG/DL (7-18); CALCIUM LEVEL 9.7 MG/DL (8.5-10.1); CARBON DIOXIDE LEVEL 27 MEQ/L (21-32); CHLORIDE LEVEL 105 MEQ/L (98-107); CREATININE FOR GFR 0.81 MG/DL (0.55-1.30); GLOMERULAR FILTRATION RATE > 60.0 (>51); GLUCOSE, FASTING 129 MG/DL (70-100); MAGNESIUM LEVEL 1.6 MG/DL (1.8-2.4); POTASSIUM SERUM 3.9 MEQ/L (3.5-5.1); SODIUM LEVEL 140 MEQ/L (136-145); TOTAL PROTEIN 7.5 GM/DL (6.4-8.2)
[2021-09-23] MEDS: ACETAMINOPHEN TAB 650MG DOSE (2X325MG) PO PRN (15:10)
[2021-09-23] MEDS: OLANZapine ORAL DISINTEGRATING TAB 5MG PO PRN (16:10)
[2021-09-23 16:48] VITALS: BP 122/82
[2021-09-23] MEDS: clonazePAM 0.5 MG TAB PO PRN (19:18)
[2021-09-23] MEDS: QUEtiapine FUMARATE 200 MG TAB PO SCH (20:06)
[2021-09-23] MEDS: traZODone 50 MG TAB PO SCH (20:06)
[2021-09-23] MEDS: QUEtiapine FUMARATE 100 MG TAB PO SCH (20:06)
[2021-09-23] MEDS: ATORVASTATIN 20 MG TAB PO SCH (20:07)
[2021-09-23] MEDS: PRAZOSIN 1 MG CAP PO SCH (20:07)
[2021-09-23] MEDS: FLUoxetine 20 MG CAP PO SCH (20:07)
[2021-09-24] MEDS: LEVOTHYROXINE 75MCG TABLET (0.075MG) PO SCH (05:45)
[2021-09-24] MEDS: LEVOTHYROXINE 100MCG TABLET (0.1MG) PO SCH (05:45)
[2021-09-24 06:24] VITALS: BP 144/71
[2021-09-24 07:09] LABS: HEMATOCRIT 39.6 % (36.0-47.0); HEMOGLOBIN 12.5 g/dl (12.0-15.5); MEAN CORPUSCULAR HEMOGLOBIN 27.4 pg (27.0-33.0); MEAN CORPUSCULAR HGB CONC 31.6 g/dl (32.0-36.5); MEAN CORPUSCULAR VOLUME 86.8 fl (80.0-96.0); PLATELET COUNT, AUTOMATED 199 10^3/uL (150-450); RED BLOOD COUNT 4.56 10^6/uL (4.00-5.40); WHITE BLOOD COUNT 4.6 10^3/uL (4.0-10.0)
[2021-09-24 07:31] LABS: BLOOD UREA NITROGEN 12 MG/DL (7-18); CALCIUM LEVEL 9.4 MG/DL (8.5-10.1); CARBON DIOXIDE LEVEL 31 MEQ/L (21-32); CHLORIDE LEVEL 105 MEQ/L (98-107); CREATININE FOR GFR 0.77 MG/DL (0.55-1.30); GLOMERULAR FILTRATION RATE > 60.0 (>51); GLUCOSE, FASTING 104 MG/DL (70-100); POTASSIUM SERUM 4.1 MEQ/L (3.5-5.1); SODIUM LEVEL 142 MEQ/L (136-145)
[2021-09-24] MEDS: MELOXICAM (MOBIC) 7.5 MG TAB PO SCH (08:15)
[2021-09-24] MEDS: DIVALPROEX 250MG *ER* TAB PO SCH ×2 (08:15→20:15)
[2021-09-24] MEDS: ACETAMINOPHEN TAB 650MG DOSE (2X325MG) PO PRN (08:15)
[2021-09-24] MEDS: OMEPRAZOLE 20 MG CAP PO SCH (08:15)
[2021-09-24] MEDS: DOCUSATE SODIUM 100MG CAPSULE PO SCH ×2 (08:15→20:16)
[2021-09-24] MEDS: GABAPENTIN 100 MG CAP PO SCH ×3 (08:15→20:15)
[2021-09-24] MEDS: FLUoxetine 10 MG CAP PO SCH (08:15)
[2021-09-24] MEDS: BENZTROPINE 1 MG TAB PO SCH ×2 (08:16→20:16)
[2021-09-24] MEDS: clonazePAM 0.5 MG TAB PO PRN ×2 (11:34→20:38)
[2021-09-24 16:48] VITALS: BP 136/82
[2021-09-24] MEDS: QUEtiapine FUMARATE 200 MG TAB PO SCH (20:16)
[2021-09-24] MEDS: traZODone 50 MG TAB PO SCH (20:16)
[2021-09-24] MEDS: ATORVASTATIN 20 MG TAB PO SCH (20:16)
[2021-09-24] MEDS: FLUoxetine 20 MG CAP PO SCH (20:16)
[2021-09-24] MEDS: QUEtiapine FUMARATE 100 MG TAB PO SCH (20:16)
[2021-09-24] MEDS: PRAZOSIN 1 MG CAP PO SCH (20:16)
[2021-09-25] MEDS: LEVOTHYROXINE 100MCG TABLET (0.1MG) PO SCH (05:49)
[2021-09-25] MEDS: LEVOTHYROXINE 75MCG TABLET (0.075MG) PO SCH (05:49)
[2021-09-25 06:44] LABS: HEMOGLOBIN 11.9 g/dl (12.0-15.5); MEAN CORPUSCULAR HEMOGLOBIN 27.7 pg (27.0-33.0); MEAN CORPUSCULAR HGB CONC 32.2 g/dl (32.0-36.5); MEAN CORPUSCULAR VOLUME 86.2 fl (80.0-96.0); PLATELET COUNT, AUTOMATED 185 10^3/uL (150-450); RED BLOOD COUNT 4.29 10^6/uL (4.00-5.40); WHITE BLOOD COUNT 3.5 10^3/uL (4.0-10.0)
[2021-09-25 06:59] VITALS: BP 136/80
[2021-09-25 07:06] LABS: BLOOD UREA NITROGEN 11 MG/DL (7-18); CALCIUM LEVEL 9.3 MG/DL (8.5-10.1); CARBON DIOXIDE LEVEL 30 MEQ/L (21-32); CHLORIDE LEVEL 107 MEQ/L (98-107); CREATININE FOR GFR 0.78 MG/DL (0.55-1.30); GLOMERULAR FILTRATION RATE > 60.0 (>51); GLUCOSE, FASTING 105 MG/DL (70-100); POTASSIUM SERUM 4.1 MEQ/L (3.5-5.1); SODIUM LEVEL 142 MEQ/L (136-145)
[2021-09-25] MEDS: OLANZapine ORAL DISINTEGRATING TAB 5MG PO PRN ×2 (08:14→12:55)
[2021-09-25] MEDS: GABAPENTIN 100 MG CAP PO SCH ×3 (08:15→20:05)
[2021-09-25] MEDS: MELOXICAM (MOBIC) 7.5 MG TAB PO SCH (08:15)
[2021-09-25] MEDS: BENZTROPINE 1 MG TAB PO SCH ×2 (08:15→20:05)
[2021-09-25] MEDS: OMEPRAZOLE 20 MG CAP PO SCH (08:15)
[2021-09-25] MEDS: DOCUSATE SODIUM 100MG CAPSULE PO SCH ×2 (08:15→20:04)
[2021-09-25] MEDS: FLUoxetine 20 MG CAP PO SCH ×2 (08:16→20:05)
[2021-09-25] MEDS: DIVALPROEX 250MG *ER* TAB PO SCH ×2 (08:16→20:04)
[2021-09-25 18:00] VITALS: BP 143/84
[2021-09-25] MEDS: QUEtiapine FUMARATE 200 MG TAB PO SCH (20:04)
[2021-09-25] MEDS: PRAZOSIN 1 MG CAP PO SCH (20:05)
[2021-09-25] MEDS: traZODone 50 MG TAB PO SCH (20:05)
[2021-09-25] MEDS: ATORVASTATIN 20 MG TAB PO SCH (20:05)
[2021-09-25] MEDS: QUEtiapine FUMARATE 100 MG TAB PO SCH (20:05)
[2021-09-26] MEDS: LEVOTHYROXINE 100MCG TABLET (0.1MG) PO SCH (05:34)
[2021-09-26] MEDS: LEVOTHYROXINE 75MCG TABLET (0.075MG) PO SCH (05:34)
[2021-09-26 06:54] VITALS: BP 142/90
[2021-09-26] MEDS: MELOXICAM (MOBIC) 7.5 MG TAB PO SCH (09:13)
[2021-09-26] MEDS: GABAPENTIN 100 MG CAP PO SCH ×3 (09:14→20:21)
[2021-09-26] MEDS: BENZTROPINE 1 MG TAB PO SCH ×2 (09:14→20:21)
[2021-09-26] MEDS: FLUoxetine 20 MG CAP PO SCH ×2 (09:14→20:21)
[2021-09-26] MEDS: DIVALPROEX 250MG *ER* TAB PO SCH ×2 (09:15→20:22)
[2021-09-26] MEDS: OMEPRAZOLE 20 MG CAP PO SCH (09:15)
[2021-09-26] MEDS: DOCUSATE SODIUM 100MG CAPSULE PO SCH ×2 (09:15→20:21)
[2021-09-26 18:18] VITALS: BP 140/80
[2021-09-26] MEDS: CLOTRIMAZOLE 1% TOPICAL CREAM 30GM TOP SCH (20:16)
[2021-09-26] MEDS: QUEtiapine FUMARATE 200 MG TAB PO SCH (20:16)
[2021-09-26] MEDS: QUEtiapine FUMARATE 100 MG TAB PO SCH (20:17)
[2021-09-26] MEDS: PRAZOSIN 1 MG CAP PO SCH (20:21)
[2021-09-26] MEDS: ATORVASTATIN 20 MG TAB PO SCH (20:21)
[2021-09-26] MEDS: traZODone 50 MG TAB PO SCH (20:21)
[2021-09-26] MEDS: traMADol 50 MG TAB PO PRN (21:25)
[2021-09-26 22:00] LABS: HIV 1&2 SCREEN CENTAUR NEGATIVE (NEGATIVE)
[2021-09-27 06:00] VITALS: BP 131/77
[2021-09-27] MEDS: LEVOTHYROXINE 75MCG TABLET (0.075MG) PO SCH (06:23)
[2021-09-27] MEDS: LEVOTHYROXINE 100MCG TABLET (0.1MG) PO SCH (06:24)
[2021-09-27] MEDS: GABAPENTIN 100 MG CAP PO SCH ×3 (09:14→20:11)
[2021-09-27] MEDS: OLANZapine ORAL DISINTEGRATING TAB 5MG PO PRN ×2 (09:14→16:28)
[2021-09-27] MEDS: CLOTRIMAZOLE 1% TOPICAL CREAM 30GM TOP SCH ×2 (09:14→20:10)
[2021-09-27] MEDS: MELOXICAM (MOBIC) 7.5 MG TAB PO SCH (09:14)
[2021-09-27] MEDS: DOCUSATE SODIUM 100MG CAPSULE PO SCH ×2 (09:15→20:11)
[2021-09-27] MEDS: DIVALPROEX 250MG *ER* TAB PO SCH ×2 (09:15→20:11)
[2021-09-27] MEDS: BENZTROPINE 1 MG TAB PO SCH ×2 (09:15→20:11)
[2021-09-27] MEDS: FLUoxetine 20 MG CAP PO SCH ×2 (09:16→20:11)
[2021-09-27] MEDS: OMEPRAZOLE 20 MG CAP PO SCH (09:16)
[2021-09-27] MEDS: PERCOCET 5MG/325MG TAB PO PRN (16:54)
[2021-09-27 17:47] VITALS: BP 152/85
[2021-09-27] MEDS: QUEtiapine FUMARATE 200 MG TAB PO SCH (20:11)
[2021-09-27] MEDS: QUEtiapine FUMARATE 100 MG TAB PO SCH (20:11)
[2021-09-27] MEDS: traZODone 50 MG TAB PO SCH (20:11)
[2021-09-27] MEDS: ATORVASTATIN 20 MG TAB PO SCH (20:11)
[2021-09-27] MEDS: PRAZOSIN 1 MG CAP PO SCH (20:12)
[2021-09-28] MEDS: LEVOTHYROXINE 75MCG TABLET (0.075MG) PO SCH (05:49)
[2021-09-28] MEDS: LEVOTHYROXINE 100MCG TABLET (0.1MG) PO SCH (05:49)
[2021-09-28 07:01] VITALS: BP 150/92
[2021-09-28] MEDS: DIVALPROEX 250MG *ER* TAB PO SCH ×2 (08:22→20:15)
[2021-09-28] MEDS: BENZTROPINE 1 MG TAB PO SCH ×2 (08:22→20:16)
[2021-09-28] MEDS: MELOXICAM (MOBIC) 7.5 MG TAB PO SCH (08:22)
[2021-09-28] MEDS: GABAPENTIN 100 MG CAP PO SCH ×3 (08:22→20:16)
[2021-09-28] MEDS: DOCUSATE SODIUM 100MG CAPSULE PO SCH ×2 (08:22→20:17)
[2021-09-28] MEDS: PERCOCET 5MG/325MG TAB PO PRN ×2 (08:22→19:11)
[2021-09-28] MEDS: OMEPRAZOLE 20 MG CAP PO SCH (08:22)
[2021-09-28] MEDS: FLUoxetine 20 MG CAP PO SCH ×2 (08:22→20:16)
[2021-09-28] MEDS: CLOTRIMAZOLE 1% TOPICAL CREAM 30GM TOP SCH ×2 (08:23→20:15)
[2021-09-28 18:00] VITALS: BP 147/87
[2021-09-28] MEDS: QUEtiapine FUMARATE 100 MG TAB PO SCH (20:15)
[2021-09-28] MEDS: QUEtiapine FUMARATE 200 MG TAB PO SCH (20:15)
[2021-09-28] MEDS: ATORVASTATIN 20 MG TAB PO SCH (20:16)
[2021-09-28] MEDS: traZODone 50 MG TAB PO SCH (20:16)
[2021-09-28] MEDS: PRAZOSIN 1 MG CAP PO SCH (20:16)
[2021-09-28] MEDS: traMADol 50 MG TAB PO PRN (20:17)
[2021-09-29] MEDS: LEVOTHYROXINE 75MCG TABLET (0.075MG) PO SCH (05:53)
[2021-09-29] MEDS: LEVOTHYROXINE 100MCG TABLET (0.1MG) PO SCH (05:53)
[2021-09-29 06:24] VITALS: BP 138/85
[2021-09-29] MEDS: GABAPENTIN 100 MG CAP PO SCH ×3 (08:21→20:03)
[2021-09-29] MEDS: CLOTRIMAZOLE 1% TOPICAL CREAM 30GM TOP SCH ×2 (08:21→20:03)
[2021-09-29] MEDS: OMEPRAZOLE 20 MG CAP PO SCH (08:22)
[2021-09-29] MEDS: BENZTROPINE 1 MG TAB PO SCH ×2 (08:22→20:03)
[2021-09-29] MEDS: FLUoxetine 20 MG CAP PO SCH ×2 (08:22→20:03)
[2021-09-29] MEDS: MELOXICAM (MOBIC) 7.5 MG TAB PO SCH (08:22)
[2021-09-29] MEDS: DIVALPROEX 250MG *ER* TAB PO SCH ×2 (08:22→20:04)
[2021-09-29] MEDS: DOCUSATE SODIUM 100MG CAPSULE PO SCH ×2 (08:22→20:04)
[2021-09-29] MEDS: clonazePAM 0.5 MG TAB PO PRN (12:56)
[2021-09-29] MEDS: traMADol 50 MG TAB PO PRN ×2 (14:34→20:09)
[2021-09-29 16:27] VITALS: BP 130/68
[2021-09-29] MEDS: traZODone 50 MG TAB PO SCH (20:03)
[2021-09-29] MEDS: QUEtiapine FUMARATE 100 MG TAB PO SCH (20:03)
[2021-09-29] MEDS: ATORVASTATIN 20 MG TAB PO SCH (20:04)
[2021-09-29] MEDS: PRAZOSIN 1 MG CAP PO SCH (20:04)
[2021-09-29] MEDS: QUEtiapine FUMARATE 200 MG TAB PO SCH (20:04)
[2021-09-30] MEDS: LEVOTHYROXINE 100MCG TABLET (0.1MG) PO SCH (05:37)
[2021-09-30] MEDS: LEVOTHYROXINE 75MCG TABLET (0.075MG) PO SCH (05:37)
[2021-09-30 06:56] VITALS: BP 139/65
[2021-09-30] MEDS: MELOXICAM (MOBIC) 7.5 MG TAB PO SCH (08:10)
[2021-09-30] MEDS: FLUoxetine 20 MG CAP PO SCH ×2 (08:11→20:27)
[2021-09-30] MEDS: BENZTROPINE 1 MG TAB PO SCH ×2 (08:11→20:27)
[2021-09-30] MEDS: CLOTRIMAZOLE 1% TOPICAL CREAM 30GM TOP SCH ×2 (08:11→20:25)
[2021-09-30] MEDS: GABAPENTIN 100 MG CAP PO SCH ×3 (08:12→20:26)
[2021-09-30] MEDS: OMEPRAZOLE 20 MG CAP PO SCH (08:12)
[2021-09-30] MEDS: DOCUSATE SODIUM 100MG CAPSULE PO SCH ×2 (08:12→20:27)
[2021-09-30] MEDS: DIVALPROEX 250MG *ER* TAB PO SCH ×2 (08:12→20:27)
[2021-09-30] MEDS: traMADol 50 MG TAB PO PRN (09:33)
[2021-09-30 17:56] VITALS: BP 151/76
[2021-09-30] MEDS: PERCOCET 5MG/325MG TAB PO PRN (18:19)
[2021-09-30] MEDS: QUEtiapine FUMARATE 200 MG TAB PO SCH (20:26)
[2021-09-30] MEDS: PRAZOSIN 1 MG CAP PO SCH (20:26)
[2021-09-30] MEDS: clonazePAM 0.5 MG TAB PO PRN (20:26)
[2021-09-30] MEDS: QUEtiapine FUMARATE 100 MG TAB PO SCH (20:27)
[2021-09-30] MEDS: ATORVASTATIN 20 MG TAB PO SCH (20:27)
[2021-09-30] MEDS: traZODone 50 MG TAB PO SCH (20:27)
[2021-10-01] MEDS: LEVOTHYROXINE 100MCG TABLET (0.1MG) PO SCH (05:49)
[2021-10-01] MEDS: LEVOTHYROXINE 75MCG TABLET (0.075MG) PO SCH (05:49)
[2021-10-01 06:54] VITALS: BP 124/71
[2021-10-01] MEDS: BENZTROPINE 1 MG TAB PO SCH ×2 (09:06→20:15)
[2021-10-01] MEDS: CLOTRIMAZOLE 1% TOPICAL CREAM 30GM TOP SCH ×2 (09:06→20:14)
[2021-10-01] MEDS: GABAPENTIN 100 MG CAP PO SCH ×3 (09:07→20:14)
[2021-10-01] MEDS: DIVALPROEX 250MG *ER* TAB PO SCH ×2 (09:07→20:16)
[2021-10-01] MEDS: OMEPRAZOLE 20 MG CAP PO SCH (09:07)
[2021-10-01] MEDS: PERCOCET 5MG/325MG TAB PO PRN (09:07)
[2021-10-01] MEDS: DOCUSATE SODIUM 100MG CAPSULE PO SCH ×2 (09:07→20:14)
[2021-10-01] MEDS: MELOXICAM (MOBIC) 7.5 MG TAB PO SCH (09:07)
[2021-10-01] MEDS: FLUoxetine 20 MG CAP PO SCH ×2 (09:08→20:15)
[2021-10-01] MEDS: traMADol 50 MG TAB PO PRN ×2 (10:58→18:06)
[2021-10-01] MEDS: ACETAMINOPHEN TAB 650MG DOSE (2X325MG) PO PRN (15:27)
[2021-10-01] MEDS: PRAZOSIN 1 MG CAP PO SCH (20:15)
[2021-10-01] MEDS: traZODone 50 MG TAB PO SCH (20:15)
[2021-10-01] MEDS: QUEtiapine FUMARATE 100 MG TAB PO SCH (20:15)
[2021-10-01] MEDS: ATORVASTATIN 20 MG TAB PO SCH (20:15)
[2021-10-01] MEDS: QUEtiapine FUMARATE 200 MG TAB PO SCH (20:15)
[2021-10-02] MEDS: ACETAMINOPHEN TAB 650MG DOSE (2X325MG) PO PRN (04:26)
[2021-10-02] MEDS: LEVOTHYROXINE 75MCG TABLET (0.075MG) PO SCH (05:51)
[2021-10-02] MEDS: LEVOTHYROXINE 100MCG TABLET (0.1MG) PO SCH (05:52)
[2021-10-02 06:39] VITALS: BP 136/72
[2021-10-02] MEDS: BENZTROPINE 1 MG TAB PO SCH ×2 (08:04→20:07)
[2021-10-02] MEDS: CLOTRIMAZOLE 1% TOPICAL CREAM 30GM TOP SCH ×2 (08:04→20:05)
[2021-10-02] MEDS: MELOXICAM (MOBIC) 7.5 MG TAB PO SCH (08:05)
[2021-10-02] MEDS: GABAPENTIN 100 MG CAP PO SCH ×3 (08:05→20:05)
[2021-10-02] MEDS: FLUoxetine 20 MG CAP PO SCH ×2 (08:05→20:08)
[2021-10-02] MEDS: OMEPRAZOLE 20 MG CAP PO SCH (08:05)
[2021-10-02] MEDS: DIVALPROEX 250MG *ER* TAB PO SCH ×2 (08:05→20:05)
[2021-10-02] MEDS: clonazePAM 0.5 MG TAB PO PRN (08:05)
[2021-10-02] MEDS: DOCUSATE SODIUM 100MG CAPSULE PO SCH ×2 (08:05→20:05)
[2021-10-02] MEDS: traMADol 50 MG TAB PO PRN ×2 (08:07→20:07)
[2021-10-02] MEDS: PERCOCET 5MG/325MG TAB PO PRN (13:52)
[2021-10-02 16:09] VITALS: BP 150/92
[2021-10-02] MEDS: QUEtiapine FUMARATE 200 MG TAB PO SCH (20:05)
[2021-10-02] MEDS: QUEtiapine FUMARATE 100 MG TAB PO SCH (20:06)
[2021-10-02] MEDS: traZODone 50 MG TAB PO SCH (20:06)
[2021-10-02] MEDS: ATORVASTATIN 20 MG TAB PO SCH (20:06)
[2021-10-02] MEDS: PRAZOSIN 1 MG CAP PO SCH (20:07)
[2021-10-03] MEDS: PERCOCET 5MG/325MG TAB PO PRN (04:22)
[2021-10-03] MEDS: LEVOTHYROXINE 100MCG TABLET (0.1MG) PO SCH (05:48)
[2021-10-03] MEDS: LEVOTHYROXINE 75MCG TABLET (0.075MG) PO SCH (05:48)
[2021-10-03 06:44] VITALS: BP 131/68
[2021-10-03] MEDS: GABAPENTIN 100 MG CAP PO SCH ×3 (08:28→20:08)
[2021-10-03] MEDS: FLUoxetine 20 MG CAP PO SCH ×2 (08:28→20:09)
[2021-10-03] MEDS: MELOXICAM (MOBIC) 7.5 MG TAB PO SCH (08:28)
[2021-10-03] MEDS: DOCUSATE SODIUM 100MG CAPSULE PO SCH ×2 (08:28→20:08)
[2021-10-03] MEDS: OMEPRAZOLE 20 MG CAP PO SCH (08:28)
[2021-10-03] MEDS: DIVALPROEX 250MG *ER* TAB PO SCH ×2 (08:28→20:08)
[2021-10-03] MEDS: BENZTROPINE 1 MG TAB PO SCH ×2 (08:28→20:09)
[2021-10-03] MEDS: clonazePAM 0.5 MG TAB PO PRN (08:29)
[2021-10-03] MEDS: CLOTRIMAZOLE 1% TOPICAL CREAM 30GM TOP SCH ×2 (08:29→20:08)
[2021-10-03 13:53] LABS: BLOOD UREA NITROGEN 11 MG/DL (7-18); CALCIUM LEVEL 9.5 MG/DL (8.5-10.1); CARBON DIOXIDE LEVEL 29 MEQ/L (21-32); CHLORIDE LEVEL 102 MEQ/L (98-107); CREATININE FOR GFR 0.83 MG/DL (0.55-1.30); GLOMERULAR FILTRATION RATE > 60.0 (>51); GLUCOSE, FASTING 110 MG/DL (70-100); POTASSIUM SERUM 4.3 MEQ/L (3.5-5.1); SODIUM LEVEL 138 MEQ/L (136-145)
[2021-10-03] MEDS: OLANZapine ORAL DISINTEGRATING TAB 5MG PO PRN (14:44)
[2021-10-03 16:57] VITALS: BP 133/88
[2021-10-03] MEDS: traZODone 50 MG TAB PO SCH (20:08)
[2021-10-03] MEDS: ATORVASTATIN 20 MG TAB PO SCH (20:09)
[2021-10-03] MEDS: PRAZOSIN 1 MG CAP PO SCH (20:09)
[2021-10-03] MEDS: QUEtiapine FUMARATE 200 MG TAB PO SCH (20:09)
[2021-10-03] MEDS: QUEtiapine FUMARATE 100 MG TAB PO SCH (20:09)
[2021-10-04] MEDS: traMADol 50 MG TAB PO PRN (05:00)
[2021-10-04] MEDS: LEVOTHYROXINE 75MCG TABLET (0.075MG) PO SCH (05:00)
[2021-10-04] MEDS: LEVOTHYROXINE 100MCG TABLET (0.1MG) PO SCH (05:00)
[2021-10-04 07:02] VITALS: BP 146/90
[2021-10-04] MEDS ORDERED: DIVALPROEX 250MG *ER* TAB PO SCH (09:00)
[2021-10-04] MEDS: FLUoxetine 20 MG CAP PO SCH ×2 (09:03→20:15)
[2021-10-04] MEDS: MELOXICAM (MOBIC) 7.5 MG TAB PO SCH (09:04)
[2021-10-04] MEDS: OMEPRAZOLE 20 MG CAP PO SCH (09:04)
[2021-10-04] MEDS: DOCUSATE SODIUM 100MG CAPSULE PO SCH ×2 (09:04→20:15)
[2021-10-04] MEDS: GABAPENTIN 100 MG CAP PO SCH ×3 (09:04→20:15)
[2021-10-04] MEDS: BENZTROPINE 1 MG TAB PO SCH ×2 (09:04→20:15)
[2021-10-04] MEDS: CLOTRIMAZOLE 1% TOPICAL CREAM 30GM TOP SCH ×2 (09:04→20:16)
[2021-10-04] MEDS: OLANZapine ORAL DISINTEGRATING TAB 5MG PO PRN (12:42)
[2021-10-04] MEDS: PERCOCET 5MG/325MG TAB PO PRN (14:26)
[2021-10-04 16:13] VITALS: BP 133/90
[2021-10-04] MEDS: clonazePAM 0.5 MG TAB PO PRN (18:36)
[2021-10-04] MEDS: QUEtiapine FUMARATE 200 MG TAB PO SCH (20:13)
[2021-10-04] MEDS: DIVALPROEX 250MG *ER* TAB PO SCH (20:15)
[2021-10-04] MEDS: ATORVASTATIN 20 MG TAB PO SCH (20:15)
[2021-10-04] MEDS: QUEtiapine FUMARATE 100 MG TAB PO SCH (20:15)
[2021-10-04] MEDS: traZODone 50 MG TAB PO SCH (20:15)
[2021-10-04] MEDS: PRAZOSIN 1 MG CAP PO SCH (20:16)
[2021-10-05] MEDS: LEVOTHYROXINE 100MCG TABLET (0.1MG) PO SCH (06:11)
[2021-10-05] MEDS: LEVOTHYROXINE 75MCG TABLET (0.075MG) PO SCH (06:11)
[2021-10-05 06:50] VITALS: BP_SYST 118; BP_SYST 142; BP_DIAS 61; BP_DIAS 66
[2021-10-05] MEDS: OMEPRAZOLE 20 MG CAP PO SCH (08:53)
[2021-10-05] MEDS: DOCUSATE SODIUM 100MG CAPSULE PO SCH ×2 (08:53→20:13)
[2021-10-05] MEDS: CLOTRIMAZOLE 1% TOPICAL CREAM 30GM TOP SCH ×2 (08:53→20:12)
[2021-10-05] MEDS: FLUoxetine 20 MG CAP PO SCH ×2 (08:53→20:16)
[2021-10-05] MEDS: MELOXICAM (MOBIC) 7.5 MG TAB PO SCH (08:53)
[2021-10-05] MEDS: BENZTROPINE 1 MG TAB PO SCH ×2 (08:53→20:16)
[2021-10-05] MEDS: GABAPENTIN 100 MG CAP PO SCH ×3 (08:53→20:13)
[2021-10-05] MEDS: ACETAMINOPHEN TAB 650MG DOSE (2X325MG) PO PRN ×2 (08:55→16:25)
[2021-10-05 18:56] VITALS: BP 143/87
[2021-10-05] MEDS: DIVALPROEX 250MG *ER* TAB PO SCH (20:12)
[2021-10-05 20:13] VITALS: BP 143/87
[2021-10-05] MEDS: PRAZOSIN 1 MG CAP PO SCH (20:13)
[2021-10-05] MEDS: QUEtiapine FUMARATE 100 MG TAB PO SCH (20:15)
[2021-10-05] MEDS: QUEtiapine FUMARATE 200 MG TAB PO SCH (20:15)
[2021-10-05] MEDS: ATORVASTATIN 20 MG TAB PO SCH (20:16)
[2021-10-05] MEDS: traZODone 50 MG TAB PO SCH (20:16)
[2021-10-05] MEDS: clonazePAM 0.5 MG TAB PO PRN (22:14)
[2021-10-06] MEDS: LEVOTHYROXINE 75MCG TABLET (0.075MG) PO SCH (05:28)
[2021-10-06] MEDS: LEVOTHYROXINE 100MCG TABLET (0.1MG) PO SCH (05:28)
[2021-10-06] MEDS: PERCOCET 5MG/325MG TAB PO PRN (05:29)
[2021-10-06 06:30] VITALS: BP 113/60
[2021-10-06] MEDS: BENZTROPINE 1 MG TAB PO SCH (08:15)
[2021-10-06] MEDS: CLOTRIMAZOLE 1% TOPICAL CREAM 30GM TOP SCH (08:15)
[2021-10-06] MEDS: MELOXICAM (MOBIC) 7.5 MG TAB PO SCH (08:15)
[2021-10-06] MEDS: DOCUSATE SODIUM 100MG CAPSULE PO SCH (08:15)
[2021-10-06] MEDS: GABAPENTIN 100 MG CAP PO SCH (08:15)
[2021-10-06] MEDS: FLUoxetine 20 MG CAP PO SCH (08:15)
[2021-10-06] MEDS: OMEPRAZOLE 20 MG CAP PO SCH (08:15)
[2021-10-06] MEDS ORDERED: COLA100C5 PO (09:52)
[2021-10-06] MEDS ORDERED: CLOTR1CR TOP (09:52)
[2021-10-06] MEDS ORDERED: TRAM50TA2 PO ×2 (09:52→11:25)
[2021-10-06] MEDS ORDERED: FLUO20CA22 PO (09:52)
[2021-10-06] MEDS ORDERED: QUET100T2 PO (09:52)
== END 2021-10-06 11:40 | disposition home or self-care (01) | DRG 885 ==
LOC: M ED 10:12 → M ED INP 10:13 → OBSVTOIN 09-21 21:36 → M PSY 09-22 01:11
PROVIDERS: ADMIT Internal Medicine; ATTEND Psychiatry & Neurology Psychiatry
DX: F31.5 Bipolar disorder, current episode depressed, severe, with psychotic features (principal); R45.851 Suicidal ideations; F12.10 Cannabis abuse, uncomplicated; F41.9 Anxiety disorder, unspecified; E06.3 Autoimmune thyroiditis; E78.00 Pure hypercholesterolemia, unspecified; E11.9 Type 2 diabetes mellitus without complications; K21.9 Gastro-esophageal reflux disease without esophagitis; R41.82 Altered mental status, unspecified; E03.8 Other specified hypothyroidism; E88.01 Alpha-1-antitrypsin deficiency; M54.9 Dorsalgia, unspecified; E78.5 Hyperlipidemia, unspecified; I10 Essential (primary) hypertension; R45.850 Homicidal ideations; E66.9 Obesity, unspecified; E88.81 Metabolic syndrome and other insulin resistance; B35.4 Tinea corporis; Z90.49 Acquired absence of other specified parts of digestive tract; Z62.810 Personal history of physical and sexual abuse in childhood; Z20.822 Contact with and (suspected) exposure to COVID-19; Z81.8 Family history of other mental and behavioral disorders; Z88.1 Allergy status to other antibiotic agents; Z79.1 Long term (current) use of non-steroidal anti-inflammatories (NSAID); Z88.8 Allergy status to other drugs, medicaments and biological substances; T42.6X5A Adverse effect of other antiepileptic and sedative-hypnotic drugs, initial encounter; Z91.51 Personal history of suicidal behavior; Z79.899 Other long term (current) drug therapy; Z68.35 Body mass index [BMI] 35.0-35.9, adult

== ENCOUNTER 2022-06-13 12:30 | Outpatient (RCR) | payer MEDICARE, MEDICAID ==
[~2022-06-13 12:30] MED LIST changes: +BUPR-70 PO; -BUPR100T3 PO; +CLOTR1CR TOP; +COLA100C5 PO; +TRAM50TA2 PO
== END 2022-06-15 ==
LOC: M OT 12:30
PROVIDERS: ATTEND Orthopaedic Surgery
DX: M25.542 Pain in joints of left hand (principal)

== ENCOUNTER → 2022-07-12 | Outpatient (REF) | payer MEDICARE, MEDICAID ==
[2022-07-12 15:42] LABS: ALBUMIN 3.9 GM/DL (3.2-5.2); ALT/SGPT 19 U/L (12-78); BILIRUBIN,TOTAL 0.2 MG/DL (0.2-1.0); BLOOD UREA NITROGEN 6 MG/DL (7-18); CALCIUM LEVEL 9.9 MG/DL (8.5-10.1); CARBON DIOXIDE LEVEL 28 MEQ/L (21-32); CHLORIDE LEVEL 104 MEQ/L (98-107); CHOLESTEROL LEVEL 178 MG/DL (<200); CHOLESTEROL RISK RATIO 4.564 (<5); CREATININE FOR GFR 0.68 MG/DL (0.55-1.30); GLOMERULAR FILTRATION RATE > 60.0 (>51); GLUCOSE, FASTING 121 MG/DL (70-100); HDL CHOLESTEROL 39 MG/DL (>40); LDL CHOLESTEROL 95 MG/DL (<100); NON-HDL-C 139 MG/DL; POTASSIUM SERUM 3.7 MEQ/L (3.5-5.1); SODIUM LEVEL 137 MEQ/L (136-145); THYROID STIMULATING HORMONE 0.045 uIU/ML (0.358-3.740); TOTAL PROTEIN 7.7 GM/DL (6.4-8.2); TRIGLYCERIDES LEVEL 218 MG/DL (<150)
== END ==
LOC: M LAB REF 12:20
PROVIDERS: ATTEND Family Medicine Addiction Medicine
DX: E03.9 Hypothyroidism, unspecified (principal)

== ENCOUNTER → 2022-09-18 | Outpatient (REF) | payer MEDICARE, MEDICAID ==
[2022-09-18 13:56] LABS: THYROID STIMULATING HORMONE 0.143 uIU/ML (0.55-4.78)
[2022-09-18 13:57] LABS: ALBUMIN 3.9 G/DL (3.2-5.2); ALKALINE PHOSPHATASE 79 U/L (46-116); ALT/SGPT 17 U/L (7.0-40); AST/SGOT 15 U/L (<34); BILIRUBIN,TOTAL 0.2 MG/DL (0.3-1.2); BLOOD UREA NITROGEN 17 MG/DL (9-23); CALCIUM LEVEL 9.7 MG/DL (8.5-10.1); CARBON DIOXIDE LEVEL 22 MMOL/L (20-31); CHLORIDE LEVEL 105 MMOL/L (98-107); CHOLESTEROL LEVEL 146 MG/DL (<200); CREATININE FOR GFR 0.66 MG/DL (0.55-1.30); GLOMERULAR FILTRATION RATE > 60.0 (>51); GLUCOSE, FASTING 122 MG/DL (60-100); HDL CHOLESTEROL 37.4 MG/DL (>40); LDL CHOLESTEROL 65.8 MG/DL (<100); NON-HDL-C 109 MG/DL; SODIUM LEVEL 143 MMOL/L (136-145); TRIGLYCERIDES LEVEL 214 MG/DL (<150)
== END ==
LOC: M LAB REF 12:47
PROVIDERS: ATTEND Family Medicine Addiction Medicine
DX: E03.9 Hypothyroidism, unspecified (principal)

== ENCOUNTER → 2022-12-07 | Outpatient (REF) | payer MEDICARE, MEDICAID ==
[~2022-12-07] MED LIST changes: -BENZ-52 PO; +BENZ1TAB5 PO
[2022-12-07 13:59] LABS: THYROID STIMULATING HORMONE 0.285 uIU/ML (0.55-4.78)
[2022-12-07 14:01] LABS: ALBUMIN 3.8 G/DL (3.2-5.2); ALKALINE PHOSPHATASE 77 U/L (46-116); ALT/SGPT 15 U/L (7.0-40); AST/SGOT 15 U/L (<34); BILIRUBIN,TOTAL 0.2 MG/DL (0.3-1.2); BLOOD UREA NITROGEN 14 MG/DL (9-23); CALCIUM LEVEL 9.5 MG/DL (8.5-10.1); CARBON DIOXIDE LEVEL 26 MMOL/L (20-31); CHLORIDE LEVEL 105 MMOL/L (98-107); CHOLESTEROL LEVEL 195 MG/DL (<200); CHOLESTEROL RISK RATIO 4.24 (<5); CREATININE FOR GFR 0.63 MG/DL (0.55-1.30); GLOMERULAR FILTRATION RATE > 60.0 (>51); GLUCOSE, FASTING 98 MG/DL (60-100); HDL CHOLESTEROL 45.9 MG/DL (>40); LDL CHOLESTEROL 98.5 MG/DL (<100); NON-HDL-C 149.1 MG/DL; POTASSIUM SERUM 4.4 MMOL/L (3.5-5.1); SODIUM LEVEL 139 MMOL/L (136-145); TOTAL PROTEIN 7.1 G/DL (5.7-8.2); TRIGLYCERIDES LEVEL 253 MG/DL (<150)
== END ==
LOC: M LAB REF 12:19
PROVIDERS: ATTEND Family Medicine Addiction Medicine
DX: E03.9 Hypothyroidism, unspecified (principal)

== ENCOUNTER → 2022-12-14 | Outpatient (REF) | payer MEDICARE, MEDICAID ==
[2022-12-14 12:22] LABS: HEMATOCRIT 37.4 % (36.0-47.0); MEAN CORPUSCULAR HEMOGLOBIN 29.3 pg (27.0-33.0); MEAN CORPUSCULAR HGB CONC 32.1 g/dl (32.0-36.5); MEAN CORPUSCULAR VOLUME 91.2 fl (80.0-96.0); PLATELET COUNT, AUTOMATED 228 10^3/uL (150-450); WHITE BLOOD COUNT 5.2 10^3/uL (4.0-10.0)
== END ==
LOC: M LAB REF 11:18
PROVIDERS: ATTEND Family Medicine Addiction Medicine
DX: R06.09 Other forms of dyspnea (principal)

== ENCOUNTER → 2022-12-20 | Outpatient (CLI) | payer MEDICARE, MEDICAID | LOC: M RAD 08:42 → M LAB 08:42 | PROVIDERS: ATTEND Family Medicine Addiction Medicine | DX: R06.09 Other forms of dyspnea (principal) ==

== ENCOUNTER 2023-03-11 18:36 | Emergency (ER) | payer MEDICARE, MEDICAID ==
[~2023-03-11] VITALS: Ht 154.9 cm; Wt 83.2 kg
[2023-03-11 18:37] VITALS: TEMP 99.1
[2023-03-11 23:41] VITALS: BP 143/79; O2SAT 98
== END 2023-03-11 23:48 | disposition home or self-care (01) ==
LOC: M ED 18:36
DX: R60.9 Edema, unspecified (principal); I10 Essential (primary) hypertension; E78.5 Hyperlipidemia, unspecified; J44.9 Chronic obstructive pulmonary disease, unspecified; K21.9 Gastro-esophageal reflux disease without esophagitis; K57.92 Diverticulitis of intestine, part unspecified, without perforation or abscess without bleeding; Z86.711 Personal history of pulmonary embolism; Z88.8 Allergy status to other drugs, medicaments and biological substances; Z88.1 Allergy status to other antibiotic agents; Z79.899 Other long term (current) drug therapy

== ENCOUNTER → 2023-03-26 | Outpatient (CLI) | payer MEDICARE, MEDICAID | LOC: M WHC 06:38 | PROVIDERS: ATTEND Family Medicine Addiction Medicine | DX: N64.4 Mastodynia (principal) | CPT/HCPCS: 77066; G0279 ==

== ENCOUNTER → 2023-06-19 | Outpatient (REF) | payer MEDICARE, MEDICAID ==
[~2023-06-19] MED LIST changes: -GABA-283; -GABA-283 PO; +GABA-284; +GABA-284 PO
== END ==
LOC: M LAB REF 11:35
PROVIDERS: ATTEND Family Medicine Addiction Medicine
DX: R30.0 Dysuria (principal)

== ENCOUNTER → 2023-07-01 | Outpatient (CLI) | payer MEDICARE, OTHER ==
[~2023-07-01] MED LIST changes: +ABIL1INJ IM; +ALBU2.5V10 INH; +B6/F1TAB PO; +CENTCHW4 PO; +KLON0.5T PO; +TREL1AER PO
== END ==
LOC: M RAD 15:15
PROVIDERS: ATTEND Physician Assistant
DX: Z12.2 Encounter for screening for malignant neoplasm of respiratory organs (principal); Z87.891 Personal history of nicotine dependence; R91.8 Other nonspecific abnormal finding of lung field

== ENCOUNTER 2023-07-03 11:34 | Inpatient (IN) | payer MEDICARE ==
[~2023-07-03] VITALS: Ht 154.9 cm; Wt 84.0 kg
[~2023-07-03 11:34] MED LIST changes: -ABIL1INJ IM; -ALBU2.5V10 INH; -B6/F1TAB PO; -CENTCHW4 PO; -KLON0.5T PO; -TREL1AER PO
[2023-07-03] MEDS ORDERED: TREL1AER PO (12:09)
[2023-07-03] MEDS ORDERED: B6/F1TAB PO (12:09)
[2023-07-03] MEDS ORDERED: KLON0.5T PO (12:09)
[2023-07-03] MEDS ORDERED: ABIL1INJ IM (12:09)
[2023-07-03] MEDS ORDERED: ALBU2.5V10 INH (12:09)
[2023-07-03] MEDS ORDERED: CENTCHW4 PO (12:09)
[2023-07-03 12:13] LABS: BASO % 0.3 % (0.0-1.0); EOS # 0.2 10^3/uL (0.0-0.5); HEMATOCRIT 31.2 % (36.0-47.0); HEMOGLOBIN 10.3 g/dl (12.0-15.5); LYMPH # 0.9 10^3/uL (1.5-5.0); LYMPH % 13.4 % (24.0-44.0); MEAN CORPUSCULAR HEMOGLOBIN 27.3 pg (27.0-33.0); MEAN CORPUSCULAR VOLUME 82.8 fl (80.0-96.0); MONO # 0.3 10^3/uL (0.0-0.8); MONO % 4.7 % (2.0-8.0); NEUTROPHILS % 78.1 % (36.0-66.0); PLATELET COUNT, AUTOMATED 206 10^3/uL (150-450); RED BLOOD COUNT 3.77 10^6/uL (4.00-5.40); WHITE BLOOD COUNT 6.4 10^3/uL (4.0-10.0)
[2023-07-03 12:37] LABS: BLOOD UREA NITROGEN 10 MG/DL (9-23); CALCIUM LEVEL 8.8 MG/DL (8.5-10.1); CARBON DIOXIDE LEVEL 26 MMOL/L (20-31); CHLORIDE LEVEL 101 MMOL/L (98-107); CK-MB VALUE MASS < 1.0 NG/ML (<3.6); CREATININE FOR GFR 0.72 MG/DL (0.55-1.30); GLOMERULAR FILTRATION RATE > 60.0 (>51); GLUCOSE, FASTING 108 MG/DL (60-100); POTASSIUM SERUM 3.4 MMOL/L (3.5-5.1); SODIUM LEVEL 135 MMOL/L (136-145)
[2023-07-03 12:39] LABS: CPK CREATINE PHOSPHOKINASE 173 U/L (34-145); MB/CK RELATIVE INDEX 0.57 (< OR =4)
[2023-07-03] MEDS ORDERED: IPRATROPIUM 0.5MG/ALBUTEROL 2.5MG INH SOL UD 3ML (DUONEB) NEB ONE (13:00)
[2023-07-03] MEDS ORDERED: methylPREDNISolone 125MG 2ML VIAL IV ONE (13:00)
[2023-07-03] MEDS ORDERED: DOXYCYCLINE HYCLATE 100MG TABLET PO ONE (13:00)
[2023-07-03] MEDS ORDERED: cefTRIAXone SOD 1 GM in D5W MINI-BAG PLUS 50 ML IV ONE (13:00)
[2023-07-03] MEDS ORDERED: ISOVUE-370 76% 100ML VIAL As Ordered ONE (13:03)
[2023-07-03 13:19] LABS: VENOUS HCO3 27.5 MMOL/L (23.0-27.0); VENOUS O2 SATURATION 57.3 % (60.0-80.0); VENOUS PARTIAL PRESSURE CO2 46.4 mmHg (38.0-50.0); VENOUS PARTIAL PRESSURE O2 30.5 mmHg (30.0-50.0); VENOUS STANDARD HCO3 25.5 MMOL/L; VENOUS TOTAL CO2 28.9 MMOL/L (24.0-28.0)
[2023-07-03 13:55] LABS: ALBUMIN 3.3 G/DL (3.2-5.2); BILIRUBIN,DIRECT 0.2 MG/DL (<0.4); BILIRUBIN,TOTAL 0.3 MG/DL (0.3-1.2); TOTAL PROTEIN 6.5 G/DL (5.7-8.2)
[2023-07-03] MEDS ORDERED: MOM 30ML SUSPENSION UDC PO PRN (15:40)
[2023-07-03] MEDS: ACETAMINOPHEN TAB 650MG DOSE (2X325MG) PO PRN (16:26)
[2023-07-03 16:29] LABS: PROCALCITONIN 0.64 ng/ml
[2023-07-03 16:39] VITALS: O2SAT 94
[2023-07-03 16:43] VITALS: BP 138/85; TEMP 97.3; O2SAT 93
[2023-07-03] MEDS ORDERED: MED REC IN PROGRESS XX SCH (16:50)
[2023-07-03 17:12] LABS: INR 1.05; PROTHROMBIN TIME 13.4 SECONDS (12.5-14.5)
[2023-07-03 17:13] LABS: PARTIAL THROMBOPLASTIN TIME 30.5 SECONDS (24.8-34.2)
[2023-07-03] MEDS ORDERED: HOME MED LIST COMPLETE! XX SCH (17:15)
[2023-07-03] MEDS: guaiFENesin/CODEINE SYRUP 5 ML UDC PO PRN (17:48)
[2023-07-03] MEDS ORDERED: ALBUTEROL SULFATE 2.5MG/0.5ML INH NEB SOLN INH PRN (18:20)
[2023-07-03] MEDS ORDERED: clonazePAM 0.5 MG TAB PO PRN (18:20)
[2023-07-03] MEDS: IPRATROPIUM 0.5MG/ALBUTEROL 2.5MG INH SOL UD 3ML (DUONEB) INH SCH (20:28)
[2023-07-03] MEDS: ADVAIR HFA 230/21MCG INHALER INH SCH (20:28)
[2023-07-03] MEDS ORDERED: PILL CUTTER 1 EACH XX PRN (21:10)
[2023-07-03 21:17] VITALS: BP 125/61; TEMP 97.9; O2SAT 91
[2023-07-03] MEDS: traMADol 50 MG TAB PO PRN (21:17)
[2023-07-03] MEDS: BENZTROPINE 1 MG TAB PO SCH (21:18)
[2023-07-03] MEDS: QUEtiapine FUMARATE 200 MG TAB PO SCH (21:18)
[2023-07-03] MEDS: PRAZOSIN 1 MG CAP PO SCH (21:19)
[2023-07-03] MEDS: DOXYCYCLINE HYCLATE 100MG TABLET PO SCH (21:19)
[2023-07-03] MEDS: traZODone 50 MG TAB PO SCH (21:19)
[2023-07-03] MEDS: ATORVASTATIN 20 MG TAB PO SCH (21:20)
[2023-07-03] MEDS: FLUoxetine 20MG CAP PO SCH (21:20)
[2023-07-03] MEDS: DIVALPROEX 500 MG TAB PO SCH (21:21)
[2023-07-03] MEDS: DOCUSATE SODIUM 100MG CAPSULE PO SCH (21:21)
[2023-07-03 21:50] VITALS: O2SAT 86
[2023-07-03 21:53] VITALS: O2SAT 90
[2023-07-04] VITALS (12 sets, daily range): BP systolic 110–146; BP diastolic 50–77; TEMP 97.3–98.6; O2SAT 85–95
[2023-07-04] MEDS: IPRATROPIUM 0.5MG/ALBUTEROL 2.5MG INH SOL UD 3ML (DUONEB) INH SCH ×4 (00:44→19:06)
[2023-07-04] MEDS: traMADol 50 MG TAB PO PRN ×2 (04:32→11:09)
[2023-07-04] MEDS: LEVOTHYROXINE 150MCG TABLET (0.15MG) PO SCH (05:48)
[2023-07-04] MEDS: LEVOTHYROXINE 25MCG TABLET (0.025MG) PO SCH (05:48)
[2023-07-04 07:55] LABS: BASO % 0.2 % (0.0-1.0); EOS % 0.9 % (0.0-3.0); HEMATOCRIT 29.7 % (36.0-47.0); HEMOGLOBIN 9.6 g/dl (12.0-15.5); LYMPH # 0.9 10^3/uL (1.5-5.0); LYMPH % 21.7 % (24.0-44.0); MEAN CORPUSCULAR HGB CONC 32.3 g/dl (32.0-36.5); MEAN CORPUSCULAR VOLUME 83.4 fl (80.0-96.0); MONO # 0.2 10^3/uL (0.0-0.8); MONO % 4.8 % (2.0-8.0); NEUTROPHILS # 3.1 10^3/uL (1.5-8.5); NEUTROPHILS % 71.9 % (36.0-66.0); PLATELET COUNT, AUTOMATED 196 10^3/uL (150-450); RED BLOOD COUNT 3.56 10^6/uL (4.00-5.40); WHITE BLOOD COUNT 4.3 10^3/uL (4.0-10.0)
[2023-07-04 08:26] LABS: ALBUMIN 2.9 G/DL (3.2-5.2); ALKALINE PHOSPHATASE 73 U/L (46-116); ALT/SGPT 16 U/L (7.0-40); AST/SGOT 35 U/L (<34); BILIRUBIN,TOTAL 0.2 MG/DL (0.3-1.2); BLOOD UREA NITROGEN 14 MG/DL (9-23); CALCIUM LEVEL 8.8 MG/DL (8.5-10.1); CARBON DIOXIDE LEVEL 29 MMOL/L (20-31); CHLORIDE LEVEL 102 MMOL/L (98-107); CREATININE FOR GFR 0.71 MG/DL (0.55-1.30); GLOMERULAR FILTRATION RATE > 60.0 (>51); GLUCOSE, FASTING 110 MG/DL (60-100); POTASSIUM SERUM 3.3 MMOL/L (3.5-5.1); SODIUM LEVEL 139 MMOL/L (136-145); TOTAL PROTEIN 6.3 G/DL (5.7-8.2)
[2023-07-04] MEDS: ADVAIR HFA 230/21MCG INHALER INH SCH ×2 (08:31→19:06)
[2023-07-04] MEDS: BENZTROPINE 1 MG TAB PO SCH ×2 (08:50→21:06)
[2023-07-04] MEDS: guaiFENesin/CODEINE SYRUP 5 ML UDC PO PRN (08:51)
[2023-07-04] MEDS: ACETAMINOPHEN TAB 650MG DOSE (2X325MG) PO PRN (08:53)
[2023-07-04] MEDS: DOXYCYCLINE HYCLATE 100MG TABLET PO SCH ×2 (08:53→21:09)
[2023-07-04] MEDS: MULTIVITAMINS/MINERALS THERAP 1 TAB PO SCH (08:54)
[2023-07-04] MEDS: DOCUSATE SODIUM 100MG CAPSULE PO SCH ×2 (08:54→21:07)
[2023-07-04] MEDS: OMEPRAZOLE 20MG CAP PO SCH (08:54)
[2023-07-04] MEDS: RIVAROXABAN 10MG TAB (XARELTO) PO SCH (08:54)
[2023-07-04] MEDS ORDERED: POTASSIUM CHLORIDE 10MEQ SR TABLET PO ONE (10:40)
[2023-07-04] MEDS: MORPHINE 4 MG/ML 1ML VIAL IV PRN ×3 (12:47→21:05)
[2023-07-04] MEDS: LIDOCAINE 5% (LIDODERM) PATCH TD SCH (12:55)
[2023-07-04] MEDS: cefTRIAXone SOD 1 GM in D5W MINI-BAG PLUS 50 ML IV SCH (14:44)
[2023-07-04] MEDS: DIVALPROEX 500 MG TAB PO SCH (21:07)
[2023-07-04] MEDS: ATORVASTATIN 20 MG TAB PO SCH (21:07)
[2023-07-04] MEDS: traZODone 50 MG TAB PO SCH (21:09)
[2023-07-04] MEDS: QUEtiapine FUMARATE 200 MG TAB PO SCH (21:09)
[2023-07-04] MEDS: FLUoxetine 20MG CAP PO SCH (21:09)
[2023-07-04] MEDS: PRAZOSIN 1 MG CAP PO SCH (21:09)
[2023-07-05] MEDS: IPRATROPIUM 0.5MG/ALBUTEROL 2.5MG INH SOL UD 3ML (DUONEB) INH SCH ×4 (01:36→19:22)
[2023-07-05 02:57] VITALS: O2SAT 86
[2023-07-05 03:05] VITALS: O2SAT 91
[2023-07-05 05:22] VITALS: BP 118/73; TEMP 97.7; O2SAT 95
[2023-07-05 05:55] LABS: BASO % 0.4 % (0.0-1.0); EOS # 0.4 10^3/uL (0.0-0.5); EOS % 8.3 % (0.0-3.0); HEMATOCRIT 31.2 % (36.0-47.0); HEMOGLOBIN 10.1 g/dl (12.0-15.5); LYMPH # 1.3 10^3/uL (1.5-5.0); LYMPH % 28.2 % (24.0-44.0); MEAN CORPUSCULAR HEMOGLOBIN 27.2 pg (27.0-33.0); MEAN CORPUSCULAR HGB CONC 32.4 g/dl (32.0-36.5); MEAN CORPUSCULAR VOLUME 83.9 fl (80.0-96.0); MONO # 0.3 10^3/uL (0.0-0.8); MONO % 5.9 % (2.0-8.0); NEUTROPHILS # 2.7 10^3/uL (1.5-8.5); NEUTROPHILS % 56.6 % (36.0-66.0); PLATELET COUNT, AUTOMATED 216 10^3/uL (150-450); RED BLOOD COUNT 3.72 10^6/uL (4.00-5.40); WHITE BLOOD COUNT 4.7 10^3/uL (4.0-10.0)
[2023-07-05] MEDS: LEVOTHYROXINE 150MCG TABLET (0.15MG) PO SCH (05:55)
[2023-07-05] MEDS: LEVOTHYROXINE 25MCG TABLET (0.025MG) PO SCH (05:55)
[2023-07-05] MEDS: MORPHINE 4 MG/ML 1ML VIAL IV PRN ×4 (06:01→19:45)
[2023-07-05 06:38] LABS: ERYTHROCYTE SEDIMENTATION RATE 85 mm/hr (0-30)
[2023-07-05] MEDS: ADVAIR HFA 230/21MCG INHALER INH SCH ×2 (08:00→19:22)
[2023-07-05] MEDS: MULTIVITAMINS/MINERALS THERAP 1 TAB PO SCH (08:56)
[2023-07-05] MEDS: DOCUSATE SODIUM 100MG CAPSULE PO SCH ×2 (08:57→20:07)
[2023-07-05] MEDS: RIVAROXABAN 10MG TAB (XARELTO) PO SCH (08:57)
[2023-07-05] MEDS: BENZTROPINE 1 MG TAB PO SCH ×2 (08:57→20:08)
[2023-07-05] MEDS: OMEPRAZOLE 20MG CAP PO SCH (08:57)
[2023-07-05] MEDS: DOXYCYCLINE HYCLATE 100MG TABLET PO SCH ×2 (08:57→20:09)
[2023-07-05] MEDS: LIDOCAINE 5% (LIDODERM) PATCH TD SCH (08:58)
[2023-07-05] MEDS: cefTRIAXone SOD 1 GM in D5W MINI-BAG PLUS 50 ML IV SCH (13:55)
[2023-07-05 14:00] VITALS: BP 128/87; TEMP 97.9; O2SAT 92
[2023-07-05 14:20] LABS: BLOOD UREA NITROGEN 11 MG/DL (7-21); GLUCOSE, FASTING 90 MG/DL (70-99)
[2023-07-05 14:21] LABS: CREATININE FOR GFR 0.6 MG/DL (0.7-1.5); GLOMERULAR FILTRATION RATE > 60.0 (>51); POTASSIUM SERUM 4.6 MEQ/L (3.6-5.0); SODIUM LEVEL 139 MEQ/L (134-153)
[2023-07-05 14:22] LABS: ALBUMIN 3.6 G/DL (3.9-5.0); ALKALINE PHOSPHATASE 76 U/L (35-104); ALT/SGPT 11 U/L (1-33); AST/SGOT 30 U/L (5-40); BILIRUBIN,TOTAL < 0.7 MG/DL (0.2-1.3); CALCIUM LEVEL 9.3 MG/DL (8.4-10.2); CARBON DIOXIDE LEVEL 26 MEQ/L (22-30); CHLORIDE LEVEL 101 MEQ/L (98-107); TOTAL PROTEIN 6.6 G/DL (6.3-8.2)
[2023-07-05 14:23] LABS: C REACTIVE PROTEIN QUANTITATIV 74.96 MG/L (1.00-3.00)
[2023-07-05 19:32] VITALS: BP 126/80; TEMP 97.9; O2SAT 91
[2023-07-05] MEDS: guaiFENesin/CODEINE SYRUP 5 ML UDC PO PRN (20:07)
[2023-07-05] MEDS: QUEtiapine FUMARATE 200 MG TAB PO SCH (20:07)
[2023-07-05] MEDS: PRAZOSIN 1 MG CAP PO SCH (20:08)
[2023-07-05] MEDS: traZODone 50 MG TAB PO SCH (20:08)
[2023-07-05] MEDS: ATORVASTATIN 20 MG TAB PO SCH (20:09)
[2023-07-05] MEDS: FLUoxetine 20MG CAP PO SCH (20:09)
[2023-07-05] MEDS: DIVALPROEX 500 MG TAB PO SCH (20:09)
[2023-07-05] MEDS: traMADol 50 MG TAB PO PRN (21:08)
[2023-07-05 22:27] VITALS: TEMP 99.6
[2023-07-06] VITALS (9 sets, daily range): BP systolic 124–132; BP diastolic 77–80; TEMP 97.7–98.2; O2SAT 86–94
[2023-07-06] MEDS: IPRATROPIUM 0.5MG/ALBUTEROL 2.5MG INH SOL UD 3ML (DUONEB) INH SCH ×4 (01:31→19:25)
[2023-07-06] MEDS: LEVOTHYROXINE 25MCG TABLET (0.025MG) PO SCH (04:42)
[2023-07-06] MEDS: MORPHINE 4 MG/ML 1ML VIAL IV PRN ×4 (04:42→20:42)
[2023-07-06] MEDS: LEVOTHYROXINE 150MCG TABLET (0.15MG) PO SCH (04:42)
[2023-07-06 06:37] LABS: BASO % 0.7 % (0.0-1.0); EOS # 0.4 10^3/uL (0.0-0.5); EOS % 10.9 % (0.0-3.0); HEMATOCRIT 32.4 % (36.0-47.0); HEMOGLOBIN 10.5 g/dl (12.0-15.5); LYMPH # 1.5 10^3/uL (1.5-5.0); LYMPH % 38.2 % (24.0-44.0); MEAN CORPUSCULAR HEMOGLOBIN 26.9 pg (27.0-33.0); MEAN CORPUSCULAR HGB CONC 32.4 g/dl (32.0-36.5); MEAN CORPUSCULAR VOLUME 83.1 fl (80.0-96.0); MONO # 0.3 10^3/uL (0.0-0.8); MONO % 8.4 % (2.0-8.0); NEUTROPHILS # 1.6 10^3/uL (1.5-8.5); NEUTROPHILS % 40.8 % (36.0-66.0); PLATELET COUNT, AUTOMATED 227 10^3/uL (150-450)
[2023-07-06 06:49] LABS: ERYTHROCYTE SEDIMENTATION RATE 69 mm/hr (0-30)
[2023-07-06] MEDS: ADVAIR HFA 230/21MCG INHALER INH SCH ×2 (08:03→19:25)
[2023-07-06] MEDS: guaiFENesin/CODEINE SYRUP 5 ML UDC PO PRN ×3 (09:12→21:01)
[2023-07-06] MEDS: RIVAROXABAN 10MG TAB (XARELTO) PO SCH (09:13)
[2023-07-06] MEDS: BENZTROPINE 1 MG TAB PO SCH ×2 (09:13→20:39)
[2023-07-06] MEDS: OMEPRAZOLE 20MG CAP PO SCH (09:13)
[2023-07-06] MEDS: DOXYCYCLINE HYCLATE 100MG TABLET PO SCH ×2 (09:13→20:40)
[2023-07-06] MEDS: MULTIVITAMINS/MINERALS THERAP 1 TAB PO SCH (09:13)
[2023-07-06] MEDS: LIDOCAINE 5% (LIDODERM) PATCH TD SCH (09:14)
[2023-07-06] MEDS: DOCUSATE SODIUM 100MG CAPSULE PO SCH ×2 (09:16→20:40)
[2023-07-06] MEDS: cefTRIAXone SOD 1 GM in D5W MINI-BAG PLUS 50 ML IV SCH (14:06)
[2023-07-06] MEDS: ATORVASTATIN 20 MG TAB PO SCH (20:38)
[2023-07-06] MEDS: traZODone 50 MG TAB PO SCH (20:39)
[2023-07-06] MEDS: FLUoxetine 20MG CAP PO SCH (20:39)
[2023-07-06] MEDS: DIVALPROEX 500 MG TAB PO SCH (20:39)
[2023-07-06] MEDS: QUEtiapine FUMARATE 200 MG TAB PO SCH (20:40)
[2023-07-06] MEDS: PRAZOSIN 1 MG CAP PO SCH (20:54)
[2023-07-07] VITALS (8 sets, daily range): BP systolic 110–140; BP diastolic 70–87; TEMP 97.2–98.2; O2SAT 85–93
[2023-07-07] MEDS: IPRATROPIUM 0.5MG/ALBUTEROL 2.5MG INH SOL UD 3ML (DUONEB) INH SCH ×4 (01:48→19:41)
[2023-07-07] MEDS: MORPHINE 4 MG/ML 1ML VIAL IV PRN (02:08)
[2023-07-07] MEDS: LEVOTHYROXINE 25MCG TABLET (0.025MG) PO SCH (05:47)
[2023-07-07] MEDS: LEVOTHYROXINE 150MCG TABLET (0.15MG) PO SCH (05:47)
[2023-07-07 05:51] LABS: BASO % 0.6 % (0.0-1.0); EOS # 0.5 10^3/uL (0.0-0.5); EOS % 10.9 % (0.0-3.0); HEMATOCRIT 31.6 % (36.0-47.0); HEMOGLOBIN 10.5 g/dl (12.0-15.5); LYMPH # 1.9 10^3/uL (1.5-5.0); LYMPH % 41.3 % (24.0-44.0); MEAN CORPUSCULAR HEMOGLOBIN 27.3 pg (27.0-33.0); MEAN CORPUSCULAR HGB CONC 33.2 g/dl (32.0-36.5); MEAN CORPUSCULAR VOLUME 82.3 fl (80.0-96.0); MONO # 0.5 10^3/uL (0.0-0.8); MONO % 10.4 % (2.0-8.0); NEUTROPHILS # 1.6 10^3/uL (1.5-8.5); NEUTROPHILS % 34.5 % (36.0-66.0); PLATELET COUNT, AUTOMATED 231 10^3/uL (150-450); RED BLOOD COUNT 3.84 10^6/uL (4.00-5.40); WHITE BLOOD COUNT 4.7 10^3/uL (4.0-10.0)
[2023-07-07 06:02] LABS: ERYTHROCYTE SEDIMENTATION RATE 91 mm/hr (0-30)
[2023-07-07] MEDS: guaiFENesin/CODEINE SYRUP 5 ML UDC PO PRN (06:20)
[2023-07-07] MEDS ORDERED: oxyCODONE 5MG TAB PO PRN (07:25)
[2023-07-07] MEDS: ADVAIR HFA 230/21MCG INHALER INH SCH ×2 (07:46→19:41)
[2023-07-07] MEDS: LIDOCAINE 5% (LIDODERM) PATCH TD SCH (08:44)
[2023-07-07] MEDS: BENZTROPINE 1 MG TAB PO SCH ×2 (08:45→20:44)
[2023-07-07] MEDS: MULTIVITAMINS/MINERALS THERAP 1 TAB PO SCH (08:45)
[2023-07-07] MEDS: DOCUSATE SODIUM 100MG CAPSULE PO SCH ×2 (08:45→20:41)
[2023-07-07] MEDS: OMEPRAZOLE 20MG CAP PO SCH (08:46)
[2023-07-07] MEDS: DOXYCYCLINE HYCLATE 100MG TABLET PO SCH ×2 (08:46→20:44)
[2023-07-07] MEDS: oxyCODONE 5MG TAB PO PRN ×3 (08:46→21:06)
[2023-07-07] MEDS: RIVAROXABAN 10MG TAB (XARELTO) PO SCH (08:46)
[2023-07-07] MEDS: AUGMENTIN 875 MG TAB PO SCH ×2 (09:40→20:41)
[2023-07-07 12:15] LABS: BLOOD UREA NITROGEN 9 MG/DL (7-21); CREATININE FOR GFR 0.5 MG/DL (0.7-1.5); GLOMERULAR FILTRATION RATE > 60.0 (>51); GLUCOSE, FASTING 89 MG/DL (70-99); SODIUM LEVEL 139 MEQ/L (134-153)
[2023-07-07 12:16] LABS: ALBUMIN 3.7 G/DL (3.9-5.0); ALKALINE PHOSPHATASE 80 U/L (35-104); ALT/SGPT 9 U/L (1-33); AST/SGOT 26 U/L (5-40); BILIRUBIN,TOTAL < 0.7 MG/DL (0.2-1.3); CALCIUM LEVEL 9.7 MG/DL (8.4-10.2); CARBON DIOXIDE LEVEL 26 MEQ/L (22-30); CHLORIDE LEVEL 98 MEQ/L (98-107); POTASSIUM SERUM 4.2 MEQ/L (3.6-5.0); TOTAL PROTEIN 6.7 G/DL (6.3-8.2)
[2023-07-07 13:57] LABS: BLOOD UREA NITROGEN 10 MG/DL (7-21); CARBON DIOXIDE LEVEL 29 MEQ/L (22-30); CHLORIDE LEVEL 97 MEQ/L (98-107); CREATININE FOR GFR 0.5 MG/DL (0.7-1.5); GLOMERULAR FILTRATION RATE > 60.0 (>51); GLUCOSE, FASTING 101 MG/DL (70-99); POTASSIUM SERUM 4.2 MEQ/L (3.6-5.0); SODIUM LEVEL 138 MEQ/L (134-153)
[2023-07-07 13:58] LABS: ALBUMIN 3.6 G/DL (3.9-5.0); ALKALINE PHOSPHATASE 81 U/L (35-104); ALT/SGPT 10 U/L (1-33); AST/SGOT 24 U/L (5-40); BILIRUBIN,TOTAL < 0.7 MG/DL (0.2-1.3); C REACTIVE PROTEIN QUANTITATIV 41.86 MG/L (1.00-3.00); CALCIUM LEVEL 9.5 MG/DL (8.4-10.2); TOTAL PROTEIN 6.7 G/DL (6.3-8.2)
[2023-07-07] MEDS: ATORVASTATIN 20 MG TAB PO SCH (20:42)
[2023-07-07] MEDS: PRAZOSIN 1 MG CAP PO SCH (20:43)
[2023-07-07] MEDS: DIVALPROEX 500 MG TAB PO SCH (20:44)
[2023-07-07] MEDS: FLUoxetine 20MG CAP PO SCH (20:44)
[2023-07-07] MEDS: traZODone 50 MG TAB PO SCH (20:58)
[2023-07-07] MEDS: QUEtiapine FUMARATE 200 MG TAB PO SCH (20:58)
[2023-07-08] MEDS: IPRATROPIUM 0.5MG/ALBUTEROL 2.5MG INH SOL UD 3ML (DUONEB) INH SCH ×2 (02:13→07:24)
[2023-07-08 05:25] VITALS: BP 127/78; TEMP 97.2; O2SAT 95
[2023-07-08] MEDS: LEVOTHYROXINE 25MCG TABLET (0.025MG) PO SCH (05:31)
[2023-07-08] MEDS: LEVOTHYROXINE 150MCG TABLET (0.15MG) PO SCH (05:31)
[2023-07-08] MEDS: oxyCODONE 5MG TAB PO PRN ×2 (05:32→11:45)
[2023-07-08 05:49] LABS: BASO # 0.1 10^3/uL (0.0-0.2); EOS # 0.6 10^3/uL (0.0-0.5); EOS % 10.1 % (0.0-3.0); HEMATOCRIT 33.3 % (36.0-47.0); HEMOGLOBIN 10.7 g/dl (12.0-15.5); LYMPH # 2.2 10^3/uL (1.5-5.0); LYMPH % 36.8 % (24.0-44.0); MEAN CORPUSCULAR HEMOGLOBIN 26.9 pg (27.0-33.0); MEAN CORPUSCULAR HGB CONC 32.1 g/dl (32.0-36.5); MEAN CORPUSCULAR VOLUME 83.7 fl (80.0-96.0); MONO # 0.6 10^3/uL (0.0-0.8); MONO % 9.3 % (2.0-8.0); NEUTROPHILS # 2.3 10^3/uL (1.5-8.5); NEUTROPHILS % 38.3 % (36.0-66.0); PLATELET COUNT, AUTOMATED 287 10^3/uL (150-450); RED BLOOD COUNT 3.98 10^6/uL (4.00-5.40)
[2023-07-08 06:02] VITALS: O2SAT 94
[2023-07-08 06:16] LABS: ERYTHROCYTE SEDIMENTATION RATE 88 mm/hr (0-30)
[2023-07-08 06:40] VITALS: O2SAT 93
[2023-07-08] MEDS: ADVAIR HFA 230/21MCG INHALER INH SCH (07:25)
[2023-07-08] MEDS: AUGMENTIN 875 MG TAB PO SCH (09:12)
[2023-07-08] MEDS: DOXYCYCLINE HYCLATE 100MG TABLET PO SCH (09:12)
[2023-07-08] MEDS: ACETAMINOPHEN TAB 650MG DOSE (2X325MG) PO PRN (09:12)
[2023-07-08] MEDS: OMEPRAZOLE 20MG CAP PO SCH (09:12)
[2023-07-08] MEDS: BENZTROPINE 1 MG TAB PO SCH (09:12)
[2023-07-08] MEDS: LIDOCAINE 5% (LIDODERM) PATCH TD SCH (09:12)
[2023-07-08] MEDS: RIVAROXABAN 10MG TAB (XARELTO) PO SCH (09:12)
[2023-07-08] MEDS: MULTIVITAMINS/MINERALS THERAP 1 TAB PO SCH (09:12)
[2023-07-08] MEDS: DOCUSATE SODIUM 100MG CAPSULE PO SCH (09:12)
[2023-07-08] MEDS ORDERED: GUAI1SOL7 PO (10:28)
[2023-07-08] MEDS ORDERED: DOXY100T PO (10:28)
[2023-07-08] MEDS ORDERED: AMOX875T2 PO (10:28)
[2023-07-08] MEDS ORDERED: DOXY100C3 PO (10:35)
[2023-07-08] MEDS ORDERED: PRED20TA PO (10:35)
[2023-07-08] MEDS ORDERED: IPRA0.00 INH (10:35)
[2023-07-08 15:54] LABS: BLOOD UREA NITROGEN 12 MG/DL (7-21); CREATININE FOR GFR 0.6 MG/DL (0.7-1.5); GLOMERULAR FILTRATION RATE > 60.0 (>51); GLUCOSE, FASTING 101 MG/DL (70-99); POTASSIUM SERUM 4.4 MEQ/L (3.6-5.0); SODIUM LEVEL 139 MEQ/L (134-153)
[2023-07-08 15:55] LABS: ALBUMIN 3.7 G/DL (3.9-5.0); ALKALINE PHOSPHATASE 83 U/L (35-104); ALT/SGPT 11 U/L (1-33); AST/SGOT 20 U/L (5-40); BILIRUBIN,TOTAL < 0.7 MG/DL (0.2-1.3); C REACTIVE PROTEIN QUANTITATIV 16.52 MG/L (1.00-3.00); CALCIUM LEVEL 9.6 MG/DL (8.4-10.2); CARBON DIOXIDE LEVEL 28 MEQ/L (22-30); CHLORIDE LEVEL 98 MEQ/L (98-107); TOTAL PROTEIN 6.6 G/DL (6.3-8.2)
[2023-07-08 17:09] LABS: BODY FLUID CULTURE Not indicated. (.); LEGIONELLA ANTIGEN URINE Negative (Negative); ORGANISM ID Not indicated. (.); SPECIMEN SOURCE Urine (.); URINE STREP PNEUMONIAE ANTIGEN Negative (Negative)
[2023-07-10 07:31] LABS: PROCALCITONIN 0.17 NG/ML (0.0-0.08)
== END 2023-07-08 13:10 | disposition home health service (06) | DRG 194 ==
LOC: M ED 11:34 → EDBD 11:34 → M ED INP 15:38 → ENRESERV 16:26 → M MSPAV 16:48
PROVIDERS: ADMIT Student in an Organized Health Care Education/Training Program; ATTEND Student in an Organized Health Care Education/Training Program
DX: J12.89 Other viral pneumonia (principal); J44.0 Chronic obstructive pulmonary disease with (acute) lower respiratory infection; Z12.2 Encounter for screening for malignant neoplasm of respiratory organs; Z87.891 Personal history of nicotine dependence; R91.8 Other nonspecific abnormal finding of lung field; R09.02 Hypoxemia; E06.3 Autoimmune thyroiditis; B97.89 Other viral agents as the cause of diseases classified elsewhere; E03.9 Hypothyroidism, unspecified; F31.9 Bipolar disorder, unspecified; R07.81 Pleurodynia; F41.9 Anxiety disorder, unspecified; E78.5 Hyperlipidemia, unspecified; I10 Essential (primary) hypertension; R91.1 Solitary pulmonary nodule; E66.9 Obesity, unspecified; F17.210 Nicotine dependence, cigarettes, uncomplicated; E88.810 Metabolic syndrome; R31.29 Other microscopic hematuria; E88.01 Alpha-1-antitrypsin deficiency; Z90.49 Acquired absence of other specified parts of digestive tract; K21.9 Gastro-esophageal reflux disease without esophagitis; G47.00 Insomnia, unspecified; M54.9 Dorsalgia, unspecified; Z79.890 Hormone replacement therapy; Z79.899 Other long term (current) drug therapy; Z88.1 Allergy status to other antibiotic agents; Z88.8 Allergy status to other drugs, medicaments and biological substances; Z87.442 Personal history of urinary calculi; Z68.35 Body mass index [BMI] 35.0-35.9, adult

== ENCOUNTER → 2023-09-06 | Outpatient (REF) | payer MEDICARE ==
[~2023-09-06] MED LIST changes: +ABIL1INJ IM; +ALBU2.5V10 INH; +AMOX875T2 PO; +B6/F1TAB PO; +CENTCHW4 PO; +DOXY100C3 PO; +DOXY100T PO; -EFFE37.5 PO; +EFFE37.52 PO; +GUAI1SOL7 PO; +IPRA0.00 INH; +KLON0.5T PO; +PRED20TA PO; +TREL1AER PO
[2023-09-06 14:10] LABS: ALBUMIN 3.7 G/DL (3.2-5.2); ALKALINE PHOSPHATASE 77 U/L (46-116); ALT/SGPT 13 U/L (7.0-40); AST/SGOT 12 U/L (<34); BILIRUBIN,TOTAL < 0.2 MG/DL (0.3-1.2); BLOOD UREA NITROGEN 9 MG/DL (9-23); CALCIUM LEVEL 9.7 MG/DL (8.5-10.1); CARBON DIOXIDE LEVEL 28 MMOL/L (20-31); CHLORIDE LEVEL 105 MMOL/L (98-107); CHOLESTEROL LEVEL 197 MG/DL (<200); CHOLESTEROL RISK RATIO 4.22 (<5); CREATININE FOR GFR 0.59 MG/DL (0.55-1.30); GLOMERULAR FILTRATION RATE > 60.0 (>51); GLUCOSE, FASTING 91 MG/DL (60-100); HDL CHOLESTEROL 46.6 MG/DL (>40); LDL CHOLESTEROL 102.6 MG/DL (<100); NON-HDL-C 150.4 MG/DL; POTASSIUM SERUM 4.2 MMOL/L (3.5-5.1); SODIUM LEVEL 139 MMOL/L (136-145); TOTAL PROTEIN 7.2 G/DL (5.7-8.2); TRIGLYCERIDES LEVEL 239 MG/DL (<150)
[2023-09-06 14:15] LABS: THYROID STIMULATING HORMONE 0.038 uIU/ML (0.55-4.78)
== END ==
LOC: M LAB REF 12:22
PROVIDERS: ATTEND Family Medicine Addiction Medicine
DX: E03.9 Hypothyroidism, unspecified (principal)

== ENCOUNTER → 2023-09-10 | Outpatient (CLI) | payer MEDICARE ==
[2023-09-10 12:24] LABS: BASO % 0.7 % (0.0-1.0); EOS # 0.1 10^3/uL (0.0-0.5); HEMATOCRIT 36.2 % (36.0-47.0); HEMOGLOBIN 11.5 g/dl (12.0-15.5); LYMPH % 53.4 % (24.0-44.0); MEAN CORPUSCULAR HEMOGLOBIN 27.9 pg (27.0-33.0); MEAN CORPUSCULAR HGB CONC 31.8 g/dl (32.0-36.5); MEAN CORPUSCULAR VOLUME 87.9 fl (80.0-96.0); MONO # 0.3 10^3/uL (0.0-0.8); NEUTROPHILS # 2.1 10^3/uL (1.5-8.5); NEUTROPHILS % 37.5 % (36.0-66.0); PLATELET COUNT, AUTOMATED 217 10^3/uL (150-450); RED BLOOD COUNT 4.12 10^6/uL (4.00-5.40); WHITE BLOOD COUNT 5.5 10^3/uL (4.0-10.0)
[2023-09-10 12:50] LABS: ERYTHROCYTE SEDIMENTATION RATE 13 mm/hr (0-30)
[2023-09-10 12:56] LABS: C REACTIVE PROTEIN QUANTITATIV < 0.40 MG/DL (<1.0)
[2023-09-10 12:58] LABS: RHEUMATOID FACTOR QUANT < 3.5 IU/ML (<14)
[2023-09-11 10:07] LABS: ANTINUCLEAR ANTIBODIES DIRECT Negative (Negative)
== END ==
LOC: M LAB 11:35
PROVIDERS: ATTEND Physician Assistant
DX: M19.042 Primary osteoarthritis, left hand (principal)

== ENCOUNTER 2023-09-21 16:09 | Emergency (ER) | payer MEDICARE ==
[~2023-09-21] VITALS: Ht 154.9 cm; Wt 81.7 kg
[2023-09-21 16:10] VITALS: TEMP 98.2
[2023-09-21] MEDS ORDERED: MORPHINE 4 MG/ML 1ML VIAL IV ONE (21:00)
[2023-09-21] MEDS ORDERED: ONDANSETRON 4MG 2ML VIAL IV ONE (21:00)
[2023-09-21] MEDS ORDERED: NS 1,000 ML IV ONE (21:00)
[2023-09-21] MEDS ORDERED: ISOVUE-370 76% 100ML VIAL As Ordered ONE (21:11)
[2023-09-21 21:58] LABS: BASO % 0.3 % (0.0-1.0); EOS # 0.1 10^3/uL (0.0-0.5); EOS % 1.4 % (0.0-3.0); LYMPH # 3.1 10^3/uL (1.5-5.0); LYMPH % 49.2 % (24.0-44.0); MEAN CORPUSCULAR HEMOGLOBIN 28.7 pg (27.0-33.0); MEAN CORPUSCULAR HGB CONC 33.3 g/dl (32.0-36.5); MEAN CORPUSCULAR VOLUME 86.2 fl (80.0-96.0); MONO # 0.4 10^3/uL (0.0-0.8); MONO % 5.6 % (2.0-8.0); NEUTROPHILS # 2.8 10^3/uL (1.5-8.5); NEUTROPHILS % 43.3 % (36.0-66.0); PLATELET COUNT, AUTOMATED 214 10^3/uL (150-450); RED BLOOD COUNT 3.83 10^6/uL (4.00-5.40); WHITE BLOOD COUNT 6.4 10^3/uL (4.0-10.0)
[2023-09-21 22:08] LABS: LIPASE 21 U/L (12-53)
[2023-09-21 22:10] LABS: ALBUMIN 3.8 G/DL (3.2-5.2); ALKALINE PHOSPHATASE 67 U/L (46-116); ALT/SGPT 12 U/L (7.0-40); AST/SGOT 14 U/L (<34); BILIRUBIN,DIRECT < 0.1 MG/DL (<0.4); BILIRUBIN,TOTAL 0.2 MG/DL (0.3-1.2); TOTAL PROTEIN 6.8 G/DL (5.7-8.2)
[2023-09-22] MEDS ORDERED: ACET-716 PO (00:24)
[2023-09-22 00:30] VITALS: BP 14/82; O2SAT 97
[2023-09-23] MEDS ORDERED: ACET-716 PO (16:31)
== END 2023-09-22 00:34 | disposition home or self-care (01) ==
LOC: M ED 16:09
DX: S20.219A Contusion of unspecified front wall of thorax, initial encounter (principal); S30.1XXA Contusion of abdominal wall, initial encounter; W00.0XXA Fall on same level due to ice and snow, initial encounter; J44.9 Chronic obstructive pulmonary disease, unspecified; G43.909 Migraine, unspecified, not intractable, without status migrainosus; E11.9 Type 2 diabetes mellitus without complications; Y92.410 Unspecified street and highway as the place of occurrence of the external cause; Y93.89 Activity, other specified; Y99.9 Unspecified external cause status; Z86.711 Personal history of pulmonary embolism; Z79.02 Long term (current) use of antithrombotics/antiplatelets; Z79.810 Long term (current) use of selective estrogen receptor modulators (SERMs); Z79.899 Other long term (current) drug therapy
CPT/HCPCS: 71101; 74177; 80047; 80076; 83690; 85025; 96361; 96374; 99284; J2405; Q9967

== ENCOUNTER → 2023-10-24 | Outpatient (REF) | payer MEDICARE, MEDICAID ==
[~2023-10-24] MED LIST changes: +ACET-716 PO
[2023-10-24 14:03] LABS: THYROID STIMULATING HORMONE 0.601 uIU/ML (0.55-4.78)
[2023-10-24 14:06] LABS: ALBUMIN 3.3 G/DL (3.2-5.2); ALKALINE PHOSPHATASE 80 U/L (46-116); ALT/SGPT 12 U/L (7.0-40); AST/SGOT 11 U/L (<34); BILIRUBIN,TOTAL 0.2 MG/DL (0.3-1.2); BLOOD UREA NITROGEN 8 MG/DL (9-23); CALCIUM LEVEL 9.1 MG/DL (8.5-10.1); CARBON DIOXIDE LEVEL 28 MMOL/L (20-31); CHLORIDE LEVEL 107 MMOL/L (98-107); CHOLESTEROL LEVEL 197 MG/DL (<200); CHOLESTEROL RISK RATIO 5.56 (<5); CREATININE FOR GFR 0.77 MG/DL (0.55-1.30); GLOMERULAR FILTRATION RATE > 60.0 (>51); GLUCOSE, FASTING 101 MG/DL (60-100); HDL CHOLESTEROL 35.4 MG/DL (>40); LDL CHOLESTEROL 111.6 MG/DL (<100); NON-HDL-C 161.6 MG/DL; POTASSIUM SERUM 4.1 MMOL/L (3.5-5.1); SODIUM LEVEL 141 MMOL/L (136-145); TOTAL PROTEIN 6.7 G/DL (5.7-8.2); TRIGLYCERIDES LEVEL 250 MG/DL (<150)
== END ==
LOC: M LAB REF 11:53
PROVIDERS: ATTEND Family Medicine Addiction Medicine
DX: E03.9 Hypothyroidism, unspecified (principal)

== ENCOUNTER → 2023-11-08 | Outpatient (CLI) | payer OTHER, MEDICAID ==
[~2023-11-08] MED LIST changes: -KLON0.5T PO; +KLON0.5T8 PO
[2023-11-08 16:45] LABS: BLOOD UREA NITROGEN 9 MG/DL (9-23); CREATININE FOR GFR 0.67 MG/DL (0.55-1.30); GLOMERULAR FILTRATION RATE > 60.0 (>51)
== END ==
LOC: M LAB 15:52
PROVIDERS: ATTEND Physical Medicine & Rehabilitation
DX: M54.2 Cervicalgia (principal)

== ENCOUNTER → 2023-11-29 | Outpatient (CLI) | payer MEDICARE, MEDICAID ==
[~2023-11-29] MED LIST changes: +RISP-106 PO; -RISP-9 PO
== END ==
LOC: M RAD 14:27
PROVIDERS: ATTEND Nurse Practitioner Family
DX: R41.3 Other amnesia (principal); R94.02 Abnormal brain scan

== ENCOUNTER → 2023-12-06 | Outpatient (CLI) | payer MEDICARE, MEDICAID | LOC: M PLARAD 10:17 | PROVIDERS: ATTEND Physician Assistant | DX: M50.30 Other cervical disc degeneration, unspecified cervical region (principal) ==

== ENCOUNTER 2023-12-13 20:04 | Emergency (ER) | payer MEDICARE, MEDICAID ==
[~2023-12-13] VITALS: Ht 154.9 cm; Wt 80.0 kg
[2023-12-13] MEDS: IPRATROPIUM 0.5MG/ALBUTEROL 2.5MG INH SOL UD 3ML (DUONEB) NEB ONE ×2 (20:37→21:20)
[2023-12-13 20:56] LABS: VENOUS BASE EXCESS 2.3 (-2.0-2.0); VENOUS HCO3 24.9 MMOL/L (23.0-27.0); VENOUS PARTIAL PRESSURE CO2 32.2 mmHg (38.0-50.0); VENOUS PARTIAL PRESSURE O2 69.4 mmHg (30.0-50.0); VENOUS PH 7.506 UNITS (7.330-7.430); VENOUS STANDARD HCO3 26.4 MMOL/L; VENOUS TOTAL CO2 25.9 MMOL/L (24.0-28.0)
[2023-12-13 21:06] LABS: EOS % 3.5 % (0.0-3.0); HEMOGLOBIN 10.8 g/dl (12.0-15.5); LYMPH % 21.2 % (24.0-44.0); MEAN CORPUSCULAR HGB CONC 33.8 g/dl (32.0-36.5); MEAN CORPUSCULAR VOLUME 85.8 fl (80.0-96.0); NEUTROPHILS % 69.9 % (36.0-66.0); PLATELET COUNT, AUTOMATED 247 10^3/uL (150-450); RED BLOOD COUNT 3.73 10^6/uL (4.00-5.40); WHITE BLOOD COUNT 8.3 10^3/uL (4.0-10.0)
[2023-12-13] MEDS: methylPREDNISolone 125MG 2ML VIAL IV ONE (21:06)
[2023-12-13 21:07] LABS: BASO % 0.2 % (0.0-1.0); EOS # 0.3 10^3/uL (0.0-0.5); LYMPH # 1.8 10^3/uL (1.5-5.0); MONO # 0.4 10^3/uL (0.0-0.8); NEUTROPHILS # 5.8 10^3/uL (1.5-8.5)
[2023-12-13 21:14] LABS: INR 1.05; PROTHROMBIN TIME 13.4 SECONDS (12.5-14.5)
[2023-12-13] MEDS: ACETAMINOPHEN 325 MG TAB PO ONE (21:24)
[2023-12-13 21:33] LABS: CK-MB VALUE MASS < 1.0 NG/ML (<3.6)
[2023-12-13 21:36] LABS: ALBUMIN 3.1 G/DL (3.2-5.2); ALKALINE PHOSPHATASE 83 U/L (46-116); ALT/SGPT 10 U/L (7.0-40); AST/SGOT 19 U/L (<34); BILIRUBIN,DIRECT 0.2 MG/DL (<0.4); BILIRUBIN,TOTAL 0.5 MG/DL (0.3-1.2); CPK CREATINE PHOSPHOKINASE 73 U/L (34-145); MB/CK RELATIVE INDEX 1.36 (< OR =4); TOTAL PROTEIN 6.5 G/DL (5.7-8.2)
[2023-12-13 21:38] LABS: THYROID STIMULATING HORMONE 1.125 uIU/ML (0.55-4.78); THYROXINE (T4) 9.3 UG/DL (4.5-10.9)
[2023-12-13 21:57] LABS: PROCALCITONIN 0.08 ng/ml
[2023-12-13] MEDS ORDERED: ISOVUE-370 76% 100ML VIAL As Ordered ONE (22:19)
[2023-12-13] MEDS: MORPHINE 2 MG/ML 1ML VIAL IV ONE (23:17)
[2023-12-13] MEDS ORDERED: AMOX875T2 PO (23:49)
[2023-12-13] MEDS ORDERED: DOXY100C82 PO (23:49)
[2023-12-13] MEDS ORDERED: PRED10TA2 PO (23:50)
[2023-12-14] MEDS: cefTRIAXone SOD 1 GM in D5W MINI-BAG PLUS 50 ML IV ONE (00:12)
[2023-12-14] MEDS: DOXYCYCLINE HYCLATE 100MG TABLET PO ONE (00:12)
[2023-12-14 00:54] VITALS: BP 117/74; TEMP 98.4; O2SAT 96
== END 2023-12-14 01:02 | disposition home or self-care (01) ==
LOC: M ED 20:04
DX: J18.9 Pneumonia, unspecified organism (principal); R06.02 Shortness of breath; I45.10 Unspecified right bundle-branch block; E11.9 Type 2 diabetes mellitus without complications; I10 Essential (primary) hypertension; J44.9 Chronic obstructive pulmonary disease, unspecified; E78.5 Hyperlipidemia, unspecified; K21.9 Gastro-esophageal reflux disease without esophagitis; F17.210 Nicotine dependence, cigarettes, uncomplicated; Z88.8 Allergy status to other drugs, medicaments and biological substances; Z88.1 Allergy status to other antibiotic agents; Z79.1 Long term (current) use of non-steroidal anti-inflammatories (NSAID); Z79.51 Long term (current) use of inhaled steroids; Z79.2 Long term (current) use of antibiotics; Z79.810 Long term (current) use of selective estrogen receptor modulators (SERMs); Z79.52 Long term (current) use of systemic steroids; Z79.899 Other long term (current) drug therapy
CPT/HCPCS: 71045; 71275; 80047; 80076; 82550; 82553; 82803; 83605; 83880; 84145; 84436; 84443; 84484; 85025; 85610; 87040; 87486; 87581; 87633; 87798; 93005; 93041; 94760; 96365; 96374; 96375; 99285; J0696; J2930; Q9967

== ENCOUNTER → 2024-02-12 | Outpatient (CLI) | payer MEDICARE, MEDICAID ==
[~2024-02-12] MED LIST changes: +DOXY100C82 PO; +FLUO-290 PO; -FLUO10CA18 PO
[2024-02-12 12:54] LABS: BASO % 0.5 % (0.0-1.0); EOS # 0.1 10^3/uL (0.0-0.5); EOS % 2.2 % (0.0-3.0); HEMATOCRIT 34.6 % (36.0-47.0); HEMOGLOBIN 10.9 g/dl (12.0-15.5); LYMPH # 1.5 10^3/uL (1.5-5.0); LYMPH % 37.1 % (24.0-44.0); MEAN CORPUSCULAR HEMOGLOBIN 27.8 pg (27.0-33.0); MEAN CORPUSCULAR HGB CONC 31.5 g/dl (32.0-36.5); MEAN CORPUSCULAR VOLUME 88.3 fl (80.0-96.0); MONO # 0.4 10^3/uL (0.0-0.8); MONO % 9.8 % (2.0-8.0); NEUTROPHILS % 49.9 % (36.0-66.0); PLATELET COUNT, AUTOMATED 221 10^3/uL (150-450); RED BLOOD COUNT 3.92 10^6/uL (4.00-5.40); WHITE BLOOD COUNT 4.1 10^3/uL (4.0-10.0)
[2024-02-12 13:21] LABS: VALPROIC ACID (DEPAKOTE) 55.3 UG/ML (50.0-100.0)
[2024-02-12 13:23] LABS: ALBUMIN 3.5 G/DL (3.2-5.2); ALKALINE PHOSPHATASE 105 U/L (46-116); ALT/SGPT 16 U/L (7.0-40); AST/SGOT 13 U/L (<34); BILIRUBIN,TOTAL 0.2 MG/DL (0.3-1.2); BLOOD UREA NITROGEN 9 MG/DL (9-23); CALCIUM LEVEL 9.4 MG/DL (8.5-10.1); CARBON DIOXIDE LEVEL 28 MMOL/L (20-31); CHLORIDE LEVEL 106 MMOL/L (98-107); CREATININE FOR GFR 0.73 MG/DL (0.55-1.30); GLOMERULAR FILTRATION RATE > 60.0 (>51); GLUCOSE, FASTING 130 MG/DL (60-100); POTASSIUM SERUM 3.8 MMOL/L (3.5-5.1); SODIUM LEVEL 140 MMOL/L (136-145); TOTAL PROTEIN 6.9 G/DL (5.7-8.2)
== END ==
LOC: M LAB 11:59
PROVIDERS: ATTEND Nurse Practitioner Psychiatric/Mental Health
DX: F51.05 Insomnia due to other mental disorder (principal); F33.1 Major depressive disorder, recurrent, moderate

== ENCOUNTER 2024-02-19 09:52 | Inpatient (IN) | payer MEDICARE, MEDICAID ==
[~2024-02-19] VITALS: Ht 157.5 cm; Wt 87.5 kg
[~2024-02-19 09:52] MED LIST changes: +FLUO-365 PO; -FLUO20CA22 PO
[2024-02-19] MEDS ORDERED: BREO1INH3 PO (10:04)
[2024-02-19 11:06] LABS: HEMATOCRIT 34.7 % (36.0-47.0); HEMOGLOBIN 11.2 g/dl (12.0-15.5); MEAN CORPUSCULAR HGB CONC 32.3 g/dl (32.0-36.5); MEAN CORPUSCULAR VOLUME 86.8 fl (80.0-96.0); PLATELET COUNT, AUTOMATED 209 10^3/uL (150-450)
[2024-02-19 11:23] LABS: VALPROIC ACID (DEPAKOTE) 126.4 UG/ML (50.0-100.0)
[2024-02-19 11:24] LABS: AMPHETAMINES LEVEL URINE NEGATIVE (NEGATIVE); BARBITURATES URINE NEGATIVE (NEGATIVE); BENZODIAZEPINES URINE NEGATIVE (NEGATIVE); COCAINE METABOLITE URINE NEGATIVE (NEGATIVE); METHADONE URINE NEGATIVE (NEGATIVE); OPIATES URINE NEGATIVE (NEGATIVE); PHENCYCLIDINE URINE NEGATIVE (NEGATIVE)
[2024-02-19 11:24] LABS: ETHYL ALCOHOL (ETHANOL) 0.004 % (0.000-0.010)
[2024-02-19 11:25] LABS: ALBUMIN 3.6 G/DL (3.2-5.2); ALKALINE PHOSPHATASE 93 U/L (46-116); ALT/SGPT 14 U/L (7.0-40); AST/SGOT 8 U/L (<34); BILIRUBIN,DIRECT < 0.1 MG/DL (<0.4); BILIRUBIN,TOTAL 0.2 MG/DL (0.3-1.2); BLOOD UREA NITROGEN 11 MG/DL (9-23); CALCIUM LEVEL 9.9 MG/DL (8.5-10.1); CARBON DIOXIDE LEVEL 27 MMOL/L (20-31); CHLORIDE LEVEL 105 MMOL/L (98-107); GLOMERULAR FILTRATION RATE > 60.0 (>51); GLUCOSE, FASTING 110 MG/DL (60-100); POTASSIUM SERUM 3.8 MMOL/L (3.5-5.1); SALICYLATE LEVEL < 3.0 MG/DL (<30); SODIUM LEVEL 138 MMOL/L (136-145); TOTAL PROTEIN 7.3 G/DL (5.7-8.2)
[2024-02-19 11:26] LABS: CANNABINOIDS URINE POSITIVE (NEGATIVE)
[2024-02-19 11:27] LABS: THYROID STIMULATING HORMONE 0.245 uIU/ML (0.55-4.78)
[2024-02-19] MEDS ORDERED: DOCU100C16 PO (11:41)
[2024-02-19] MEDS ORDERED: SYNT137T7 PO (11:41)
[2024-02-19] MEDS ORDERED: FLUO40CA PO (11:41)
[2024-02-19] MEDS ORDERED: HOME MED LIST COMPLETE! XX SCH ×2 (11:45→13:40)
[2024-02-19] MEDS ORDERED: MAALOX 30 ML SUSP *UDC PO PRN (16:05)
[2024-02-19 18:04] VITALS: BP 160/86; TEMP 98; O2SAT 97
[2024-02-19] MEDS: IBUPROFEN 400MG TAB PO PRN (18:39)
[2024-02-19 20:20] VITALS: BP 160/92
[2024-02-19] MEDS ORDERED: DIVALPROEX 500 MG TAB PO ONE (21:00)
[2024-02-19] MEDS: QUEtiapine FUMARATE 100 MG TAB PO ONE (21:16)
[2024-02-19] MEDS: PRAZOSIN 1 MG CAP PO ONE (21:16)
[2024-02-20 06:09] VITALS: BP 150/84; TEMP 97.6; O2SAT 98
[2024-02-20] MEDS: AZITHROMYCIN 250MG TABLET PO SCH (09:00)
[2024-02-20] MEDS ORDERED: ALBUTEROL SULFATE 2.5MG/0.5ML INH NEB SOLN INH PRN (10:45)
[2024-02-20] MEDS: GABAPENTIN 100 MG CAP PO SCH (11:25)
[2024-02-20] MEDS: DOCUSATE SODIUM 100MG CAPSULE PO SCH (11:25)
[2024-02-20] MEDS: FLUoxetine 20MG CAP PO SCH (11:25)
[2024-02-20] MEDS: OMEPRAZOLE 20MG CAP PO SCH (11:25)
[2024-02-20] MEDS: BENZTROPINE 1 MG TAB PO SCH (11:26)
[2024-02-20] MEDS: MELOXICAM (MOBIC) 7.5 MG TAB PO SCH (11:26)
[2024-02-20] MEDS: MULTIVITAMINS CHILDREN'S CHEWABLE TABLET PO SCH (12:02)
[2024-02-20] MEDS: clonazePAM 0.5 MG TAB PO PRN (12:02)
[2024-02-20] MEDS: LEVOTHYROXINE 137MCG TABLET (0.137MG) PO SCH (12:02)
[2024-02-20] MEDS ORDERED: AZITHROMYCIN 250MG TABLET PO ONE (13:00)
[2024-02-20] MEDS: predniSONE 10MG TAB PO SCH (14:10)
[2024-02-20] MEDS: IPRATROPIUM 0.5MG/ALBUTEROL 2.5MG INH SOL UD 3ML (DUONEB) NEB SCH (16:00)
[2024-02-20] MEDS: TIOTROPIUM INHALER/CAPSULE (SPIRIVA) INH SCH (17:49)
[2024-02-20 18:30] VITALS: BP 135/89; TEMP 98.5; O2SAT 96
[2024-02-20] MEDS: ATORVASTATIN 20 MG TAB PO SCH (20:14)
[2024-02-20] MEDS: traZODone 50 MG TAB PO PRN (20:15)
[2024-02-20] MEDS: QUEtiapine FUMARATE 100 MG TAB PO SCH (20:16)
[2024-02-20] MEDS: PRAZOSIN 1 MG CAP PO SCH (20:19)
[2024-02-20] MEDS: DIVALPROEX 500 MG TAB PO SCH (20:26)
[2024-02-20] MEDS: diphenhydrAMINE 25MG CAP PO PRN (20:59)
[2024-02-20] MEDS: OLANZapine ORAL DISINTEGRATING TAB 5MG PO PRN (20:59)
[2024-02-20] MEDS ORDERED: IPRATROPIUM 0.5MG/ALBUTEROL 2.5MG INH SOL UD 3ML (DUONEB) NEB SCH (21:00)
[2024-02-21 06:08] VITALS: BP 132/92; TEMP 98.1; O2SAT 94
[2024-02-21 08:43] LABS: CHOLESTEROL RISK RATIO 4.16 (<5); HDL CHOLESTEROL 45.6 MG/DL (>40); LDL CHOLESTEROL 109.4 MG/DL (<100); NON-HDL-C 144.4 MG/DL
[2024-02-21] MEDS: ACETAMINOPHEN TAB 650MG DOSE (2X325MG) PO PRN (08:53)
[2024-02-21] MEDS ORDERED: PILL CUTTER 1 EACH XX PRN (11:40)
[2024-02-21] MEDS: CARIPRAZINE 1.5MG CAPSULE (VRAYLAR) PO SCH (11:50)
[2024-02-21 11:54] LABS: VALPROIC ACID (DEPAKOTE) 16.2 UG/ML (50.0-100.0)
[2024-02-21 15:47] VITALS: BP 135/70; TEMP 98; O2SAT 94
[2024-02-21] MEDS: DIVALPROEX 500 MG TAB PO ONE (16:04)
[2024-02-22 06:05] VITALS: BP 163/81; TEMP 97.6; O2SAT 96
[2024-02-22 18:00] VITALS: BP 132/79; TEMP 97.3; O2SAT 98
[2024-02-23 06:29] VITALS: BP 125/75; TEMP 97; O2SAT 16
[2024-02-23 18:00] VITALS: BP 123/79; TEMP 97.1; O2SAT 98
[2024-02-24 05:58] VITALS: BP 127/84; TEMP 98.5; O2SAT 97
[2024-02-24 11:21] LABS: BLOOD UREA NITROGEN 15 MG/DL (9-23); CARBON DIOXIDE LEVEL 30 MMOL/L (20-31); CHLORIDE LEVEL 102 MMOL/L (98-107); GLOMERULAR FILTRATION RATE > 60.0 (>51); GLUCOSE, FASTING 102 MG/DL (60-100); SODIUM LEVEL 139 MMOL/L (136-145)
[2024-02-24] MEDS: DIVALPROEX 500 MG TAB PO SCH (13:59)
[2024-02-24 18:47] VITALS: BP 156/89; TEMP 97.6
[2024-02-25 06:02] VITALS: BP 118/84; TEMP 97.4; O2SAT 96
[2024-02-25 08:23] VITALS: BP 134/82
[2024-02-25] MEDS: MOM 30ML SUSPENSION UDC PO PRN (10:57)
[2024-02-25 16:27] VITALS: BP 157/96; TEMP 97.2; O2SAT 97
[2024-02-26 06:41] VITALS: BP 129/68; TEMP 97.7; O2SAT 95
[2024-02-26 08:17] VITALS: BP 141/82
[2024-02-26 18:24] VITALS: BP 143/85; TEMP 97.6
[2024-02-27 06:00] VITALS: BP 106/52; TEMP 96.7; O2SAT 94
[2024-02-27 17:17] VITALS: BP 113/71; TEMP 97.1; O2SAT 100
[2024-02-28 06:51] VITALS: BP 132/81; TEMP 96.2; O2SAT 95
[2024-02-28 15:39] VITALS: BP 135/74; TEMP 97.3; O2SAT 96
[2024-02-29 06:37] VITALS: BP 150/59; TEMP 97; O2SAT 94
[2024-02-29 16:32] VITALS: BP 144/77; TEMP 97.5; O2SAT 96
[2024-03-01 06:24] VITALS: BP 101/59; TEMP 98; O2SAT 97
[2024-03-01 16:32] VITALS: BP 134/78; TEMP 97.7; O2SAT 98
[2024-03-02 06:50] VITALS: BP 142/84; TEMP 97.9; O2SAT 95
[2024-03-02] MEDS ORDERED: PRAZ2CAP PO (08:05)
[2024-03-02] MEDS ORDERED: CLON0.5T17 PO (08:05)
[2024-03-02] MEDS ORDERED: TIOT18INH INH (08:05)
[2024-03-02] MEDS ORDERED: BENZ1TAB5 PO (08:05)
[2024-03-02] MEDS ORDERED: FLUO40CA PO (08:05)
[2024-03-02] MEDS ORDERED: QUET300T2 PO (08:05)
[2024-03-02] MEDS ORDERED: VRAY1.5C PO (08:05)
[2024-03-02] MEDS ORDERED: DEPA1TAB3 PO (08:05)
[2024-03-02] MEDS ORDERED: AMLO1TAB25 PO (08:05)
[2024-03-02 08:33] VITALS: BP 134/83
== END 2024-03-02 11:00 | disposition home or self-care (01) | DRG 885 ==
LOC: M ED 09:52 → M ED INP 16:01 → M PSY 18:01
PROVIDERS: ADMIT Student in an Organized Health Care Education/Training Program; ATTEND Student in an Organized Health Care Education/Training Program
DX: F25.9 Schizoaffective disorder, unspecified (principal); R45.851 Suicidal ideations; R45.850 Homicidal ideations; F41.1 Generalized anxiety disorder; F43.10 Post-traumatic stress disorder, unspecified; Z63.5 Disruption of family by separation and divorce; E03.9 Hypothyroidism, unspecified; J44.9 Chronic obstructive pulmonary disease, unspecified; E06.3 Autoimmune thyroiditis; E78.5 Hyperlipidemia, unspecified; I10 Essential (primary) hypertension; E66.9 Obesity, unspecified; E88.810 Metabolic syndrome; E88.01 Alpha-1-antitrypsin deficiency; Z90.49 Acquired absence of other specified parts of digestive tract; F17.200 Nicotine dependence, unspecified, uncomplicated; G43.909 Migraine, unspecified, not intractable, without status migrainosus; Z88.1 Allergy status to other antibiotic agents; Z62.819 Personal history of unspecified abuse in childhood; Z91.51 Personal history of suicidal behavior; Z81.8 Family history of other mental and behavioral disorders; Z79.890 Hormone replacement therapy; Z79.1 Long term (current) use of non-steroidal anti-inflammatories (NSAID); Z88.8 Allergy status to other drugs, medicaments and biological substances; Z68.34 Body mass index [BMI] 34.0-34.9, adult

== ENCOUNTER → 2024-03-04 | Outpatient (REF) | payer MEDICARE, MEDICAID ==
[~2024-03-04] MED LIST changes: +AMLO1TAB25 PO; +BREO1INH3 PO; +DEPA1TAB3 PO; +DOCU100C16 PO; +FLUO40CA PO; +SYNT137T7 PO; +TIOT18INH INH; +VRAY1.5C PO
[2024-03-04 13:15] LABS: ALBUMIN 3.6 G/DL (3.2-5.2); ALKALINE PHOSPHATASE 98 U/L (46-116); ALT/SGPT 21 U/L (7.0-40); AST/SGOT 17 U/L (<34); BILIRUBIN,TOTAL < 0.2 MG/DL (0.3-1.2); BLOOD UREA NITROGEN 12 MG/DL (9-23); CALCIUM LEVEL 9.6 MG/DL (8.5-10.1); CARBON DIOXIDE LEVEL 26 MMOL/L (20-31); CHLORIDE LEVEL 107 MMOL/L (98-107); CHOLESTEROL LEVEL 211 MG/DL (<200); CHOLESTEROL RISK RATIO 4.03 (<5); CREATININE FOR GFR 0.69 MG/DL (0.55-1.30); GLOMERULAR FILTRATION RATE > 60.0 (>51); GLUCOSE, FASTING 134 MG/DL (60-100); HDL CHOLESTEROL 52.3 MG/DL (>40); LDL CHOLESTEROL 109.3 MG/DL (<100); NON-HDL-C 158.7 MG/DL; POTASSIUM SERUM 4.2 MMOL/L (3.5-5.1); SODIUM LEVEL 141 MMOL/L (136-145); TRIGLYCERIDES LEVEL 247 MG/DL (<150)
[2024-03-04 13:17] LABS: THYROID STIMULATING HORMONE 2.196 uIU/ML (0.55-4.78)
== END ==
LOC: M LAB REF 12:05
PROVIDERS: ATTEND Family Medicine Addiction Medicine
DX: E03.9 Hypothyroidism, unspecified (principal)

== ENCOUNTER 2024-03-09 07:15 | Emergency (ER) | payer MEDICARE, MEDICAID ==
[~2024-03-09] VITALS: Ht 154.9 cm; Wt 87.8 kg
[~2024-03-09 07:15] MED LIST changes: +BREO1INH3 INH; -BREO1INH3 PO
[2024-03-09 08:20] LABS: HEMOGLOBIN 11.1 g/dl (12.0-15.5); MEAN CORPUSCULAR HEMOGLOBIN 27.2 pg (27.0-33.0); MEAN CORPUSCULAR HGB CONC 31.7 g/dl (32.0-36.5); MEAN CORPUSCULAR VOLUME 85.8 fl (80.0-96.0); PLATELET COUNT, AUTOMATED 226 10^3/uL (150-450); RED BLOOD COUNT 4.08 10^6/uL (4.00-5.40); WHITE BLOOD COUNT 3.4 10^3/uL (4.0-10.0)
[2024-03-09] MEDS: LORazepam 1 MG TAB PO STA (08:35)
[2024-03-09 08:49] LABS: AMPHETAMINES LEVEL URINE NEGATIVE (NEGATIVE)
[2024-03-09 08:50] LABS: BARBITURATES URINE NEGATIVE (NEGATIVE); BENZODIAZEPINES URINE NEGATIVE (NEGATIVE); COCAINE METABOLITE URINE NEGATIVE (NEGATIVE); METHADONE URINE NEGATIVE (NEGATIVE); OPIATES URINE NEGATIVE (NEGATIVE); PHENCYCLIDINE URINE NEGATIVE (NEGATIVE)
[2024-03-09 08:53] LABS: ETHYL ALCOHOL (ETHANOL) < 0.003 % (0.000-0.010); VALPROIC ACID (DEPAKOTE) 20.6 UG/ML (50.0-100.0)
[2024-03-09 08:54] LABS: CANNABINOIDS URINE POSITIVE (NEGATIVE); SALICYLATE LEVEL < 3.0 MG/DL (<30)
[2024-03-09 08:55] LABS: ALBUMIN 3.9 G/DL (3.2-5.2); ALKALINE PHOSPHATASE 79 U/L (46-116); ALT/SGPT 17 U/L (7.0-40); AST/SGOT < 8 U/L (<34); BILIRUBIN,DIRECT < 0.1 MG/DL (<0.4); BILIRUBIN,TOTAL 0.2 MG/DL (0.3-1.2); BLOOD UREA NITROGEN 9 MG/DL (9-23); CALCIUM LEVEL 9.8 MG/DL (8.5-10.1); CARBON DIOXIDE LEVEL 26 MMOL/L (20-31); CHLORIDE LEVEL 107 MMOL/L (98-107); CREATININE FOR GFR 0.72 MG/DL (0.55-1.30); GLOMERULAR FILTRATION RATE > 60.0 (>51); GLUCOSE, FASTING 102 MG/DL (60-100); POTASSIUM SERUM 3.5 MMOL/L (3.5-5.1); SODIUM LEVEL 141 MMOL/L (136-145); TOTAL PROTEIN 7.2 G/DL (5.7-8.2)
[2024-03-09 08:56] LABS: THYROID STIMULATING HORMONE 0.712 uIU/ML (0.55-4.78)
[2024-03-09] MEDS ORDERED: ABIL1INJ2 IM (09:25)
[2024-03-09] MEDS ORDERED: AMLO1TAB25 PO (09:25)
[2024-03-09] MEDS ORDERED: VRAY1.5C PO (09:25)
[2024-03-09] MEDS ORDERED: SPIR1CAP INH (09:25)
[2024-03-09] MEDS ORDERED: HOME MED LIST COMPLETE! XX SCH (09:30)
[2024-03-09] MEDS: OMEPRAZOLE 20MG CAP PO SCH (14:14)
[2024-03-09] MEDS: clonazePAM 0.5 MG TAB PO SCH (14:16)
[2024-03-09] MEDS ORDERED: GABAPENTIN 100 MG CAP PO SCH (16:00)
[2024-03-09 16:07] VITALS: BP 173/85; TEMP 97.3; O2SAT 98
[2024-03-09] MEDS ORDERED: QUEtiapine FUMARATE 200 MG TAB PO SCH (21:00)
[2024-03-09] MEDS ORDERED: ATORVASTATIN 20 MG TAB PO SCH (21:00)
[2024-03-09] MEDS ORDERED: BENZTROPINE 1 MG TAB PO SCH (21:00)
[2024-03-09] MEDS ORDERED: ADVAIR HFA 230/21MCG INHALER INH SCH (21:00)
[2024-03-10] MEDS ORDERED: LEVOTHYROXINE 137MCG TABLET (0.137MG) PO SCH (06:00)
[2024-03-10] MEDS ORDERED: TIOTROPIUM INHALER/CAPSULE (SPIRIVA) INH SCH (08:00)
[2024-03-10] MEDS ORDERED: FLUoxetine 20MG CAP PO SCH (09:00)
[2024-03-10] MEDS ORDERED: MULTIVITAMINS/MINERALS THERAP 1 TAB PO SCH (09:00)
[2024-03-10] MEDS ORDERED: DOCUSATE SODIUM 100MG CAPSULE PO SCH (09:00)
[2024-03-10] MEDS ORDERED: MELOXICAM (MOBIC) 7.5 MG TAB PO SCH (09:00)
[2024-03-10] MEDS ORDERED: CARIPRAZINE 1.5MG CAPSULE (VRAYLAR) PO SCH (09:00)
[2024-03-10] MEDS ORDERED: PRAZOSIN 1 MG CAP PO SCH (21:00)
== END 2024-03-09 16:10 | disposition home or self-care (01) ==
LOC: M ED 07:15
DX: F43.0 Acute stress reaction (principal); I45.19 Other right bundle-branch block; E11.9 Type 2 diabetes mellitus without complications; I10 Essential (primary) hypertension; E78.00 Pure hypercholesterolemia, unspecified; K21.9 Gastro-esophageal reflux disease without esophagitis; F31.9 Bipolar disorder, unspecified; F20.9 Schizophrenia, unspecified; F17.210 Nicotine dependence, cigarettes, uncomplicated; F10.10 Alcohol abuse, uncomplicated; F91.0 Conduct disorder confined to family context; Z88.8 Allergy status to other drugs, medicaments and biological substances; Z88.1 Allergy status to other antibiotic agents; Z79.51 Long term (current) use of inhaled steroids; Z79.810 Long term (current) use of selective estrogen receptor modulators (SERMs); Z79.899 Other long term (current) drug therapy

== ENCOUNTER 2024-03-24 17:21 | Inpatient (IN) | payer MEDICARE, MEDICAID ==
[~2024-03-24] VITALS: Ht 157.5 cm; Wt 88.5 kg
[~2024-03-24 17:21] MED LIST changes: +SPIR1CAP INH
[2024-03-24 18:20] LABS: HEMATOCRIT 35.6 % (36.0-47.0); HEMOGLOBIN 11.2 g/dl (12.0-15.5); MEAN CORPUSCULAR HGB CONC 31.5 g/dl (32.0-36.5); MEAN CORPUSCULAR VOLUME 85.8 fl (80.0-96.0); PLATELET COUNT, AUTOMATED 325 10^3/uL (150-450); RED BLOOD COUNT 4.15 10^6/uL (4.00-5.40); WHITE BLOOD COUNT 5.2 10^3/uL (4.0-10.0)
[2024-03-24 18:39] LABS: AMPHETAMINES LEVEL URINE NEGATIVE (NEGATIVE); BARBITURATES URINE NEGATIVE (NEGATIVE); BENZODIAZEPINES URINE NEGATIVE (NEGATIVE); COCAINE METABOLITE URINE NEGATIVE (NEGATIVE); METHADONE URINE NEGATIVE (NEGATIVE); OPIATES URINE NEGATIVE (NEGATIVE); PHENCYCLIDINE URINE NEGATIVE (NEGATIVE)
[2024-03-24 18:41] LABS: ETHYL ALCOHOL (ETHANOL) < 0.003 % (0.000-0.010)
[2024-03-24 18:42] LABS: SALICYLATE LEVEL < 3.0 MG/DL (<30)
[2024-03-24 18:43] LABS: ALKALINE PHOSPHATASE 103 U/L (46-116); ALT/SGPT 16 U/L (7.0-40); AST/SGOT < 8 U/L (<34); BILIRUBIN,DIRECT < 0.1 MG/DL (<0.4); BILIRUBIN,TOTAL 0.2 MG/DL (0.3-1.2); BLOOD UREA NITROGEN 13 MG/DL (9-23); CALCIUM LEVEL 10.3 MG/DL (8.5-10.1); CARBON DIOXIDE LEVEL 27 MMOL/L (20-31); CHLORIDE LEVEL 105 MMOL/L (98-107); CREATININE FOR GFR 0.77 MG/DL (0.55-1.30); GLOMERULAR FILTRATION RATE > 60.0 (>51); GLUCOSE, FASTING 104 MG/DL (60-100); POTASSIUM SERUM 4.1 MMOL/L (3.5-5.1); SODIUM LEVEL 140 MMOL/L (136-145); TOTAL PROTEIN 7.4 G/DL (5.7-8.2)
[2024-03-24 18:44] LABS: THYROID STIMULATING HORMONE 1.449 uIU/ML (0.55-4.78)
[2024-03-24 19:14] LABS: CANNABINOIDS URINE POSITIVE (NEGATIVE)
[2024-03-24] MEDS: clonazePAM 0.5 MG TAB PO ONE (20:54)
[2024-03-24] MEDS ORDERED: clonazePAM 0.5 MG TAB PO PRN (22:30)
[2024-03-24] MEDS ORDERED: FAMO1TAB11 PO (22:51)
[2024-03-24] MEDS ORDERED: IPRA0.00 INH (22:51)
[2024-03-24] MEDS ORDERED: DIVA500T94 PO (22:51)
[2024-03-24] MEDS ORDERED: MULT-40 PO (22:51)
[2024-03-24] MEDS ORDERED: ALBU8.5H INH (22:51)
[2024-03-24] MEDS ORDERED: MED REC IN PROGRESS XX SCH (22:55)
[2024-03-24 23:19] LABS: VALPROIC ACID (DEPAKOTE) 45.1 UG/ML (50.0-100.0)
[2024-03-24] MEDS ORDERED: IPRATROPIUM 0.5MG/ALBUTEROL 2.5MG INH SOL UD 3ML (DUONEB) NEB PRN (23:20)
[2024-03-25] MEDS ORDERED: MAALOX 30 ML SUSP *UDC PO PRN (00:05)
[2024-03-25] MEDS ORDERED: MOM 30ML SUSPENSION UDC PO PRN (00:05)
[2024-03-25 00:52] VITALS: BP 150/90; TEMP 97.5; O2SAT 98
[2024-03-25] MEDS: traZODone 50 MG TAB PO PRN (01:14)
[2024-03-25] MEDS ORDERED: LEVOTHYROXINE 137MCG TABLET (0.137MG) PO SCH (06:00)
[2024-03-25 06:18] VITALS: BP 130/83; TEMP 98.2; O2SAT 97
[2024-03-25] MEDS ORDERED: TIOTROPIUM INHALER/CAPSULE (SPIRIVA) INH SCH (08:00)
[2024-03-25] MEDS: BREO ELLIPTA INH SCH (08:00)
[2024-03-25] MEDS ORDERED: ALBUTEROL 90 MCG/ACT 8GM HFA INHALER INH PRN (08:55)
[2024-03-25] MEDS ORDERED: IPRATROPIUM 0.5MG/ALBUTEROL 2.5MG INH SOL UD 3ML (DUONEB) INH PRN (08:55)
[2024-03-25] MEDS ORDERED: DOCUSATE SODIUM 100MG CAPSULE PO SCH (09:00)
[2024-03-25] MEDS ORDERED: GABAPENTIN 100 MG CAP PO SCH (09:00)
[2024-03-25] MEDS ORDERED: MELOXICAM (MOBIC) 7.5 MG TAB PO SCH (09:00)
[2024-03-25] MEDS ORDERED: BENZTROPINE 1 MG TAB PO SCH ×2 (09:00)
[2024-03-25] MEDS ORDERED: FLUoxetine 20MG CAP PO SCH (09:00)
[2024-03-25] MEDS ORDERED: OMEPRAZOLE 20MG CAP PO SCH (09:00)
[2024-03-25] MEDS ORDERED: CARIPRAZINE 1.5MG CAPSULE (VRAYLAR) PO SCH (09:00)
[2024-03-25] MEDS ORDERED: MULTIVITAMINS/MINERALS THERAP 1 TAB PO SCH (09:00)
[2024-03-25] MEDS ORDERED: FAMOTIDINE 20 MG TAB PO SCH (09:00)
[2024-03-25] MEDS ORDERED: DIVALPROEX 500 MG TAB PO SCH ×3 (09:00→21:00)
[2024-03-25] MEDS ORDERED: DIVALPROEX 250MG TAB PO SCH (09:38)
[2024-03-25] MEDS: BENZTROPINE 1 MG TAB PO SCH (10:52)
[2024-03-25] MEDS: DOCUSATE SODIUM 100MG CAPSULE PO SCH (10:52)
[2024-03-25] MEDS: FLUoxetine 20MG CAP PO SCH (10:52)
[2024-03-25] MEDS: CARIPRAZINE 1.5MG CAPSULE (VRAYLAR) PO SCH (10:53)
[2024-03-25] MEDS: clonazePAM 0.5 MG TAB PO SCH (10:53)
[2024-03-25] MEDS: FAMOTIDINE 20 MG TAB PO SCH (10:53)
[2024-03-25] MEDS: DIVALPROEX 250MG TAB PO SCH (10:53)
[2024-03-25] MEDS: MELOXICAM (MOBIC) 7.5 MG TAB PO SCH (10:54)
[2024-03-25] MEDS: MULTIVITAMINS/MINERALS THERAP 1 TAB PO SCH (10:54)
[2024-03-25] MEDS: GABAPENTIN 100 MG CAP PO SCH (10:54)
[2024-03-25] MEDS: OMEPRAZOLE 20MG CAP PO SCH (10:54)
[2024-03-25] MEDS: LEVOTHYROXINE 137MCG TABLET (0.137MG) PO SCH (10:56)
[2024-03-25] MEDS: TIOTROPIUM INHALER/CAPSULE (SPIRIVA) INH SCH (10:57)
[2024-03-25] MEDS: ACETAMINOPHEN TAB 650MG DOSE (2X325MG) PO PRN (14:41)
[2024-03-25 18:25] VITALS: BP 153/74; TEMP 97.8
[2024-03-25] MEDS: PRAZOSIN 1 MG CAP PO SCH (20:06)
[2024-03-25] MEDS: QUEtiapine FUMARATE 100 MG TAB PO SCH (20:07)
[2024-03-25] MEDS: ATORVASTATIN 20 MG TAB PO SCH (20:07)
[2024-03-25] MEDS ORDERED: PRAZOSIN 1 MG CAP PO SCH (21:00)
[2024-03-25] MEDS ORDERED: QUEtiapine FUMARATE 100 MG TAB PO SCH (21:00)
[2024-03-25] MEDS ORDERED: ATORVASTATIN 20 MG TAB PO SCH (21:00)
[2024-03-26] MEDS ORDERED: UNRESOLVED CLARIFICATION ENTRY XX SCH (00:01)
[2024-03-26 07:33] LABS: CHOLESTEROL LEVEL 262 MG/DL (<200); CHOLESTEROL RISK RATIO 6.37 (<5); HDL CHOLESTEROL 41.1 MG/DL (>40); NON-HDL-C 220.9 MG/DL; TRIGLYCERIDES LEVEL 438 MG/DL (<150)
[2024-03-26] MEDS: EXCEDRIN MIGRAINE TABLET PO PRN (13:20)
[2024-03-26 16:29] VITALS: BP 132/92; TEMP 97.7; O2SAT 98
[2024-03-27 06:13] VITALS: BP 99/59; TEMP 98.2; O2SAT 96
[2024-03-27 16:22] VITALS: BP 126/88; TEMP 97.6; O2SAT 98
[2024-03-27] MEDS: QUEtiapine FUMARATE 200 MG TAB PO SCH (20:06)
[2024-03-27] MEDS: DIVALPROEX 125 MG TAB PO SCH (20:06)
[2024-03-28 06:29] VITALS: BP 143/80; TEMP 97.1; O2SAT 98
[2024-03-28 16:45] VITALS: BP 134/76; TEMP 97.9; O2SAT 99
[2024-03-29 06:31] VITALS: BP 103/62; TEMP 97.6; O2SAT 97
[2024-03-29 16:09] VITALS: BP 139/75; TEMP 98; O2SAT 97
[2024-03-29] MEDS ORDERED: DIVALPROEX 250MG TAB PO SCH (21:00)
[2024-03-30 06:36] VITALS: BP 117/58; TEMP 97.2; O2SAT 95
[2024-03-30 08:09] VITALS: BP 154/81
[2024-03-30] MEDS: DIVALPROEX 125 MG TAB PO SCH (08:10)
[2024-03-30] MEDS ORDERED: DEPA1TAB PO (12:29)
[2024-03-30] MEDS ORDERED: VRAY1.5C PO (12:29)
[2024-03-30] MEDS ORDERED: QUET200T2 PO (12:29)
[2024-03-30] MEDS ORDERED: PRAZ2CAP PO (12:29)
[2024-03-30] MEDS ORDERED: FLUO-365 PO (12:29)
[2024-03-30] MEDS ORDERED: ABIL1INJ2 IM (12:29)
[2024-03-30] MEDS ORDERED: TRAZ-252 PO (12:29)
[2024-03-30] MEDS: ARIPiprazole MONOHYDRATE 400 MG INJ (ABILIFY)(FREE PSY INPT ONLY) IM ONE (13:25)
== END 2024-03-30 15:07 | disposition home or self-care (01) | DRG 882 ==
LOC: M ED 17:21 → M ED INP 03-25 00:03 → M PSY 03-25 00:46
PROVIDERS: ADMIT Student in an Organized Health Care Education/Training Program; ATTEND Student in an Organized Health Care Education/Training Program
DX: F43.10 Post-traumatic stress disorder, unspecified (principal); F25.9 Schizoaffective disorder, unspecified; F41.1 Generalized anxiety disorder; J44.9 Chronic obstructive pulmonary disease, unspecified; E88.01 Alpha-1-antitrypsin deficiency; M54.9 Dorsalgia, unspecified; G89.29 Other chronic pain; E06.3 Autoimmune thyroiditis; E03.9 Hypothyroidism, unspecified; E78.5 Hyperlipidemia, unspecified; I10 Essential (primary) hypertension; E66.9 Obesity, unspecified; E88.810 Metabolic syndrome; K21.9 Gastro-esophageal reflux disease without esophagitis; K59.00 Constipation, unspecified; F17.210 Nicotine dependence, cigarettes, uncomplicated; Z63.5 Disruption of family by separation and divorce; Z91.414 Personal history of adult intimate partner abuse; Z62.819 Personal history of unspecified abuse in childhood; Z79.899 Other long term (current) drug therapy; Z88.8 Allergy status to other drugs, medicaments and biological substances; Z88.1 Allergy status to other antibiotic agents; Z79.890 Hormone replacement therapy; Z68.35 Body mass index [BMI] 35.0-35.9, adult

== ENCOUNTER → 2024-04-13 | Outpatient (REF) | payer MEDICARE, MEDICAID ==
[~2024-04-13] MED LIST changes: +ALBU8.5H INH; +DEPA1TAB PO; +FAMO1TAB11 PO; +MULT-40 PO
[2024-04-13 17:46] LABS: FERRITIN 2.2 NG/ML (7.3-270.7); PERCENT SATURATION 4.4 % (13.2-45.0)
== END ==
LOC: M LAB REF 16:22
PROVIDERS: ATTEND Nurse Practitioner Family
DX: F50.89 Other specified eating disorder (principal)

== ENCOUNTER 2024-06-19 09:53 | Emergency (ER) | payer MEDICARE, MEDICAID ==
[~2024-06-19] VITALS: Ht 157.5 cm; Wt 92.1 kg
[~2024-06-19 09:53] MED LIST changes: +GABA-1172 PO; +GABA-1490 PO; +GABA-1635 PO; -GABA-282 PO; -GABA600T4 PO; -GABA800T4 PO; +LITH450T11 PO; -LITH45TASA PO
[2024-06-19 09:59] VITALS: BP 159/92; TEMP 98.9; O2SAT 97
[2024-06-19] MEDS ORDERED: CEPH500C PO (11:43)
== END 2024-06-19 11:55 | disposition home or self-care (01) ==
LOC: M ED 09:53
DX: L03.012 Cellulitis of left finger (principal); E11.9 Type 2 diabetes mellitus without complications; I10 Essential (primary) hypertension; F31.9 Bipolar disorder, unspecified; F17.210 Nicotine dependence, cigarettes, uncomplicated; Z88.2 Allergy status to sulfonamides; Z88.8 Allergy status to other drugs, medicaments and biological substances; Z79.51 Long term (current) use of inhaled steroids; Z79.899 Other long term (current) drug therapy

== ENCOUNTER 2024-08-15 09:49 | Emergency (ER) | payer MEDICARE, MEDICAID ==
[~2024-08-15] VITALS: Ht 154.9 cm; Wt 94.7 kg
[~2024-08-15 09:49] MED LIST changes: +CEPH500C PO
[2024-08-15] MEDS ORDERED: LEVO175T2 (10:03)
[2024-08-15] MEDS: IBUPROFEN 600MG TAB PO ONE (11:39)
[2024-08-15 12:53] VITALS: BP 161/74; TEMP 98; O2SAT 95
== END 2024-08-15 12:35 | disposition home or self-care (01) ==
LOC: M ED 09:49
DX: S93.401A Sprain of unspecified ligament of right ankle, initial encounter (principal); S93.402A Sprain of unspecified ligament of left ankle, initial encounter; S63.92XA Sprain of unspecified part of left wrist and hand, initial encounter; Y92.89 Other specified places as the place of occurrence of the external cause; Y93.9 Activity, unspecified; Y99.9 Unspecified external cause status; W18.42XA Slipping, tripping and stumbling without falling due to stepping into hole or opening, initial encounter; J44.9 Chronic obstructive pulmonary disease, unspecified; J45.909 Unspecified asthma, uncomplicated; Z87.891 Personal history of nicotine dependence; Z88.1 Allergy status to other antibiotic agents; Z88.8 Allergy status to other drugs, medicaments and biological substances; Z79.51 Long term (current) use of inhaled steroids; Z79.810 Long term (current) use of selective estrogen receptor modulators (SERMs); Z79.899 Other long term (current) drug therapy

== ENCOUNTER 2024-11-17 20:55 | Emergency (ER) | payer MEDICARE, MEDICAID ==
[~2024-11-17] VITALS: Ht 157.5 cm; Wt 96.8 kg
[~2024-11-17 20:55] MED LIST changes: +DOXY-442 PO; -DOXY100C82 PO; +LEVO175T2
[2024-11-18] MEDS: ACETAMINOPHEN 500 MG TAB PO ONE (08:01)
[2024-11-18 08:07] LABS: BASO % 0.5 % (0.0-1.0); EOS % 0.7 % (0.0-3.0); HEMATOCRIT 43.7 % (36.0-47.0); HEMOGLOBIN 14.3 g/dl (12.0-15.5); LYMPH # 1.5 10^3/uL (1.5-5.0); LYMPH % 24.5 % (24.0-44.0); MEAN CORPUSCULAR HEMOGLOBIN 28.9 pg (27.0-33.0); MEAN CORPUSCULAR HGB CONC 32.7 g/dl (32.0-36.5); MEAN CORPUSCULAR VOLUME 88.3 fl (80.0-96.0); MONO # 0.4 10^3/uL (0.0-0.8); MONO % 6.4 % (2.0-8.0); NEUTROPHILS # 4.1 10^3/uL (1.5-8.5); NEUTROPHILS % 67.6 % (36.0-66.0); PLATELET COUNT, AUTOMATED 253 10^3/uL (150-450); RED BLOOD COUNT 4.95 10^6/uL (4.00-5.40); WHITE BLOOD COUNT 6.1 10^3/uL (4.0-10.0)
[2024-11-18 08:32] LABS: CK-MB VALUE MASS < 1.0 NG/ML (<3.6)
[2024-11-18 08:34] LABS: ALBUMIN 4.1 G/DL (3.2-5.2); ALKALINE PHOSPHATASE 128 U/L (35-104); ALT/SGPT 29 U/L (7.0-40); AST/SGOT 18 U/L (<34); BILIRUBIN,TOTAL 0.2 MG/DL (0.3-1.2); BLOOD UREA NITROGEN 10 MG/DL (9-23); CALCIUM LEVEL 10.1 MG/DL (8.5-10.1); CARBON DIOXIDE LEVEL 26 MMOL/L (20-31); CHLORIDE LEVEL 104 MMOL/L (98-107); CPK CREATINE PHOSPHOKINASE 61 U/L (34-145); CREATININE FOR GFR 0.64 MG/DL (0.55-1.30); GLOMERULAR FILTRATION RATE > 60.0 (>51); GLUCOSE, FASTING 126 MG/DL (60-100); MB/CK RELATIVE INDEX 1.63 (< OR =4); POTASSIUM SERUM 4.1 MMOL/L (3.5-5.1); SODIUM LEVEL 140 MMOL/L (136-145); TOTAL PROTEIN 7.8 G/DL (5.7-8.2)
[2024-11-18 09:35] LABS: CK-MB VALUE MASS < 1.0 NG/ML (<3.6)
[2024-11-18 09:37] LABS: CPK CREATINE PHOSPHOKINASE 60 U/L (34-145); MB/CK RELATIVE INDEX 1.66 (< OR =4)
[2024-11-18] MEDS ORDERED: CVS10CAP7 PO (10:12)
[2024-11-18 10:15] VITALS: BP 149/75; TEMP 97.7; O2SAT 96
[2024-11-23] MEDS ORDERED: MAGO400T2 PO (09:25)
[2024-11-23] MEDS ORDERED: ECOT81TA5 PO (09:25)
== END 2024-11-18 10:40 | disposition home or self-care (01) ==
LOC: M ED 11-18 08:00
DX: R07.89 Other chest pain (principal); M25.531 Pain in right wrist; M25.532 Pain in left wrist; M25.561 Pain in right knee; M25.562 Pain in left knee; I10 Essential (primary) hypertension; E78.5 Hyperlipidemia, unspecified; E03.9 Hypothyroidism, unspecified; R94.31 Abnormal electrocardiogram [ECG] [EKG]; F12.10 Cannabis abuse, uncomplicated; Z88.1 Allergy status to other antibiotic agents; Z88.8 Allergy status to other drugs, medicaments and biological substances; Z79.51 Long term (current) use of inhaled steroids; Z79.899 Other long term (current) drug therapy; Z79.810 Long term (current) use of selective estrogen receptor modulators (SERMs)

== ENCOUNTER → 2024-11-23 | Outpatient (CLI) | payer MEDICARE, MEDICAID ==
[~2024-11-23] MED LIST changes: +CVS10CAP7 PO; -DOXY-442 PO; +DOXY100C82 PO; +ECOT81TA5 PO; +MAGO400T2 PO
== END ==
LOC: M PLAIMG 06:53
PROVIDERS: ATTEND Physician Assistant
DX: R91.8 Other nonspecific abnormal finding of lung field (principal)

== ENCOUNTER → 2024-11-24 | Outpatient (CLI) | payer MEDICARE, MEDICAID ==
[2024-11-24 11:27] LABS: HEMATOCRIT 40.8 % (36.0-47.0); HEMOGLOBIN 13.4 g/dl (12.0-15.5); MEAN CORPUSCULAR HEMOGLOBIN 29.1 pg (27.0-33.0); MEAN CORPUSCULAR HGB CONC 32.8 g/dl (32.0-36.5); MEAN CORPUSCULAR VOLUME 88.5 fl (80.0-96.0); PLATELET COUNT, AUTOMATED 207 10^3/uL (150-450); RED BLOOD COUNT 4.61 10^6/uL (4.00-5.40); WHITE BLOOD COUNT 5.1 10^3/uL (4.0-10.0)
[2024-11-24 12:00] LABS: PERCENT SATURATION 16.8 % (13.2-45.0)
[2024-11-24 12:01] LABS: FERRITIN 46.1 NG/ML (7.3-270.7)
== END ==
LOC: M LAB 09:24
PROVIDERS: ATTEND Physician Assistant Medical
DX: D50.9 Iron deficiency anemia, unspecified (principal)

== ENCOUNTER 2024-11-26 11:00 | Day surgery (SDC) | payer MEDICARE, MEDICAID ==
[~2024-11-26] VITALS: Ht 157.5 cm; Wt 94.3 kg
[~2024-11-26 11:00] MED LIST changes: +DOXY-442 PO; -DOXY100C82 PO
[2024-11-26] MEDS ORDERED: LIDOCAINE 2% 100MG/5ML SDV (FOR ANES.) As Ordered ONE (12:58)
[2024-11-26] MEDS ORDERED: propofoL 200 MG/20 ML VIAL As Ordered ONE (12:58)
[2024-11-26] MEDS ORDERED: GLYCOPYRROLATE INJ 0.2 MG/ML 2 ML VIAL As Ordered ONE (13:21)
[2024-11-26 13:58] VITALS: BP 157/92; O2SAT 97
== END 2024-11-26 14:01 | disposition home or self-care (01) ==
LOC: M OPP 11:00
PROVIDERS: ATTEND Internal Medicine Gastroenterology
DX: D50.9 Iron deficiency anemia, unspecified (principal); Z86.0100 Personal history of colon polyps, unspecified; R10.84 Generalized abdominal pain; K44.9 Diaphragmatic hernia without obstruction or gangrene; E78.5 Hyperlipidemia, unspecified; E03.9 Hypothyroidism, unspecified; K21.9 Gastro-esophageal reflux disease without esophagitis; E66.9 Obesity, unspecified; M19.90 Unspecified osteoarthritis, unspecified site; F41.9 Anxiety disorder, unspecified; F31.9 Bipolar disorder, unspecified; F43.10 Post-traumatic stress disorder, unspecified; F20.9 Schizophrenia, unspecified; F90.9 Attention-deficit hyperactivity disorder, unspecified type; J45.909 Unspecified asthma, uncomplicated; J44.9 Chronic obstructive pulmonary disease, unspecified; G43.909 Migraine, unspecified, not intractable, without status migrainosus; F12.20 Cannabis dependence, uncomplicated; Z86.711 Personal history of pulmonary embolism; Z87.891 Personal history of nicotine dependence; Z88.1 Allergy status to other antibiotic agents; Z88.6 Allergy status to analgesic agent; Z88.8 Allergy status to other drugs, medicaments and biological substances; Z79.51 Long term (current) use of inhaled steroids; Z79.82 Long term (current) use of aspirin; Z79.890 Hormone replacement therapy; Z79.899 Other long term (current) drug therapy
CPT/HCPCS: 43239; 45378; 88305; J1596

== ENCOUNTER → 2024-12-02 | Outpatient (CLI) | payer MEDICARE, MEDICAID ==
[~2024-12-02] MED LIST changes: +ISOVUE-370 76% 100ML VIAL As Ordered ONE
== END ==
LOC: M RAD 08:40
PROVIDERS: ATTEND Physician Assistant Medical
DX: D50.9 Iron deficiency anemia, unspecified (principal)
CPT/HCPCS: 74177; Q9967

== ENCOUNTER → 2024-12-11 | Outpatient (CLI) | payer MEDICARE, MEDICAID ==
[~2024-12-11] MED LIST changes: +E-Z-GAS II EFFERVESCENT PACKET (SODIUM BICARB./CITRIC ACID/SIMETHICONE) As Ordered ONE; +E-Z-HD 98% w/w 340GM SUSP BTL As Ordered ONE; +E-Z-PAQUE 96% w/w SUSP 176GM BTL As Ordered ONE; -ISOVUE-370 76% 100ML VIAL As Ordered ONE
== END ==
LOC: M RAD 09:19
PROVIDERS: ATTEND Physician Assistant Medical
DX: R13.10 Dysphagia, unspecified (principal); K21.9 Gastro-esophageal reflux disease without esophagitis; K22.89 Other specified disease of esophagus

== ENCOUNTER 2024-12-23 08:59 | Emergency (ER) | payer MEDICARE, MEDICAID ==
[~2024-12-23] VITALS: Ht 154.9 cm; Wt 95.1 kg
[~2024-12-23 08:59] MED LIST changes: -E-Z-GAS II EFFERVESCENT PACKET (SODIUM BICARB./CITRIC ACID/SIMETHICONE) As Ordered ONE; -E-Z-HD 98% w/w 340GM SUSP BTL As Ordered ONE; -E-Z-PAQUE 96% w/w SUSP 176GM BTL As Ordered ONE
[2024-12-23 09:11] VITALS: TEMP 99.4; O2SAT 98
[2024-12-23 12:31] VITALS: BP 173/81
== END 2024-12-23 12:35 | disposition home or self-care (01) ==
LOC: M ED 08:59
DX: S63.501A Unspecified sprain of right wrist, initial encounter (principal); S60.042A Contusion of left ring finger without damage to nail, initial encounter; Y92.019 Unspecified place in single-family (private) house as the place of occurrence of the external cause; Y93.9 Activity, unspecified; Y99.9 Unspecified external cause status; Z88.1 Allergy status to other antibiotic agents; Z88.8 Allergy status to other drugs, medicaments and biological substances; Z79.51 Long term (current) use of inhaled steroids; Z79.1 Long term (current) use of non-steroidal anti-inflammatories (NSAID); Z79.899 Other long term (current) drug therapy

== ENCOUNTER 2025-01-08 09:56 | Emergency (ER) | payer MEDICARE, MEDICAID ==
[~2025-01-08] VITALS: Ht 154.9 cm; Wt 90.3 kg
[~2025-01-08 09:56] MED LIST changes: -LITH450T11 PO; +LITH450T17 PO
[2025-01-08 10:15] VITALS: BP 132/84; O2SAT 94
[2025-01-08 10:57] LABS: BASO % 0.2 % (0.0-1.0); EOS # 0.1 10^3/uL (0.0-0.5); EOS % 1.2 % (0.0-3.0); HEMOGLOBIN 14.1 g/dl (12.0-15.5); LYMPH # 1.2 10^3/uL (1.5-5.0); LYMPH % 28.8 % (24.0-44.0); MEAN CORPUSCULAR HEMOGLOBIN 29.4 pg (27.0-33.0); MEAN CORPUSCULAR HGB CONC 33.6 g/dl (32.0-36.5); MEAN CORPUSCULAR VOLUME 87.7 fl (80.0-96.0); MONO # 0.3 10^3/uL (0.0-0.8); MONO % 6.9 % (2.0-8.0); NEUTROPHILS # 2.5 10^3/uL (1.5-8.5); NEUTROPHILS % 62.7 % (36.0-66.0); PLATELET COUNT, AUTOMATED 156 10^3/uL (150-450); RED BLOOD COUNT 4.79 10^6/uL (4.00-5.40)
[2025-01-08 11:08] LABS: INR 0.96; PROTHROMBIN TIME 13.1 SECONDS (12.5-14.5)
[2025-01-08 11:18] LABS: LIPASE 16 U/L (12-53)
[2025-01-08 11:21] LABS: ALKALINE PHOSPHATASE 116 U/L (35-104); ALT/SGPT 34 U/L (7.0-40); AST/SGOT 23 U/L (<34); BILIRUBIN,DIRECT 0.2 MG/DL (<0.4); BILIRUBIN,TOTAL 0.5 MG/DL (0.3-1.2); CK-MB VALUE MASS < 1.0 NG/ML (<3.6); TOTAL PROTEIN 7.3 G/DL (5.7-8.2)
[2025-01-08 11:24] LABS: CPK CREATINE PHOSPHOKINASE 49 U/L (34-145); MB/CK RELATIVE INDEX 2.04 (< OR =4)
[2025-01-08 11:38] LABS: CK-MB VALUE MASS 8.8 NG/ML (<3.6)
[2025-01-08] MEDS ORDERED: ISOVUE-370 76% 100ML VIAL As Ordered ONE (11:39)
[2025-01-08 11:40] LABS: CPK CREATINE PHOSPHOKINASE 57 U/L (34-145); MB/CK RELATIVE INDEX 15.43 (< OR =4)
[2025-01-08 11:49] LABS: BLOOD UREA NITROGEN 19 MG/DL (9-23); CALCIUM LEVEL 8.4 MG/DL (8.5-10.1); CARBON DIOXIDE LEVEL 34 MMOL/L (20-31); CHLORIDE LEVEL 91 MMOL/L (98-107); GLOMERULAR FILTRATION RATE > 90.0 (>51); GLUCOSE, FASTING 92 MG/DL (60-100); POTASSIUM SERUM 5.6 MMOL/L (3.5-5.1); SODIUM LEVEL 129 MMOL/L (136-145)
[2025-01-08] MEDS: PATIROMER SORBITEX CALCIUM 8.4 GM POWDER PACKET (VELTASSA) PO ONE (15:48)
[2025-01-08 16:13] VITALS: TEMP 98.3
== END 2025-01-08 16:20 | disposition home or self-care (01) ==
LOC: M ED 09:56
DX: R07.89 Other chest pain (principal); E87.5 Hyperkalemia; R16.1 Splenomegaly, not elsewhere classified; R00.0 Tachycardia, unspecified; J44.9 Chronic obstructive pulmonary disease, unspecified; D50.9 Iron deficiency anemia, unspecified; I10 Essential (primary) hypertension; K21.9 Gastro-esophageal reflux disease without esophagitis; E78.5 Hyperlipidemia, unspecified; Z87.891 Personal history of nicotine dependence; Z88.1 Allergy status to other antibiotic agents; Z88.8 Allergy status to other drugs, medicaments and biological substances; Z79.51 Long term (current) use of inhaled steroids; Z79.1 Long term (current) use of non-steroidal anti-inflammatories (NSAID); Z79.899 Other long term (current) drug therapy
CPT/HCPCS: 36415; 71045; 71275; 74176; 80047; 80048; 80076; 82550; 82553; 83690; 84484; 85025; 85610; 93005; 93041; 94760; 99284; Q9967

== ENCOUNTER 2025-03-19 17:39 | Inpatient (IN) | payer MEDICARE, MEDICAID ==
[~2025-03-19] VITALS: Ht 154.9 cm; Wt 88.6 kg
[~2025-03-19 17:39] MED LIST changes: +ARIP400S IM; +DIVA-41 PO; +DIVA1TAB48 PO; -DIVA500T94 PO; +FLUO-96 PO; -LEVO175T2; +PANT40TA29 PO; +PRAZ1CAP PO
[2025-03-19 18:16] LABS: BASO # 0.0 10^3/uL (0.0-0.2); BASO % 0.2 % (0.0-1.0); EOS # 0.1 10^3/uL (0.0-0.5); EOS % 0.6 % (0.0-3.0); LYMPH # 1.3 10^3/uL (1.5-5.0); LYMPH % 13.3 % (24.0-44.0); MONO # 0.3 10^3/uL (0.0-0.8); MONO % 2.6 % (2.0-8.0); NEUTROPHILS # 8.4 10^3/uL (1.5-8.5); NEUTROPHILS % 82.8 % (36.0-66.0); PLATELET COUNT, AUTOMATED 226 10^3/uL (150-450)
[2025-03-19 18:27] LABS: INR 0.92
[2025-03-19] MEDS: NS (Normal Saline) 0.9% 2,560 ML in IV 1 EA IV ONE (18:49)
[2025-03-19] MEDS: cefTRIAXone SOD 2 GM in DEXTROSE 5% (D5W) ADV/MINI-BAG 50 ML IV ONE (18:49)
[2025-03-19 18:51] LABS: CPK CREATINE PHOSPHOKINASE 56 U/L (34-145)
[2025-03-19 19:01] LABS: ALT/SGPT 12 U/L (7.0-40); AST/SGOT 24 U/L (<34); CALCIUM LEVEL 9.0 MG/DL (8.5-10.1); CARBON DIOXIDE LEVEL 25 MMOL/L (20-31); CHLORIDE LEVEL 105 MMOL/L (98-107); CK-MB VALUE MASS 1.1 NG/ML (<3.6); CREATININE FOR GFR 0.62 MG/DL (0.55-1.30); FREE T4 1.51 NG/DL (0.89-1.76); GLOMERULAR FILTRATION RATE > 90.0 (>51); MB/CK RELATIVE INDEX 1.96 (< OR =4); POTASSIUM SERUM 2.7 MMOL/L (3.5-5.1); SODIUM LEVEL 144 MMOL/L (136-145)
[2025-03-19] MEDS: IPRATROPIUM 0.5 MG/ALBUTEROL 2.5 MG INH SOL UD 3 ML NEB PRN (19:19)
[2025-03-19] MEDS: POTASSIUM CHLORIDE 10MEQ SR TABLET PO ONE (19:20)
[2025-03-19] MEDS: KCL 10MEQ/100ML SWI (KRUN) 10 MEQ in IV 1 EA IV ONE (19:20)
[2025-03-19 19:39] LABS: CK-MB VALUE MASS < 1.0 NG/ML (<3.6)
[2025-03-19 19:41] LABS: CPK CREATINE PHOSPHOKINASE 57 U/L (34-145)
[2025-03-19] MEDS ORDERED: ISOVUE-370 76% 100 ML VIAL As Ordered ONE (19:56)
[2025-03-19] MEDS: ONDANSETRON 4MG 2ML VIAL IV ONE (21:34)
[2025-03-19] MEDS: MORPHINE 4 MG/ML 1 ML VIAL IV PRN (21:34)
[2025-03-19 23:39] LABS: VENOUS BASE EXCESS -3.7 (-2.0-2.0); VENOUS HCO3 21.5 MMOL/L (23.0-27.0); VENOUS O2 SATURATION 85.2 % (60.0-80.0); VENOUS PARTIAL PRESSURE CO2 39.4 mmHg (38.0-50.0); VENOUS PARTIAL PRESSURE O2 51.6 mmHg (30.0-50.0); VENOUS PH 7.355 UNITS (7.330-7.430); VENOUS STANDARD HCO3 21.2 MMOL/L; VENOUS TOTAL CO2 22.7 MMOL/L (24.0-28.0)
[2025-03-20] VITALS (24 sets, daily range): BP systolic 124–155; BP diastolic 69–78; PULSE 92; TEMP 97.7–97.8; O2SAT 82–95
[2025-03-20 00:08] LABS: CALCIUM LEVEL 8.1 MG/DL (8.5-10.1); CARBON DIOXIDE LEVEL 23 MMOL/L (20-31); CHLORIDE LEVEL 109 MMOL/L (98-107); CREATININE FOR GFR 0.55 MG/DL (0.55-1.30); GLOMERULAR FILTRATION RATE > 90.0 (>51); MAGNESIUM LEVEL 1.6 MG/DL (1.8-2.4); POTASSIUM SERUM 3.2 MMOL/L (3.5-5.1); SODIUM LEVEL 144 MMOL/L (136-145)
[2025-03-20] MEDS ORDERED: NICOTINE 14 MG/24 HR TRANSDERMAL TD PRN (00:25)
[2025-03-20] MEDS ORDERED: LEVALBUTEROL 1.25 MG 0.5ML CONCENTRATE NEB INH PRN (00:25)
[2025-03-20] MEDS: IPRATROPIUM 0.5 MG/ALBUTEROL 2.5 MG INH SOL UD 3 ML INH SCH (02:12)
[2025-03-20] MEDS: LR 1,000 ML IV ONE (03:26)
[2025-03-20] MEDS: DOXYCYCLINE HYCLATE 100 MG in DEXTROSE 5% (D5W) MINI-BAG PLU 100 ML IV SCH (03:29)
[2025-03-20] MEDS: MAG SULF 1GM/100ML (MAG RUN) 1 GM in IV 1 EA IV ONE (03:30)
[2025-03-20] MEDS ORDERED: CLON0.5T17 PO (03:59)
[2025-03-20] MEDS ORDERED: HOME MED LIST COMPLETE! XX SCH (04:05)
[2025-03-20] MEDS: TIOTROPIUM BROM 2.5MCG/ACTUATION 4GM INH INH SCH (07:34)
[2025-03-20] MEDS: SYMBICORT 160/4.5MCG INHALER 6GM INH SCH (07:35)
[2025-03-20 07:41] LABS: CALCIUM LEVEL 8.7 MG/DL (8.5-10.1); CARBON DIOXIDE LEVEL 23 MMOL/L (20-31); CHLORIDE LEVEL 110 MMOL/L (98-107); CREATININE FOR GFR 0.47 MG/DL (0.55-1.30); GLOMERULAR FILTRATION RATE > 90.0 (>51); MAGNESIUM LEVEL 2.0 MG/DL (1.8-2.4); POTASSIUM SERUM 3.7 MMOL/L (3.5-5.1); SODIUM LEVEL 144 MMOL/L (136-145)
[2025-03-20] MEDS: ENOXAPARIN 40 MG/0.4 ML SYRINGE (J1650 PER 10MG) SC SCH (08:29)
[2025-03-20] MEDS: DIVALPROEX 125 MG TAB PO SCH (08:29)
[2025-03-20] MEDS: FLUoxetine 20 MG CAP PO SCH (08:30)
[2025-03-20] MEDS: BENZTROPINE 1 MG TAB PO SCH (08:30)
[2025-03-20] MEDS: GABAPENTIN 300 MG CAP PO SCH (08:30)
[2025-03-20] MEDS: FAMOTIDINE 20 MG TAB PO SCH (08:30)
[2025-03-20] MEDS: LEVOTHYROXINE 100 MCG TABLET (0.1 MG) PO SCH (08:31)
[2025-03-20] MEDS: ATORVASTATIN 20 MG TAB PO SCH (08:31)
[2025-03-20] MEDS: DOCUSATE SODIUM 100 MG CAPSULE PO SCH (08:31)
[2025-03-20] MEDS: PANTOPRAZOLE 40MG TAB PO SCH (08:31)
[2025-03-20] MEDS: LEVOTHYROXINE 75 MCG TABLET (0.075 MG) PO SCH (08:31)
[2025-03-20] MEDS ORDERED: DEXTROMETHORPHAN 60 MG/10 ML SUSP 90 ML BTL PO PRN (08:35)
[2025-03-20] MEDS: ACETAMINOPHEN 325 MG TAB PO PRN (08:37)
[2025-03-20] MEDS: FUROSEMIDE 40 MG/4 ML VIAL IV STA (10:25)
[2025-03-20] MEDS: guaiFENesin ER TABLET 600 MG TAB PO SCH (10:26)
[2025-03-20] MEDS: clonazePAM 0.5 MG TAB PO ONE (14:02)
[2025-03-20] MEDS: LIDOCAINE 5% PATCH TD ONE (16:06)
[2025-03-20 17:41] LABS: ABG BASE EXCESS 0.2 (-2.0-2.0); ABG HCO3 23.8 MMOL/L (22.0-26.0); ABG O2 SATURATION 90.7 % (95.0-99.0); ABG PARTIAL PRESSURE CO2 34.9 mmHg (35.0-45.0); ABG PARTIAL PRESSURE O2 56.1 mmHg (75.0-100.0); ABG STANDARD HCO3 24.6 MMOL/L. (22.0-26.0); ABG TOTAL CO2 24.8 MMOL/L (22.0-29.0); ABG pH (ARTERIAL) 7.451 UNITS (7.350-7.450)
[2025-03-20] MEDS: cefTRIAXone SOD 1 GM in DEXTROSE 5% (D5W) ADV/MINI-BAG 50 ML IV SCH (18:13)
[2025-03-20] MEDS: GLYCOPYRROLATE INJ 0.2 MG/ML 2 ML VIAL NEB SCH (19:01)
[2025-03-20] MEDS: BUDESONIDE 0.5 MG/2 ML INHALATION SUSPENSION NEB SCH (19:01)
[2025-03-20] MEDS: POTASSIUM CHLORIDE 10MEQ SR TABLET PO ONE (20:26)
[2025-03-20] MEDS: PRAZOSIN 1 MG CAP PO SCH (20:28)
[2025-03-20] MEDS: FUROSEMIDE 40 MG/4 ML VIAL IV ONE (20:52)
[2025-03-20] MEDS ORDERED: PRAZOSIN 1 MG CAP PO SCH (21:00)
[2025-03-21] VITALS (26 sets, daily range): BP systolic 109–152; BP diastolic 60–84; TEMP 97–98.4; O2SAT 90–99
[2025-03-21] MEDS: FUROSEMIDE 40 MG/4 ML VIAL IV ONE (02:25)
[2025-03-21 03:22] LABS: ABG BASE EXCESS 3.0 (-2.0-2.0); ABG HCO3 27.3 MMOL/L (22.0-26.0); ABG O2 SATURATION 98.3 % (95.0-99.0); ABG PARTIAL PRESSURE CO2 40.5 mmHg (35.0-45.0); ABG PARTIAL PRESSURE O2 111.1 mmHg (75.0-100.0); ABG STANDARD HCO3 27.2 MMOL/L. (22.0-26.0); ABG TOTAL CO2 28.5 MMOL/L (22.0-29.0); ABG pH (ARTERIAL) 7.446 UNITS (7.350-7.450)
[2025-03-21 03:33] LABS: VENOUS BASE EXCESS 1.7 (-2.0-2.0); VENOUS HCO3 25.6 MMOL/L (23.0-27.0); VENOUS O2 SATURATION 99.1 % (60.0-80.0); VENOUS PARTIAL PRESSURE CO2 37.6 mmHg (38.0-50.0); VENOUS PARTIAL PRESSURE O2 150.8 mmHg (30.0-50.0); VENOUS PH 7.451 UNITS (7.330-7.430); VENOUS STANDARD HCO3 26.1 MMOL/L; VENOUS TOTAL CO2 26.8 MMOL/L (24.0-28.0)
[2025-03-21 04:03] LABS: CARBON DIOXIDE LEVEL 26 MMOL/L (20-31); CHLORIDE LEVEL 106 MMOL/L (98-107); CREATININE FOR GFR 0.56 MG/DL (0.55-1.30); GLOMERULAR FILTRATION RATE > 90.0 (>51); MAGNESIUM LEVEL 1.7 MG/DL (1.8-2.4); POTASSIUM SERUM 4.0 MMOL/L (3.5-5.1); SODIUM LEVEL 143 MMOL/L (136-145)
[2025-03-21 04:33] LABS: CALCIUM LEVEL 9.4 MG/DL (8.5-10.1)
[2025-03-21 06:13] LABS: PLATELET COUNT, AUTOMATED 228 10^3/uL (150-450)
[2025-03-21 06:52] LABS: ALT/SGPT 11 U/L (7.0-40); AST/SGOT 28 U/L (<34); CALCIUM LEVEL 9.8 MG/DL (8.5-10.1); CARBON DIOXIDE LEVEL 26 MMOL/L (20-31); CHLORIDE LEVEL 104 MMOL/L (98-107); CREATININE FOR GFR 0.62 MG/DL (0.55-1.30); GLOMERULAR FILTRATION RATE > 90.0 (>51); MAGNESIUM LEVEL 1.7 MG/DL (1.8-2.4); POTASSIUM SERUM 4.1 MMOL/L (3.5-5.1); SODIUM LEVEL 145 MMOL/L (136-145)
[2025-03-21] MEDS: LIDOCAINE 5% PATCH TD SCH (08:57)
[2025-03-21] MEDS: clonazePAM 0.5 MG TAB PO SCH (08:58)
[2025-03-21] MEDS: DOXYCYCLINE HYCLATE 100 MG TABLET PO SCH (08:59)
[2025-03-21] MEDS: MAGNESIUM OXIDE 400 MG TAB PO SCH (08:59)
[2025-03-21] MEDS ORDERED: MORPHINE 2 MG/ML 1 ML VIAL IV PRN (11:30)
[2025-03-21] MEDS: MORPHINE 2 MG/ML 1 ML VIAL IV PRN (11:43)
[2025-03-22] VITALS (26 sets, daily range): BP systolic 124–169; BP diastolic 66–79; TEMP 97.4–98.2; O2SAT 86–98
[2025-03-22 06:10] LABS: BASO # 0.0 10^3/uL (0.0-0.2); BASO % 0.1 % (0.0-1.0); EOS # 0.0 10^3/uL (0.0-0.5); EOS % 0.0 % (0.0-3.0); LYMPH # 0.9 10^3/uL (1.5-5.0); LYMPH % 8.3 % (24.0-44.0); MONO # 0.3 10^3/uL (0.0-0.8); MONO % 2.9 % (2.0-8.0); NEUTROPHILS # 8.9 10^3/uL (1.5-8.5); NEUTROPHILS % 87.6 % (36.0-66.0); PLATELET COUNT, AUTOMATED 229 10^3/uL (150-450)
[2025-03-22 06:34] LABS: CALCIUM LEVEL 9.6 MG/DL (8.5-10.1); CARBON DIOXIDE LEVEL 30 MMOL/L (20-31); CHLORIDE LEVEL 103 MMOL/L (98-107); CREATININE FOR GFR 0.57 MG/DL (0.55-1.30); GLOMERULAR FILTRATION RATE > 90.0 (>51); MAGNESIUM LEVEL 1.9 MG/DL (1.8-2.4); POTASSIUM SERUM 4.6 MMOL/L (3.5-5.1); SODIUM LEVEL 144 MMOL/L (136-145)
[2025-03-22] MEDS ORDERED: BISACODYL 10 MG SUPP PR PRN (08:10)
[2025-03-22] MEDS: SENNOSIDES/DOCUSATE SODIUM 8.6 MG/50MG TAB PO SCH (10:10)
[2025-03-22] MEDS: FUROSEMIDE 20 MG/2 ML VIAL IV SCH (12:08)
[2025-03-23] VITALS (21 sets, daily range): BP systolic 120–141; BP diastolic 65–74; TEMP 96.2–97.9; O2SAT 86–99
[2025-03-23 06:49] LABS: BASO # 0.0 10^3/uL (0.0-0.2); BASO % 0.2 % (0.0-1.0); EOS # 0.0 10^3/uL (0.0-0.5); EOS % 0.0 % (0.0-3.0); LYMPH # 1.2 10^3/uL (1.5-5.0); LYMPH % 13.0 % (24.0-44.0); MONO # 0.4 10^3/uL (0.0-0.8); MONO % 4.3 % (2.0-8.0); NEUTROPHILS # 7.3 10^3/uL (1.5-8.5); NEUTROPHILS % 81.1 % (36.0-66.0); PLATELET COUNT, AUTOMATED 226 10^3/uL (150-450)
[2025-03-23 07:17] LABS: CALCIUM LEVEL 9.6 MG/DL (8.5-10.1); CARBON DIOXIDE LEVEL 29 MMOL/L (20-31); CHLORIDE LEVEL 102 MMOL/L (98-107); CREATININE FOR GFR 0.55 MG/DL (0.55-1.30); GLOMERULAR FILTRATION RATE > 90.0 (>51); MAGNESIUM LEVEL 2.0 MG/DL (1.8-2.4); POTASSIUM SERUM 4.5 MMOL/L (3.5-5.1); SODIUM LEVEL 144 MMOL/L (136-145)
[2025-03-23] MEDS: PERCOCET 5MG/325MG TAB PO PRN (11:45)
[2025-03-23] MEDS: FUROSEMIDE 40 MG/4 ML VIAL IV ONE (17:46)
[2025-03-24] VITALS (37 sets, daily range): BP systolic 119–141; BP diastolic 69–80; TEMP 96.7–97.6; O2SAT 85–97
[2025-03-24 07:03] LABS: BASO # 0.0 10^3/uL (0.0-0.2); BASO % 0.2 % (0.0-1.0); EOS # 0.0 10^3/uL (0.0-0.5); EOS % 0.0 % (0.0-3.0); LYMPH # 0.7 10^3/uL (1.5-5.0); LYMPH % 11.1 % (24.0-44.0); MONO # 0.2 10^3/uL (0.0-0.8); MONO % 3.2 % (2.0-8.0); NEUTROPHILS # 5.2 10^3/uL (1.5-8.5); NEUTROPHILS % 83.9 % (36.0-66.0); PLATELET COUNT, AUTOMATED 241 10^3/uL (150-450)
[2025-03-24 07:32] LABS: CALCIUM LEVEL 9.5 MG/DL (8.5-10.1); CARBON DIOXIDE LEVEL 31 MMOL/L (20-31); CHLORIDE LEVEL 98 MMOL/L (98-107); CREATININE FOR GFR 0.50 MG/DL (0.55-1.30); GLOMERULAR FILTRATION RATE > 90.0 (>51); MAGNESIUM LEVEL 2.2 MG/DL (1.8-2.4); POTASSIUM SERUM 4.4 MMOL/L (3.5-5.1); SODIUM LEVEL 143 MMOL/L (136-145)
[2025-03-24 08:48] LABS: CK-MB VALUE MASS 1.1 NG/ML (<3.6); CPK CREATINE PHOSPHOKINASE 18 U/L (34-145); MB/CK RELATIVE INDEX 6.11 (< OR =4)
[2025-03-24] MEDS: FUROSEMIDE 40 MG/4 ML VIAL IV ONE (09:44)
[2025-03-24] MEDS: MOM 30 ML SUSPENSION UDC PO PRN (09:47)
[2025-03-24] MEDS: FUROSEMIDE 40 MG/4 ML VIAL IV SCH (13:30)
[2025-03-24] MEDS: CEFDINIR 300 MG CAP PO SCH (21:05)
[2025-03-25] VITALS (36 sets, daily range): BP systolic 118–159; BP diastolic 66–79; TEMP 97–98.1; O2SAT 87–99
[2025-03-25 07:59] LABS: BASO # 0.0 10^3/uL (0.0-0.2); BASO % 0.2 % (0.0-1.0); EOS # 0.0 10^3/uL (0.0-0.5); EOS % 0.0 % (0.0-3.0); LYMPH # 1.1 10^3/uL (1.5-5.0); LYMPH % 11.5 % (24.0-44.0); MONO # 0.5 10^3/uL (0.0-0.8); MONO % 4.7 % (2.0-8.0); NEUTROPHILS # 7.9 10^3/uL (1.5-8.5); NEUTROPHILS % 81.0 % (36.0-66.0); PLATELET COUNT, AUTOMATED 284 10^3/uL (150-450)
[2025-03-25 08:29] LABS: CALCIUM LEVEL 9.5 MG/DL (8.5-10.1); CARBON DIOXIDE LEVEL 36 MMOL/L (20-31); CHLORIDE LEVEL 92 MMOL/L (98-107); CREATININE FOR GFR 0.54 MG/DL (0.55-1.30); GLOMERULAR FILTRATION RATE > 90.0 (>51); MAGNESIUM LEVEL 2.6 MG/DL (1.8-2.4); POTASSIUM SERUM 4.3 MMOL/L (3.5-5.1); SODIUM LEVEL 139 MMOL/L (136-145)
[2025-03-25 22:40] LABS: MYCOPLASMA PNEUMONIAE IGG <= 0.90 (<=0.90); MYCOPLASMA PNEUMONIAE IGM 176.0 U/mL (<770)
[2025-03-26] VITALS (34 sets, daily range): BP systolic 125–157; BP diastolic 74–91; TEMP 96.6–97.4; O2SAT 92–99
[2025-03-26] MEDS: MAALOX 30 ML SUSP *UDC PO PRN (02:47)
[2025-03-26 05:12] LABS: BASO # 0.0 10^3/uL (0.0-0.2); BASO % 0.3 % (0.0-1.0); EOS # 0.0 10^3/uL (0.0-0.5); EOS % 0.0 % (0.0-3.0); LYMPH # 1.0 10^3/uL (1.5-5.0); LYMPH % 11.1 % (24.0-44.0); MONO # 0.4 10^3/uL (0.0-0.8); MONO % 4.7 % (2.0-8.0); NEUTROPHILS # 7.5 10^3/uL (1.5-8.5); NEUTROPHILS % 80.4 % (36.0-66.0); PLATELET COUNT, AUTOMATED 277 10^3/uL (150-450)
[2025-03-26 05:21] LABS: CALCIUM LEVEL 9.4 MG/DL (8.5-10.1); CARBON DIOXIDE LEVEL 35 MMOL/L (20-31); CHLORIDE LEVEL 90 MMOL/L (98-107); CREATININE FOR GFR 0.63 MG/DL (0.55-1.30); GLOMERULAR FILTRATION RATE > 90.0 (>51); MAGNESIUM LEVEL 2.4 MG/DL (1.8-2.4); POTASSIUM SERUM 4.0 MMOL/L (3.5-5.1); SODIUM LEVEL 138 MMOL/L (136-145)
[2025-03-26] MEDS: NYSTATIN 500,000 UNITS/5 ML SUSP UDC SS SCH (12:17)
[2025-03-26] MEDS: FLUCONAZOLE 100 MG TAB PO ONE (12:17)
[2025-03-27] VITALS (33 sets, daily range): BP systolic 131–154; BP diastolic 79–95; TEMP 96.9–97.4; O2SAT 91–99
[2025-03-27 06:04] LABS: PLATELET COUNT, AUTOMATED 296 10^3/uL (150-450)
[2025-03-27 06:29] LABS: CALCIUM LEVEL 9.6 MG/DL (8.5-10.1); CARBON DIOXIDE LEVEL 37 MMOL/L (20-31); CHLORIDE LEVEL 87 MMOL/L (98-107); CREATININE FOR GFR 0.66 MG/DL (0.55-1.30); GLOMERULAR FILTRATION RATE > 90.0 (>51); MAGNESIUM LEVEL 2.5 MG/DL (1.8-2.4); POTASSIUM SERUM 4.0 MMOL/L (3.5-5.1); SODIUM LEVEL 137 MMOL/L (136-145)
[2025-03-27 06:30] LABS: ATYPICAL LYMPH 1 % (0-5); LYMPHOCYTES 13 % (16-44); METAMYELOCYTES 1 % (0-0); MONOCYTES 6 % (0-5); MYELOCYTES 1 % (0-0); NEUTROPHILS 78 % (28-66)
[2025-03-27 06:31] LABS: PLATELET ESTIMATE NORMAL (NORMAL)
[2025-03-27] MEDS: BACTRIM 160MG/800MG DS TAB PO SCH (12:33)
[2025-03-27] MEDS: FUROSEMIDE 40 MG/4 ML VIAL IV SCH (17:37)
[2025-03-28] VITALS (30 sets, daily range): BP systolic 131–153; BP diastolic 71–91; TEMP 96.8–98.6; O2SAT 88–98
[2025-03-28 06:06] LABS: BASO # 0.0 10^3/uL (0.0-0.2); BASO % 0.4 % (0.0-1.0); EOS # 0.0 10^3/uL (0.0-0.5); EOS % 0.0 % (0.0-3.0); LYMPH # 1.1 10^3/uL (1.5-5.0); LYMPH % 10.4 % (24.0-44.0); MONO # 0.5 10^3/uL (0.0-0.8); MONO % 4.3 % (2.0-8.0); NEUTROPHILS # 8.3 10^3/uL (1.5-8.5); NEUTROPHILS % 79.1 % (36.0-66.0); PLATELET COUNT, AUTOMATED 269 10^3/uL (150-450)
[2025-03-28 06:14] LABS: CALCIUM LEVEL 9.5 MG/DL (8.5-10.1); CARBON DIOXIDE LEVEL 36 MMOL/L (20-31); CHLORIDE LEVEL 85 MMOL/L (98-107); CREATININE FOR GFR 0.70 MG/DL (0.55-1.30); GLOMERULAR FILTRATION RATE > 90.0 (>51); MAGNESIUM LEVEL 2.5 MG/DL (1.8-2.4); POTASSIUM SERUM 3.8 MMOL/L (3.5-5.1); SODIUM LEVEL 135 MMOL/L (136-145)
[2025-03-28] MEDS: MORPHINE 2 MG/ML 1 ML VIAL IV ONE (09:07)
[2025-03-28 09:56] LABS: CK-MB VALUE MASS < 1.0 NG/ML (<3.6)
[2025-03-28 09:58] LABS: CPK CREATINE PHOSPHOKINASE 26 U/L (34-145)
[2025-03-28] MEDS: MORPHINE 2 MG/ML 1 ML VIAL IV PRN (19:01)
[2025-03-28] MEDS: LIDOCAINE 5% PATCH TD SCH (21:09)
[2025-03-29] VITALS (19 sets, daily range): BP systolic 125–152; BP diastolic 70–92; TEMP 96.6–97.9; O2SAT 85–98
[2025-03-29 13:27] LABS: RNP ANTIBODY <1.0 NEG AI (<1.0 NEG)
[2025-03-29] MEDS: ARIPiprazole MONOHYDRATE 400 MG INJ (FREE PSY INPT ONLY) IM ONE (16:45)
[2025-03-30] VITALS (19 sets, daily range): BP systolic 130–144; BP diastolic 75–79; TEMP 97–98.3; O2SAT 87–98
[2025-03-30] MEDS: THROMBIN 5,000 UNITS VIAL As Ordered ONE (11:24)
[2025-03-30] MEDS: EPINEPHrine 1 MG/10 ML SYRINGE 1.5IN As Ordered ONE (11:24)
[2025-03-30] MEDS ORDERED: MIDAZOLAM INJ 2 MG/2 ML VIAL As Ordered ONE (11:26)
[2025-03-30] MEDS ORDERED: SUGAMMADEX SODIUM 500 MG/5 ML VIAL As Ordered ONE (11:26)
[2025-03-30] MEDS ORDERED: ACETAMINOPHEN 1000MG/100ML IV BAG As Ordered ONE (11:26)
[2025-03-30] MEDS ORDERED: ROCURONIUM BROMIDE 50MG/5ML VIAL As Ordered ONE (11:27)
[2025-03-30] MEDS ORDERED: ONDANSETRON 4MG 2ML VIAL As Ordered ONE (11:27)
[2025-03-30] MEDS ORDERED: dexAMETHasone 4 MG/ML 1 ML VIAL As Ordered ONE (11:27)
[2025-03-30] MEDS ORDERED: LIDOCAINE 2% 100 MG/5 ML SDV (FOR ANES.) As Ordered ONE (11:27)
[2025-03-30] MEDS: CETACAINE SPRAY 5 GM As Ordered ONE (12:00)
[2025-03-30] MEDS ORDERED: ONDANSETRON 4MG 2ML VIAL IV PRN (12:15)
[2025-03-30] MEDS ORDERED: HYDROMORPHONE HCL 0.5 MG/0.5 ML SYRINGE IV PRN (12:15)
[2025-03-31] VITALS (8 sets, daily range): BP systolic 137–147; BP diastolic 71–83; TEMP 97.1–97.3; O2SAT 86–95
[2025-03-31] MEDS ORDERED: NICO14PA TD (11:47)
[2025-03-31] MEDS ORDERED: BACTDSTA PO (11:47)
[2025-03-31] MEDS ORDERED: PRED20TA PO (11:47)
[2025-03-31] MEDS ORDERED: VENTAER INH (11:48)
[2025-03-31] MEDS ORDERED: EASY-106 XX (11:51)
[2025-03-31] MEDS ORDERED: ALBU2.5V10 NEB (11:51)
[2025-03-31] MEDS ORDERED: NYST-38 SS (12:09)
[2025-03-31] MEDS ORDERED: LASI20TA3 PO (14:49)
[2025-04-01 03:27] LABS: Antimyeloperxidase(MPO) Abs < 1.0 AI (<1.0)
[2025-04-01] MEDS ORDERED: predniSONE 20 MG TAB PO SCH (09:00)
== END 2025-03-31 14:52 | disposition home or self-care (01) | DRG 196 ==
LOC: M ED 17:39 → EDBD 17:39 → M ED INP 23:39 → M PCU 03-20 01:04
PROVIDERS: ADMIT Family Medicine; ATTEND Family Medicine
PROC: B246ZZZ Ultrasonography of Right and Left Heart (ICD-10-PCS; 2025-03-22)
PROC: 0B9C8ZX Drainage of Right Upper Lung Lobe, Via Natural or Artificial Opening Endoscopic, Diagnostic (ICD-10-PCS; principal; 2025-03-30 12:00)
DX: J84.116 Cryptogenic organizing pneumonia (principal); J96.01 Acute respiratory failure with hypoxia; J81.0 Acute pulmonary edema; I50.31 Acute diastolic (congestive) heart failure; J44.1 Chronic obstructive pulmonary disease with (acute) exacerbation; J44.0 Chronic obstructive pulmonary disease with (acute) lower respiratory infection; R45.851 Suicidal ideations; E87.20 Acidosis, unspecified; B37.0 Candidal stomatitis; J45.901 Unspecified asthma with (acute) exacerbation; E87.3 Alkalosis; E87.6 Hypokalemia; E88.01 Alpha-1-antitrypsin deficiency; E88.810 Metabolic syndrome; K21.9 Gastro-esophageal reflux disease without esophagitis; M54.9 Dorsalgia, unspecified; G89.29 Other chronic pain; G47.00 Insomnia, unspecified; D64.9 Anemia, unspecified; E83.42 Hypomagnesemia; E06.3 Autoimmune thyroiditis; F31.9 Bipolar disorder, unspecified; F41.1 Generalized anxiety disorder; E78.5 Hyperlipidemia, unspecified; I11.0 Hypertensive heart disease with heart failure; E66.9 Obesity, unspecified; Z90.49 Acquired absence of other specified parts of digestive tract; Z90.79 Acquired absence of other genital organ(s); Z87.891 Personal history of nicotine dependence; Z79.890 Hormone replacement therapy; Z79.899 Other long term (current) drug therapy; Z88.1 Allergy status to other antibiotic agents; Z88.8 Allergy status to other drugs, medicaments and biological substances

== ENCOUNTER → 2025-04-08 | Outpatient (REF) | payer MEDICARE, MEDICAID ==
[~2025-04-08] MED LIST changes: +ALBU2.5V10 NEB; +BACTDSTA PO; +EASY-106 XX; +LASI20TA3 PO; +NICO14PA TD; +NYST-38 SS
[2025-04-08 18:32] LABS: C REACTIVE PROTEIN QUANTITATIV < 0.50 MG/DL (<1.0); RHEUMATOID FACTOR QUANT < 3.5 IU/ML (<14)
== END ==
LOC: M LAB REF 11:38
PROVIDERS: ATTEND Internal Medicine Pulmonary Disease
DX: R91.8 Other nonspecific abnormal finding of lung field (principal)

== ENCOUNTER → 2025-04-30 | Outpatient (CLI) | payer MEDICARE, MEDICAID ==
[~2025-04-30] MED LIST changes: -PROZ20CA11 PO; +PROZ20CA12 PO
[2025-04-30 10:28] LABS: ALT/SGPT 31 U/L (7.0-40); AST/SGOT 20 U/L (<34); IRON (FE) 50 UG/DL (50-170); PERCENT SATURATION 17.2 % (13.2-45.0)
[2025-04-30 11:02] LABS: HEPATITIS C VIRUS ABY INDEX < 0.02 INDEX (<0.8)
[2025-05-03 09:41] LABS: CERULOPLASMIN 21.0 mg/dL (14-48)
== END ==
LOC: M LAB 08:57
PROVIDERS: ATTEND Physician Assistant Medical
DX: R16.0 Hepatomegaly, not elsewhere classified (principal); K76.0 Fatty (change of) liver, not elsewhere classified; R23.3 Spontaneous ecchymoses

== ENCOUNTER → 2025-04-30 | Outpatient (REF) | payer MEDICARE, MEDICAID ==
[2025-04-30 17:04] LABS: BASO # 0.0 10^3/uL (0.0-0.2); BASO % 0.6 % (0.0-1.0); EOS # 0.0 10^3/uL (0.0-0.5); EOS % 0.2 % (0.0-3.0); LYMPH # 0.9 10^3/uL (1.5-5.0); LYMPH % 14.0 % (24.0-44.0); MONO # 0.2 10^3/uL (0.0-0.8); MONO % 3.3 % (2.0-8.0); NEUTROPHILS # 4.9 10^3/uL (1.5-8.5); NEUTROPHILS % 77.1 % (36.0-66.0); PLATELET COUNT, AUTOMATED 206 10^3/uL (150-450)
== END ==
LOC: M LAB REF 16:17
PROVIDERS: ATTEND Family Medicine Addiction Medicine
DX: R23.3 Spontaneous ecchymoses (principal)

== ENCOUNTER → 2025-05-10 | Outpatient (CLI) | payer MEDICARE, MEDICAID | LOC: M PLAIMG 07:46 | PROVIDERS: ATTEND Internal Medicine Pulmonary Disease | DX: R91.8 Other nonspecific abnormal finding of lung field (principal) ==

== ENCOUNTER 2025-06-06 13:25 | Inpatient (IN) | payer MEDICARE, MEDICAID ==
[~2025-06-06] VITALS: Ht 154.9 cm; Wt 91.0 kg
[2025-06-06] MEDS: NICOTINE 14 MG/24 HR TRANSDERMAL TD SCH (09:00)
[2025-06-06 13:44] LABS: BASO # 0.0 10^3/uL (0.0-0.2); BASO % 0.3 % (0.0-1.0); EOS # 0.1 10^3/uL (0.0-0.5); EOS % 2.2 % (0.0-3.0); LYMPH # 2.4 10^3/uL (1.5-5.0); LYMPH % 36.8 % (24.0-44.0); MONO # 0.6 10^3/uL (0.0-0.8); MONO % 9.2 % (2.0-8.0); NEUTROPHILS # 3.2 10^3/uL (1.5-8.5); NEUTROPHILS % 50.4 % (36.0-66.0); PLATELET COUNT, AUTOMATED 218 10^3/uL (150-450)
[2025-06-06 13:57] LABS: INR 0.86
[2025-06-06] MEDS: MORPHINE 4 MG/ML 1 ML VIAL IV PRN ×3 (14:04→20:41)
[2025-06-06 14:29] LABS: ALT/SGPT 27 U/L (7.0-40); AST/SGOT 22 U/L (<34); CALCIUM LEVEL 9.6 MG/DL (8.5-10.1); CARBON DIOXIDE LEVEL 24 MMOL/L (20-31); CHLORIDE LEVEL 107 MMOL/L (98-107); CK-MB VALUE MASS 1.1 NG/ML (<3.6); CREATININE FOR GFR 0.63 MG/DL (0.55-1.30); GLOMERULAR FILTRATION RATE > 90.0 (>51); POTASSIUM SERUM 4.3 MMOL/L (3.5-5.1); SODIUM LEVEL 142 MMOL/L (136-145)
[2025-06-06 14:31] LABS: FREE T4 1.65 NG/DL (0.89-1.76)
[2025-06-06 14:33] LABS: CPK CREATINE PHOSPHOKINASE 52 U/L (34-145); MB/CK RELATIVE INDEX 2.11 (< OR =4)
[2025-06-06 15:04] LABS: CK-MB VALUE MASS 1.1 NG/ML (<3.6)
[2025-06-06 15:13] LABS: CPK CREATINE PHOSPHOKINASE 55 U/L (34-145); MB/CK RELATIVE INDEX 2.00 (< OR =4)
[2025-06-06] MEDS ORDERED: ISOVUE-370 76% 100 ML VIAL As Ordered ONE (15:24)
[2025-06-06] MEDS: NITROGLYCERIN 2% OINT 1 GM *U/D* PKT TOP ONE ×2 (16:30→17:03)
[2025-06-06 20:15] LABS: C REACTIVE PROTEIN QUANTITATIV < 0.50 MG/DL (<1.0)
[2025-06-06] MEDS ORDERED: MAALOX 30 ML SUSP *UDC PO PRN (21:05)
[2025-06-06] MEDS ORDERED: MOM 30 ML SUSPENSION UDC PO PRN (21:05)
[2025-06-06] MEDS ORDERED: GLUCAGON INJ 1 MG VIAL SC PRN (21:15)
[2025-06-06] MEDS ORDERED: DEXTROSE 50% 50 ML SYRINGE IV PRN (21:15)
[2025-06-06] MEDS ORDERED: GLUCOSE 4 GM CHEW PO PRN (21:15)
[2025-06-06] MEDS: LevoFLOXacin IV 750 MG in IV 1 EA IV SCH (22:50)
[2025-06-07] MEDS: NS (Normal Saline) 0.9% 1,000 ML IV SCH (01:03)
[2025-06-07] MEDS: ACETAMINOPHEN 325 MG TAB PO PRN (01:07)
[2025-06-07] MEDS: IPRATROPIUM 0.5 MG/ALBUTEROL 2.5 MG INH SOL UD 3 ML NEB SCH (02:19)
[2025-06-07 04:42] VITALS: BP 135/80; TEMP 97.8; O2SAT 93
[2025-06-07 07:28] LABS: PLATELET COUNT, AUTOMATED 197 10^3/uL (150-450)
[2025-06-07] MEDS: SYMBICORT 160/4.5MCG INHALER 6GM INH SCH (07:41)
[2025-06-07 07:54] LABS: CALCIUM LEVEL 9.2 MG/DL (8.5-10.1); CARBON DIOXIDE LEVEL 23 MMOL/L (20-31); CHLORIDE LEVEL 105 MMOL/L (98-107); CREATININE FOR GFR 0.60 MG/DL (0.55-1.30); GLOMERULAR FILTRATION RATE > 90.0 (>51); MAGNESIUM LEVEL 1.8 MG/DL (1.8-2.4); POTASSIUM SERUM 4.4 MMOL/L (3.5-5.1); SODIUM LEVEL 137 MMOL/L (136-145)
[2025-06-07] MEDS: DOCUSATE SODIUM 100 MG CAPSULE PO SCH (08:30)
[2025-06-07] MEDS: PANTOPRAZOLE 40MG VIAL IV SCH (08:30)
[2025-06-07] MEDS: HEPARIN SOD 5000 UNITS/ML 1 ML VIAL/SYRINGE SC SCH (08:30)
[2025-06-07] MEDS: INSULIN LISPRO (NovoLOG) PER UNIT SC SCH (08:31)
[2025-06-07] MEDS ORDERED: MELA10CA6 PO (09:12)
[2025-06-07] MEDS ORDERED: NICO14DI6 TOP (09:12)
[2025-06-07] MEDS ORDERED: COLA100C5 PO (09:12)
[2025-06-07] MEDS ORDERED: ALB2.5NEB NEB (09:12)
[2025-06-07] MEDS ORDERED: PRED20TA PO (09:12)
[2025-06-07] MEDS ORDERED: FURO20TA2 PO (09:12)
[2025-06-07] MEDS ORDERED: HOME MED LIST COMPLETE! XX SCH (09:15)
[2025-06-07] MEDS ORDERED: KETOROLAC 30 MG/ML 1 ML VIAL IV PRN (09:40)
[2025-06-07] MEDS ORDERED: ALBUTEROL 90 MCG/ACT 8 GM HFA INHALER INH PRN (10:45)
[2025-06-07] MEDS: IBUPROFEN 400 MG TAB PO PRN (11:08)
[2025-06-07 12:00] VITALS: BP 138/73; TEMP 98.4; O2SAT 99
[2025-06-07] MEDS: MORPHINE 4 MG/ML 1 ML VIAL IV ONE (12:13)
[2025-06-07] MEDS: BENZTROPINE 1 MG TAB PO SCH (12:15)
[2025-06-07] MEDS: ATORVASTATIN 20 MG TAB PO SCH (12:15)
[2025-06-07] MEDS: DIVALPROEX 125 MG TAB PO SCH (12:16)
[2025-06-07] MEDS: FLUoxetine 20 MG CAP PO SCH (12:16)
[2025-06-07 12:44] LABS: CK-MB VALUE MASS 1.4 NG/ML (<3.6)
[2025-06-07 12:46] LABS: CPK CREATINE PHOSPHOKINASE 38 U/L (34-145); MB/CK RELATIVE INDEX 3.68 (< OR =4)
[2025-06-07 13:52] LABS: CK-MB VALUE MASS 1.4 NG/ML (<3.6)
[2025-06-07 13:57] LABS: CPK CREATINE PHOSPHOKINASE 39 U/L (34-145); MB/CK RELATIVE INDEX 3.58 (< OR =4)
[2025-06-07] MEDS: LEVOTHYROXINE 75 MCG TABLET (0.075 MG) PO SCH (14:10)
[2025-06-07] MEDS: FUROSEMIDE 20 MG TAB PO SCH (14:11)
[2025-06-07] MEDS: LEVOTHYROXINE 100 MCG TABLET (0.1 MG) PO SCH (14:11)
[2025-06-07] MEDS: LIDOCAINE 5% PATCH TD SCH (14:12)
[2025-06-07] MEDS: PANTOPRAZOLE 40MG TAB PO SCH (14:13)
[2025-06-07] MEDS: clonazePAM 0.5 MG TAB PO SCH (14:15)
[2025-06-07] MEDS: TIOTROPIUM BROM 2.5MCG/ACTUATION 4GM INH INH SCH (14:24)
[2025-06-07] MEDS: GABAPENTIN 100 MG CAP PO SCH (16:07)
[2025-06-07] MEDS: ADVAIR HFA 230/21 MCG INHALER INH SCH (19:24)
[2025-06-07 19:50] VITALS: BP 116/58; TEMP 97.9; O2SAT 95
[2025-06-07] MEDS: PRAZOSIN 1 MG CAP PO SCH (20:23)
[2025-06-07] MEDS: FAMOTIDINE 20 MG TAB PO SCH (20:23)
[2025-06-07] MEDS: RAMELTEON 8 MG TAB PO SCH (20:23)
[2025-06-08 04:01] VITALS: BP 116/56; TEMP 97.2; O2SAT 97
[2025-06-08] MEDS: predniSONE 20 MG TAB PO SCH (08:39)
[2025-06-08 08:52] LABS: BASO # 0.0 10^3/uL (0.0-0.2); BASO % 0.2 % (0.0-1.0); EOS # 0.0 10^3/uL (0.0-0.5); EOS % 0.2 % (0.0-3.0); LYMPH # 1.5 10^3/uL (1.5-5.0); LYMPH % 27.2 % (24.0-44.0); MONO # 0.3 10^3/uL (0.0-0.8); MONO % 5.2 % (2.0-8.0); NEUTROPHILS # 3.6 10^3/uL (1.5-8.5); NEUTROPHILS % 66.5 % (36.0-66.0); PLATELET COUNT, AUTOMATED 167 10^3/uL (150-450)
[2025-06-08 09:17] LABS: CALCIUM LEVEL 8.9 MG/DL (8.5-10.1); CARBON DIOXIDE LEVEL 23 MMOL/L (20-31); CHLORIDE LEVEL 105 MMOL/L (98-107); CREATININE FOR GFR 0.76 MG/DL (0.55-1.30); FREE T4 1.53 NG/DL (0.89-1.76); GLOMERULAR FILTRATION RATE > 90.0 (>51); POTASSIUM SERUM 3.7 MMOL/L (3.5-5.1); SODIUM LEVEL 137 MMOL/L (136-145)
[2025-06-08] MEDS ORDERED: CYCLOBENZAPRINE 5 MG TABLET PO PRN (10:25)
[2025-06-08 12:00] VITALS: BP 112/66; TEMP 97.6; O2SAT 94
[2025-06-08] MEDS: CYCLOBENZAPRINE 5 MG TABLET PO SCH (12:07)
[2025-06-08 19:28] VITALS: BP 133/69; TEMP 97.1; O2SAT 98
[2025-06-08] MEDS: CYCLOBENZAPRINE 5 MG TABLET PO PRN (20:12)
[2025-06-09 03:50] VITALS: BP 138/65; TEMP 97.9; O2SAT 100
[2025-06-09] MEDS: LEVOTHYROXINE 50 MCG TABLET (0.05 MG) PO SCH (06:09)
[2025-06-09 07:58] LABS: BASO # 0.0 10^3/uL (0.0-0.2); BASO % 0.4 % (0.0-1.0); EOS # 0.0 10^3/uL (0.0-0.5); EOS % 0.2 % (0.0-3.0); LYMPH # 1.4 10^3/uL (1.5-5.0); LYMPH % 26.3 % (24.0-44.0); MONO # 0.4 10^3/uL (0.0-0.8); MONO % 7.8 % (2.0-8.0); NEUTROPHILS # 3.4 10^3/uL (1.5-8.5); NEUTROPHILS % 64.2 % (36.0-66.0); PLATELET COUNT, AUTOMATED 188 10^3/uL (150-450)
[2025-06-09 08:21] LABS: CALCIUM LEVEL 9.2 MG/DL (8.5-10.1); CARBON DIOXIDE LEVEL 26 MMOL/L (20-31); CHLORIDE LEVEL 104 MMOL/L (98-107); CREATININE FOR GFR 0.72 MG/DL (0.55-1.30); GLOMERULAR FILTRATION RATE > 90.0 (>51); POTASSIUM SERUM 3.9 MMOL/L (3.5-5.1); SODIUM LEVEL 136 MMOL/L (136-145)
[2025-06-09 09:10] VITALS: BP 138/78
[2025-06-09] MEDS: FLUZONE VACCINE TRI PF(25-26) 0.5ML SYRINGE IM.IMMUN ONE (10:26)
[2025-06-09] MEDS: PNEUMOC 21-VAL CONJ-DIP CRM/PF 0.5 ML SYRINGE IM.IMMUN ONE (10:29)
[2025-06-09] MEDS ORDERED: CYCL5TAB4 PO (10:47)
[2025-06-09] MEDS ORDERED: LEVO75TAB PO (11:08)
[2025-06-09] MEDS ORDERED: LEVO150T7 PO (11:08)
[2025-06-10 15:18] LABS: FUNGITELL, SERUM < 31 pg/mL (<60)
== END 2025-06-09 12:32 | disposition home health service (06) | DRG 313 ==
LOC: EDBD 13:25 → M ED 13:25 → M ED INP 13:26 → M MS4PR 06-07 04:50 → OBSVTOIN 06-07 17:24
PROVIDERS: ADMIT Student in an Organized Health Care Education/Training Program; ATTEND Internal Medicine
PROC: B246ZZZ Ultrasonography of Right and Left Heart (ICD-10-PCS; principal; 2025-06-08)
DX: R07.89 Other chest pain (principal); J18.9 Pneumonia, unspecified organism; J44.0 Chronic obstructive pulmonary disease with (acute) lower respiratory infection; E88.01 Alpha-1-antitrypsin deficiency; G89.29 Other chronic pain; M54.9 Dorsalgia, unspecified; K57.90 Diverticulosis of intestine, part unspecified, without perforation or abscess without bleeding; E06.3 Autoimmune thyroiditis; R91.8 Other nonspecific abnormal finding of lung field; E03.9 Hypothyroidism, unspecified; F31.9 Bipolar disorder, unspecified; K21.9 Gastro-esophageal reflux disease without esophagitis; F41.9 Anxiety disorder, unspecified; E78.5 Hyperlipidemia, unspecified; I10 Essential (primary) hypertension; E66.9 Obesity, unspecified; E88.810 Metabolic syndrome; F25.9 Schizoaffective disorder, unspecified; Z90.49 Acquired absence of other specified parts of digestive tract; E11.9 Type 2 diabetes mellitus without complications; Z79.890 Hormone replacement therapy; Z79.1 Long term (current) use of non-steroidal anti-inflammatories (NSAID); Z79.899 Other long term (current) drug therapy; Z88.1 Allergy status to other antibiotic agents; Z88.8 Allergy status to other drugs, medicaments and biological substances; Z87.891 Personal history of nicotine dependence

== ENCOUNTER → 2025-06-10 | Outpatient (CLI) | payer MEDICARE, MEDICAID ==
[~2025-06-10] MED LIST changes: +ALB2.5NEB NEB; +CYCL5TAB4 PO; +FURO20TA2 PO; +LEVO75TAB PO; +MELA10CA6 PO; +NICO14DI6 TOP
== END ==
LOC: M PLARAD 07:47
PROVIDERS: ATTEND Physician Assistant
DX: M17.12 Unilateral primary osteoarthritis, left knee (principal); M71.22 Synovial cyst of popliteal space [Baker], left knee

== ENCOUNTER 2025-07-02 18:14 | Emergency (ER) | payer MEDICARE, MEDICAID ==
[~2025-07-02] VITALS: Ht 154.9 cm; Wt 91.4 kg
[2025-07-02 20:37] LABS: BASO # 0.0 10^3/uL (0.0-0.2); BASO % 0.3 % (0.0-1.0); EOS # 0.2 10^3/uL (0.0-0.5); EOS % 3.7 % (0.0-3.0); LYMPH # 1.9 10^3/uL (1.5-5.0); LYMPH % 31.2 % (24.0-44.0); MONO # 0.5 10^3/uL (0.0-0.8); MONO % 8.5 % (2.0-8.0); NEUTROPHILS # 3.3 10^3/uL (1.5-8.5); NEUTROPHILS % 54.6 % (36.0-66.0); PLATELET COUNT, AUTOMATED 263 10^3/uL (150-450)
[2025-07-02 20:58] LABS: C REACTIVE PROTEIN QUANTITATIV < 0.50 MG/DL (<1.0); CALCIUM LEVEL 9.6 MG/DL (8.5-10.1); CARBON DIOXIDE LEVEL 22 MMOL/L (20-31); CHLORIDE LEVEL 108 MMOL/L (98-107); CREATININE FOR GFR 0.64 MG/DL (0.55-1.30); GLOMERULAR FILTRATION RATE > 90.0 (>51); POTASSIUM SERUM 4.1 MMOL/L (3.5-5.1); SODIUM LEVEL 143 MMOL/L (136-145)
[2025-07-02 21:00] LABS: ERYTHROCYTE SEDIMENTATION RATE 36 mm/hr (0-30)
[2025-07-02] MEDS: KETOROLAC 30 MG/ML 1 ML VIAL IV ONE (21:55)
[2025-07-02] MEDS: ONDANSETRON 4MG 2ML VIAL IV ONE (21:55)
[2025-07-02] MEDS ORDERED: ELIQ5TAB PO (23:24)
[2025-07-02 23:26] VITALS: BP 153/93; TEMP 98.2; O2SAT 96
== END 2025-07-02 23:36 | disposition home or self-care (01) ==
LOC: M ED 18:14
DX: I82.611 Acute embolism and thrombosis of superficial veins of right upper extremity (principal); I10 Essential (primary) hypertension; Z79.51 Long term (current) use of inhaled steroids; Z79.01 Long term (current) use of anticoagulants; Z79.899 Other long term (current) drug therapy; Z79.52 Long term (current) use of systemic steroids
CPT/HCPCS: 80048; 83605; 84145; 85025; 85652; 86140; 87040; 93971; 96374; 99284; J1885; J2405

== ENCOUNTER → 2025-07-12 | Outpatient (REF) | payer MEDICARE, MEDICAID ==
[~2025-07-12] MED LIST changes: +ELIQ5TAB PO
== END ==
LOC: M LAB REF 17:24
PROVIDERS: ATTEND Internal Medicine Pulmonary Disease
DX: R91.8 Other nonspecific abnormal finding of lung field (principal)

== ENCOUNTER → 2025-08-02 | Outpatient (CLI) | payer MEDICARE, MEDICAID | LOC: M RAD 08:28 | PROVIDERS: ATTEND Internal Medicine Pulmonary Disease | DX: R91.8 Other nonspecific abnormal finding of lung field (principal) ==

== ENCOUNTER → 2025-08-11 | Outpatient (CLI) | payer MEDICARE, MEDICAID ==
[~2025-08-11] MED LIST changes: -BACTDSTA PO; -PROZ20CA12 PO; +PROZ20CA25 PO; +SULF-8 PO
== END ==
LOC: M PLAIMG 06:35
PROVIDERS: ATTEND Physician Assistant
DX: M65.4 Radial styloid tenosynovitis [de Quervain] (principal)

== ENCOUNTER 2025-08-30 13:10 | Emergency (ER) | payer MEDICARE, MEDICAID ==
[~2025-08-30] VITALS: Ht 154.9 cm; Wt 99.7 kg
[~2025-08-30 13:10] MED LIST changes: -PERC5TAB12 PO
[2025-08-30] MEDS: ONDANSETRON 4MG ORAL DISINTEGRATING TAB PO ONE (15:09)
[2025-08-30] MEDS: PERCOCET 5MG/325MG TAB PO ONE (15:09)
[2025-08-30] MEDS ORDERED: PERC5TAB12 PO (15:13)
[2025-08-30 15:15] VITALS: BP 150/78; O2SAT 97
[2025-08-30 15:29] VITALS: TEMP 98.7
== END 2025-08-30 15:31 | disposition home or self-care (01) ==
LOC: M ED 13:10
DX: S93.401A Sprain of unspecified ligament of right ankle, initial encounter (principal); Y92.481 Parking lot as the place of occurrence of the external cause; Y93.9 Activity, unspecified; Y99.9 Unspecified external cause status; W01.0XXA Fall on same level from slipping, tripping and stumbling without subsequent striking against object, initial encounter; J44.9 Chronic obstructive pulmonary disease, unspecified; K21.9 Gastro-esophageal reflux disease without esophagitis; F41.9 Anxiety disorder, unspecified; E61.1 Iron deficiency; E78.5 Hyperlipidemia, unspecified; Z86.711 Personal history of pulmonary embolism; Z88.8 Allergy status to other drugs, medicaments and biological substances; Z79.51 Long term (current) use of inhaled steroids; Z79.01 Long term (current) use of anticoagulants; Z79.899 Other long term (current) drug therapy; Z79.52 Long term (current) use of systemic steroids

== ENCOUNTER → 2025-08-30 | Outpatient (REF) | payer MEDICARE, MEDICAID ==
[~2025-08-30] MED LIST changes: +PERC5TAB12 PO; +RISP-39 PO; -RISP3TAB20 PO
[2025-08-30 13:35] LABS: CHOLESTEROL LEVEL 166.0 MG/DL (<200); CHOLESTEROL RISK RATIO 3.33 (<5); IRON (FE) 106.0 UG/DL (50-170); LDL CHOLESTEROL 81.8 MG/DL (<100); NON-HDL-C 116.2 MG/DL; TRIGLYCERIDES LEVEL 172.0 MG/DL (<150)
== END ==
LOC: M LAB REF 12:27
PROVIDERS: ATTEND Family Medicine Addiction Medicine
DX: E61.1 Iron deficiency (principal); E78.5 Hyperlipidemia, unspecified

== ENCOUNTER 2025-09-13 18:48 | Emergency (ER) | payer MEDICARE, MEDICAID ==
[~2025-09-13] VITALS: Ht 154.9 cm; Wt 98.5 kg
[~2025-09-13 18:48] MED LIST changes: +PERC5TAB12 PO
[2025-09-13 20:10] LABS: KETONE, URINE AUTO RFX NEGATIVE (NEGATIVE); LEUKOCYTE ESTERASE UR AUTO RFX NEGATIVE (NEGATIVE); NITRITE, URINE AUTO RFX NEGATIVE (NEGATIVE); RBC, URINE AUTO RFX 6 /HPF (0-3); SQUAM EPITHELIAL CELL UR AURFX 1 /HPF (0-6); WBC, URINE AUTO RFX 0 /HPF (0-3)
[2025-09-13 20:13] LABS: BASO # 0.0 10^3/uL (0.0-0.2); BASO % 0.3 % (0.0-1.0); EOS # 0.0 10^3/uL (0.0-0.5); EOS % 0.0 % (0.0-3.0); LYMPH # 1.1 10^3/uL (1.5-5.0); LYMPH % 15.2 % (24.0-44.0); MONO # 0.3 10^3/uL (0.0-0.8); MONO % 4.3 % (2.0-8.0); NEUTROPHILS # 5.8 10^3/uL (1.5-8.5); NEUTROPHILS % 79.1 % (36.0-66.0); PLATELET COUNT, AUTOMATED 261 10^3/uL (150-450)
[2025-09-13 20:31] LABS: CALCIUM LEVEL 9.5 MG/DL (8.5-10.1); CARBON DIOXIDE LEVEL 24 MMOL/L (20-31); CHLORIDE LEVEL 108 MMOL/L (98-107); CREATININE FOR GFR 0.67 MG/DL (0.55-1.30); GLOMERULAR FILTRATION RATE > 90.0 (>51); POTASSIUM SERUM 4.2 MMOL/L (3.5-5.1); SODIUM LEVEL 142 MMOL/L (136-145)
[2025-09-13] MEDS: NS (Normal Saline) 0.9% 1,000 ML IV ONE (23:07)
[2025-09-13] MEDS: ACETAMINOPHEN *IV* 1,000 MG in IV 1 EA IV ONE (23:11)
[2025-09-13] MEDS: KETOROLAC 30 MG/ML 1 ML VIAL IV ONE (23:11)
[2025-09-13] MEDS: ONDANSETRON 4MG/2ML VIAL IV ONE (23:11)
[2025-09-14] MEDS: MORPHINE 4 MG/ML 1 ML VIAL IV ONE (00:27)
[2025-09-14] MEDS ORDERED: ONDA-282 PO (00:45)
[2025-09-14] MEDS ORDERED: LIDO1ADH93 TD (00:46)
[2025-09-14] MEDS: LIDOCAINE 5% PATCH TD ONE (01:08)
[2025-09-14] MEDS: OXYCODONE/APAP 5MG/325MG(HOME DOSE PACK) PO ONE (01:09)
[2025-09-14 01:18] VITALS: BP 178/85; TEMP 98.5; O2SAT 97
== END 2025-09-14 01:21 | disposition home or self-care (01) ==
LOC: M ED 18:48
DX: R10.A1 Flank pain, right side (principal); R91.1 Solitary pulmonary nodule; K21.9 Gastro-esophageal reflux disease without esophagitis; E03.9 Hypothyroidism, unspecified; E78.5 Hyperlipidemia, unspecified; F41.9 Anxiety disorder, unspecified; F25.9 Schizoaffective disorder, unspecified; Z79.51 Long term (current) use of inhaled steroids; Z79.01 Long term (current) use of anticoagulants; Z79.899 Other long term (current) drug therapy; Z79.52 Long term (current) use of systemic steroids
CPT/HCPCS: 74176; 80048; 81001; 85025; 96374; 96375; 99284; J0134; J1885; J2405